=== PATIENT | female | born 1960 | race Hispanic/Latino ===

== ENCOUNTER 2017-02-01 06:08 | Day surgery (SDC) | payer MEDICARE, MEDICAID ==
[2017-01-31 15:30] VITALS: BMI 35.9
--- NOTE | 2017-02-01 07:17 | CP.SDSHP ---
Same Day Surgery H & P - History Proposed Procedure: Left foot- platlet rich plasma and amniotic stm cell injection Pre-Op Diagnosis: Left foot metatarsalgia and lateral ankle ligamentous low grade injury - Previous Medical/Surgical History Cardiac: Hypertension Pulmonary: Emphysema/COPD Pain: 5. Previous Surgical History: Left peroneal primary repair Right buninectomy, Laparoscopic procedure of abdomen, Tubual Ligation - Allergies Allergies: Allergies No Known Allergies Allergy (Verified 03/21/15 16:59) - Physical Exam Vital Signs: Vital Signs 02/01/17 02/01/17 06:31 06:36 Temperature 97.9 F Pulse Rate 70 70 Respiratory 20 Rate Blood Pressure 142/82 O2 Sat by Pulse 97 Oximetry Mental Status: Alert & Oriented x3 Neuro: WNL Heart: WNL Lungs: Other (Decreased breath sounds, no wheezing, or ronchi) - {Optional Preform as Required} Integument: WNL Ortho: Other (Left foot tenderness of 3rd digit to palpation and ROM. Laxity nof 3rd digit noted at level of MTPJ. Lateral ankle pain in inversion and stress end point dorsiflexion and plantarflexion) - Impression Impression: Pt was seen and examined in SDS. Pt NPO status was confirmed. All Pre-op testing and clearance was in the chart. Pt has exhausted all conservative treatment at this time and is opting for surgical intervention. Pt was explained procedure and post-operative course. All pt's questions were answered to satisfaction. No guarantees were made. Pt understands all risks, benefits and complications of procedure. Pt will follow-up with Dr. Sparrow. Pt. Evaluated Today:Candidate for Anesthesia & Procedure: Yes - Date & Time Date: 02/01/17 Time: 07:00 Short Stay Discharge - Short Stay Discharge Admitting Diagnosis/Reason for Visit: M79.2 R60.0 M77.52 M79.672 Disposition: HOME/ ROUTINE Referrals: Maurice Up MD [Primary Care Provider] - Jl Sparrow DPM [Staff Provider] - Follow-up: Within 1 week. Additional Instructions (Diet, Activity): Patient in good/stable condition for discharge home. Pt to resume medications per medical reconciliation. Resume regular diet. Please keep dressing clean, dry, & intact to surgical site, use plastic bag over bandage for showering, wear post op shoe at all times when ambulating, call clinic if you see signs of infection (redness, swelling, malodor), please make an appointment to see Dr. Sparrow in office within 1 week for post-op check. Progress Note/Discharge Note with Instructions: - Patient evaluated bedside in recovery s/p surgical procedure. - After surgical procedure patient in NAD - (+) Void, (+) Appetite - Capillary refill time <3s and NVSI intact. - Patient denies complaints at this time - Post operative instructions and plan of care explained to patient at length. - Pt. acknowledges understanding. - Patient stable for DC per podiatric surgery
[2017-02-01] MEDS: Lidocaine 1% Inj (20ml) ONE ×2 (08:30→08:32)
[2017-02-01] MEDS: Bupivacaine 0.5% Inj(30mL) ONE ×2 (08:30→08:32)
--- NOTE | 2017-02-01 09:08 | PCM.SURG1 ---
Surgeon's Initial Post Op Note - Surgeon's Notes Surgeon: Dr. Jl Sparrow DPM [employer] Pump Tender: Dr. Jadiel Yuen, PGY1 Type of Anesthesia: Local Anesthesia Administered By: Dr. Kyara DPM Pre-Operative Diagnosis: Left foot lateral ankle pain Operative Findings: See dictation Post-Operative Diagnosis: peroneal tendon partial ruptures and adhesions Operation Performed: Left peroneal radiofrequency ablation with amniotic biomaterial injection. Specimen/Specimens Removed: none Estimated Blood Loss: EBL {In ML}: 0 Blood Products Given: N/A Drains Used: No Drains Post-Op Condition: Good Date of Surgery/Procedure: 02/01/17 Time of Surgery/Procedure: 09:08
[2017-02-01 09:16] VITALS: BP 164/83; PULSE 88; RESP 18; TEMP 98.4; O2SAT 95
--- NOTE | 2017-02-02 19:40 | OP ---
PROCEDURE DATE: 02/01/2017 PRIMARY SURGEON: Dr. Jl Sparrow. HANDLE FINISHER: Jadiel Yuen, PGY-1. ANESTHESIA: Local block. ANESTHESIOLOGIST: None. PREOPERATIVE DIAGNOSES: Left peroneal tendon partial longitudinal ruptures with intermediate dorsal cutaneous nerve neuritis. POSTOPERATIVE DIAGNOSES: Left peroneal tendon partial longitudinal ruptures with intermediate dorsal cutaneous nerve neuritis. PROCEDURES: 1. Radiofrequency nerve ablation with thermoneurolysis of left foot. 2. Amniotic biological graft injection. INDICATIONS: The patient is a 56-year-old female with the above mentioned diagnoses. The patient has exhausted all conservative treatment options and now is in need of surgical intervention. The patient signed a consent after careful explanation of risks, benefits, complications and alternatives for the post-surgical procedure. No guarantees were neither given nor implied. PREPARATION: The patient was brought to the operating room and placed on the operating room table in a supine position. Attention was then directed to the left foot where a total of 6 mL of 0.5% Marcaine plain was injected in a local block type fashion to the surgical area. Adequate anesthesia check was performed to confirm that anesthetic had taken effect. Then the patient's left foot was then prepped and draped in the usual sterile manner and the procedure began. PROCEDURE #1: Three points were marked along the lateral course of the peroneal tendons beginning retro-malleolarly and terminating at the bifurcation of the peroneus longus and brevis tendons on the lateral aspect of the foot. Three 22-gauge radiofrequency needles were then inserted percutaneously over the marked points for the target tissue with impedance ranging from 500-600 ohms on the machine. Brilliant were used to palpate the targeted tissue and was slightly pulled back. At this time, the radiofrequency electrodes were inserted in the radiofrequency needle. Power of the radiofrequency machine was then gradually increased for the motor stimulation mode. The foot was then monitored for any signs of fasciculations of the forefoot. Once we were assured that the branch of the medial dorsal cutaneous nerve and lateral plantar nerve were identified radiofrequency unit was set to lesioning mode and lesioning of the nerve was performed for a total of 60 seconds at 90 degrees Celsius. This procedure was repeated for another 2 points along the distal course of the peroneal tendons in the same manner as noted above. PROCEDURE #2: At this time, a total of 100 mg of Amniovo Stem Cell parcipitate in 3 mL suspension, was injected along the course of the peroneal tendons beginning retro-malleolarly and terminating plantar distally, just proximal to the fifth metatarsal styloid process. The surgical site was then cleansed and dressed with 4 x 4 gauze, calf padding and Coban. POSTOPERATIVE CONDITION: The patient tolerated the anesthesia and the procedure well and was transported to the recovery room with vital signs stable and neurovascular status intact to the left foot. The patient will follow up with Dr. Sparrow on an outpatient basis. Jadiel Yuen DPM Jl Sparrow DPM cc: [id number] TT: 02/02/2017 19:39:33 trent PICHARDO
== END 2017-02-01 10:15 | disposition home or self-care (01) ==
LOC: H.OPSURG 06:08
PROVIDERS: ATTEND Podiatrist Foot & Ankle Surgery
DX: M79.2 Neuralgia and neuritis, unspecified (principal); R60.0 Localized edema; M77.52 Other enthesopathy of left foot and ankle; M79.672 Pain in left foot; I10 Essential (primary) hypertension; J44.9 Chronic obstructive pulmonary disease, unspecified
CPT/HCPCS: 64640; 82948; C1762; J1885

== ENCOUNTER 2017-04-22 15:02 | Emergency (ER) | payer MEDICARE, MEDICAID ==
[2017-04-22 15:03] VITALS: BMI 35.9
[2017-04-22 15:13] VITALS: TEMP 98.2
[2017-04-22] MEDS ORDERED: Albuterol-Ipratrop 3 mg / 0.5 (3 ml) UD INH STA (15:52)
[2017-04-22 16:02] LABS: BASO # 0.1 K/uL (0.0-0.2); EOS # 0.3 K/uL (0.0-0.7); EOS % 4.6 % (0.0-4.0); HEMATOCRIT 41.4 % (34.0-47.0); LYMPH # 2.4 K/uL (1.0-4.3); LYMPH % 42.8 % (20.0-40.0); MEAN CELL VOLUME 97.7 fl (81.0-99.0); MEAN CORPUSCULAR HEMOGLOBIN 33.1 pg (27.0-31.0); MEAN CORPUSCULAR HGB CONC 33.8 g/dL (33.0-37.0); MEAN PLATELET VOLUME 9.6 fl (7.2-11.7); MONO # 0.5 K/uL (0.0-0.8); MONO % 9.5 % (0.0-10.0); NEUT # 2.3 K/uL (1.8-7.0); NEUT % 41.1 % (50.0-75.0); NRBC % 0.2 % (0.0-0.0); RED CELL DISTRIBUTION WIDTH 14.3 % (11.5-14.5); WHITE BLOOD COUNT 5.5 K/uL (4.8-10.8)
[2017-04-22 16:18] LABS: BLOOD UREA NITROGEN 11 mg/dl (7-17); CALCIUM 9.2 mg/dL (8.4-10.2); CARBON DIOXIDE 21 mmol/L (22-30); CHLORIDE 110 mmol/L (98-107); GFR AFRICAN-AMERICAN > 60; GLUCOSE,RANDOM 106 mg/dL (65-105); POTASSIUM 4.1 MMOL/L (3.6-5.0); SODIUM 140 mmol/l (132-148)
[2017-04-22 16:51] LABS: PARTIAL THROMBOPLASTIN TIME 39.8 Seconds (25.6-37.1)
[2017-04-22] MEDS ORDERED: Iodixanol 320 MG/ML 100 ML BOTTLE IV ONE ×3 (18:08→18:38)
[2017-04-22] MEDS ORDERED: Sodium Chloride 0.9% 100 ML ONE (18:09)
[2017-04-22] MEDS ORDERED: Sodium Chloride 0.9% 50 ML IV ONE ×2 (18:27→18:39)
--- NOTE | 2017-04-22 19:27 | ED PDOC ---
HPI: SOB/CHF/COPD Time Seen by Provider: 04/22/17 15:27 Chief Complaint (Nursing): Shortness Of Breath Chief Complaint (Provider): Back Pain and Shortness of Breath History Per: Patient History/Exam Limitations: no limitations Additional Complaint(s): Caron Del Rosario, a 56 year old female, who has a past medical history of COPD, chronic back pain, arthritis and pulmonary embolism presents to the ED complaining of back pain and shortness of breath which she has been experiencing for the past couple weeks. The patient states that the pain is in both her shoulders and radiates down her back on both sides. She states that she took oxycotin for the pain with no relief. The patient states that she has chronic back pain for which she takes oxycotin. Additionally, the patient states she also has chronic shortness of breath due to COPD. She states that her shortness of breath has gotten worse over the past week. Patient states she also has a cough but that is chronic. Denies chest pain, leg swelling and fever. PMD: Dr. Charles Past Medical History Reviewed: Historical Data, Nursing Documentation, Vital Signs Vital Signs: Last Vital Signs Temp 98.2 F 04/22/17 15:11 Pulse 69 04/22/17 19:38 Resp 16 04/22/17 19:38 BP 102/50 L 04/22/17 19:38 Pulse Ox 95 04/22/17 20:33 - Medical History PMH: Anxiety, Arthritis, Asthma, Back Problems (Chronic back pain), Bronchitis, CAD, COPD (currently takin xarelto), Depression, Diabetes, Deep Vein Thrombosis , HTN, Hypercholesterolemia, Pneumonia, Pulmonary Embolism, Rheumatoid Arthritis Denies: HIV, Chronic Kidney Disease - Surgical History Surgical History: Coronary Stent (06/2013), Endoscopy, Tonsillectomy - Family History Family History: States: Stroke - Immunization History Hx Tetanus Toxoid Vaccination: No Hx Influenza Vaccination: Yes Hx Pneumococcal Vaccination: No - Home Medications Home Medications: Ambulatory Orders Medication Instructions Recorded Omeprazole 40 mg PO DAILY 01/08/15 ALPRAZolam [Xanax] 1 mg PO QID #0 tab 02/16/15 Aripiprazole [Abilify] 10 mg PO DAILY #0 tab 02/16/15 Ergocalciferol [Vitamin D] 50,000 unit PO QWK #0 sgl 02/16/15 Escitalopram [Lexapro] 20 mg PO DAILY #0 tab 02/16/15 Folic Acid 1 mg PO DAILY #0 tab 02/16/15 Furosemide [Lasix] 40 mg PO DAILY #0 tab 02/16/15 Lovastatin 10 mg PO DAILY #0 tab 02/16/15 Aspirin [Aspirin EC] 81 mg PO DAILY 03/21/15 Albuterol Sulfate [Proair Hfa] 2 puff IH Q4H PRN 07/06/15 Albuterol/Ipratropium [Duoneb 3 3 ml IH DAILY 07/06/15 mg/0.5 mg (3 ml) UD] Mometasone/Formoterol [Dulera 200 2 puff INH DAILY 07/06/15 Mcg/5 Mcg Inhaler] Montelukast [Singulair] 10 mg PO HS 07/06/15 Metformin Hydrochloride [Metformin] 1,000 mg PO DAILY 11/25/15 Topiramate [Topamax] 25 mg PO DAILY 11/25/15 Potassium Chloride [K-Dur 20 mEq 20 meq PO DAILY 12/23/15 ER Tab] traZODone [Desyrel] 200 mg PO HS 12/23/15 Topiramate [Topamax] 50 mg PO HS 09/11/16 Zolpidem Tartrate [Ambien] 10 mg PO HS 09/11/16 oxyCODONE [oxyCODONE Immediate 15 mg PO QID PRN 09/11/16 Release Tab] Morphine [Morphine Extended 30 mg PO BID #14 tabsr 09/13/16 Release Tab] Nystatin [Nystatin Oral Susp] 5 ml PO QID #480 udc 09/13/16 Rivaroxaban [Xarelto] 20 mg PO DAILY tab 09/13/16 predniSONE [predniSONE Tab] 5 mg PO DAILY #63 tab 09/13/16 Gabapentin [Neurontin] 400 mg PO TID 02/01/17 traMADol [Ultram] 50 mg PO TID PRN #12 tab 04/22/17 - Allergies Allergies/Adverse Reactions: Allergies Allergy/AdvReac Type Severity Reaction Status Date / Time No Known Allergies Allergy Verified 04/22/17 15:08 Review of Systems ROS Statement: Except As Marked, All Systems Reviewed And Found Negative Constitutional: Negative for: Fever Cardiovascular: Negative for: Chest Pain Respiratory: Positive for: Cough, Shortness of Breath Musculoskeletal: Positive for: Back Pain Physical Exam - Reviewed Nursing Documentation Reviewed: Yes Vital Signs Reviewed: Yes - Physical Exam Appears: Positive for: Non-toxic, No Acute Distress Head Exam: Positive for: ATRAUMATIC, NORMAL INSPECTION, NORMOCEPHALIC Skin: Positive for: Normal Color, Warm, Dry Eye Exam: Positive for: Normal appearance, EOMI, PERRL ENT: Positive for: Normal ENT Inspection Neck: Positive for: Normal, Painless ROM, Supple Cardiovascular/Chest: Positive for: Regular Rate, Rhythm, Chest Non Tender. Negative for: Tachycardia Respiratory: Positive for: Normal Breath Sounds. Negative for: Wheezing, Respiratory Distress Gastrointestinal/Abdominal: Positive for: Normal Exam, Soft. Negative for: Tenderness Back: Positive for: Other (Bilateral paraspinal tenderness; pain) Extremity: Positive for: Normal ROM (Pain with ROM in left side.). Negative for : Deformity, Swelling Neurologic/Psych: Positive for: Alert, Oriented, Gait - Laboratory Results Result Diagrams: 04/22/17 15:56 04/22/17 15:56 - ECG ECG: Positive for: Interpreted By Me, Viewed By Me ECG Rhythm: Positive for: Normal QRS, Normal ST Segment, Sinus Rhythm O2 Sat by Pulse Oximetry: 95 (RA) Pulse Ox Interpretation: Normal - Radiology X-Ray: Interpreted by Me, Viewed By Me X-Ray Interpretation: No Acute Disease - Progress Re-evaluation Time: 20:00 Condition: Re-examined, Improved Medical Decision Making Medical Decision Makin Initial Impression: 56 year old female presenting with dysnea and back pain Differentials: COPD, Chronic Back Pain, Arthritis, Pulmonary Embolism Initial Plan: * CT Angio Chest PE Protocol * EKG * B-type natriuretic * Basic Metabolic Panel * Troponin * CBC * PTT * Prothrombim Time * Chest X-ray * Duoneb 3mg/0.5 mg (3ml) UD 3ml INH * Solu-Medrol 125mg IVP * Toradol 30mg IVP * Peak Flow pre/Post TX .Pre/post Treatment * Reevaluation [address] CT Angiography Chest With Intravenous Contrast EXAM DATE/TIME: 04/22/2017 5:01 PM COMPARISON: CT - ANGIO CHEST PE PROTOCOL 12/27/2015 1:26:10 PM FINDINGS: Artifacts: Streak artifact degrades image quality. Motion artifact degrades image quality. Heart, aorta and Pulmonary arteries: Heart size is at the upper limits of normal. There is no pericardial effusion. There are coronary calcifications.There is no aneurysm or dissection.There are vascular calcifications. There is perfusion of the arch vessels. There are no pulmonary emboli. Lungs and pleural spaces: Trachea and main bronchi are patent.There is no pneumothorax. There is dependent atelectasis bilaterally greatest in the lower lobes. There is a 6.6 mm nodular opacity at the left base. There is more focal subsegmental atelectasis at the left base. There are no effusions. Mediastinum: The esophagus is unremarkable. There are no pathologically enlarged mediastinal nodes. There is right hilar node. Maximal AP dimension is approximately 3.4 cm, increased compared to the prior study Thyroid: Thyroid is only partially imaged. Bones/joints: Bony structures are mildly osteopenic. There has been development of a compression fracture at T9. There is now a compression fracture of T12.There are degenerative changes in the osseus structures. Soft tissues: unremarkable Upper abdomen: There are no acute abnormalities in the visualized portion of the abdomen.An IVC filter is in place. IMPRESSION: No aneurysm, dissection or pulmonary embolus; atelectasis greatest at the left base; interval development of compression fractures T9 and T12; right hilar rodrigo mass with possible increased size, infectious/inflammatory versus neoplastic Scribe Attestation Documented by Guillermina Joaquin acting as a scribe for Arthur Cuevas MD. Provider Attestation All medical record entries made by the Scribe were at my direction and personally dictated by me. I have reviewed the chart and agree that the record accurately reflects my personal performance of the history, physical exam, medical decision making, and the department course for this patient. I have also personally directed, reviewed, and agree with the discharge instructions and disposition. Disposition - Clinical Impression Clinical Impression: COPD (chronic obstructive pulmonary disease), Back pain, Thoracic compression fracture - Patient ED Disposition Is Patient to be Admitted: No Discussed With : Jemal Chauhan Doctor Will See Patient In The: Office Counseled Patient/Family Regarding: Studies Performed, Diagnosis, Need For Followup - Disposition Referrals: Jemal Chauhan MD [Staff Provider] - Disposition: Routine/Home Disposition Time: 20:27 Condition: GOOD Additional Instructions: Take your medications as instructed. Follow up with your PCP in 2-3 days. Prescriptions: traMADol [Ultram] 50 mg PO TID PRN #12 tab PRN Reason: Pain, Severe (8-10) Instructions: Vertebral Compression Fracture (ED), COPD (Chronic Obstructive Pulmonary Disease) (ED)
[2017-04-22 19:38] VITALS: BP 102/50; PULSE 69; RESP 16
--- NOTE | 2017-04-22 19:57 | CT ---
EXAM: CT Angiography Chest With Intravenous Contrast CLINICAL HISTORY: 56 years old, female; Pain; Chest pain; On breathing TECHNIQUE: Axial computed tomographic angiography images of the chest with intravenous contrast using pulmonary embolism protocol. This CT exam was performed using one or more of the following dose reduction techniques: automated exposure control, adjustment of the mA and/or kV according to patient size, and/or use of iterative reconstruction technique. MIP reconstructed images were created and reviewed. Coronal and sagittal reformatted images were created and reviewed. CONTRAST: 95 mL of visipaque administered intravenously. EXAM DATE/TIME: 04/22/2017 5:01 PM COMPARISON: CT - ANGIO CHEST PE PROTOCOL 12/27/2015 1:26:10 PM FINDINGS: Artifacts: Streak artifact degrades image quality. Motion artifact degrades image quality. Heart, aorta and Pulmonary arteries: Heart size is at the upper limits of normal. There is no pericardial effusion. There are coronary calcifications.There is no aneurysm or dissection.There are vascular calcifications. There is perfusion of the arch vessels. There are no pulmonary emboli. Lungs and pleural spaces: Trachea and main bronchi are patent.There is no pneumothorax. There is dependent atelectasis bilaterally greatest in the lower lobes. There is a 6.6 mm nodular opacity at the left base. There is more focal subsegmental atelectasis at the left base. There are no effusions. Mediastinum: The esophagus is unremarkable. There are no pathologically enlarged mediastinal nodes. There is right hilar node. Maximal AP dimension is approximately 3.4 cm, increased compared to the prior study Thyroid: Thyroid is only partially imaged. Bones/joints: Bony structures are mildly osteopenic. There has been development of a compression fracture at T9. There is now a compression fracture of T12.There are degenerative changes in the osseus structures. Soft tissues: unremarkable Upper abdomen: There are no acute abnormalities in the visualized portion of the abdomen.An IVC filter is in place. IMPRESSION: No aneurysm, dissection or pulmonary embolus; atelectasis greatest at the left base; interval development of compression fractures T9 and T12; right hilar rodrigo mass with possible increased size, infectious/inflammatory versus neoplastic CT/PET may be helpful for further evaluation
[2017-04-22 20:04] VITALS: O2SAT 95
--- NOTE | 2017-04-23 09:41 | RAD ---
HISTORY: dyspnea COMPARISON: No prior. TECHNIQUE: Chest PA and lateral FINDINGS: LUNGS: No active pulmonary disease. PLEURA: No significant pleural effusion identified. No pneumothorax apparent. CARDIOVASCULAR: Normal. OSSEOUS STRUCTURES: No significant abnormalities. VISUALIZED UPPER ABDOMEN: Normal. OTHER FINDINGS: None. IMPRESSION: No active disease.
--- NOTE | 2017-04-23 13:16 | CARD ---
APPROVED REPORT EKG Measurement Heart [id number] <Conclusion> Normal sinus rhythm with sinus arrhythmia Normal ECG
== END 2017-04-22 20:45 | disposition home or self-care (01) ==
LOC: H.ER 15:02
DX: J44.9 Chronic obstructive pulmonary disease, unspecified (principal); M48.54XA Collapsed vertebra, not elsewhere classified, thoracic region, initial encounter for fracture; E11.9 Type 2 diabetes mellitus without complications; E78.00 Pure hypercholesterolemia, unspecified; F32.9 Major depressive disorder, single episode, unspecified; F41.9 Anxiety disorder, unspecified; I10 Essential (primary) hypertension; M06.9 Rheumatoid arthritis, unspecified; Z79.01 Long term (current) use of anticoagulants; Z79.82 Long term (current) use of aspirin; Z79.84 Long term (current) use of oral hypoglycemic drugs; Z86.711 Personal history of pulmonary embolism; Z86.718 Personal history of other venous thrombosis and embolism; Z95.5 Presence of coronary angioplasty implant and graft
CPT/HCPCS: 71020; 71275; 80048; 83880; 84484; 85025; 85610; 85730; 93005; 94640; 96374; 96375; 99285; J1885; J2930; Q9967

== ENCOUNTER 2017-09-19 16:36 | Emergency (ER) | payer MEDICARE, MEDICAID ==
[2017-09-19 16:37] VITALS: BMI 35.9
[2017-09-19 16:45] VITALS: BP 120/67; PULSE 65; RESP 20; TEMP 98.2; O2SAT 98
[2017-09-19] MEDS ORDERED: Morphine 4 MG/ML VIAL ONE (17:35)
--- NOTE | 2017-09-19 17:40 | ED PDOC ---
HPI: Back Time Seen by Provider: 09/19/17 16:44 Chief Complaint (Nursing): Back Pain Chief Complaint (Provider): Back Pain History Per: Patient History/Exam Limitations: no limitations Onset/Duration Of Symptoms: Days (x3) Current Symptoms Are (Timing): Still Present Additional Complaint(s): 57 y/o female with a past medical history of hypertension, hypercholesterolemia , chronic obstructive pulomnary disorder (COPD), and chronic back pain who presents to the emergency department accompanied by nephew with a complaint of a lower back pain x2 days. Patient is unable to lay on back, or get up to use the bathroom and says pain worsens with movement. As per history from nephew, patient's back pain worsened after being in the rain outside and doing extra work on 09/16/2017. Patient states she has been using Lidocaine Cream and Biofreeze for temporary relief of symptoms. Denies any fall or heavy lifting, chest pain, shortness of breath, or incontinence. Of note, patient sees pain management doctor for chronic back pain and takes 10/ 325 mg and 30 mg of percocet. Last dose was around 5 am today, 09/19/2017. PMD: Dr. Edy Mazariegos MD Past Medical History Reviewed: Historical Data, Nursing Documentation, Vital Signs Vital Signs: Last Vital Signs Temp 98.2 F 09/19/17 16:43 Pulse 65 09/19/17 16:43 Resp 20 09/19/17 16:43 BP 120/67 09/19/17 16:43 Pulse Ox 98 09/19/17 16:43 - Medical History PMH: Anxiety, Arthritis, Asthma, Back Problems (Chronic back pain), Bronchitis, CAD, COPD (currently takin xarelto), Depression, Diabetes, Deep Vein Thrombosis , HTN, Hypercholesterolemia, Pneumonia, Pulmonary Embolism, Rheumatoid Arthritis Denies: HIV, Chronic Kidney Disease - Surgical History Surgical History: Coronary Stent (06/2013), Endoscopy, Tonsillectomy - Family History Family History: States: Stroke - Social History Current smoker - smoking cessation education provided: Yes (Heavy Smoker > 10 Cigarettes Daily) Ex-Smoker (has not smoked in the last 12 months): No Alcohol: None - Immunization History Hx Tetanus Toxoid Vaccination: No Hx Influenza Vaccination: Yes Hx Pneumococcal Vaccination: No - Home Medications Home Medications: Ambulatory Orders Medication Instructions Recorded Omeprazole 40 mg PO DAILY 01/08/15 ALPRAZolam [Xanax] 1 mg PO QID #0 tab 02/16/15 Aripiprazole [Abilify] 10 mg PO DAILY #0 tab 02/16/15 Ergocalciferol [Vitamin D] 50,000 unit PO QWK #0 sgl 02/16/15 Escitalopram [Lexapro] 20 mg PO DAILY #0 tab 02/16/15 Folic Acid 1 mg PO DAILY #0 tab 02/16/15 Furosemide [Lasix] 40 mg PO DAILY #0 tab 02/16/15 Lovastatin 10 mg PO DAILY #0 tab 02/16/15 Aspirin [Aspirin EC] 81 mg PO DAILY 03/21/15 Albuterol Sulfate [Proair Hfa] 2 puff IH Q4H PRN 07/06/15 Albuterol/Ipratropium [Duoneb 3 3 ml IH DAILY 07/06/15 mg/0.5 mg (3 ml) UD] Mometasone/Formoterol [Dulera 200 2 puff INH DAILY 07/06/15 Mcg/5 Mcg Inhaler] Montelukast [Singulair] 10 mg PO HS 07/06/15 Metformin Hydrochloride [Metformin] 1,000 mg PO DAILY 11/25/15 Topiramate [Topamax] 25 mg PO DAILY 11/25/15 Potassium Chloride [K-Dur 20 mEq 20 meq PO DAILY 12/23/15 ER Tab] traZODone [Desyrel] 200 mg PO HS 12/23/15 Topiramate [Topamax] 50 mg PO HS 09/11/16 Zolpidem Tartrate [Ambien] 10 mg PO HS 09/11/16 oxyCODONE [oxyCODONE Immediate 15 mg PO QID PRN 09/11/16 Release Tab] Morphine [Morphine Extended 30 mg PO BID #14 tabsr 09/13/16 Release Tab] Nystatin [Nystatin Oral Susp] 5 ml PO QID #480 udc 09/13/16 Rivaroxaban [Xarelto] 20 mg PO DAILY tab 09/13/16 predniSONE [predniSONE Tab] 5 mg PO DAILY #63 tab 09/13/16 Gabapentin [Neurontin] 400 mg PO TID 02/01/17 traMADol [Ultram] 50 mg PO TID PRN #12 tab 04/22/17 Ibuprofen [Motrin] 600 mg PO Q6 #20 tab 09/19/17 Oxycodone HCl/Acetaminophen 1 each PO Q4 #10 tablet 09/19/17 [Percocet 10-325 mg Tablet] - Allergies Allergies/Adverse Reactions: Allergies Allergy/AdvReac Type Severity Reaction Status Date / Time No Known Allergies Allergy Verified 04/22/17 15:08 Review of Systems ROS Statement: Except As Marked, All Systems Reviewed And Found Negative (As per HPI, otherwise negative) Constitutional: Negative for: Other (fall or heavy lifting) Cardiovascular: Negative for: Chest Pain Respiratory: Negative for: Shortness of Breath Genitourinary Female: Negative for: Incontinence Musculoskeletal: Positive for: Back Pain Physical Exam - Reviewed Nursing Documentation Reviewed: Yes Vital Signs Reviewed: Yes - Physical Exam Appears: Positive for: Non-toxic, No Acute Distress Head Exam: Positive for: ATRAUMATIC, NORMAL INSPECTION, NORMOCEPHALIC Skin: Positive for: Normal Color, Warm, Dry Back: Positive for: Other (Patient is in prone position and unable to move due to pain. Thoracic and lumbar midline and paraspinal tenderness noted. ). Negative for: Normal Inspection Neurologic/Psych: Positive for: Alert, Oriented (x3) - ECG O2 Sat by Pulse Oximetry: 98 (RA) Pulse Ox Interpretation: Normal Medical Decision Making Medical Decision Making: Time: 1726 Initial impression: Acute Chronic Back Pain Initial plan: --Toradol 30 mg IVP --Morphine 4 mg IV --Lumbar spine CT --Thoracic Spine CT --Reevaluation Time: 1836 --Throacic Spine CT FINDINGS: VERTEBRAE: There is mild anterior wedge compression deformity of the T9 vertebral body. There is wedge compression deformity of the T12 vertebral body with mild bony retropulsion. These are both unchanged in appearance when compared to the prior examination of 01/03/2017.. There is no other fracture identified. There is no lytic or blastic osseous lesion. DISCS/SPINAL CANAL/NEURAL FORAMINA: There is no significant central canal stenosis. There is flattening of the ventral aspect of the thecal sac at the T12-L1 level.. PARASPINAL SOFT TISSUES: Unremarkable. OTHER FINDINGS: Unremarkable. IMPRESSION: Old compression deformities of the T9 and T12 vertebrae with mild retropulsion of the inferior aspect of the T12 vertebra. No change from 01/03/2017. Time: 1940 --Lumbar Spine CT FINDINGS: Vertebrae: There is old compression deformity T12. There is partial destruction of the inferior endplate of T12. There is distortion of the T12-L1 disc space. There is minimal retrolisthesis of T12 on L1. L1, L2 and L3 are normal in height. L5 is normal in height. There is an old compression fracture L4. There is deformity of the L4 superior endplate. There is deformity of the L3-L4 disc with posterior and lateral disc bulging. There is mild posterior disc space narrowing L1-L2. Posterior elements are intact at all levels. Facet joints align anatomically. There degenerative facet disease greatest at L5/S1. There is calcification in the L5-S1 disc. Spinous processes align in the expected fashion. Discs/spinal canal/neural foramina: See above. Soft tissues: Psoas and paraspinous muscles are symmetric. Vasculature: There are vascular calcifications. An IVC filter is in place. IMPRESSION: Old compression fractures at T12 and L4; multilevel degenerative change Additional findings as described above. Time: 1944 --Morphine 2 mg IV Time: 2024 Upon provider reevaluation patient is feeling better, is medically stable, and requires no further treatment in the ED at this time. Patient will be discharged home with Rx for Motrin 600 mg and Percocet 10-325 mg. Counseling was provided and all questions were answered regarding diagnosis and need for follow up with primary care doctor. There is agreement to discharge plan. Return if symptoms persist or worsen. Clinical Impression: Chronic back pain Scribe Attestation: Documented by Cecelia Solorio, acting as a scribe for Mindy Goodrich PA-C Provider Scribe Attestation: All medical record entries made by the Scribe were at my direction and personally dictated by me. I have reviewed the chart and agree that the record accurately reflects my personal performance of the history, physical exam, medical decision making, and the department course for this patient. I have also personally directed, reviewed, and agree with the discharge instructions and disposition. Disposition - Clinical Impression Clinical Impression: Chronic back pain Counseled Patient/Family Regarding: Studies Performed, Diagnosis, Need For Followup, Rx Given - Disposition Disposition: Routine/Home Disposition Time: 20:25 Condition: STABLE Prescriptions: Ibuprofen [Motrin] 600 mg PO Q6 #20 tab Oxycodone HCl/Acetaminophen [Percocet 10-325 mg Tablet] 1 each PO Q4 #10 tablet Instructions: Chronic Back Pain (ED) Forms: [employer] (Bulgarian)
--- NOTE | 2017-09-19 18:39 | CT ---
PROCEDURE: CT Thoracic Spine without contrast HISTORY: severe pain COMPARISON: 01/03/2017 TECHNIQUE: Axial computed tomography images were obtained of the thoracic spine without intravenous contrast. Coronal and sagittal reformatted images were created and reviewed. Radiation dose: Total exam DLP = 1222.77 mGy-cm. This CT exam was performed using one or more of the following dose reduction techniques: Automated exposure control, adjustment of the mA and/or kV according to patient size, and/or use of iterative reconstruction technique. FINDINGS: VERTEBRAE: There is mild anterior wedge compression deformity of the T9 vertebral body. There is wedge compression deformity of the T12 vertebral body with mild bony retropulsion. These are both unchanged in appearance when compared to the prior examination of 01/03/2017.. There is no other fracture identified. There is no lytic or blastic osseous lesion. DISCS/SPINAL CANAL/NEURAL FORAMINA: There is no significant central canal stenosis. There is flattening of the ventral aspect of the thecal sac at the T12-L1 level.. PARASPINAL SOFT TISSUES: Unremarkable. OTHER FINDINGS: Unremarkable. IMPRESSION: Old compression deformities of the T9 and T12 vertebrae with mild retropulsion of the inferior aspect of the T12 vertebra. No change from 01/03/2017.
--- NOTE | 2017-09-19 19:42 | CT ---
EXAM: CT Lumbar Spine Without Intravenous Contrast EXAM DATE/TIME: 09/19/2017 5:27 PM CLINICAL HISTORY: 57 years old, female; Pain; Low back pain; Patient HX: Lower back pain x 2 days, pat unable to lay on her back, denies trauma TECHNIQUE: Axial computed tomography images of the lumbar spine without intravenous contrast. All CT scans at this facility use one or more dose reduction techniques, viz.: automated exposure control; ma/kV adjustment per patient size (including targeted exams where dose is matched to indication; i.e. head); or iterative reconstruction technique. Coronal and sagittal reformatted images were created and reviewed. COMPARISON: MR - SPINAL CANAL LUMBAR W/O CONT 2016-11-11 11:37 FINDINGS: Vertebrae: There is old compression deformity T12. There is partial destruction of the inferior endplate of T12. There is distortion of the T12-L1 disc space. There is minimal retrolisthesis of T12 on L1. L1, L2 and L3 are normal in height. L5 is normal in height. There is an old compression fracture L4. There is deformity of the L4 superior endplate. There is deformity of the L3-L4 disc with posterior and lateral disc bulging. There is mild posterior disc space narrowing L1-L2. Posterior elements are intact at all levels. Facet joints align anatomically. There degenerative facet disease greatest at L5/S1. There is calcification in the L5-S1 disc. Spinous processes align in the expected fashion. Discs/spinal canal/neural foramina: See above. Soft tissues: Psoas and paraspinous muscles are symmetric. Vasculature: There are vascular calcifications. An IVC filter is in place. IMPRESSION: Old compression fractures at T12 and L4; multilevel degenerative change Additional findings as described above.
== END 2017-09-19 20:39 | disposition home or self-care (01) ==
LOC: H.ER 16:36
DX: M54.9 Dorsalgia, unspecified (principal); G89.29 Other chronic pain; E11.9 Type 2 diabetes mellitus without complications; E78.00 Pure hypercholesterolemia, unspecified; F17.210 Nicotine dependence, cigarettes, uncomplicated; F32.9 Major depressive disorder, single episode, unspecified; I10 Essential (primary) hypertension; I25.10 Atherosclerotic heart disease of native coronary artery without angina pectoris; Z79.82 Long term (current) use of aspirin; Z79.84 Long term (current) use of oral hypoglycemic drugs; Z86.711 Personal history of pulmonary embolism; Z86.718 Personal history of other venous thrombosis and embolism; Z95.5 Presence of coronary angioplasty implant and graft
CPT/HCPCS: 72128; 72131; 96374; 96375; 99283; J1885; J2270

== ENCOUNTER 2017-11-05 15:43 | Inpatient (IN) | payer MEDICARE, MEDICAID ==
[2017-11-05 15:43] VITALS: BMI 35.9
--- NOTE | 2017-11-05 16:34 | ED PDOC ---
"HPI: Abdomen Time Seen by Provider: 11/05/17 16:08 Chief Complaint (Nursing): Abdominal Pain Chief Complaint (Provider): Abdominal pain History Per: Patient Additional Complaint(s): Tao Del Rosario, a 56 year old female, who has a past medical history of COPD, chronic back pain, arthritis and pulmonary embolism presents to the ED complaining of right sided flank pain x 3 weeks now. No Hematuria, no dysuria. no fever or chills. nuasea or vomiting. Past Medical History Reviewed: Historical Data, Nursing Documentation, Vital Signs Vital Signs: Last Vital Signs Temp 98.2 F 11/05/17 15:49 Pulse 77 11/05/17 15:49 Resp 18 11/05/17 15:49 BP 141/78 11/05/17 15:49 Pulse Ox 99 11/05/17 18:57 - Medical History PMH: Anxiety, Arthritis, Asthma, Back Problems (Chronic back pain), Bronchitis, CAD, COPD (currently takin xarelto), Depression, Diabetes, Deep Vein Thrombosis , HTN, Hypercholesterolemia, Pneumonia, Pulmonary Embolism, Rheumatoid Arthritis Denies: HIV, Chronic Kidney Disease - Surgical History Surgical History: Coronary Stent (06/2013), Endoscopy, Tonsillectomy - Family History Family History: States: Stroke - Living Arrangements Living Arrangements: With Family - Social History Current smoker - smoking cessation education provided: No Alcohol: None Drugs: Denies - Immunization History Hx Tetanus Toxoid Vaccination: No Hx Influenza Vaccination: Yes Hx Pneumococcal Vaccination: No - Home Medications Home Medications: Ambulatory Orders Medication Instructions Recorded Omeprazole 40 mg PO DAILY 01/08/15 ALPRAZolam [Xanax] 1 mg PO QID #0 tab 02/16/15 Aripiprazole [Abilify] 10 mg PO DAILY #0 tab 02/16/15 Ergocalciferol [Vitamin D] 50,000 unit PO QWK #0 sgl 02/16/15 Escitalopram [Lexapro] 20 mg PO DAILY #0 tab 02/16/15 Folic Acid 1 mg PO DAILY #0 tab 02/16/15 Furosemide [Lasix] 40 mg PO DAILY #0 tab 02/16/15 Lovastatin 10 mg PO DAILY #0 tab 02/16/15 Aspirin [Aspirin EC] 81 mg PO DAILY 03/21/15 Albuterol Sulfate [Proair Hfa] 2 puff IH Q4H PRN 07/06/15 Albuterol/Ipratropium [Duoneb 3 3 ml IH DAILY 07/06/15 mg/0.5 mg (3 ml) UD] Mometasone/Formoterol [Dulera 200 2 puff INH DAILY 07/06/15 Mcg/5 Mcg Inhaler] Montelukast [Singulair] 10 mg PO HS 07/06/15 Metformin Hydrochloride [Metformin] 1,000 mg PO DAILY 11/25/15 Topiramate [Topamax] 25 mg PO DAILY 11/25/15 Potassium Chloride [K-Dur 20 mEq 20 meq PO DAILY 12/23/15 ER Tab] traZODone [Desyrel] 200 mg PO HS 12/23/15 Topiramate [Topamax] 50 mg PO HS 09/11/16 Zolpidem Tartrate [Ambien] 10 mg PO HS 09/11/16 oxyCODONE [oxyCODONE Immediate 15 mg PO QID PRN 09/11/16 Release Tab] Morphine [Morphine Extended 30 mg PO BID #14 tabsr 09/13/16 Release Tab] Nystatin [Nystatin Oral Susp] 5 ml PO QID #480 udc 09/13/16 Rivaroxaban [Xarelto] 20 mg PO DAILY tab 09/13/16 predniSONE [predniSONE Tab] 5 mg PO DAILY #63 tab 09/13/16 Gabapentin [Neurontin] 400 mg PO TID 02/01/17 traMADol [Ultram] 50 mg PO TID PRN #12 tab 04/22/17 Ibuprofen [Motrin] 600 mg PO Q6 #20 tab 09/19/17 Oxycodone HCl/Acetaminophen 1 each PO Q4 #10 tablet 09/19/17 [Percocet 10-325 mg Tablet] - Allergies Allergies/Adverse Reactions: Allergies Allergy/AdvReac Type Severity Reaction Status Date / Time No Known Allergies Allergy Verified 04/22/17 15:08 Review of Systems ROS Statement: Except As Marked, All Systems Reviewed And Found Negative Musculoskeletal: Positive for: Back Pain (flank pain) Physical Exam - Reviewed Nursing Documentation Reviewed: Yes Vital Signs Reviewed: Yes - Physical Exam Appears: Positive for: Well, Non-toxic, No Acute Distress Head Exam: Positive for: ATRAUMATIC, NORMAL INSPECTION, NORMOCEPHALIC Skin: Positive for: Normal Color, Warm, DRY Eye Exam: Positive for: EOMI, Normal appearance, PERRL ENT: Positive for: Normal ENT Inspection Neck: Positive for: Normal, Painless ROM Cardiovascular/Chest: Positive for: Regular Rate, Rhythm Respiratory: Positive for: CNT, Normal Breath Sounds Gastrointestinal/Abdominal: Positive for: Bowel Sounds, Soft, Tenderness (right sided flank tenderness, (+) CVA). Negative for: Guarding Back: Positive for: Normal Inspection, R CVA Tenderness Extremity: Positive for: Normal ROM Neurologic/Psych: Positive for: Alert, Oriented - Laboratory Results Result Diagrams: 11/05/17 17:15 11/05/17 17:15 - ECG O2 Sat by Pulse Oximetry: 99 Medical Decision Making Medical Decision Making: IV access established and diagnostics ordered labs resulted and reviewed and demonstrated full understanding EXAM: CT Abdomen and Pelvis Without Intravenous Contrast CLINICAL HISTORY: 57 years old, female; Pain; Abdominal pain; Flank; Right; Additional info: Renal colic on right TECHNIQUE: Axial computed tomography images of the abdomen and pelvis without intravenous contrast. All CT scans at this facility use one or more dose reduction techniques, viz.: automated exposure control; ma/kV adjustment per patient size (including targeted exams where dose is matched to indication; i.e. head); or iterative reconstruction technique. Coronal and sagittal reformatted images were created and reviewed. COMPARISON: CT - ABD PELVIS PO CONTRAST ONLY 2016-03-02 12:51 FINDINGS: Lower thorax: Minimal atelectasis/scarring. ABDOMEN: Liver: Unremarkable. Gallbladder and bile ducts: No calcified stones. No ductal dilation. Pancreas: Unremarkable. No ductal dilation. Spleen: No splenomegaly. Adrenals: No mass. Kidneys and ureters: Scarring of left kidney. No renal calculi. No hydronephrosis. Stomach and bowel: Few scattered diverticula within colon. No associated inflammatory stranding. No definite mural thickening. No obstruction. Appendix: Normal caliber. No inflammation. PELVIS: Bladder: Unremarkable. No stones. Reproductive: Unremarkable as visualized. ABDOMEN and PELVIS: Intraperitoneal space: No significant fluid collection. No free air. Bones/joints: Moderate compression fractures T9, T11, T12 vertebral bodies, acute or subacute. Mild compression fracture L4 vertebral body, chronic. Soft tissues: Unremarkable. TAO DEL ROSARIO | Final Radiology Report CONFIDENTIALITY STATEMENT This report is intended only for use by the referring physician, and only in accordance with law. If you received this in error, call [phone]. Page 2 of 2 Vasculature: Moderate atherosclerotic disease. No aneurysm. IVC filter. Lymph nodes: No pathologically enlarged lymph nodes. IMPRESSION: 1. No definite CT evidence of urolithiasis. 2. Incidental/non-acute findings are described above. Results discussed with Pt who demonstrated full understanding. Pt reports that she is followed by pain management Dr. Damon and is also being followed by spinal specialist, Dr. Guardado. Pt reports she has appointments for both in the next week. Pt reports increased pain after CT scan. Given 4 mg Morphine IV. Case endorsed to ELIJAH Georges at 1999 pending re-eval. Disposition - Clinical Impression Clinical Impression: Back pain - Patient ED Disposition Is Patient to be Admitted: Transfer of Care - Disposition Disposition: Transfer of Care Disposition Time: 19:37 Condition: STABLE Forms: [employer] (Japanese) - POA Present On Arrival: None"
[2017-11-05 18:07] LABS: BASO # 0.1 K/uL (0.0-0.2); BASO % 1.3 % (0.0-2.0); EOS # 0.2 K/uL (0.0-0.7); EOS % 2.4 % (0.0-4.0); HEMOGLOBIN 15.1 g/dL (12.0-16.0); LYMPH # 2.4 K/uL (1.0-4.3); LYMPH % 30.8 % (20.0-40.0); MEAN CELL VOLUME 92.4 fl (81.0-99.0); MEAN CORPUSCULAR HEMOGLOBIN 30.6 pg (27.0-31.0); MEAN CORPUSCULAR HGB CONC 33.2 g/dL (33.0-37.0); MEAN PLATELET VOLUME 9.7 fl (7.2-11.7); MONO # 0.6 K/uL (0.0-0.8); MONO % 7.9 % (0.0-10.0); NEUT # 4.5 K/uL (1.8-7.0); NEUT % 57.6 % (50.0-75.0); NRBC % 0.2 % (0.0-0.0); RBC 4.93 Mil/uL (3.80-5.20); RED CELL DISTRIBUTION WIDTH 14.6 % (11.5-14.5); WHITE BLOOD COUNT 7.8 K/uL (4.8-10.8)
[2017-11-05 18:16] LABS: ALB/GLOB RATIO 1.1 (1.0-2.1); ALBUMIN 4.3 g/dL (3.5-5.0); ALT/SGPT 24 U/L (9-52); AST/SGOT 44 U/L (14-36); BLOOD UREA NITROGEN 9 mg/dl (7-17); CALCIUM 9.6 mg/dL (8.4-10.2); GFR AFRICAN-AMERICAN > 60; GFR NON-AFRICAN AMERICAN > 60
[2017-11-05 18:25] LABS: SQUAMOUS EPITHIAL 2 /hpf (0-5); URINE BACTERIA RARE (<OCC); URINE BILIRUBIN NEGATIVE (NEGATIVE); URINE BLOOD NEGATIVE (NEGATIVE); URINE CLARITY CLEAR (Clear); URINE COLOR YELLOW (YELLOW); URINE GLUCOSE (UA) NEG (Normal); URINE LEUKOCYTE ESTERASE NEG Leu/uL (Negative); URINE NITRATE NEGATIVE (NEGATIVE); URINE PROTEIN NEGATIVE (NEGATIVE); URINE UROBILINOGEN 0.2-1.0 mg/dL (0.2-1.0)
--- NOTE | 2017-11-05 18:50 | CT ---
EXAM: CT Abdomen and Pelvis Without Intravenous Contrast CLINICAL HISTORY: 57 years old, female; Pain; Abdominal pain; Flank; Right; Additional info: Renal colic on right TECHNIQUE: Axial computed tomography images of the abdomen and pelvis without intravenous contrast. All CT scans at this facility use one or more dose reduction techniques, viz.: automated exposure control; ma/kV adjustment per patient size (including targeted exams where dose is matched to indication; i.e. head); or iterative reconstruction technique. Coronal and sagittal reformatted images were created and reviewed. COMPARISON: CT - ABD PELVIS PO CONTRAST ONLY 2016-03-02 12:51 FINDINGS: Lower thorax: Minimal atelectasis/scarring. ABDOMEN: Liver: Unremarkable. Gallbladder and bile ducts: No calcified stones. No ductal dilation. Pancreas: Unremarkable. No ductal dilation. Spleen: No splenomegaly. Adrenals: No mass. Kidneys and ureters: Scarring of left kidney. No renal calculi. No hydronephrosis. Stomach and bowel: Few scattered diverticula within colon. No associated inflammatory stranding. No definite mural thickening. No obstruction. Appendix: Normal caliber. No inflammation. PELVIS: Bladder: Unremarkable. No stones. Reproductive: Unremarkable as visualized. ABDOMEN and PELVIS: Intraperitoneal space: No significant fluid collection. No free air. Bones/joints: Moderate compression fractures T9, T11, T12 vertebral bodies, acute or subacute. Mild compression fracture L4 vertebral body, chronic. Soft tissues: Unremarkable. Vasculature: Moderate atherosclerotic disease. No aneurysm. IVC filter. Lymph nodes: No pathologically enlarged lymph nodes. IMPRESSION: 1. No definite CT evidence of urolithiasis. 2. Incidental/non-acute findings are described above.
--- NOTE | 2017-11-05 21:28 | CP.PCM.HP ---
History of Present Illness - History of Present Illness History of Present Illness: 57 yr old F presented to ED with complaint of worsening chronic mid back pain and right flank pain x 3 weeks. PMHx includes DVT, Pulmonary embolism, IVC filter, HTN, COPD, HLD, PVD, chronic back pain s/p multiple compression fractures of thoracic spine, prediabetes, tobacco abuse and obesity. Mid-back pain is 6/10, radiates to right flank, alleviated by medication (oxycodone), worsened by certain movements. Denies hematuria, dysuria, chest pain, SOB, weakness, dizziness, urinary or fecal incontinence. At baseline patient uses a walker or a cane to ambulate. Patient reports she had recent imaging on 11/03/17 and has to followup with her orthopedic spine surgeon. PMD: Dr. Gibbons Specialists: Edy Jacome-orthopedic spine surgeon [phone]; Thiago Rosario-pain management; Dr. Weber-senior staff specialized employment, Dr. Chauhan- differential tester; Dr. Tejeda-neurologist PMHx:DVT, Pulmonary embolism, IVC filter, HTN, COPD, HLD, PVD, chronic back pain s/p multiple compression fractures of thoracic spine, prediabetes, tobacco abuse and obesity SurgHx: b/l foot surgery, left ankle fracture repaired, right foot fracture repair (screws in place), BTL, FMHx: mother at 73 from stroke, Father at 49 from complications of multiple myeloma, sister at 59 from breast cancer, rest of siblings are healthy SocHx: current tobacco abuse-42 pack years, denies Etoh or drugs, lives alone, retired, has home health aide 5 days per week/2-3 hrs daily Medications: Xanax 1mg PO QID, ASA 81mg PO QD, Lipitor 40mg PO QHS, Vit D 50, 000 unit PO weekly, Escitalopram 20mg PO QD, Folic Acid 1 mg PO QD, Gabapentin 400mg PO TID, Magnesoum Oxide 500mg PO QD, Metformin 1,000 mg PO QD, Omeprazole 40mg PO QD, Oxycodine 15mg PO QID PRN pain, K-Dur 20 meq PO QD, Xarelto 20mg PO QD, Topiramate 25mg PO QHS, Trazodone 200mg PO QHS, Zolpidem Tartrate 10mg PO QHS Allergies: NKDA ED course: vital signs wnl, O2 sat 100% on room air -CBC wnl, CMP: K+ 5.9, AST 44, random glucose 110 mg/dL, rest of CMP wnl, UA negative for infection -Abd/Pelvis CT: no definite CT evidence of urolithiasis, multiple compression fractures of throacic and lumbar spine -Radiology Dr. Ibrahim informed ER physician and PA of Thoracic Spine CT findings from 11/03/17: New extensive central compression deformity of T12 vertebral body with possible complete fracture. Gas seen within intervertebral disc is likely vacuum disc phenomenom associated with compression fracture, possibility of osteomyelitis must be considered (see full report) Present on Admission - Present on Admission Any Indicators Present on Admission: Yes History of DVT/PE: Yes History of Uncontrolled Diabetes: No Urinary Catheter: No Decubitus Ulcer Present: No History Surgical Site Infection Following: None Review of Systems - Constitutional Constitutional: absent: Chills, Night Sweats, Weight Loss - EENT Eyes: absent: Blurred Vision, Change in Vision Ears: absent: Ear Discharge, Ear Pain Nose/Mouth/Throat: absent: Nasal Congestion, Nasal Discharge - Cardiovascular Cardiovascular: absent: Chest Pain, Dyspnea - Respiratory Respiratory: Cough (chronic wet ). absent: Hemoptysis - Gastrointestinal Gastrointestinal: absent: Abdominal Pain, Nausea, Vomiting - Genitourinary Genitourinary: absent: Difficulty Urinating, Dysuria - Musculoskeletal Musculoskeletal: Back Pain (mid back radiating to right flank). absent: Neck Pain, Numbness - Neurological Neurological: Abnormal Gait (uses walker or cane). absent: Confusion - Psychiatric Psychiatric: absent: Anxiety - Endocrine Endocrine: absent: Palpitations, Polydipsia, Polyphagia - Hematologic/Lymphatic Hematologic: absent: Easy Bleeding, Easy Bruising Past Patient History - Infectious Disease Hx of Infectious Diseases: None - Tetanus Immunizations Tetanus Immunization: Unknown - Past Medical History & Family History Past Medical History?: Yes - Past Social History Alcohol: None Drugs: Denies - CARDIAC Hx Hypercholesterolemia: Yes Hx Hypertension: Yes - PULMONARY Hx Asthma: Yes Hx Bronchitis: Yes Hx Chronic Obstructive Pulmonary Disease (COPD): Yes (currently takin xarelto) Hx Pneumonia: Yes Hx Pulmonary Embolism: Yes - NEUROLOGICAL Hx Neurological Disorder: No - HEENT Hx HEENT Problems: No Other/Comment: wears glasses - RENAL Hx Chronic Kidney Disease: No - ENDOCRINE/METABOLIC Hx Endocrine Disorders: Yes Hx Diabetes Mellitus Type 2: Yes - HEMATOLOGICAL/ONCOLOGICAL Hx Human Immunodeficiency Virus (HIV): No - INTEGUMENTARY Hx Dermatological Problems: No - MUSCULOSKELETAL/RHEUMATOLOGICAL Hx Arthritis: Yes Hx Rheumatoid Arthritis: Yes - GASTROINTESTINAL Hx Gastrointestinal Disorders: No Hx Ulcer: Yes Other/Comment: HX GI BLEED - GENITOURINARY/GYNECOLOGICAL Hx Genitourinary Disorders: No Hx Incontinence: Yes - PSYCHIATRIC Hx Anxiety: Yes Hx Depression: Yes - SURGICAL HISTORY Hx Coronary Stent: Yes (06/2013) Hx Tonsillectomy: Yes - ANESTHESIA Hx Anesthesia: Yes Hx Anesthesia Reactions: Yes (difficult to wake up) Hx Malignant Hyperthermia: No Meds Allergies/Adverse Reactions: Allergies Allergy/AdvReac Type Severity Reaction Status Date / Time No Known Allergies Allergy Verified 04/22/17 15:08 Physical Exam - Constitutional Appears: No Acute Distress (obese, strong tobacco odor) - Head Exam Head Exam: ATRAUMATIC, NORMOCEPHALIC - Eye Exam Eye Exam: EOMI, PERRL - ENT Exam ENT Exam: Mucous Membranes Moist - Neck Exam Neck exam: Positive for: Full Rom. Negative for: Lymphadenopathy - Respiratory Exam Respiratory Exam: Clear to Auscultation Bilateral, NORMAL BREATHING PATTERN. absent: Rales, Rhonchi, Wheezes - Cardiovascular Exam Cardiovascular Exam: REGULAR RHYTHM, +S1, +S2 - GI/Abdominal Exam GI & Abdominal Exam: Normal Bowel Sounds, Soft (obese). absent: Distended - Extremities Exam Extremities exam: Positive for: full ROM. Negative for: calf tenderness, pedal edema - Back Exam Back exam: tenderness (mild tenderness to palpation along thoracic spine). absent: CVA tenderness (L), CVA tenderness (R) - Neurological Exam Neurological exam: Alert, CN II-XII Intact, Oriented x3 - Psychiatric Exam Psychiatric exam: Normal Affect, Normal Mood - Skin Skin Exam: Dry, Normal Color, Warm Results - Vital Signs Recent Vital Signs: Last Vital Signs Temp 98.2 F 11/05/17 15:49 Pulse 77 11/05/17 15:49 Resp 18 11/05/17 15:49 BP 141/78 11/05/17 15:49 Pulse Ox 99 11/05/17 19:38 - Labs Result Diagrams: 11/05/17 17:15 11/05/17 17:15 Labs: Laboratory Results - last 24 hr 11/05/17 11/05/17 11/05/17 17:15 17:15 17:24 WBC 7.8 RBC 4.93 Hgb 15.1 Hct 45.5 MCV 92.4 MCH 30.6 MCHC 33.2 RDW 14.6 H Plt Count 183 MPV 9.7 Neut % (Auto) 57.6 Lymph % (Auto) 30.8 Marion % (Auto) 7.9 Eos % (Auto) 2.4 Baso % (Auto) 1.3 Neut # (Auto) 4.5 Lymph # (Auto) 2.4 Marion # (Auto) 0.6 Eos # (Auto) 0.2 Baso # (Auto) 0.1 Sodium 137 Potassium 5.9 H Chloride 100 Carbon Dioxide 27 Anion Gap 16 BUN 9 Creatinine 0.8 Est GFR ( Amer) > 60 Est GFR (Non-Af Amer) > 60 Random Glucose 110 H Calcium 9.6 Total Bilirubin 1.2 AST 44 H ALT 24 Alkaline Phosphatase 141 H Total Protein 8.4 H Albumin 4.3 Globulin 4.0 H Albumin/Globulin Ratio 1.1 Urine Color Yellow Urine Clarity Clear Urine pH 7.0 Ur Specific Marion 1.009 Urine Protein Negative Urine Glucose (UA) Neg Urine Ketones Negative Urine Blood Negative Urine Nitrate Negative Urine Bilirubin Negative Urine Urobilinogen 0.2-1.0 Ur Leukocyte Esterase Neg Urine RBC (Auto) < 1 Urine Microscopic WBC < 1 Ur Squamous Epith Cells 2 Urine Bacteria Rare Assessment & Plan - Assessment and Plan (Free Text) Assessment: 57 yr old F admitted for worsening acute on chronic back pain with Thoracic CT findings of new extensive central compression deformity of T12 vertebral body with possible complete fracture and/or osteomyelitis. 1. Severe central compression T12 with possible complete fracture, possible osteomyelitis -no leukocytosis, moderate back pain -admit to med/surg -no weight bearing -pain management -will contact pt's Orthopedic Spine Surgeon-Dr. Carrasco; consider transfer or management by on-call neurosurgery -consider gadolinium enhanced Thoracic MRI -consider ID for possible osteomyelitis 2. Hyperkalemia -K+ 5.9 on hemolyzed blood sample in ED -patient refused repeat BMP -hold home med K-Dur 20mEq -f/u next day BMP 3. Hypertension -chronic, controlled -heart healthy diet -continue ASA, Lipitor 4. COPD -chronic, controlled 5. DVT prophylaxis -patient on Xarelto for hx of DVT and PE - Date & Time Date: 11/06/17 Time: 21:28
[2017-11-06] MEDS ORDERED: Ergocalciferol 50,000 Intl Units Cap PO SCH (00:15)
[2017-11-06] MEDS: Oxycodone/Acetaminophen 5/325 mg Tab PO PRN ×3 (02:15→21:50)
[2017-11-06 06:52] LABS: BLOOD UREA NITROGEN 11 mg/dl (7-17); CALCIUM 9.1 mg/dL (8.4-10.2); GFR AFRICAN-AMERICAN > 60; GFR NON-AFRICAN AMERICAN > 60
--- NOTE | 2017-11-06 07:34 | CP.PCM.PN ---
<Danny Rodriguez - Last Filed: 11/06/17 14:23> Subjective - Date & Time of Evaluation Date of Evaluation: 11/06/17 Time of Evaluation: 07:10 - Subjective Subjective: The patient was seen and examined this morning bedside. There are no acute events overnight. The patient is laying in bed with discomfort due to chronic back pain. The patient has no other complaints. The patient's ortho-spine surgeon has been contacted. Objective - Vital Signs/Intake and Output Vital Signs (last 24 hours): Temp Pulse Resp BP Pulse Ox 98.5 F 58 L 20 136/69 94 L 11/05/17 22:50 11/05/17 22:50 11/05/17 22:50 11/05/17 22:50 11/05/17 22:50 - Medications Medications: Current Medications Alprazolam (Xanax) 1 mg PO QID [facility] Last Admin: 11/06/17 02:20 Dose: 1 mg Aspirin (Ecotrin) 81 mg PO DAILY [facility] Atorvastatin Calcium (Lipitor) 40 mg PO HS [facility] Last Admin: 11/06/17 00:55 Dose: Not Given Ergocalciferol (Drisdol 50,000 Intl Units Cap) 1 cap PO QWK [facility] Escitalopram Oxalate (Lexapro) 20 mg PO DAILY [facility] Folic Acid (Folic Acid) 1 mg PO DAILY [facility] Gabapentin (Neurontin) 400 mg PO TID [facility] Magnesium Oxide (Mag-Ox) 400 mg PO DAILY [facility] Oxycodone/Acetaminophen (Percocet 5/325 Mg Tab) 1 tab PO Q4 PRN PRN Reason: Pain, moderate (4-7) Stop: 11/08/17 22:05 Oxycodone/Acetaminophen (Percocet 5/325 Mg Tab) 2 tab PO Q6 PRN PRN Reason: Pain, severe (8-10) Stop: 11/08/17 22:06 Last Admin: 11/06/17 02:15 Dose: 2 tab Pantoprazole Sodium (Protonix Ec Tab) 80 mg PO DAILY [facility] Rivaroxaban (Xarelto) 20 mg PO DAILY [facility] PRN Reason: Protocol Topiramate (Topamax) 25 mg PO HS [facility] Last Admin: 11/06/17 00:56 Dose: Not Given Trazodone HCl (Desyrel) 200 mg PO HS [facility] - Labs Labs: 11/05/17 17:15 11/06/17 05:40 - Constitutional Appears: No Acute Distress - Head Exam Head Exam: ATRAUMATIC, NORMAL INSPECTION, NORMOCEPHALIC - Eye Exam Eye Exam: Normal appearance - ENT Exam ENT Exam: Mucous Membranes Moist - Neck Exam Neck Exam: Full ROM. absent: Tenderness - Respiratory Exam Respiratory Exam: Clear to Ausculation Bilateral, NORMAL BREATHING PATTERN. absent: Rales, Rhonchi, Wheezes, Respiratory Distress - Cardiovascular Exam Cardiovascular Exam: REGULAR RHYTHM. absent: Tachycardia - GI/Abdominal Exam GI & Abdominal Exam: Soft, Normal Bowel Sounds. absent: Distended, Tenderness - Extremities Exam Extremities Exam: Normal Inspection. absent: Calf Tenderness, Pedal Edema, Tenderness - Neurological Exam Neurological Exam: Alert, Awake, Oriented x3 - Skin Skin Exam: Dry, Intact, Normal Color, Warm Assessment and Plan - Assessment and Plan (Free Text) Assessment: 57 y/o woman w/ pmh of COPD, chronic back pain (followed by pain management), PE , and HTN admitted for worsening acute on chronic back pain with Thoracic CT findings of new extensive central compression deformity of T12 vertebral body with possible complete fracture and/or osteomyelitis. Plan: Severe central compression T12 with possible complete fracture, possible osteomyelitis - no leukocytosis, moderate back pain - no weight bearing - CT abd and pelvis w/o contrast: moderate compression fractures of T9, T11, T12 vertebral bodies; chronic mild compression fracture L4 vertebral body - pain management: percocet 1 tab PO Q4 prn for moderate pain, 2 tabs PO Q6 prn for severe pain - contacted ortho-spine surgeon, Dr. Carrasco - consider gadolinium enhanced Thoracic MRI - Infectious disease consulted, Dr George Hyperkalemia - K+ 5.9 on hemolyzed blood sample in ED - patient refused repeat BMP - hold home med K-Dur 20mEq - f/u next day BMP Hypertension - chronic, controlled - heart healthy diet - continue ASA, Lipitor COPD - chronic, controlled Hx of PE - IVC filter in place - on Xarelto DVT prophylaxis - patient on Xarelto for hx of DVT and PE <Maurice Up - Last Filed: 11/08/17 06:53> Objective - Vital Signs/Intake and Output Vital Signs (last 24 hours): Temp Pulse Resp BP Pulse Ox 97.8 F 61 18 105/63 99 11/07/17 08:28 11/07/17 08:28 11/07/17 08:28 11/07/17 08:28 11/07/17 08:28 Intake and Output: 11/07/17 11/07/17 06:59 18:59 Intake Total 40 Balance 40 - Medications Medications: Current Medications Alprazolam (Xanax) 1 mg PO BID PRN PRN Reason: Anxiety Last Admin: 11/07/17 01:44 Dose: 1 mg Aspirin (Ecotrin) 81 mg PO DAILY [facility] Last Admin: 11/07/17 09:19 Dose: 81 mg Atorvastatin Calcium (Lipitor) 40 mg PO HS [facility] Last Admin: 11/06/17 21:47 Dose: 40 mg Ergocalciferol (Drisdol 50,000 Intl Units Cap) 1 cap PO QWK [facility] Escitalopram Oxalate (Lexapro) 20 mg PO DAILY [facility] Last Admin: 11/07/17 09:19 Dose: 20 mg Folic Acid (Folic Acid) 1 mg PO DAILY [facility] Last Admin: 11/07/17 09:19 Dose: 1 mg Gabapentin (Neurontin) 400 mg PO TID [facility] Last Admin: 11/07/17 09:20 Dose: 400 mg Magnesium Oxide (Mag-Ox) 400 mg PO DAILY [facility] Last Admin: 11/07/17 09:19 Dose: 400 mg Oxycodone/Acetaminophen (Percocet 5/325 Mg Tab) 1 tab PO Q4 PRN PRN Reason: Pain, moderate (4-7) Stop: 11/08/17 22:05 Last Admin: 11/07/17 09:19 Dose: 1 tab Oxycodone/Acetaminophen (Percocet 5/325 Mg Tab) 2 tab PO Q6 PRN PRN Reason: Pain, severe (8-10) Stop: 11/08/17 22:06 Last Admin: 11/06/17 07:51 Dose: 2 tab Pantoprazole Sodium (Protonix Ec Tab) 40 mg PO DAILY [facility] Last Admin: 11/07/17 09:20 Dose: 40 mg Potassium Chloride (K-Dur 20 Meq Er Tab) 20 meq PO DAILY [facility] Rivaroxaban (Xarelto) 20 mg PO DAILY [facility] PRN Reason: Protocol Last Admin: 11/07/17 09:20 Dose: 20 mg Topiramate (Topamax) 25 mg PO HS [facility] Last Admin: 11/06/17 21:46 Dose: 25 mg Trazodone HCl (Desyrel) 200 mg PO HS [facility] Last Admin: 11/06/17 21:46 Dose: 200 mg - Labs Labs: 11/07/17 05:30 11/07/17 05:30 Attending/Attestation - Attestation I have personally seen and examined this patient.: Yes I have fully participated in the care of the patient.: Yes I have reviewed all pertinent clinical information, including history, physical exam and plan: Yes
[2017-11-06] MEDS ORDERED: Pantoprazole 40 mg EC Tab PO SCH (09:00)
[2017-11-06] MEDS: Magnesium Oxide 400 mg Tab UD PO SCH (09:32)
[2017-11-07 02:07] VITALS: RESP 18
[2017-11-07 06:24] LABS: BASO # 0.1 K/uL (0.0-0.2); BASO % 2.4 % (0.0-2.0); EOS # 0.3 K/uL (0.0-0.7); EOS % 5.2 % (0.0-4.0); HEMOGLOBIN 13.9 g/dL (12.0-16.0); LYMPH # 2.2 K/uL (1.0-4.3); LYMPH % 45.8 % (20.0-40.0); MEAN CELL VOLUME 93.1 fl (81.0-99.0); MEAN CORPUSCULAR HEMOGLOBIN 30.5 pg (27.0-31.0); MEAN CORPUSCULAR HGB CONC 32.7 g/dL (33.0-37.0); MEAN PLATELET VOLUME 9.5 fl (7.2-11.7); MONO # 0.5 K/uL (0.0-0.8); MONO % 10.5 % (0.0-10.0); NEUT # 1.8 K/uL (1.8-7.0); NEUT % 36.1 % (50.0-75.0); NRBC % 0.1 % (0.0-0.0); RBC 4.56 Mil/uL (3.80-5.20); RED CELL DISTRIBUTION WIDTH 14.5 % (11.5-14.5); WHITE BLOOD COUNT 4.9 K/uL (4.8-10.8)
[2017-11-07 06:44] LABS: ALB/GLOB RATIO 1.1 (1.0-2.1); ALBUMIN 3.4 g/dL (3.5-5.0); ALT/SGPT 34 U/L (9-52); AST/SGOT 18 U/L (14-36); BLOOD UREA NITROGEN 11 mg/dl (7-17); CALCIUM 8.9 mg/dL (8.4-10.2); GFR AFRICAN-AMERICAN > 60; GFR NON-AFRICAN AMERICAN > 60
--- NOTE | 2017-11-07 06:49 | CP.PCM.PN ---
Subjective - Date & Time of Evaluation Date of Evaluation: 11/07/17 Time of Evaluation: 06:49 - Subjective Subjective: The patient was seen and examined this morning bedside. There are no acute events overnight. The patient is laying in bed with discomfort due to chronic back pain. The patient has no other complaints. The patient was seen by ID. Objective - Vital Signs/Intake and Output Vital Signs (last 24 hours): Temp Pulse Resp BP Pulse Ox 97.5 F L 50 L 18 127/68 95 11/07/17 02:00 11/07/17 02:00 11/07/17 02:00 11/07/17 02:00 11/07/17 02:00 Intake and Output: 11/06/17 11/07/17 18:59 06:59 Intake Total 40 Balance 40 - Medications Medications: Current Medications Alprazolam (Xanax) 1 mg PO BID PRN PRN Reason: Anxiety Last Admin: 11/07/17 01:44 Dose: 1 mg Aspirin (Ecotrin) 81 mg PO DAILY [facility] Last Admin: 11/06/17 09:31 Dose: 81 mg Atorvastatin Calcium (Lipitor) 40 mg PO HS [facility] Last Admin: 11/06/17 21:47 Dose: 40 mg Ergocalciferol (Drisdol 50,000 Intl Units Cap) 1 cap PO QWK [facility] Escitalopram Oxalate (Lexapro) 20 mg PO DAILY [facility] Last Admin: 11/06/17 09:32 Dose: 20 mg Folic Acid (Folic Acid) 1 mg PO DAILY [facility] Last Admin: 11/06/17 09:32 Dose: 1 mg Gabapentin (Neurontin) 400 mg PO TID [facility] Last Admin: 11/06/17 19:01 Dose: 400 mg Magnesium Oxide (Mag-Ox) 400 mg PO DAILY [facility] Last Admin: 11/06/17 09:32 Dose: 400 mg Oxycodone/Acetaminophen (Percocet 5/325 Mg Tab) 1 tab PO Q4 PRN PRN Reason: Pain, moderate (4-7) Stop: 11/08/17 22:05 Last Admin: 11/06/17 21:50 Dose: 1 tab Oxycodone/Acetaminophen (Percocet 5/325 Mg Tab) 2 tab PO Q6 PRN PRN Reason: Pain, severe (8-10) Stop: 11/08/17 22:06 Last Admin: 11/06/17 07:51 Dose: 2 tab Pantoprazole Sodium (Protonix Ec Tab) 40 mg PO DAILY [facility] Rivaroxaban (Xarelto) 20 mg PO DAILY [facility] PRN Reason: Protocol Last Admin: 11/06/17 09:33 Dose: 20 mg Topiramate (Topamax) 25 mg PO HS [facility] Last Admin: 11/06/17 21:46 Dose: 25 mg Trazodone HCl (Desyrel) 200 mg PO HS [facility] Last Admin: 11/06/17 21:46 Dose: 200 mg - Labs Labs: 11/07/17 05:30 11/07/17 05:30 - Constitutional Appears: No Acute Distress - Head Exam Head Exam: ATRAUMATIC, NORMAL INSPECTION, NORMOCEPHALIC - Eye Exam Eye Exam: Normal appearance - ENT Exam ENT Exam: Mucous Membranes Moist - Respiratory Exam Respiratory Exam: Clear to Ausculation Bilateral, NORMAL BREATHING PATTERN. absent: Decreased Breath Sounds, Rales, Rhonchi, Wheezes, Respiratory Distress - Cardiovascular Exam Cardiovascular Exam: REGULAR RHYTHM. absent: Tachycardia - GI/Abdominal Exam GI & Abdominal Exam: Soft, Normal Bowel Sounds. absent: Distended, Tenderness - Extremities Exam Extremities Exam: Normal Inspection. absent: Calf Tenderness, Pedal Edema, Tenderness - Back Exam Back Exam: muscle spasm, vertebral tenderness. absent: rash noted - Neurological Exam Neurological Exam: Alert, Awake, Oriented x3 - Skin Skin Exam: Dry, Intact, Normal Color, Warm Assessment and Plan - Assessment and Plan (Free Text) Assessment: 57 y/o woman w/ pmh of COPD, chronic back pain (followed by pain management), PE , and HTN admitted for worsening acute on chronic back pain with Thoracic CT findings of new extensive central compression deformity of T12 vertebral body with possible complete fracture and/or osteomyelitis. Plan: Severe central compression T12 with possible complete fracture, possible osteomyelitis - no leukocytosis, moderate back pain - no weight bearing - CT abd and pelvis w/o contrast: moderate compression fractures of T9, T11, T12 vertebral bodies; chronic mild compression fracture L4 vertebral body - pain management: percocet 1 tab PO Q4 prn for moderate pain, 2 tabs PO Q6 prn for severe pain - contacted ortho-spine surgeon, Dr. Carrasco - consider gadolinium enhanced Thoracic MRI - Infectious disease consulted, Dr George, recommendations appreciated: f/u labs, no antibiotics at this time - ortho-spine surgeon consulted, Dr. Edy Carrasco - Anesthesia consulted for pain management Hyperkalemia - resolved - K+ 5.9 on hemolyzed blood sample in ED - K+ 3.9 this morning - f/u next day BMP Hypertension - chronic, controlled - heart healthy diet - continue ASA, Lipitor COPD - chronic, controlled Hx of PE - IVC filter in place - on Xarelto DVT prophylaxis - patient on Xarelto 20 mg PO daily for hx of DVT and PE Dispo: After patient is seen by PT, patient is able to be discharged home, patient has appointment w/ Dr. Carrasco MondayNovember 10 @ 14:00
--- NOTE | 2017-11-07 08:24 | CON ---
DATE: INFECTIOUS DISEASE CONSULTATION HISTORY OF PRESENT ILLNESS: The patient is a 57-year-old obese female who was admitted after being seen in the Emergency Room with complaint of increasing mid back pain and right flank pain of 3 weeks. The patient apparently was seen by her physicians, one being Dr. Up and another she was sent to an Orthopedist Dr. Simon, who ordered the CT of the thoracic spine. PAST MEDICAL HISTORY: Includes DVT and PE. She has an IVC filter, hypertension, COPD, peripheral vascular disease and chronic back pain with multiple compression fractures of the thoracic spine. The patient also admits to tobacco use and she is presently taking oxycodone for her back pain, which radiates to the right flank. She does use a walker or cane to ambulate. The patient is alert, cooperative and oriented when I examine her. She denies any history of fever or chills. Her main complaint is that of back pain and initially with question of renal colic, until the thoracic spine x-ray was evaluated and it shows that there was extensive central compression deformity of T12 vertebral body with possible complete fracture. Gas seen within intervertebral disk is likely vacuum disc phenomenon associated with compression fracture, but the possibility of osteomyelitis must be considered. PHYSICAL EXAMINATION GENERAL: She is alert, cooperative and oriented to time and place. HEENT: Within normal limits. hemorrhage is noted. NECK: Supple. LUNGS: Bilaterally, there is some scattered wheezing. HEART: Bradycardiac. Heart rate on EKG was 50. ABDOMEN: Soft, but with right lower quadrant and right CVA tenderness. Unable to touch the patient's mid thoracic lumbar spine without her responding with pain, also has pain radiating to actually both hips. Again, I am unable to touch her hips and sciatic area without her having yelping in pain. LABORATORY DATA: There are obviously no microbiology results. No cultures as yet. Blood culture so far is negative. Respiratory laure is negative. CBC 7.8, hemoglobin 15, platelets 183 and differential essentially within normal limits. Chemistry: GFR is greater than 60 and creatinine is 0.9. Of note, her alkaline phosphatase is minimally elevated at 141 as is her AST of 44. ASSESSMENT: At this point in time, her multiple disease processes are noted as above. Would rule out osteomyelitis or diskitis with the T12 fracture, which apparently is almost complete. Would consider treating this patient empirically for osteomyelitis, but would feel first she should be evaluated by the back Surgeon and either should have a gadolinium, MRI as suggested or a biopsy done either by the Surgeon or Interventional Radiologist in which we could possibly get some material for culture. At this moment, I will hold off any antibiotic treatment. Teddy George MD
[2017-11-07 08:28] VITALS: BP 105/63; PULSE 61; TEMP 97.8; O2SAT 99
[2017-11-07] MEDS ORDERED: Potassium Chloride 20 mEq ER Tab PO SCH (09:00)
[2017-11-07] MEDS ORDERED: Pantoprazole 40 mg EC Tab PO SCH (09:00)
[2017-11-07] MEDS: Oxycodone/Acetaminophen 5/325 mg Tab PO PRN ×2 (09:19→13:24)
[2017-11-07] MEDS: Magnesium Oxide 400 mg Tab UD PO SCH (09:19)
--- NOTE | 2017-11-07 10:07 | CARD ---
APPROVED REPORT EKG Measurement Heart [id number] TX 130P0 [id number] <Conclusion> Sinus bradycardia Otherwise normal ECG
--- NOTE | 2017-11-07 14:16 | CP.PCM.DIS ---
Provider - Provider Date of Admission: 11/05/17 20:46 Attending physician: Maurice Up MD Time Spent in preparation of Discharge (in minutes): 15 Diagnosis - Discharge Diagnosis (1) Back pain Status: Chronic (2) Flank pain, acute Status: Acute Hospital Course - Lab Results Lab Results: Micro Results 11/05/17 17:24 Urine,Clean Catch Urine Culture - Final 10-50,000 CFU/ML. MULTIPLE SPECIES. PROBABLE CONTAMINATION. Most Recent Lab Values WBC 4.9 K/uL (4.8-10.8) 11/07/17 05:30 RBC 4.56 Mil/uL (3.80-5.20) 11/07/17 05:30 Hgb 13.9 g/dL (12.0-16.0) 11/07/17 05:30 Hct 42.5 % (34.0-47.0) 11/07/17 05:30 MCV 93.1 fl (81.0-99.0) 11/07/17 05:30 MCH 30.5 pg (27.0-31.0) 11/07/17 05:30 MCHC 32.7 g/dL (33.0-37.0) L 11/07/17 05:30 RDW 14.5 % (11.5-14.5) 11/07/17 05:30 Plt Count 175 K/uL (130-400) 11/07/17 05:30 MPV 9.5 fl (7.2-11.7) 11/07/17 05:30 Neut % (Auto) 36.1 % (50.0-75.0) L 11/07/17 05:30 Lymph % (Auto) 45.8 % (20.0-40.0) H 11/07/17 05:30 Montgomery % (Auto) 10.5 % (0.0-10.0) H 11/07/17 05:30 Eos % (Auto) 5.2 % (0.0-4.0) H 11/07/17 05:30 Baso % (Auto) 2.4 % (0.0-2.0) H 11/07/17 05:30 Neut # (Auto) 1.8 K/uL (1.8-7.0) 11/07/17 05:30 Lymph # (Auto) 2.2 K/uL (1.0-4.3) 11/07/17 05:30 Montgomery # (Auto) 0.5 K/uL (0.0-0.8) 11/07/17 05:30 Eos # (Auto) 0.3 K/uL (0.0-0.7) 11/07/17 05:30 Baso # (Auto) 0.1 K/uL (0.0-0.2) 11/07/17 05:30 ESR 20 mm/hr (0-30) 11/07/17 05:30 Sodium 136 mmol/l (132-148) 11/07/17 05:30 Potassium 3.9 MMOL/L (3.6-5.0) 11/07/17 05:30 Chloride 101 mmol/L (98-107) 11/07/17 05:30 Carbon Dioxide 26 mmol/L (22-30) 11/07/17 05:30 Anion Gap 13 (10-20) 11/07/17 05:30 BUN 11 mg/dl (7-17) 11/07/17 05:30 Creatinine 0.8 mg/dl (0.7-1.2) 11/07/17 05:30 Est GFR ( Amer) > 60 11/07/17 05:30 Est GFR (Non-Af Amer) > 60 11/07/17 05:30 Random Glucose 95 mg/dL (65-105) 11/07/17 05:30 Calcium 8.9 mg/dL (8.4-10.2) 11/07/17 05:30 Total Bilirubin 0.3 mg/dl (0.2-1.3) 11/07/17 05:30 AST 18 U/L (14-36) 11/07/17 05:30 ALT 34 U/L (9-52) 11/07/17 05:30 Alkaline Phosphatase 111 U/L (38-126) 11/07/17 05:30 Total Protein 6.6 G/DL (6.3-8.2) 11/07/17 05:30 Albumin 3.4 g/dL (3.5-5.0) L D 11/07/17 05:30 Globulin 3.2 gm/dL (2.2-3.9) 11/07/17 05:30 Albumin/Globulin Ratio 1.1 (1.0-2.1) 11/07/17 05:30 Procalcitonin 0.05 NG/ML (0.19-0.49) L 11/07/17 06:10 Urine Color Yellow (YELLOW) 11/05/17 17:24 Urine Clarity Clear (Clear) 11/05/17 17:24 Urine pH 7.0 (5.0-8.0) 11/05/17 17:24 Ur Specific Harrells 1.009 (1.003-1.030) 11/05/17 17:24 Urine Protein Negative mg/dL (NEGATIVE) 11/05/17 17:24 Urine Glucose (UA) Neg mg/dL (Normal) 11/05/17 17:24 Urine Ketones Negative mg/dL (NEGATIVE) 11/05/17 17:24 Urine Blood Negative (NEGATIVE) 11/05/17 17:24 Urine Nitrate Negative (NEGATIVE) 11/05/17 17:24 Urine Bilirubin Negative (NEGATIVE) 11/05/17 17:24 Urine Urobilinogen 0.2-1.0 mg/dL (0.2-1.0) 11/05/17 17:24 Ur Leukocyte Esterase Neg Liya/uL (Negative) 11/05/17 17:24 Urine RBC (Auto) < 1 /hpf (0-3) 11/05/17 17:24 Urine Microscopic WBC < 1 /hpf (0-5) 11/05/17 17:24 Ur Squamous Epith Cells 2 /hpf (0-5) 11/05/17 17:24 Urine Bacteria Rare (<OCC) 11/05/17 17:24 - Hospital Course Hospital Course: 57 y/o woman w/ pmh of COPD, chronic back pain (followed by pain management), PE , and HTN admitted for worsening acute on chronic back pain with Thoracic CT findings of new extensive central compression deformity of T12 vertebral body with possible complete fracture and/or osteomyelitis. Patient was seen in the ED, VS WNL; CBC WNL; CMP showed hyperkalemia but was hemolyzed sample; CT showed moderate compression fractures (T9, T11, T12) vertebral bodies, chronic mild compression fracture L4 vertebral body; nephro/urolithiasis ruled out on CT scan, osteomyelitis was also considered. The patient complained of chronic back that is slightly worse than before but denies incontinence, saddle paresthesia, and lower extremity weakness. The patient's abnormal labs have resolved. Patient's orth-spine surgeon was contacted. Patient reports she has an appointment / ortho-spine doctor on Monday11/10/2017 @ 14:00. The patient reports that her home is optimized for her condition and will follow up. The patient was seen by physical therapy. The patient was seen, examined, and deemed medically fit for discharge home. The patient is to follow up w/ Dr. Up and has appointment w/ Dr Carrasco this Monday. Discharge Exam - Head Exam Head Exam: ATRAUMATIC, NORMAL INSPECTION, NORMOCEPHALIC - Eye Exam Eye Exam: Normal appearance - ENT Exam ENT Exam: Mucous Membranes Moist - Respiratory Exam Respiratory Exam: Clear to PA & Lateral, NORMAL BREATHING PATTERN, UNREMARKABLE. absent: Decreased Breath Sounds, Rales, Rhonchi, Wheezes, Respiratory Distress, Stridor - Cardiovascular Exam Cardiovascular Exam: REGULAR RHYTHM - GI/Abdominal Exam GI & Abdominal Exam: Normal Bowel Sounds, Soft. absent: Distended, Tenderness - Extremities Exam Extremities exam: normal inspection - Back Exam Back exam: muscle spasm, vertebral tenderness. absent: CVA tenderness (L), CVA tenderness (R), rash noted - Neurological Exam Neurological exam: Alert, CN II-XII Intact, Oriented x3 - Skin Skin Exam: Dry, Intact, Normal Color, Warm Discharge Plan - Follow Up Plan Condition: STABLE Disposition: HOME/ ROUTINE Instructions: Back Pain (ED), Back Pain (GEN) Additional Instructions: follow up with your primary MD 7-10 days Referrals: Maurice Up MD [Staff Provider] - Edy Carrasco MD [Medical Doctor] -
== END 2017-11-07 14:32 | disposition home or self-care (01) | DRG 544 ==
LOC: H.ER 15:43 → H.ERHOLD 20:46 → H.MEDSURG1 22:56
PROVIDERS: ADMIT Family Medicine; ATTEND Family Medicine
DX: M48.54XA Collapsed vertebra, not elsewhere classified, thoracic region, initial encounter for fracture (principal); E11.51 Type 2 diabetes mellitus with diabetic peripheral angiopathy without gangrene; G89.29 Other chronic pain; E87.5 Hyperkalemia; J44.9 Chronic obstructive pulmonary disease, unspecified; M06.9 Rheumatoid arthritis, unspecified; Z79.01 Long term (current) use of anticoagulants; Z86.711 Personal history of pulmonary embolism; Z86.718 Personal history of other venous thrombosis and embolism; I25.10 Atherosclerotic heart disease of native coronary artery without angina pectoris; Z95.5 Presence of coronary angioplasty implant and graft; E78.5 Hyperlipidemia, unspecified; E78.00 Pure hypercholesterolemia, unspecified; I10 Essential (primary) hypertension; F41.9 Anxiety disorder, unspecified; J45.909 Unspecified asthma, uncomplicated; E66.9 Obesity, unspecified; Z68.35 Body mass index [BMI] 35.0-35.9, adult; F32.9 Major depressive disorder, single episode, unspecified; M48.54XD Collapsed vertebra, not elsewhere classified, thoracic region, subsequent encounter for fracture with routine healing; Z72.0 Tobacco use

== ENCOUNTER 2018-08-29 10:54 | Emergency (ER) | payer MEDICARE, MEDICAID ==
[2018-08-29 11:12] VITALS: BMI 34.9
[2018-08-29 11:13] VITALS: BP 131/77; PULSE 84; RESP 18; TEMP 98.4; O2SAT 94
--- NOTE | 2018-08-29 13:14 | ED PDOC ---
HPI: Female Pain Time Seen by Provider: 08/29/18 11:58 Chief Complaint (Nursing): Female Genitourinary Chief Complaint (Provider): Mid back pain, unable to urinate History Per: Patient History/Exam Limitations: no limitations Onset/Duration Of Symptoms: Days Current Symptoms Are (Timing): Still Present Additional Complaint(s): 58 yo female with history of HTN, chronic back pain, high cholesterol, COPD, CAD and current smoker presents for evaluation of lower abdominal pain and back pain. Pt states she has not been able to eat or drinking due to decreased appeti te. Denies N/V. Pt also states she has not urinated in 1 week. Pt told RN in triage it has been 3 days. Pt states she does not feel her back pain is related to urinary symptoms and feels similar to her chronic back pain. Normal BM. Past Medical History Reviewed: Historical Data, Nursing Documentation, Vital Signs Vital Signs: Last Vital Signs Temp 98.4 F 08/29/18 11:12 Pulse 84 08/29/18 11:12 Resp 18 08/29/18 11:12 BP 131/77 08/29/18 11:12 Pulse Ox 94 L 08/29/18 11:12 - Medical History PMH: Anxiety, Arthritis, Asthma, Back Problems (Chronic back pain), Bronchitis, CAD, COPD (currently takin florenciarelto), Depression, Diabetes, Deep Vein Thrombosis, Fractures (R ankle fx), HTN, Hypercholesterolemia, Pneumonia, Pulmonary Embolism, Rheumatoid Arthritis Denies: HIV, Chronic Kidney Disease - Surgical History Surgical History: Coronary Stent (06/2013), Endoscopy, Tonsillectomy - Family History Family History: States: Stroke - Living Arrangements Living Arrangements: With Family - Social History Current smoker - smoking cessation education provided: Yes - Immunization History Hx Tetanus Toxoid Vaccination: No Hx Influenza Vaccination: Yes Hx Pneumococcal Vaccination: No - Home Medications Home Medications: Ambulatory Orders Medication Instructions Recorded Omeprazole 40 mg PO DAILY 01/08/15 ALPRAZolam [Xanax] 1 mg PO QID #0 tab 02/16/15 Ergocalciferol [Vitamin D] 50,000 unit PO QWK #0 sgl 02/16/15 Escitalopram [Lexapro] 20 mg PO DAILY #0 tab 02/16/15 Folic Acid 1 mg PO DAILY #0 tab 02/16/15 Aspirin [Aspirin EC] 81 mg PO DAILY 03/21/15 Metformin Hydrochloride [Metformin] 1,000 mg PO DAILY 11/25/15 Potassium Chloride [K-Dur 20 mEq 20 meq PO DAILY 12/23/15 ER Tab] traZODone [Desyrel] 200 mg PO HS 12/23/15 Topiramate [Topamax] 25 mg PO HS 09/11/16 Zolpidem Tartrate [Ambien] 10 mg PO HS 09/11/16 oxyCODONE [oxyCODONE Immediate 15 mg PO QID PRN 09/11/16 Release Tab] Rivaroxaban [Xarelto] 20 mg PO DAILY tab 09/13/16 Gabapentin [Neurontin] 400 mg PO TID 02/01/17 Atorvastatin [Lipitor] 40 mg PO DAILY 11/05/17 Escitalopram [Lexapro] 20 mg PO DAILY 11/05/17 Magnesium Oxide [Magnesium] 500 mg PO DAILY 11/05/17 - Allergies Allergies/Adverse Reactions: Allergies Allergy/AdvReac Type Severity Reaction Status Date / Time No Known Allergies Allergy Verified 04/22/17 15:08 Review of Systems ROS Statement: Except As Marked, All Systems Reviewed And Found Negative Constitutional: Negative for: Fever, Chills Cardiovascular: Negative for: Chest Pain, Palpitations Gastrointestinal: Positive for: Abdominal Pain. Negative for: Nausea, Vomiting Genitourinary Female: Positive for: Hematuria, Pelvic Pain. Negative for: Dysuria, Frequency, Vaginal Bleeding Physical Exam - Reviewed Nursing Documentation Reviewed: Yes Vital Signs Reviewed: Yes - Physical Exam Appears: Positive for: Well, Non-toxic, No Acute Distress Head Exam: Positive for: ATRAUMATIC, NORMAL INSPECTION, NORMOCEPHALIC Skin: Positive for: Normal Color, Warm, DRY Eye Exam: Positive for: Normal appearance ENT: Positive for: Normal ENT Inspection Neck: Positive for: Normal, Painless ROM Cardiovascular/Chest: Positive for: Regular Rate, Rhythm Respiratory: Positive for: CNT, Normal Breath Sounds Gastrointestinal/Abdominal: Positive for: Soft, Tenderness. Negative for: Normal Exam (Mild suprapubic ) Back: Positive for: Normal Inspection Extremity: Positive for: Normal ROM Neurologic/Psych: Positive for: Alert, Oriented - ECG O2 Sat by Pulse Oximetry: 94 Medical Decision Making Medical Decision Making: Discussed labs, bladder scan and possible bright. Informed by RN that patient was not in room when she went in to get labs. Disposition - Clinical Impression Clinical Impression: Chronic pain, Inability to urinate - Patient ED Disposition Is Patient to be Admitted: No - Disposition Disposition: Routine/Home Disposition Time: 13:20 Condition: STABLE Forms: [employer] (Romanian)
== END 2018-08-29 13:00 | disposition left against medical advice (07) ==
LOC: H.ER 10:54
DX: M54.6 Pain in thoracic spine (principal); G89.29 Other chronic pain; F17.200 Nicotine dependence, unspecified, uncomplicated; E11.9 Type 2 diabetes mellitus without complications; I10 Essential (primary) hypertension; J44.9 Chronic obstructive pulmonary disease, unspecified; Z95.5 Presence of coronary angioplasty implant and graft; R30.0 Dysuria; M06.9 Rheumatoid arthritis, unspecified; Z79.82 Long term (current) use of aspirin; Z79.84 Long term (current) use of oral hypoglycemic drugs; Z86.711 Personal history of pulmonary embolism; Z86.718 Personal history of other venous thrombosis and embolism; Z86.59 Personal history of other mental and behavioral disorders

== ENCOUNTER 2018-10-05 06:00 | Inpatient (IN) | payer MEDICARE, MEDICAID ==
[2018-10-01 16:39] VITALS: BMI 34.4
[2018-10-05] MEDS ORDERED: Lactated Ringer's 1,000 ML IV ONE (08:05)
[2018-10-05] MEDS ORDERED: Oxycodone/Acetaminophen 5/325 mg Tab PO PRN (09:29)
[2018-10-05] MEDS ORDERED: Bisacodyl 5mg EC Tab PO PRN (09:29)
[2018-10-05] MEDS ORDERED: EPINEPHrine 1 mg/ml (1:1000) Inj IV ONE (09:30)
[2018-10-05] MEDS ORDERED: Bupivacaine 0.5% 50 ML IJ ONE (09:30)
--- NOTE | 2018-10-05 10:09 | PCM.SURG1 ---
Surgeon's Initial Post Op Note - Surgeon's Notes Surgeon: Bronson Umaña MD Fast Food Assistant Restaurant Manager: Kristyn Szymanski PA-C; Marjorie Gill Type of Anesthesia: General Endo Pre-Operative Diagnosis: Right knee OA Operative Findings: See op report Post-Operative Diagnosis: same as pre-op dx Operation Performed: R TKR Specimen/Specimens Removed: right knee bone and soft tissue Estimated Blood Loss: EBL {In ML}: 50 Date of Surgery/Procedure: 10/05/18 Time of Surgery/Procedure: 08:30
[2018-10-05] MEDS ORDERED: Dexamethasone 4 mg/1 ml IVP PRN (10:33)
[2018-10-05] MEDS ORDERED: oxyCODONE 5 mg Immediate Release Tab PO PRN (10:37)
[2018-10-05] MEDS: HYDROmorphone 0.5 mg/0.5 ml ISec IVP PRN ×3 (10:55→11:55)
[2018-10-05] MEDS: Lactated Ringer's 1,000 ML IV SCH (11:10)
[2018-10-05] MEDS ORDERED: Albuterol HFA 90 mcg/actuation (8 g) INH PRN (14:53)
--- NOTE | 2018-10-05 14:53 | RAD ---
Date of service: 10/05/2018 PROCEDURE: Right Knee Radiographs. HISTORY: s/p RTKR COMPARISON: 05/18/2014. FINDINGS: BONES: Satisfactory appearance and alignment of components of right TKA. JOINTS: Normal. No osteoarthritis. JOINT EFFUSION: None. OTHER FINDINGS: Expected soft tissue changes identified. IMPRESSION: Satisfactory postoperative status.
[2018-10-05] MEDS: Albuterol-Ipratrop 3 mg / 0.5 (3 ml) UD INH SCH ×2 (16:35→19:12)
[2018-10-05] MEDS: ceFAZolin IV 2 gm in Dextrose 2 GM/50 ML BAG IVPB SCH ×2 (17:26→17:28)
--- NOTE | 2018-10-05 18:27 | OP ---
PROCEDURE DATE: 10/05/2018 PREOPERATIVE DIAGNOSIS: Right knee osteoarthritis. POSTOPERATIVE DIAGNOSIS: Right knee osteoarthritis. PROCEDURE: Right total knee replacement. ATTENDING PHYSICIAN: Bronson Umaña MD. COUNSELLORS: Kristyn Szymanski PA-C. IMPLANTS: DePuy Attune total knee system, size-4 tibia, size-4 femur, 9 mm polyethylene insert, 32-mm patellar button. ANESTHESIA TYPE: General. ESTIMATED BLOOD LOSS: 100 mL. SPECIMEN: None. COMPLICATIONS: None. HISTORY: The patient with prolonged history of right knee pain progressively getting worse despite extensive conservative management, which included activity modification, injections, anti-inflammatory modification and physical therapy. X-rays had revealed advanced arthritis. Patient was indicated for total knee replacement due to continued pain and limited mobility. I had a detailed discussion with the patient in the office explaining the nature of the surgery, alternatives of surgery, risks and benefits, rehabilitation protocol and surgical markings. Risks of surgery include but not limited to continued pain, lack of motion, infection, vascular injury, DVT / PE, nerve injury including peroneal nerve dysfunction, reflex sympathetic dystrophy, compartment syndrome, unforeseen medical and/or anesthesia complications, limb loss, and even . The patient expressed an understanding of the risks and possible benefits of the procedure, and is also aware of the alternatives to surgery. PROCEDURE: The patient was transported to the operating room and placed in the supine position, general anesthesia was obtained. Exam under anesthesia revealed . A padded tourniquet was applied to patient's operative thigh and appropriate prophylactic antibiotics were given. The operative leg was draped and prepped in standard sterile manner. Timeout was completed, confirming patient's right knee to be the correct operative site. Using an Esmarch, the extremity was exsanguinated and tourniquet was inflated to 350 mmHg. The surgical incision markings were made using patella border, tibial tubercle, patella and quadriceps tendon. Using a 10 blade, a midline incision was made. Skin dissection was taken until the prepatellar fascia was identified and the corners of the patellar tendon were marked for proper closure at the end of the procedure. Using a fresh 10 blade, a medial parapatellar arthrotomy was performed. The knee was exposed in the standard manner. The deep MCL was elevated for exposure, medial and lateral menisci were removed, ACL and PCL were also transected. The tibia was subluxed anteriorly. Planned tibial cut was made with power saw, using extra-medullary guide, perpendicular to mechanical axis of the tibia. After the cut was made, the alignment was also checked and was found to be appropriate. Tibial cut surface was measured with trial base plate and it was noted that size-4 tibial baseplate was provided sufficient coverage without overhang. Tibial component was externally rotated and marked. Next, the knee was placed into 90 degrees of flexion. A drill hole was made within the femoral notch anterior to PCL insertion for placement of intramedullary femoral keya. Intramedullary femoral keya was inserted within the femoral canal and planned distal femoral cut was made. After the cut, knee was brought into full extension. Spacer blocks were used to check the extension balancing both in full extension and 30 degrees of flexion. It was found that 9 mm trial spacer block allowed full extension with symmetric varus and valgus balancing. Next we proceed with Patella resurfacing. [place] patella width was found to 26 mm. Using the free-hand technique the arthritic patella surface was resected. Patella was sized using the guide and it was noted that size 32 mm patella dome button would be appropriate for the patient. Next the size of femoral component was determined using the posterior referencing guide. It was noted that a size-4 femur would be appropriate for this patient without causing any significant notching. A 4 x 1 cutting block was placed and flexion gap balancing was checked. The flexion gap was found to be symmetric to the extension gap. Anterior and posterior condyle, anterior and posterior chamfer cuts were made. Next, appropriate size box cut for femoral component was prepared using the guide. The femoral trial component was impacted onto the distal femur. Appropriate size tibial trial component was also placed on the cut surface of the tibia. Using the drill and punch, keel for tibial implant was prepared. Trial tibial tray was secured onto the tibia using pins. Different size trial polyethylene inserts were secured on to the trial tibial tray to critically assess the following parameters: Full range of motion, extension and flexion gap balancing, mid-flexion stability, anterior and posterior drawer, and patellar tracking. All parameter were found to be satisfactory with 9 mm insert. All the trial components were removed. Implants were opened on the back table. Cement was mixed and we proceed with cement fixation of the implants. Tibial tray, femoral component and patellar dome button were secured with cement. Polyethylene insert was secured onto the tibial tray using locking mechanism. The knee was reduced and brought into full extension. Cement was allowed to harden until final component fixation. Knee was taken through the final range of motion for stability testing, and found to be satisfactory. 60 cc of custom cocktail mixture was injected into posterior capsule, MCL, LCL, quadriceps tendon, and patellar tendon. Wound was copiously irrigated with sterile antibiotic solution using pulse lavage. Arthrotomy was closed using heavy suture and wound was closed in standard manner. Patient was extubated, transferred to stretcher and taken to the recovery room. Post-operative instructions were provided, physical therapy consult was requested along with DVT prophylaxis and appropriate pain medications. During this procedure, I was assisted by Kristyn Szymanski PA-C, who assisted in positioning the patient on the operating room table as well as transferring the patient from the operating room table to the recovery room stretcher. In addition, Kristyn Szymanski PA-C assisted me during the actual operative procedure by positioning, protecting critical neurovascular structures, exposure of the joint, and proper positioning of the implants. The presence of Kristyn Szymanski PA-C as my operative assistant professor of spanish was medically necessary to ensure the utmost safety of the patient in the pre, intra-, and post-operative periods. Bronson Umaña MD
[2018-10-05] MEDS: Sodium Chloride 0.9% 1,000 ML IV SCH ×2 (22:00→22:21)
[2018-10-05] MEDS: oxyCODONE 10 mg ER Tab (oxyCONTIN) PO SCH (22:16)
[2018-10-06] MEDS: ceFAZolin IV 2 gm in Dextrose 2 GM/50 ML BAG IVPB SCH ×2 (02:15→11:53)
[2018-10-06] MEDS: Lactated Ringer's 1,000 ML IV SCH (02:45)
[2018-10-06 07:35] LABS: HEMOGLOBIN 12.1 g/dL (12.0-16.0); MEAN CELL VOLUME 92.5 fl (81.0-99.0); MEAN CORPUSCULAR HEMOGLOBIN 30.9 pg (27.0-31.0); MEAN CORPUSCULAR HGB CONC 33.3 g/dL (33.0-37.0); RBC 3.94 Mil/uL (3.80-5.20); RED CELL DISTRIBUTION WIDTH 14.7 % (11.5-14.5); WHITE BLOOD COUNT 8.3 K/uL (4.8-10.8)
[2018-10-06 07:37] LABS: BLOOD UREA NITROGEN 9 mg/dl (7-17); CALCIUM 8.6 mg/dL (8.4-10.2); GFR NON-AFRICAN AMERICAN > 60
[2018-10-06] MEDS: Albuterol-Ipratrop 3 mg / 0.5 (3 ml) UD INH SCH ×4 (08:05→19:06)
[2018-10-06 08:34] VITALS: RESP 20
[2018-10-06] MEDS: oxyCODONE 10 mg ER Tab (oxyCONTIN) PO SCH ×2 (08:55→21:37)
[2018-10-06] MEDS ORDERED: OMEPRAZOLE PO SCH (09:00)
[2018-10-06] MEDS ORDERED: MOMETASONE FUROATE IH SCH (09:00)
[2018-10-06] MEDS ORDERED: ARIPIPRAZOLE 15 MG PO SCH (09:00)
[2018-10-06] MEDS ORDERED: [UNRECOGNIZED DRUG - OTHER] PO SCH (09:00)
[2018-10-06] MEDS: Potassium Chloride 20 mEq ER Tab PO SCH (09:00)
[2018-10-06] MEDS: NIFEdipine 90 mg ER Tab PO SCH (09:00)
[2018-10-06] MEDS ORDERED: SODIUM BICARBONATE PO SCH (09:00)
[2018-10-06] MEDS: Pantoprazole 40 mg EC Tab PO SCH (09:02)
[2018-10-06] MEDS: Cholecalciferol 1,000 INTLU TAB PO SCH (09:02)
[2018-10-06] MEDS: Sodium Chloride 0.9% 1,000 ML IV SCH (09:03)
--- NOTE | 2018-10-06 13:22 | CP.PCM.PN ---
Subjective - Date & Time of Evaluation Date of Evaluation: 10/06/18 Time of Evaluation: 13:15 - Subjective Subjective: 58 yo F s/p RTKR POD#1 Pt seen and examined sitting in chair, comfortable, in NAD Pt denies any current pain, states it is well controlled Pt denies SOB, chest pain, N/V/D, numbness/tingling RLE Objective - Vital Signs/Intake and Output Vital Signs (last 24 hours): Temp Pulse Resp BP Pulse Ox 97.3 F L 80 20 123/87 97 10/06/18 09:00 10/06/18 09:00 10/06/18 09:00 10/06/18 09:00 10/06/18 09:00 - Medications Medications: Current Medications Acetaminophen (Tylenol 325mg Tab) 325 mg PO Q4 PRN PRN Reason: pain1-3 or fever Albuterol (Ventolin Hfa 90 Mcg/Actuation (8 G)) 1 puff INH RQ6 PRN PRN Reason: Shortness of Breath Albuterol/Ipratropium (Duoneb 3 Mg/0.5 Mg (3 Ml) Ud) 3 ml INH RQID [facility] Last Admin: 10/06/18 11:50 Dose: 3 ml Alprazolam (Xanax) 1 mg PO BID PRN PRN Reason: Anxiety Atorvastatin Calcium (Lipitor) 40 mg PO HS [facility] Last Admin: 10/05/18 22:17 Dose: 40 mg Bisacodyl (Dulcolax) 10 mg PO HS PRN PRN Reason: Constipation Celecoxib (Celebrex) 200 mg PO DAILY [facility] Last Admin: 10/06/18 08:59 Dose: 200 mg Cholecalciferol (Vitamin D) 1,000 intlu PO DAILY [facility] Last Admin: 10/06/18 09:02 Dose: 1,000 intlu Docusate Sodium (Colace) 100 mg PO BID [facility] Last Admin: 10/06/18 09:02 Dose: Not Given Enoxaparin Sodium (Lovenox) 40 mg SC DAILY [facility]; Protocol Escitalopram Oxalate (Lexapro) 20 mg PO DAILY [facility] Last Admin: 10/06/18 09:02 Dose: 20 mg Folic Acid (Folic Acid) 1 mg PO DAILY [facility] Last Admin: 10/06/18 09:11 Dose: 1 mg Gabapentin (Neurontin) 400 mg PO TID [facility] Last Admin: 10/06/18 09:02 Dose: 400 mg Home Med (Aripiprazole [Aripiprazole Odt]) 15 mg PO DAILY [facility] Lactated Ringer's (Lactated Ringer's) 1,000 mls @ 125 mls/hr IV .Q8H [facility] Last Admin: 10/06/18 02:45 Dose: Not Given Ketorolac Tromethamine (Toradol) 15 mg IVP Q6 [facility] Stop: 10/07/18 10:01 Last Admin: 10/06/18 11:55 Dose: 15 mg Nifedipine (Procardia Xl) 90 mg PO DAILY [facility] Last Admin: 10/06/18 09:00 Dose: 90 mg Ondansetron HCl (Zofran Inj) 4 mg IVP Q6 PRN PRN Reason: Nausea/Vomiting Oxycodone HCl (Oxycontin Extended Release Tab) 10 mg PO Q12 [facility] Stop: 10/08/18 21:01 Last Admin: 10/06/18 08:55 Dose: Not Given Oxycodone HCl (Oxycodone Immediate Release Tab) 5 mg PO Q6 PRN PRN Reason: Pain, Mild (1-3) Oxycodone/Acetaminophen (Percocet 5/325 Mg Tab) 2 tab PO Q4 PRN PRN Reason: Pain, moderate (4-7) Stop: 10/08/18 09:30 Last Admin: 10/06/18 08:49 Dose: 2 tab Pantoprazole Sodium (Protonix Ec Tab) 40 mg PO DAILY [facility] Last Admin: 10/06/18 09:02 Dose: 40 mg Potassium Chloride (K-Dur 20 Meq Er Tab) 20 meq PO DAILY [facility] Last Admin: 10/06/18 09:00 Dose: 20 meq Sitagliptin Phosphate (Januvia) 100 mg PO DAILY [facility] Last Admin: 10/06/18 09:00 Dose: 100 mg Tramadol HCl (Ultram) 50 mg PO Q4 PRN PRN Reason: pain8-10 Trazodone HCl (Desyrel) 200 mg PO HS PRN PRN Reason: Insomnia - Labs Labs: 10/06/18 05:30 10/06/18 05:30 - Constitutional Appears: Well, No Acute Distress - Respiratory Exam Respiratory Exam: Clear to Ausculation Bilateral, NORMAL BREATHING PATTERN - Cardiovascular Exam Cardiovascular Exam: REGULAR RHYTHM, RRR - Extremities Exam Additional comments: RLE: Knee dressing C/D/I Calves soft and nontender b/l Normal ROM rt ankle No foot drop N/V intact distally Distal pulses wnl Assessment and Plan - Assessment and Plan (Free Text) Assessment: 58 yo F s/p RTKR POD#1 Plan: Pain Control PT/OT-WBAT RLE DVT ppx- pt on home medication xarelto 20mg Start lovenox 40mg daily today for ppx- will switch to xarelto pending cardiac recs SCD b/l LE F/U daily labs Discussed with Dr. Umaña
[2018-10-06] MEDS: Enoxaparin 40 mg Syringe SC SCH (14:15)
[2018-10-07] MEDS: Albuterol-Ipratrop 3 mg / 0.5 (3 ml) UD INH SCH ×4 (07:12→18:59)
[2018-10-07 08:08] LABS: BLOOD UREA NITROGEN 9 mg/dl (7-17); CALCIUM 8.8 mg/dL (8.4-10.2); GFR NON-AFRICAN AMERICAN > 60
[2018-10-07 08:17] LABS: HEMOGLOBIN 11.7 g/dL (12.0-16.0); MEAN CELL VOLUME 92.5 fl (81.0-99.0); MEAN CORPUSCULAR HEMOGLOBIN 30.6 pg (27.0-31.0); MEAN CORPUSCULAR HGB CONC 33.1 g/dL (33.0-37.0); RBC 3.82 Mil/uL (3.80-5.20); RED CELL DISTRIBUTION WIDTH 15.3 % (11.5-14.5); WHITE BLOOD COUNT 7.6 K/uL (4.8-10.8)
[2018-10-07] MEDS: Pantoprazole 40 mg EC Tab PO SCH (08:19)
[2018-10-07] MEDS: NIFEdipine 90 mg ER Tab PO SCH (08:24)
[2018-10-07] MEDS: Cholecalciferol 1,000 INTLU TAB PO SCH (08:24)
[2018-10-07] MEDS: Potassium Chloride 20 mEq ER Tab PO SCH (08:24)
[2018-10-07] MEDS: Enoxaparin 40 mg Syringe SC SCH (08:25)
[2018-10-07] MEDS: oxyCODONE 10 mg ER Tab (oxyCONTIN) PO SCH ×2 (08:35→21:12)
[2018-10-08 06:41] LABS: BASO # 0.1 K/uL (0.0-0.2); BASO % 0.8 % (0.0-2.0); EOS # 0.3 K/uL (0.0-0.7); HEMOGLOBIN 11.6 g/dL (12.0-16.0); LYMPH # 1.5 K/uL (1.0-4.3); LYMPH % 22.6 % (20.0-40.0); MEAN CELL VOLUME 93.2 fl (81.0-99.0); MEAN CORPUSCULAR HGB CONC 33.2 g/dL (33.0-37.0); MEAN PLATELET VOLUME 9.3 fl (7.2-11.7); MONO # 0.5 K/uL (0.0-0.8); MONO % 7.5 % (0.0-10.0); NEUT # 4.3 K/uL (1.8-7.0); NEUT % 65.1 % (50.0-75.0); NRBC % 0.1 % (0.0-0.0); RBC 3.76 Mil/uL (3.80-5.20); RED CELL DISTRIBUTION WIDTH 15.2 % (11.5-14.5); WHITE BLOOD COUNT 6.7 K/uL (4.8-10.8)
[2018-10-08 06:49] LABS: ALBUMIN 3.3 g/dL (3.5-5.0); ALT/SGPT 13 U/L (9-52); AST/SGOT 22 U/L (14-36); BLOOD UREA NITROGEN 9 mg/dl (7-17); GFR NON-AFRICAN AMERICAN > 60
[2018-10-08] MEDS: oxyCODONE 10 mg ER Tab (oxyCONTIN) PO SCH (08:57)
[2018-10-08] MEDS: Pantoprazole 40 mg EC Tab PO SCH (08:58)
[2018-10-08] MEDS: Cholecalciferol 1,000 INTLU TAB PO SCH (08:58)
[2018-10-08] MEDS: NIFEdipine 90 mg ER Tab PO SCH (08:59)
[2018-10-08] MEDS: Potassium Chloride 20 mEq ER Tab PO SCH (08:59)
[2018-10-08] MEDS: Enoxaparin 40 mg Syringe SC SCH (09:00)
[2018-10-08 09:05] VITALS: BP 144/73; PULSE 80; TEMP 98.1
--- NOTE | 2018-10-08 09:15 | CP.PCM.PN ---
Subjective - Date & Time of Evaluation Date of Evaluation: 10/08/18 Time of Evaluation: 08:00 - Subjective Subjective: Patient seen and examined at bedside comfortable. Pain is well controlled. No acute events over the weekend. Denies CP/SOB/N/V/fever. Objective - Vital Signs/Intake and Output Vital Signs (last 24 hours): Temp Pulse Resp BP Pulse Ox 98.1 F 80 20 144/73 93 L 10/08/18 09:04 10/08/18 09:04 10/08/18 09:04 10/08/18 09:04 10/08/18 09:04 - Medications Medications: Current Medications Acetaminophen (Tylenol 325mg Tab) 325 mg PO Q4 PRN PRN Reason: pain1-3 or fever Albuterol (Ventolin Hfa 90 Mcg/Actuation (8 G)) 1 puff INH RQ6 PRN PRN Reason: Shortness of Breath Albuterol/Ipratropium (Duoneb 3 Mg/0.5 Mg (3 Ml) Ud) 3 ml INH RQID [facility] Last Admin: 10/07/18 18:59 Dose: 3 ml Alprazolam (Xanax) 1 mg PO BID PRN PRN Reason: Anxiety Aripiprazole (Abilify) 15 mg PO DAILY [facility] Last Admin: 10/08/18 08:59 Dose: 15 mg Atorvastatin Calcium (Lipitor) 40 mg PO HS [facility] Last Admin: 10/07/18 21:11 Dose: 40 mg Bisacodyl (Dulcolax) 10 mg PO HS PRN PRN Reason: Constipation Celecoxib (Celebrex) 200 mg PO DAILY [facility] Last Admin: 10/08/18 09:00 Dose: 200 mg Cholecalciferol (Vitamin D) 1,000 intlu PO DAILY [facility] Last Admin: 10/08/18 08:58 Dose: 1,000 intlu Docusate Sodium (Colace) 100 mg PO BID [facility] Last Admin: 10/08/18 08:59 Dose: 100 mg Enoxaparin Sodium (Lovenox) 40 mg SC DAILY [facility]; Protocol Last Admin: 10/08/18 09:00 Dose: 40 mg Escitalopram Oxalate (Lexapro) 20 mg PO DAILY [facility] Last Admin: 10/08/18 09:00 Dose: 20 mg Folic Acid (Folic Acid) 1 mg PO DAILY [facility] Last Admin: 10/08/18 08:59 Dose: 1 mg Gabapentin (Neurontin) 400 mg PO TID [facility] Last Admin: 10/08/18 08:58 Dose: 400 mg Nifedipine (Procardia Xl) 90 mg PO DAILY [facility] Last Admin: 10/08/18 08:59 Dose: 90 mg Ondansetron HCl (Zofran Inj) 4 mg IVP Q6 PRN PRN Reason: Nausea/Vomiting Oxycodone HCl (Oxycontin Extended Release Tab) 10 mg PO Q12 [facility] Stop: 10/08/18 21:01 Last Admin: 10/08/18 08:57 Dose: 10 mg Oxycodone HCl (Oxycodone Immediate Release Tab) 5 mg PO Q6 PRN PRN Reason: Pain, Mild (1-3) Last Admin: 10/08/18 03:44 Dose: 5 mg Oxycodone/Acetaminophen (Percocet 5/325 Mg Tab) 2 tab PO Q4 PRN PRN Reason: Pain, moderate (4-7) Stop: 10/08/18 09:30 Last Admin: 10/06/18 08:49 Dose: 2 tab Pantoprazole Sodium (Protonix Ec Tab) 40 mg PO DAILY [facility] Last Admin: 10/08/18 08:58 Dose: 40 mg Potassium Chloride (K-Dur 20 Meq Er Tab) 20 meq PO DAILY [facility] Last Admin: 10/08/18 08:59 Dose: 20 meq Sitagliptin Phosphate (Januvia) 100 mg PO DAILY [facility] Last Admin: 10/08/18 08:59 Dose: 100 mg Trazodone HCl (Desyrel) 200 mg PO HS PRN PRN Reason: Insomnia Zolpidem Tartrate (Ambien) 5 mg PO HS [facility] Last Admin: 10/07/18 22:14 Dose: 5 mg - Labs Labs: 10/08/18 05:25 10/08/18 05:25 - Extremities Exam Additional comments: R knee: Dressings CDI Incision CDI with tariq mild swelling and tenderness 2nd to surgery sensation intact SP/DP/TN motor intact EHL/FHL/TA/G pedal pulses intact calves soft NT b/l Assessment and Plan (1) Status post total knee replacement Assessment & Plan: POD#3 s/p R TKA -PT/OT WBAT -Dressings changed -DVT ppx -ice elevate -CPM as per order -orthopedically stable for discharge -above d/w Dr. Umaña in agreement Status: Acute
--- NOTE | 2018-10-08 09:57 | CP.PCM.HP ---
History of Present Illness - History of Present Illness History of Present Illness: This is a 58 y/o female admitted for severe OA of the right knee and had TKR. This is her first day post op, Immediate post op period is unremarkable. She has a hx of asthma/ COPD hypoperlipidemia OAS and depression/anxiety and DM 2 She denies chest pain or SOB. Present on Admission - Present on Admission Any Indicators Present on Admission: No History of DVT/PE: No History of Uncontrolled Diabetes: Yes Urinary Catheter: No Decubitus Ulcer Present: No Review of Systems - Musculoskeletal Musculoskeletal: Abnormal Gait, Arthralgias Past Patient History - Infectious Disease Hx of Infectious Diseases: None - Tetanus Immunizations Tetanus Immunization: Unknown - Past Medical History & Family History Past Medical History?: Yes - Past Social History Smoking Status: Smoker Currrent Status Unknown - CARDIAC Hx Cardiac Disorders: Yes Hx Angina: Yes Hx Circulatory Problems: Yes (BLOOD CLOTS ON THE RIGHT ARM) Hx Hypercholesterolemia: Yes Hx Hypertension: Yes Other/Comment: hx of IVC filter 2013 after DVT - PULMONARY Hx Respiratory Disorders: Yes Hx Asthma: Yes Hx Bronchitis: Yes Hx Chronic Obstructive Pulmonary Disease (COPD): Yes Hx Pneumonia: Yes Hx Pulmonary Embolism: Yes Other/Comment: WHEEZING - NEUROLOGICAL Hx Neurological Disorder: No - HEENT Hx HEENT Problems: Yes Hx Glaucoma: Yes Other/Comment: wears glasses - RENAL Hx Chronic Kidney Disease: No - ENDOCRINE/METABOLIC Hx Endocrine Disorders: Yes Hx Diabetes Mellitus Type 2: Yes - HEMATOLOGICAL/ONCOLOGICAL Hx Blood Disorders: No Hx AIDS: No Hx Blood Transfusions: No Hx Hepatitis C: No Hx Human Immunodeficiency Virus (HIV): No Other/Comment: DVT - INTEGUMENTARY Hx Dermatological Problems: No - MUSCULOSKELETAL/RHEUMATOLOGICAL Hx Musculoskeletal Disorders: Yes Hx Arthritis: Yes Hx Back Pain: Yes Hx Falls: No Hx Fractures: Yes (R ankle fx) Hx Herniated Disk: Yes Hx Rheumatoid Arthritis: Yes Hx Unsteady Gait: Yes Other/Comment: LIMIT JOINT MOTION - GASTROINTESTINAL Hx Gastrointestinal Disorders: No Hx Ulcer: Yes Other/Comment: HX GI BLEED - GENITOURINARY/GYNECOLOGICAL Hx Genitourinary Disorders: No Hx Incontinence: Yes - PSYCHIATRIC Hx Emotional Abuse: No Hx Physical Abuse: No - SURGICAL HISTORY Hx Surgeries: Yes Hx Musculoskeletal Surgery: Yes (hx R ankle surger, L ft calluses sgy) Hx Tonsillectomy: Yes Hx Tubal Ligation: Yes Other/Comment: LEFT FOOT SURGERY-3 YEARS. LAPAROSCOPY - ANESTHESIA Hx Anesthesia: Yes Hx Anesthesia Reactions: No Hx Malignant Hyperthermia: No Has any member of the family had a problem w/ anesthesia?: Yes (SON WAS CODED - SURGERY FOR TONSILLECTOMY) Meds Allergies/Adverse Reactions: Allergies Allergy/AdvReac Type Severity Reaction Status Date / Time No Known Allergies Allergy Verified 10/05/18 06:29 Physical Exam - Head Exam Head Exam: NORMAL INSPECTION - Eye Exam Eye Exam: Normal appearance - ENT Exam ENT Exam: Mucous Membranes Moist - Respiratory Exam Respiratory Exam: Rhonchi - Cardiovascular Exam Cardiovascular Exam: REGULAR RHYTHM - GI/Abdominal Exam GI & Abdominal Exam: Normal Bowel Sounds - Extremities Exam Additional comments: right knee wound is clean slight swelling. Results - Vital Signs Recent Vital Signs: Last Vital Signs Temp 98.1 F 10/08/18 09:04 Pulse 80 10/08/18 09:04 Resp 20 10/08/18 09:04 BP 144/73 10/08/18 09:04 Pulse Ox 93 L 10/08/18 09:04 - Labs Result Diagrams: 10/08/18 05:25 10/08/18 05:25 Labs: Laboratory Results - last 24 hr 10/07/18 10/07/18 10/07/18 11:16 16:19 21:02 WBC RBC Hgb Hct MCV MCH MCHC RDW Plt Count MPV Neut % (Auto) Lymph % (Auto) [place] % (Auto) Eos % (Auto) Baso % (Auto) Neut # (Auto) Lymph # (Auto) [place] # (Auto) Eos # (Auto) Baso # (Auto) Sodium Potassium Chloride Carbon Dioxide Anion Gap BUN Creatinine Est GFR ( Amer) Est GFR (Non-Af Amer) POC Glucose (mg/dL) 111 H 122 H 154 H Random Glucose Calcium Total Bilirubin AST ALT Alkaline Phosphatase Total Protein Albumin Globulin Albumin/Globulin Ratio 10/08/18 10/08/18 10/08/18 05:25 05:25 05:26 WBC 6.7 RBC 3.76 L Hgb 11.6 L Hct 35.1 MCV 93.2 MCH 31.0 MCHC 33.2 RDW 15.2 H Plt Count 145 MPV 9.3 Neut % (Auto) 65.1 Lymph % (Auto) 22.6 [place] % (Auto) 7.5 Eos % (Auto) 4.0 Baso % (Auto) 0.8 Neut # (Auto) 4.3 Lymph # (Auto) 1.5 [place] # (Auto) 0.5 Eos # (Auto) 0.3 Baso # (Auto) 0.1 Sodium 134 Potassium 4.3 Chloride 105 Carbon Dioxide 23 Anion Gap 10 BUN 9 Creatinine 0.7 Est GFR ( Amer) > 60 Est GFR (Non-Af Amer) > 60 POC Glucose (mg/dL) 118 H Random Glucose 104 Calcium 9.0 Total Bilirubin 0.5 AST 22 ALT 13 Alkaline Phosphatase 80 Total Protein 6.7 Albumin 3.3 L D Globulin 3.3 Albumin/Globulin Ratio 1.0 Assessment & Plan (1) Status post total knee replacement Status: Acute (2) Osteoarthritis Status: Acute (3) Hyperlipidemia Status: Acute (4) Diabetes mellitus type 2 in obese Status: Acute (5) Depression Status: Acute (6) Anxiety Status: Acute (7) COPD (chronic obstructive pulmonary disease) Status: Acute - Assessment and Plan (Free Text) Plan: Cont mewds Pain meds Neb tx Phys therapy cough meds CXR
--- NOTE | 2018-10-08 10:07 | CP.PCM.PN ---
Subjective - Date & Time of Evaluation Date of Evaluation: 10/07/18 Time of Evaluation: 19:00 - Subjective Subjective: Patient remains stable Has no pain on the right calf area. Has no fever Doing well with Phy stherapy. Objective - Vital Signs/Intake and Output Vital Signs (last 24 hours): Temp Pulse Resp BP Pulse Ox 98.1 F 80 20 144/73 93 L 10/08/18 09:04 10/08/18 09:04 10/08/18 09:04 10/08/18 09:04 10/08/18 09:04 - Medications Medications: Current Medications Acetaminophen (Tylenol 325mg Tab) 325 mg PO Q4 PRN PRN Reason: pain1-3 or fever Albuterol (Ventolin Hfa 90 Mcg/Actuation (8 G)) 1 puff INH RQ6 PRN PRN Reason: Shortness of Breath Albuterol/Ipratropium (Duoneb 3 Mg/0.5 Mg (3 Ml) Ud) 3 ml INH RQID [facility] Last Admin: 10/07/18 18:59 Dose: 3 ml Alprazolam (Xanax) 1 mg PO BID PRN PRN Reason: Anxiety Aripiprazole (Abilify) 15 mg PO DAILY [facility] Last Admin: 10/08/18 08:59 Dose: 15 mg Atorvastatin Calcium (Lipitor) 40 mg PO HS [facility] Last Admin: 10/07/18 21:11 Dose: 40 mg Bisacodyl (Dulcolax) 10 mg PO HS PRN PRN Reason: Constipation Celecoxib (Celebrex) 200 mg PO DAILY [facility] Last Admin: 10/08/18 09:00 Dose: 200 mg Cholecalciferol (Vitamin D) 1,000 intlu PO DAILY [facility] Last Admin: 10/08/18 08:58 Dose: 1,000 intlu Docusate Sodium (Colace) 100 mg PO BID [facility] Last Admin: 10/08/18 08:59 Dose: 100 mg Enoxaparin Sodium (Lovenox) 40 mg SC DAILY [facility]; Protocol Last Admin: 10/08/18 09:00 Dose: 40 mg Escitalopram Oxalate (Lexapro) 20 mg PO DAILY [facility] Last Admin: 10/08/18 09:00 Dose: 20 mg Folic Acid (Folic Acid) 1 mg PO DAILY [facility] Last Admin: 10/08/18 08:59 Dose: 1 mg Gabapentin (Neurontin) 400 mg PO TID [facility] Last Admin: 10/08/18 08:58 Dose: 400 mg Nifedipine (Procardia Xl) 90 mg PO DAILY [facility] Last Admin: 10/08/18 08:59 Dose: 90 mg Ondansetron HCl (Zofran Inj) 4 mg IVP Q6 PRN PRN Reason: Nausea/Vomiting Oxycodone HCl (Oxycontin Extended Release Tab) 10 mg PO Q12 [facility] Stop: 10/08/18 21:01 Last Admin: 10/08/18 08:57 Dose: 10 mg Oxycodone HCl (Oxycodone Immediate Release Tab) 5 mg PO Q6 PRN PRN Reason: Pain, Mild (1-3) Last Admin: 10/08/18 03:44 Dose: 5 mg Pantoprazole Sodium (Protonix Ec Tab) 40 mg PO DAILY [facility] Last Admin: 10/08/18 08:58 Dose: 40 mg Potassium Chloride (K-Dur 20 Meq Er Tab) 20 meq PO DAILY [facility] Last Admin: 10/08/18 08:59 Dose: 20 meq Sitagliptin Phosphate (Januvia) 100 mg PO DAILY [facility] Last Admin: 10/08/18 08:59 Dose: 100 mg Trazodone HCl (Desyrel) 200 mg PO HS PRN PRN Reason: Insomnia Zolpidem Tartrate (Ambien) 5 mg PO HS [facility] Last Admin: 10/07/18 22:14 Dose: 5 mg - Labs Labs: 10/08/18 05:25 10/08/18 05:25 - Head Exam Head Exam: NORMAL INSPECTION - Eye Exam Eye Exam: Normal appearance - ENT Exam ENT Exam: Mucous Membranes Moist - Respiratory Exam Respiratory Exam: Clear to Ausculation Bilateral - Cardiovascular Exam Cardiovascular Exam: REGULAR RHYTHM - GI/Abdominal Exam GI & Abdominal Exam: Normal Bowel Sounds Assessment and Plan (1) Status post total knee replacement Status: Acute (2) Osteoarthritis Status: Acute (3) Hyperlipidemia Status: Acute (4) Diabetes mellitus type 2 in obese Status: Acute (5) Depression Status: Acute (6) Anxiety Status: Acute (7) COPD (chronic obstructive pulmonary disease) Status: Acute - Assessment and Plan (Free Text) Plan: Cont meds Cont tx Cont Phy stherapy TCU eval.
[2018-10-08 12:02] VITALS: O2SAT 92
--- NOTE | 2018-10-08 12:27 | RAD ---
Date of service: 10/08/2018 HISTORY: routine COMPARISON: 08/14/2018. FINDINGS: LUNGS: The lungs are hyperinflated and there is peribronchial thickening with chronic changes in both lungs. No focal consolidation. There is discoid atelectasis/scarring in the right mid lung and left lower lobe. PLEURA: No pleural effusions or pneumothorax. CARDIOVASCULAR: The heart is normal in size. There are aortic atherosclerotic calcifications present. OSSEOUS STRUCTURES: Within normal limits for the patient's age. VISUALIZED UPPER ABDOMEN: Normal. OTHER FINDINGS: None. IMPRESSION: No active pulmonary disease. COPD.
--- NOTE | 2018-10-08 14:41 | PQF ---
PROVIDER RESPONSE TEXT: History of COPD. No know history of asthma REVIEWER QUERY TEXT: Asthma Specificity and Type Asthma is documented in the Medical Record. Please specify the type and severity of asthma Such as: -- Mild intermittent -- Mild persistent -- Moderate persistent -- Severe persistent -- Exercise induced bronchospasm -- Cough variant asthma -- Other, please specify The patient's Clinical Indicators include: Medication: Duonebs, Ventolin HFA Query created by: Edwina Valverde on 10/08/2018 10:23 AM Electronically signed by: Alex Santana MD 10/08/2018 2:38 PM
[2018-10-09] MEDS ORDERED: Cholecalciferol 1,000 INTLU TAB PO SCH (09:00)
--- NOTE | 2018-10-10 00:05 | CP.PCM.DIS ---
Provider - Provider Date of Admission: 10/05/18 10:23 Attending physician: Alex Santana MD Consults: 10/05/18 09:29 Case Management Referral Routine Comment: Physician Instructions: Reason For Exam: Reason for Referral: Discharge Planning 10/05/18 10:33 Orthopedic Consult Routine Comment: Consulting Provider: Bronson Umaña Consulting Physician: Bronson Umaña Reason for Consult: tkr Diagnosis - Discharge Diagnosis (1) Status post total knee replacement Status: Acute (2) Osteoarthritis Status: Acute (3) Hyperlipidemia Status: Acute (4) Diabetes mellitus type 2 in obese Status: Acute (5) Depression Status: Acute (6) Anxiety Status: Acute (7) COPD (chronic obstructive pulmonary disease) Status: Acute Hospital Course - Lab Results Lab Results: Most Recent Lab Values WBC 6.7 K/uL (4.8-10.8) 10/08/18 05:25 RBC 3.76 Mil/uL (3.80-5.20) L 10/08/18 05:25 Hgb 11.6 g/dL (12.0-16.0) L 10/08/18 05:25 Hct 35.1 % (34.0-47.0) 10/08/18 05:25 MCV 93.2 fl (81.0-99.0) 10/08/18 05:25 MCH 31.0 pg (27.0-31.0) 10/08/18 05:25 MCHC 33.2 g/dL (33.0-37.0) 10/08/18 05:25 RDW 15.2 % (11.5-14.5) H 10/08/18 05:25 Plt Count 145 K/uL (130-400) 10/08/18 05:25 MPV 9.3 fl (7.2-11.7) 10/08/18 05:25 Neut % (Auto) 65.1 % (50.0-75.0) 10/08/18 05:25 Lymph % (Auto) 22.6 % (20.0-40.0) 10/08/18 05:25 [place] % (Auto) 7.5 % (0.0-10.0) 10/08/18 05:25 Eos % (Auto) 4.0 % (0.0-4.0) 10/08/18 05:25 Baso % (Auto) 0.8 % (0.0-2.0) 10/08/18 05:25 Neut # (Auto) 4.3 K/uL (1.8-7.0) 10/08/18 05:25 Lymph # (Auto) 1.5 K/uL (1.0-4.3) 10/08/18 05:25 [place] # (Auto) 0.5 K/uL (0.0-0.8) 10/08/18 05:25 Eos # (Auto) 0.3 K/uL (0.0-0.7) 10/08/18 05:25 Baso # (Auto) 0.1 K/uL (0.0-0.2) 10/08/18 05:25 Sodium 134 mmol/l (132-148) 10/08/18 05:25 Potassium 4.3 MMOL/L (3.6-5.0) 10/08/18 05:25 Chloride 105 mmol/L (98-107) 10/08/18 05:25 Carbon Dioxide 23 mmol/L (22-30) 10/08/18 05:25 Anion Gap 10 (10-20) 10/08/18 05:25 BUN 9 mg/dl (7-17) 10/08/18 05:25 Creatinine 0.7 mg/dl (0.7-1.2) 10/08/18 05:25 Est GFR ( Amer) > 60 10/08/18 05:25 Est GFR (Non-Af Amer) > 60 10/08/18 05:25 POC Glucose (mg/dL) 145 mg/dL (65-110) H 10/08/18 10:44 Random Glucose 104 mg/dL (65-105) 10/08/18 05:25 Calcium 9.0 mg/dL (8.4-10.2) 10/08/18 05:25 Total Bilirubin 0.5 mg/dl (0.2-1.3) 10/08/18 05:25 AST 22 U/L (14-36) 10/08/18 05:25 ALT 13 U/L (9-52) 10/08/18 05:25 Alkaline Phosphatase 80 U/L (38-126) 10/08/18 05:25 Total Protein 6.7 G/DL (6.3-8.2) 10/08/18 05:25 Albumin 3.3 g/dL (3.5-5.0) L D 10/08/18 05:25 Globulin 3.3 gm/dL (2.2-3.9) 10/08/18 05:25 Albumin/Globulin Ratio 1.0 (1.0-2.1) 10/08/18 05:25 25-OH Vitamin D Total 22.7 NG/ML (30.0-100.0) L 10/06/18 05:30 Blood Type A POSITIVE 10/05/18 07:20 Antibody Screen Negative 10/05/18 07:20 BBK History Checked Patient has bt 10/05/18 07:20 - Hospital Course Hospital Course: This is a 58 y/o female admitted for right TKR for severe DJD. Post op period was unremarkable She was started on phys therapy Discharge Exam - Head Exam Head Exam: NORMAL INSPECTION - Eye Exam Eye Exam: Normal appearance - Respiratory Exam Respiratory Exam: Clear to PA & Lateral - Cardiovascular Exam Cardiovascular Exam: REGULAR RHYTHM - GI/Abdominal Exam GI & Abdominal Exam: Normal Bowel Sounds - Neurological Exam Neurological exam: CN II-XII Intact - Psychiatric Exam Psychiatric exam: Normal Mood Discharge Plan - Follow Up Plan Condition: GOOD Disposition: TRANSF TO SNF Instructions: Total Knee Replacement (DC), Weight-Bearing Restrictions Referrals: Maurice Up MD [Family Provider] - Bronson Umaña MD [Staff Provider] -
== END 2018-10-08 15:02 | DRG 470 ==
LOC: H.OPSURG 06:00 → H.MEDSURG1 10:23
PROVIDERS: ADMIT Family Medicine; ATTEND Family Medicine
PROC: 0SRC0J9 Replacement of Right Knee Joint with Synthetic Substitute, Cemented, Open Approach (ICD-10-PCS; principal; 2018-10-05 08:25)
DX: M17.11 Unilateral primary osteoarthritis, right knee (principal); E11.9 Type 2 diabetes mellitus without complications; J44.9 Chronic obstructive pulmonary disease, unspecified; E78.5 Hyperlipidemia, unspecified; E78.00 Pure hypercholesterolemia, unspecified; Z86.711 Personal history of pulmonary embolism; E66.9 Obesity, unspecified; F32.9 Major depressive disorder, single episode, unspecified; F41.9 Anxiety disorder, unspecified; I10 Essential (primary) hypertension; Z68.34 Body mass index [BMI] 34.0-34.9, adult

== ENCOUNTER 2018-10-08 12:38 | Inpatient (IN) | payer OTHER, MEDICAID ==
[2018-10-08 15:33] VITALS: BMI 35.0
[2018-10-08] MEDS ORDERED: Albuterol HFA 90 mcg/actuation (8 g) INH PRN (16:23)
[2018-10-08] MEDS ORDERED: Bisacodyl 5mg EC Tab PO PRN (16:23)
[2018-10-08] MEDS: oxyCODONE 5 mg Immediate Release Tab PO PRN (16:59)
[2018-10-08] MEDS: Albuterol-Ipratrop 3 mg / 0.5 (3 ml) UD INH SCH (20:25)
[2018-10-08] MEDS: oxyCODONE 10 mg ER Tab (oxyCONTIN) PO SCH (21:28)
[2018-10-09] MEDS: oxyCODONE 5 mg Immediate Release Tab PO PRN ×3 (04:58→17:37)
[2018-10-09] MEDS: Albuterol-Ipratrop 3 mg / 0.5 (3 ml) UD INH SCH ×4 (07:33→20:00)
[2018-10-09] MEDS: oxyCODONE 10 mg ER Tab (oxyCONTIN) PO SCH ×2 (08:13→21:18)
[2018-10-09] MEDS: Enoxaparin 40 mg Syringe SC SCH (08:14)
[2018-10-09] MEDS: Pantoprazole 40 mg EC Tab PO SCH (08:14)
[2018-10-09] MEDS: NIFEdipine 90 mg ER Tab PO SCH (08:15)
[2018-10-09] MEDS: Cholecalciferol 1,000 INTLU TAB PO SCH (08:15)
[2018-10-09] MEDS: Potassium Chloride 20 mEq ER Tab PO SCH (08:15)
[2018-10-09] MEDS ORDERED: Enoxaparin 40 mg Syringe SC SCH (09:00)
[2018-10-10] MEDS: oxyCODONE 5 mg Immediate Release Tab PO PRN ×3 (05:34→23:51)
[2018-10-10] MEDS: Albuterol-Ipratrop 3 mg / 0.5 (3 ml) UD INH SCH ×4 (07:33→19:20)
[2018-10-10] MEDS: Enoxaparin 40 mg Syringe SC SCH (08:36)
[2018-10-10] MEDS: Cholecalciferol 1,000 INTLU TAB PO SCH (08:36)
[2018-10-10] MEDS: Potassium Chloride 20 mEq ER Tab PO SCH (08:37)
[2018-10-10] MEDS: Pantoprazole 40 mg EC Tab PO SCH (08:38)
[2018-10-10] MEDS: NIFEdipine 90 mg ER Tab PO SCH (08:38)
[2018-10-10] MEDS: oxyCODONE 10 mg ER Tab (oxyCONTIN) PO SCH ×2 (08:45→21:05)
[2018-10-10 16:25] VITALS: RESP 20
--- NOTE | 2018-10-10 19:10 | CP.PCM.CON ---
History of Present Illness - History of Present Illness History of Present Illness: Dr Khalil PMR consultation on Caron Del Rosario, born 1960 who has been admitted to [facility] TCU following a right TKR by Dr Umaña. Post op doing remarkably well. Pain is well controlled and she has been very active in therapies. Failed conservative care. Left knee also has advanced djd Review of Systems - Constitutional Constitutional: absent: Anorexia, Chills - EENT Eyes: absent: Change in Vision Ears: absent: Ear Discharge, Ear Pain Nose/Mouth/Throat: absent: Nasal Congestion - Cardiovascular Cardiovascular: absent: Chest Pain - Respiratory Respiratory: Cough (chronic smoked 3ppd for many years) - Gastrointestinal Gastrointestinal: absent: Constipation - Genitourinary Genitourinary: absent: Urinary Incontinence - Musculoskeletal Musculoskeletal: Back Pain, Muscle Cramps. absent: Neck Pain - Integumentary Integumentary: absent: Bleeding Lesions - Neurological Neurological: absent: Abnormal Hearing, Abnormal Movements, Behavioral Changes, Dizziness, Numbness - Psychiatric Psychiatric: absent: Anxiety Past Patient History - Infectious Disease Hx of Infectious Diseases: None - Tetanus Immunizations Tetanus Immunization: Unknown - Past Medical History & Family History Past Medical History?: Yes - Past Social History Smoking Status: Heavy Smoker > 10 Cigarettes Daily Alcohol: None Drugs: Denies Home Situation {Lives}: Alone (elevator) - CARDIAC Hx Cardiac Disorders: Yes Hx Angina: Yes Hx Circulatory Problems: Yes (BLOOD CLOTS in right upper extremity) Hx Hypercholesterolemia: Yes Hx Hypertension: Yes Other/Comment: hx of IVC filter 2013 right arm after DVT - PULMONARY Hx Respiratory Disorders: Yes Hx Asthma: Yes Hx Bronchitis: Yes Hx Chronic Obstructive Pulmonary Disease (COPD): Yes Hx Pneumonia: Yes Hx Pulmonary Embolism: Yes Other/Comment: WHEEZING - NEUROLOGICAL Hx Neurological Disorder: No - HEENT Hx HEENT Problems: Yes Hx Glaucoma: Yes Other/Comment: wears glasses - RENAL Hx Chronic Kidney Disease: No - ENDOCRINE/METABOLIC Hx Endocrine Disorders: Yes Hx Diabetes Mellitus Type 2: Yes - HEMATOLOGICAL/ONCOLOGICAL Hx Blood Disorders: No Hx Blood Transfusions: No Other/Comment: DVT - INTEGUMENTARY Hx Dermatological Problems: No - MUSCULOSKELETAL/RHEUMATOLOGICAL Hx Falls: No Hx Osteoarthritis: Yes - GASTROINTESTINAL Hx Gastrointestinal Disorders: No Hx Ulcer: Yes Other/Comment: HX GI BLEED - GENITOURINARY/GYNECOLOGICAL Hx Genitourinary Disorders: No Hx Incontinence: Yes - PSYCHIATRIC Hx Substance Use: No - SURGICAL HISTORY Hx Surgeries: Yes Hx Musculoskeletal Surgery: Yes (hx R ankle surger, L ft calluses sgy) Hx Tonsillectomy: Yes Hx Tubal Ligation: Yes Other/Comment: LEFT FOOT SURGERY-3 YEARS. LAPAROSCOPY - ANESTHESIA Hx Anesthesia: Yes Hx Anesthesia Reactions: No Hx Malignant Hyperthermia: No Meds Allergies/Adverse Reactions: Allergies Allergy/AdvReac Type Severity Reaction Status Date / Time No Known Allergies Allergy Verified 10/05/18 06:29 - Medications Medications: Current Medications Acetaminophen (Tylenol 325mg Tab) 650 mg PO Q4 PRN PRN Reason: Pain, Mild (1-3) Acetaminophen (Tylenol 325mg Tab) 650 mg PO Q4 PRN PRN Reason: Fever >100.4 F Albuterol (Ventolin Hfa 90 Mcg/Actuation (8 G)) 1 puff INH RQ6 PRN PRN Reason: Shortness of Breath Albuterol/Ipratropium (Duoneb 3 Mg/0.5 Mg (3 Ml) Ud) 3 ml INH RQID [facility] Last Admin: 10/10/18 15:37 Dose: Not Given Alprazolam (Xanax) 1 mg PO BID PRN PRN Reason: Anxiety Last Admin: 10/09/18 21:18 Dose: 1 mg Aripiprazole (Abilify) 15 mg PO DAILY [facility] Last Admin: 10/10/18 08:37 Dose: 15 mg Atorvastatin Calcium (Lipitor) 40 mg PO HS [facility] Last Admin: 10/09/18 21:16 Dose: 40 mg Bisacodyl (Dulcolax) 10 mg PO DAILY PRN PRN Reason: Constipation Celecoxib (Celebrex) 200 mg PO DAILY [facility] Last Admin: 10/10/18 08:38 Dose: 200 mg Cholecalciferol (Vitamin D) 2,000 intlu PO DAILY [facility] Last Admin: 10/10/18 08:36 Dose: 2,000 intlu Docusate Sodium (Colace) 100 mg PO BID [facility] Last Admin: 10/10/18 16:30 Dose: Not Given Enoxaparin Sodium (Lovenox) 40 mg SC DAILY [facility]; Protocol Last Admin: 10/10/18 08:36 Dose: 40 mg Escitalopram Oxalate (Lexapro) 20 mg PO DAILY [facility] Last Admin: 10/10/18 08:38 Dose: 20 mg Folic Acid (Folic Acid) 1 mg PO DAILY [facility] Last Admin: 10/10/18 08:39 Dose: 1 mg Gabapentin (Neurontin) 400 mg PO TID [facility] Last Admin: 10/10/18 16:31 Dose: 400 mg Nifedipine (Procardia Xl) 90 mg PO DAILY [facility] Last Admin: 10/10/18 08:38 Dose: 90 mg Ondansetron HCl (Zofran Odt) 4 mg PO Q6 PRN PRN Reason: Nausea/Vomiting Oxycodone HCl (Oxycontin Extended Release Tab) 10 mg PO Q12 [facility] Stop: 10/11/18 21:01 Last Admin: 10/10/18 08:45 Dose: 10 mg Oxycodone HCl (Oxycodone Immediate Release Tab) 5 mg PO Q4 PRN PRN Reason: Pain, moderate (4-7) Last Admin: 10/10/18 14:55 Dose: 5 mg Pantoprazole Sodium (Protonix Ec Tab) 40 mg PO DAILY [facility] Last Admin: 10/10/18 08:38 Dose: 40 mg Potassium Chloride (K-Dur 20 Meq Er Tab) 20 meq PO DAILY [facility] Last Admin: 10/10/18 08:37 Dose: 20 meq Sitagliptin Phosphate (Januvia) 100 mg PO DAILY [facility] Last Admin: 10/10/18 08:38 Dose: 100 mg Tiotropium [place] (Spiriva) 18 mcg INH DAILY [facility] Trazodone HCl (Desyrel) 200 mg PO HS PRN PRN Reason: Insomnia Zolpidem Tartrate (Ambien) 5 mg PO HS PRN PRN Reason: Insomnia Last Admin: 10/10/18 02:03 Dose: 5 mg Physical Exam - Constitutional Appears: Non-toxic, No Acute Distress - Head Exam Head Exam: ATRAUMATIC, NORMAL INSPECTION, NORMOCEPHALIC - Eye Exam Eye Exam: EOMI Pupil Exam: NORMAL ACCOMODATION - ENT Exam ENT Exam: Mucous Membranes Moist - Respiratory Exam Respiratory Exam: NORMAL BREATHING PATTERN - Cardiovascular Exam Cardiovascular Exam: REGULAR RHYTHM - GI/Abdominal Exam GI & Abdominal Exam: Normal Bowel Sounds. absent: Firm - Neurological Exam Neurological exam: Alert, Oriented x3 - Psychiatric Exam Psychiatric exam: Normal Affect, Normal Mood - Skin Skin Exam: Warm Results - Vital Signs Recent Vital Signs: Last Vital Signs Temp 98.7 F 10/10/18 16:24 Pulse 70 10/10/18 16:24 Resp 20 10/10/18 16:24 BP 113/73 10/10/18 16:24 Pulse Ox 94 L 10/10/18 16:24 - Labs Labs: Laboratory Results - last 24 hr 10/09/18 10/10/18 10/10/18 21:06 05:30 11:57 POC Glucose (mg/dL) 107 101 100 10/10/18 16:11 POC Glucose (mg/dL) 115 H Assessment & Plan - Assessment and Plan (Free Text) Assessment: 58 year old female s/p right TKR doing well PT/OT to continue to help increase functional independence Team conference for d/c planning Pain: controlled Vascular: no evidence of DVT GI: No evidence of constipation or diarrhea Patient continues to be an excellent acute rehabilitation candidate and will have continued focused pain management, PT, OT and recreational therapy to help facilitate a safe and appropriate d/c plan
[2018-10-11] MEDS: oxyCODONE 5 mg Immediate Release Tab PO PRN ×3 (04:17→18:00)
[2018-10-11] MEDS: Albuterol-Ipratrop 3 mg / 0.5 (3 ml) UD INH SCH ×4 (07:12→19:30)
[2018-10-11] MEDS: oxyCODONE 10 mg ER Tab (oxyCONTIN) PO SCH ×2 (08:22→21:42)
[2018-10-11] MEDS: Enoxaparin 40 mg Syringe SC SCH (08:23)
[2018-10-11] MEDS: Pantoprazole 40 mg EC Tab PO SCH (08:25)
[2018-10-11] MEDS: Potassium Chloride 20 mEq ER Tab PO SCH (08:25)
[2018-10-11] MEDS: Cholecalciferol 1,000 INTLU TAB PO SCH (08:25)
[2018-10-11] MEDS: NIFEdipine 90 mg ER Tab PO SCH (08:25)
[2018-10-11] MEDS: Tiotropium 18 mcg Cap For Inhalation INH SCH (08:26)
--- NOTE | 2018-10-11 18:31 | CP.PCM.PN ---
Subjective - Date & Time of Evaluation Date of Evaluation: 10/11/18 Time of Evaluation: 14:00 - Subjective Subjective: Patient seen and examined at bedside comfortable. Pain well controlled. No new complaints. Objective - Vital Signs/Intake and Output Vital Signs (last 24 hours): Temp Pulse Resp BP Pulse Ox 98.9 F 74 20 131/71 91 L 10/11/18 15:48 10/11/18 15:48 10/11/18 15:48 10/11/18 15:48 10/11/18 15:48 - Medications Medications: Current Medications Acetaminophen (Tylenol 325mg Tab) 650 mg PO Q4 PRN PRN Reason: Pain, Mild (1-3) Acetaminophen (Tylenol 325mg Tab) 650 mg PO Q4 PRN PRN Reason: Fever >100.4 F Albuterol (Ventolin Hfa 90 Mcg/Actuation (8 G)) 1 puff INH RQ6 PRN PRN Reason: Shortness of Breath Albuterol/Ipratropium (Duoneb 3 Mg/0.5 Mg (3 Ml) Ud) 3 ml INH RQID [facility] Last Admin: 10/11/18 15:34 Dose: 3 ml Alprazolam (Xanax) 1 mg PO BID PRN PRN Reason: Anxiety Last Admin: 10/09/18 21:18 Dose: 1 mg Aripiprazole (Abilify) 15 mg PO DAILY [facility] Last Admin: 10/11/18 08:26 Dose: 15 mg Atorvastatin Calcium (Lipitor) 40 mg PO HS [facility] Last Admin: 10/10/18 21:06 Dose: 40 mg Bisacodyl (Dulcolax) 10 mg PO DAILY PRN PRN Reason: Constipation Celecoxib (Celebrex) 200 mg PO DAILY [facility] Last Admin: 10/11/18 08:25 Dose: 200 mg Cholecalciferol (Vitamin D) 2,000 intlu PO DAILY [facility] Last Admin: 10/11/18 08:25 Dose: 2,000 intlu Docusate Sodium (Colace) 100 mg PO BID [facility] Last Admin: 10/11/18 16:41 Dose: 100 mg Enoxaparin Sodium (Lovenox) 40 mg SC DAILY [facility]; Protocol Last Admin: 10/11/18 08:23 Dose: 40 mg Escitalopram Oxalate (Lexapro) 20 mg PO DAILY [facility] Last Admin: 10/11/18 08:27 Dose: 20 mg Folic Acid (Folic Acid) 1 mg PO DAILY [facility] Last Admin: 10/11/18 08:26 Dose: 1 mg Gabapentin (Neurontin) 400 mg PO TID [facility] Last Admin: 10/11/18 16:41 Dose: 400 mg Nifedipine (Procardia Xl) 90 mg PO DAILY [facility] Last Admin: 10/11/18 08:25 Dose: 90 mg Ondansetron HCl (Zofran Odt) 4 mg PO Q6 PRN PRN Reason: Nausea/Vomiting Oxycodone HCl (Oxycontin Extended Release Tab) 10 mg PO Q12 [facility] Stop: 10/11/18 21:01 Last Admin: 10/11/18 08:22 Dose: 10 mg Oxycodone HCl (Oxycodone Immediate Release Tab) 5 mg PO Q4 PRN PRN Reason: Pain, moderate (4-7) Last Admin: 10/11/18 18:00 Dose: 5 mg Pantoprazole Sodium (Protonix Ec Tab) 40 mg PO DAILY [facility] Last Admin: 10/11/18 08:25 Dose: 40 mg Potassium Chloride (K-Dur 20 Meq Er Tab) 20 meq PO DAILY [facility] Last Admin: 10/11/18 08:25 Dose: 20 meq Sitagliptin Phosphate (Januvia) 100 mg PO DAILY [facility] Last Admin: 10/11/18 08:24 Dose: 100 mg Tiotropium [place] (Spiriva) 18 mcg INH DAILY [facility] Last Admin: 10/11/18 08:26 Dose: 18 mcg Trazodone HCl (Desyrel) 200 mg PO HS PRN PRN Reason: Insomnia Zolpidem Tartrate (Ambien) 5 mg PO HS PRN PRN Reason: Insomnia Last Admin: 10/10/18 02:03 Dose: 5 mg - Extremities Exam Additional comments: R knee: Dressings CDI mild swelling and tenderness sensation intact SP/DP/TN motor intact EHL/FHL/TA/G pedal pulses intact calves soft NT b/l Assessment and Plan (1) Status post total right knee replacement Assessment & Plan: POD#7 s/p R TKA -PT/OT WBAT -DVT ppx -ice elevate -orthopedically stable -above d/w Dr. Umaña in agreement Status: Acute
[2018-10-12] MEDS: oxyCODONE 5 mg Immediate Release Tab PO PRN ×3 (00:59→16:33)
[2018-10-12] MEDS: Albuterol-Ipratrop 3 mg / 0.5 (3 ml) UD INH SCH ×4 (08:10→19:58)
[2018-10-12] MEDS: Cholecalciferol 1,000 INTLU TAB PO SCH (08:40)
[2018-10-12] MEDS: NIFEdipine 90 mg ER Tab PO SCH (08:40)
[2018-10-12] MEDS: Pantoprazole 40 mg EC Tab PO SCH (08:40)
[2018-10-12] MEDS: Potassium Chloride 20 mEq ER Tab PO SCH (08:40)
[2018-10-12] MEDS: Tiotropium 18 mcg Cap For Inhalation INH SCH (08:41)
[2018-10-12] MEDS: Enoxaparin 40 mg Syringe SC SCH (08:41)
[2018-10-12] MEDS: oxyCODONE 10 mg ER Tab (oxyCONTIN) PO SCH ×2 (09:27→20:46)
--- NOTE | 2018-10-12 15:23 | CP.PCM.PN ---
Subjective - Date & Time of Evaluation Date of Evaluation: 10/12/18 Time of Evaluation: 15:22 - Subjective Subjective: Caron seen in PT, making good progress and set for d/c home soon ambulating with RW and CS. Needs some cueing for holding the walker a little more in front no sob/cp very happy with excellent care by all staff. great early surgical outcome. Objective - Vital Signs/Intake and Output Vital Signs (last 24 hours): Temp Pulse Resp BP Pulse Ox 98.6 F 82 20 117/72 93 L 10/12/18 11:43 10/12/18 11:43 10/12/18 11:43 10/12/18 11:43 10/12/18 11:43 - Medications Medications: Current Medications Acetaminophen (Tylenol 325mg Tab) 650 mg PO Q4 PRN PRN Reason: Pain, Mild (1-3) Acetaminophen (Tylenol 325mg Tab) 650 mg PO Q4 PRN PRN Reason: Fever >100.4 F Albuterol (Ventolin Hfa 90 Mcg/Actuation (8 G)) 1 puff INH RQ6 PRN PRN Reason: Shortness of Breath Albuterol/Ipratropium (Duoneb 3 Mg/0.5 Mg (3 Ml) Ud) 3 ml INH RQID [facility] Last Admin: 10/12/18 11:33 Dose: 3 ml Alprazolam (Xanax) 1 mg PO BID PRN PRN Reason: Anxiety Last Admin: 10/12/18 12:30 Dose: 1 mg Aripiprazole (Abilify) 15 mg PO DAILY [facility] Last Admin: 10/12/18 08:39 Dose: 15 mg Atorvastatin Calcium (Lipitor) 40 mg PO HS [facility] Last Admin: 10/11/18 21:43 Dose: 40 mg Bisacodyl (Dulcolax) 10 mg PO DAILY PRN PRN Reason: Constipation Celecoxib (Celebrex) 200 mg PO DAILY [facility] Last Admin: 10/12/18 08:40 Dose: 200 mg Cholecalciferol (Vitamin D) 2,000 intlu PO DAILY [facility] Last Admin: 10/12/18 08:40 Dose: 2,000 intlu Docusate Sodium (Colace) 100 mg PO BID [facility] Last Admin: 10/12/18 08:39 Dose: 100 mg Enoxaparin Sodium (Lovenox) 40 mg SC DAILY [facility]; Protocol Last Admin: 10/12/18 08:41 Dose: 40 mg Escitalopram Oxalate (Lexapro) 20 mg PO DAILY [facility] Last Admin: 10/12/18 08:40 Dose: 20 mg Folic Acid (Folic Acid) 1 mg PO DAILY [facility] Last Admin: 10/12/18 08:40 Dose: 1 mg Gabapentin (Neurontin) 400 mg PO TID [facility] Last Admin: 10/12/18 12:31 Dose: 400 mg Nifedipine (Procardia Xl) 90 mg PO DAILY [facility] Last Admin: 10/12/18 08:40 Dose: 90 mg Ondansetron HCl (Zofran Odt) 4 mg PO Q6 PRN PRN Reason: Nausea/Vomiting Oxycodone HCl (Oxycodone Immediate Release Tab) 5 mg PO Q4 PRN PRN Reason: Pain, moderate (4-7) Last Admin: 10/12/18 08:37 Dose: 5 mg Oxycodone HCl (Oxycontin Extended Release Tab) 10 mg PO Q12 [facility] Stop: 10/15/18 09:01 Last Admin: 10/12/18 09:27 Dose: 10 mg Pantoprazole Sodium (Protonix Ec Tab) 40 mg PO DAILY [facility] Last Admin: 10/12/18 08:40 Dose: 40 mg Potassium Chloride (K-Dur 20 Meq Er Tab) 20 meq PO DAILY [facility] Last Admin: 10/12/18 08:40 Dose: 20 meq Sitagliptin Phosphate (Januvia) 100 mg PO DAILY [facility] Last Admin: 10/12/18 08:40 Dose: 100 mg Tiotropium [place] (Spiriva) 18 mcg INH DAILY [facility] Last Admin: 10/12/18 08:41 Dose: 18 mcg Trazodone HCl (Desyrel) 200 mg PO HS PRN PRN Reason: Insomnia Zolpidem Tartrate (Ambien) 5 mg PO HS PRN PRN Reason: Insomnia Last Admin: 10/10/18 02:03 Dose: 5 mg
[2018-10-13] MEDS: oxyCODONE 5 mg Immediate Release Tab PO PRN ×3 (01:06→16:40)
[2018-10-13] MEDS: Albuterol-Ipratrop 3 mg / 0.5 (3 ml) UD INH SCH ×4 (07:44→19:25)
[2018-10-13] MEDS: Potassium Chloride 20 mEq ER Tab PO SCH (09:24)
[2018-10-13] MEDS: Enoxaparin 40 mg Syringe SC SCH (09:26)
[2018-10-13] MEDS: oxyCODONE 10 mg ER Tab (oxyCONTIN) PO SCH ×2 (09:27→20:30)
[2018-10-13] MEDS: NIFEdipine 90 mg ER Tab PO SCH (09:29)
[2018-10-13] MEDS: Pantoprazole 40 mg EC Tab PO SCH (09:29)
[2018-10-13] MEDS: Tiotropium 18 mcg Cap For Inhalation INH SCH (09:29)
[2018-10-13] MEDS: Cholecalciferol 1,000 INTLU TAB PO SCH (09:29)
[2018-10-14] MEDS: oxyCODONE 5 mg Immediate Release Tab PO PRN ×3 (00:32→13:35)
[2018-10-14 07:05] LABS: HEMOGLOBIN 12.4 g/dL (12.0-16.0); MEAN CELL VOLUME 92.4 fl (81.0-99.0); MEAN CORPUSCULAR HEMOGLOBIN 30.2 pg (27.0-31.0); MEAN CORPUSCULAR HGB CONC 32.7 g/dL (33.0-37.0); RBC 4.1 Mil/uL (3.80-5.20); RED CELL DISTRIBUTION WIDTH 15.6 % (11.5-14.5); WHITE BLOOD COUNT 4.6 K/uL (4.8-10.8)
[2018-10-14 07:30] LABS: ALB/GLOB RATIO 1.1 (1.0-2.1); ALT/SGPT 17 U/L (9-52); AST/SGOT 25 U/L (14-36); BLOOD UREA NITROGEN 9 mg/dl (7-17); CALCIUM 9.8 mg/dL (8.4-10.2); GFR NON-AFRICAN AMERICAN > 60
[2018-10-14] MEDS: Albuterol-Ipratrop 3 mg / 0.5 (3 ml) UD INH SCH ×4 (07:53→19:24)
[2018-10-14] MEDS: oxyCODONE 10 mg ER Tab (oxyCONTIN) PO SCH ×2 (08:14→20:33)
[2018-10-14] MEDS: Enoxaparin 40 mg Syringe SC SCH (08:14)
[2018-10-14] MEDS: NIFEdipine 90 mg ER Tab PO SCH (08:14)
[2018-10-14] MEDS: Potassium Chloride 20 mEq ER Tab PO SCH (08:16)
[2018-10-14] MEDS: Pantoprazole 40 mg EC Tab PO SCH (08:16)
[2018-10-14] MEDS: Cholecalciferol 1,000 INTLU TAB PO SCH (08:16)
[2018-10-14] MEDS: Tiotropium 18 mcg Cap For Inhalation INH SCH (08:17)
--- NOTE | 2018-10-14 12:26 | CP.PCM.PN ---
Subjective - Date & Time of Evaluation Date of Evaluation: 10/14/18 Time of Evaluation: 12:26 - Subjective Subjective: patient seen and examined at bedside. Interim events noted No complaints offered at this time denies cp/sob/fever/chills. available diagnostic data reviewed Objective Vital Signs Stable - Constitutional Appears: Non-toxic, No Acute Distress - Head Exam Head Exam: NORMAL INSPECTION - Eye Exam Eye Exam: Normal appearance - Respiratory Exam Respiratory Exam: NORMAL BREATHING PATTERN - Cardiovascular Exam Cardiovascular Exam: +S1, +S2 - GI/Abdominal Exam GI & Abdominal Exam: Soft - Neurological Exam Neurological Exam: Alert, Awake - Psychiatric Exam Psychiatric exam: Normal Affect, Normal Mood - Skin Skin Exam: Normal Color, Warm Assessment and Plan monitor vitals monitor labs Cont meds Cont tx consultants appreciated input rest of plan as ordered Assessment and Plan (1) Status post total right knee replacement Status: Acute
[2018-10-15] MEDS: oxyCODONE 5 mg Immediate Release Tab PO PRN (00:40)
[2018-10-15] MEDS: Albuterol-Ipratrop 3 mg / 0.5 (3 ml) UD INH SCH ×2 (07:47→11:24)
[2018-10-15] MEDS: oxyCODONE 10 mg ER Tab (oxyCONTIN) PO SCH (08:28)
[2018-10-15] MEDS: Enoxaparin 40 mg Syringe SC SCH (08:29)
[2018-10-15] MEDS: Tiotropium 18 mcg Cap For Inhalation INH SCH (08:30)
[2018-10-15] MEDS: Cholecalciferol 1,000 INTLU TAB PO SCH (08:31)
[2018-10-15] MEDS: Potassium Chloride 20 mEq ER Tab PO SCH (08:31)
--- NOTE | 2018-10-15 08:35 | CP.PCM.HP ---
History of Present Illness - History of Present Illness History of Present Illness: This is a 58 y/o female admitted for further PT and rehab after a right total knee for severe OA. She has been suffering from chronic pain which did not respond to all conservative measures including pain medications Phys therapy. Post op period was unremarkable. Hgb was stable. However patient suffers from anxiety. She has a hx of DM 2 , hyperlipidemia, HTN COPD, depression and anxiety. Present on Admission - Present on Admission Any Indicators Present on Admission: No History of DVT/PE: No History of Uncontrolled Diabetes: No Urinary Catheter: No Decubitus Ulcer Present: No Review of Systems - Psychiatric Psychiatric: Anxiety, Depression Past Patient History - Infectious Disease Hx of Infectious Diseases: None - Tetanus Immunizations Tetanus Immunization: Unknown - Past Medical History & Family History Past Medical History?: Yes - Past Social History Smoking Status: Heavy Smoker > 10 Cigarettes Daily Alcohol: None Drugs: Denies Home Situation {Lives}: Alone (elevator) - CARDIAC Hx Cardiac Disorders: Yes Hx Angina: Yes Hx Circulatory Problems: Yes (BLOOD CLOTS in right upper extremity) Hx Hypercholesterolemia: Yes Hx Hypertension: Yes Other/Comment: hx of IVC filter 2013 right arm after DVT - PULMONARY Hx Respiratory Disorders: Yes Hx Asthma: Yes Hx Bronchitis: Yes Hx Chronic Obstructive Pulmonary Disease (COPD): Yes Hx Pneumonia: Yes Hx Pulmonary Embolism: Yes Other/Comment: WHEEZING - NEUROLOGICAL Hx Neurological Disorder: No - HEENT Hx HEENT Problems: Yes Hx Glaucoma: Yes Other/Comment: wears glasses - RENAL Hx Chronic Kidney Disease: No - ENDOCRINE/METABOLIC Hx Endocrine Disorders: Yes Hx Diabetes Mellitus Type 2: Yes - HEMATOLOGICAL/ONCOLOGICAL Hx Blood Disorders: No Hx Blood Transfusions: No Other/Comment: DVT - INTEGUMENTARY Hx Dermatological Problems: No - MUSCULOSKELETAL/RHEUMATOLOGICAL Hx Falls: No Hx Osteoarthritis: Yes - GASTROINTESTINAL Hx Gastrointestinal Disorders: No Hx Ulcer: Yes Other/Comment: HX GI BLEED - GENITOURINARY/GYNECOLOGICAL Hx Genitourinary Disorders: No Hx Incontinence: Yes - PSYCHIATRIC Hx Substance Use: No - SURGICAL HISTORY Hx Surgeries: Yes Hx Musculoskeletal Surgery: Yes (hx R ankle surger, L ft calluses sgy) Hx Tonsillectomy: Yes Hx Tubal Ligation: Yes Other/Comment: LEFT FOOT SURGERY-3 YEARS. LAPAROSCOPY - ANESTHESIA Hx Anesthesia: Yes Hx Anesthesia Reactions: No Hx Malignant Hyperthermia: No Meds Allergies/Adverse Reactions: Allergies Allergy/AdvReac Type Severity Reaction Status Date / Time No Known Allergies Allergy Verified 10/05/18 06:29 Physical Exam - Head Exam Head Exam: NORMAL INSPECTION - Eye Exam Eye Exam: Normal appearance - ENT Exam ENT Exam: Mucous Membranes Moist - Respiratory Exam Respiratory Exam: Clear to Auscultation Bilateral - Cardiovascular Exam Cardiovascular Exam: REGULAR RHYTHM - GI/Abdominal Exam GI & Abdominal Exam: Normal Bowel Sounds - Neurological Exam Neurological exam: CN II-XII Intact, Oriented x3 - Psychiatric Exam Psychiatric exam: Anxious, Depressed Results - Vital Signs Recent Vital Signs: Last Vital Signs Temp 98.3 F 10/14/18 21:21 Pulse 66 10/14/18 21:21 Resp 20 10/14/18 21:21 BP 137/74 10/14/18 21:21 Pulse Ox 94 L 10/14/18 21:21 - Labs Result Diagrams: 10/14/18 05:40 10/14/18 05:40 Labs: Laboratory Results - last 24 hr 10/14/18 10/14/18 10/14/18 10:43 16:02 21:00 POC Glucose (mg/dL) 103 99 97 10/14/18 10/15/18 22:04 06:24 POC Glucose (mg/dL) 188 H 110 Assessment & Plan (1) Gait difficulty Status: Acute (2) Status post total right knee replacement Status: Acute (3) Anxiety Status: Acute (4) COPD (chronic obstructive pulmonary disease) Status: Acute (5) Depression Status: Acute (6) Diabetes mellitus type 2 in obese Status: Acute (7) HTN (hypertension) Status: Acute Priority: Medium (8) Hyperlipidemia Status: Acute - Assessment and Plan (Free Text) Plan: Start PT Cont all medications Pain meds Low salt low fat diet
[2018-10-15 08:36] VITALS: BP 142/74; PULSE 101; TEMP 97.7; O2SAT 96
[2018-10-15] MEDS: NIFEdipine 90 mg ER Tab PO SCH (08:40)
[2018-10-15] MEDS: Pantoprazole 40 mg EC Tab PO SCH (08:40)
--- NOTE | 2018-10-15 08:41 | CP.PCM.PN ---
Subjective - Date & Time of Evaluation Date of Evaluation: 10/10/18 Time of Evaluation: 11:00 - Subjective Subjective: Patient desires to go home Very anxious. She was reassured that she will have PT and that she has no assistance at home. Has minimal pain Tolerating Phys therapy. Objective - Vital Signs/Intake and Output Vital Signs (last 24 hours): Temp Pulse Resp BP Pulse Ox 97.7 F 101 H 20 142/74 96 10/15/18 08:35 10/15/18 08:35 10/15/18 08:35 10/15/18 08:35 10/15/18 08:35 - Medications Medications: Current Medications Acetaminophen (Tylenol 325mg Tab) 650 mg PO Q4 PRN PRN Reason: Pain, Mild (1-3) Acetaminophen (Tylenol 325mg Tab) 650 mg PO Q4 PRN PRN Reason: Fever >100.4 F Albuterol (Ventolin Hfa 90 Mcg/Actuation (8 G)) 1 puff INH RQ6 PRN PRN Reason: Shortness of Breath Albuterol/Ipratropium (Duoneb 3 Mg/0.5 Mg (3 Ml) Ud) 3 ml INH RQID [facility] Last Admin: 10/15/18 07:47 Dose: 3 ml Alprazolam (Xanax) 1 mg PO BID PRN PRN Reason: Anxiety Last Admin: 10/14/18 20:35 Dose: 1 mg Aripiprazole (Abilify) 15 mg PO DAILY [facility] Last Admin: 10/15/18 08:29 Dose: 15 mg Atorvastatin Calcium (Lipitor) 40 mg PO HS [facility] Last Admin: 10/14/18 22:45 Dose: 40 mg Bisacodyl (Dulcolax) 10 mg PO DAILY PRN PRN Reason: Constipation Celecoxib (Celebrex) 200 mg PO DAILY [facility] Last Admin: 10/15/18 08:30 Dose: 200 mg Cholecalciferol (Vitamin D) 2,000 intlu PO DAILY [facility] Last Admin: 10/15/18 08:31 Dose: 2,000 intlu Docusate Sodium (Colace) 100 mg PO BID [facility] Last Admin: 10/15/18 08:29 Dose: 100 mg Enoxaparin Sodium (Lovenox) 40 mg SC DAILY [facility]; Protocol Last Admin: 10/15/18 08:29 Dose: 40 mg Escitalopram Oxalate (Lexapro) 20 mg PO DAILY [facility] Last Admin: 10/15/18 08:31 Dose: 20 mg Folic Acid (Folic Acid) 1 mg PO DAILY [facility] Last Admin: 10/15/18 08:31 Dose: 1 mg Gabapentin (Neurontin) 400 mg PO TID [facility] Last Admin: 10/15/18 08:29 Dose: 400 mg Nicotine (Nicoderm Cq) 1 patch TD DAILY [facility] Last Admin: 10/15/18 08:28 Dose: 1 patch Nifedipine (Procardia Xl) 90 mg PO DAILY [facility] Last Admin: 10/14/18 08:14 Dose: 90 mg Ondansetron HCl (Zofran Odt) 4 mg PO Q6 PRN PRN Reason: Nausea/Vomiting Oxycodone HCl (Oxycodone Immediate Release Tab) 5 mg PO Q4 PRN PRN Reason: Pain, moderate (4-7) Last Admin: 10/15/18 00:40 Dose: 5 mg Oxycodone HCl (Oxycontin Extended Release Tab) 10 mg PO Q12 [facility] Stop: 10/15/18 09:01 Last Admin: 10/15/18 08:28 Dose: 10 mg Pantoprazole Sodium (Protonix Ec Tab) 40 mg PO DAILY [facility] Last Admin: 10/14/18 08:16 Dose: 40 mg Potassium Chloride (K-Dur 20 Meq Er Tab) 20 meq PO DAILY [facility] Last Admin: 10/15/18 08:31 Dose: 20 meq Sitagliptin Phosphate (Januvia) 100 mg PO DAILY [facility] Last Admin: 10/15/18 08:30 Dose: 100 mg Tiotropium [place] (Spiriva) 18 mcg INH DAILY [facility] Last Admin: 10/15/18 08:30 Dose: 18 mcg Trazodone HCl (Desyrel) 200 mg PO HS PRN PRN Reason: Insomnia Zolpidem Tartrate (Ambien) 5 mg PO HS PRN PRN Reason: Insomnia Last Admin: 10/14/18 20:34 Dose: 5 mg - Labs Labs: 10/14/18 05:40 10/14/18 05:40 - Head Exam Head Exam: NORMAL INSPECTION - Eye Exam Eye Exam: Normal appearance - ENT Exam ENT Exam: Mucous Membranes Moist - Respiratory Exam Respiratory Exam: Clear to Ausculation Bilateral - Cardiovascular Exam Cardiovascular Exam: REGULAR RHYTHM - GI/Abdominal Exam GI & Abdominal Exam: Normal Bowel Sounds - Neurological Exam Neurological Exam: Awake - Psychiatric Exam Psychiatric exam: Normal Mood Assessment and Plan (1) Gait difficulty Status: Acute (2) Status post total right knee replacement Status: Acute (3) Anxiety Status: Acute (4) COPD (chronic obstructive pulmonary disease) Status: Acute (5) Depression Status: Acute (6) Diabetes mellitus type 2 in obese Status: Acute (7) HTN (hypertension) Status: Acute (8) Hyperlipidemia Status: Acute - Assessment and Plan (Free Text) Plan: Cont meds Cont PT Cont pain meds prn check labs regularly
--- NOTE | 2018-10-15 08:44 | CP.PCM.PN ---
Subjective - Date & Time of Evaluation Date of Evaluation: 10/11/18 Time of Evaluation: 10:00 - Subjective Subjective: Patient is stable Has no chest pain or SOB Less anxious On xanax 1 mg bid Objective - Vital Signs/Intake and Output Vital Signs (last 24 hours): Temp Pulse Resp BP Pulse Ox 97.7 F 101 H 20 142/74 96 10/15/18 08:35 10/15/18 08:35 10/15/18 08:35 10/15/18 08:35 10/15/18 08:35 - Medications Medications: Current Medications Acetaminophen (Tylenol 325mg Tab) 650 mg PO Q4 PRN PRN Reason: Pain, Mild (1-3) Acetaminophen (Tylenol 325mg Tab) 650 mg PO Q4 PRN PRN Reason: Fever >100.4 F Albuterol (Ventolin Hfa 90 Mcg/Actuation (8 G)) 1 puff INH RQ6 PRN PRN Reason: Shortness of Breath Albuterol/Ipratropium (Duoneb 3 Mg/0.5 Mg (3 Ml) Ud) 3 ml INH RQID [facility] Last Admin: 10/15/18 07:47 Dose: 3 ml Alprazolam (Xanax) 1 mg PO BID PRN PRN Reason: Anxiety Last Admin: 10/14/18 20:35 Dose: 1 mg Aripiprazole (Abilify) 15 mg PO DAILY [facility] Last Admin: 10/15/18 08:29 Dose: 15 mg Atorvastatin Calcium (Lipitor) 40 mg PO HS [facility] Last Admin: 10/14/18 22:45 Dose: 40 mg Bisacodyl (Dulcolax) 10 mg PO DAILY PRN PRN Reason: Constipation Celecoxib (Celebrex) 200 mg PO DAILY [facility] Last Admin: 10/15/18 08:30 Dose: 200 mg Cholecalciferol (Vitamin D) 2,000 intlu PO DAILY [facility] Last Admin: 10/15/18 08:31 Dose: 2,000 intlu Docusate Sodium (Colace) 100 mg PO BID [facility] Last Admin: 10/15/18 08:29 Dose: 100 mg Enoxaparin Sodium (Lovenox) 40 mg SC DAILY [facility]; Protocol Last Admin: 10/15/18 08:29 Dose: 40 mg Escitalopram Oxalate (Lexapro) 20 mg PO DAILY [facility] Last Admin: 10/15/18 08:31 Dose: 20 mg Folic Acid (Folic Acid) 1 mg PO DAILY [facility] Last Admin: 10/15/18 08:31 Dose: 1 mg Gabapentin (Neurontin) 400 mg PO TID [facility] Last Admin: 10/15/18 08:29 Dose: 400 mg Nicotine (Nicoderm Cq) 1 patch TD DAILY [facility] Last Admin: 10/15/18 08:28 Dose: 1 patch Nifedipine (Procardia Xl) 90 mg PO DAILY [facility] Last Admin: 10/15/18 08:40 Dose: 90 mg Ondansetron HCl (Zofran Odt) 4 mg PO Q6 PRN PRN Reason: Nausea/Vomiting Oxycodone HCl (Oxycodone Immediate Release Tab) 5 mg PO Q4 PRN PRN Reason: Pain, moderate (4-7) Last Admin: 10/15/18 00:40 Dose: 5 mg Oxycodone HCl (Oxycontin Extended Release Tab) 10 mg PO Q12 [facility] Stop: 10/15/18 09:01 Last Admin: 10/15/18 08:28 Dose: 10 mg Pantoprazole Sodium (Protonix Ec Tab) 40 mg PO DAILY [facility] Last Admin: 10/15/18 08:40 Dose: 40 mg Potassium Chloride (K-Dur 20 Meq Er Tab) 20 meq PO DAILY [facility] Last Admin: 10/15/18 08:31 Dose: 20 meq Sitagliptin Phosphate (Januvia) 100 mg PO DAILY [facility] Last Admin: 10/15/18 08:30 Dose: 100 mg Tiotropium [place] (Spiriva) 18 mcg INH DAILY [facility] Last Admin: 10/15/18 08:30 Dose: 18 mcg Trazodone HCl (Desyrel) 200 mg PO HS PRN PRN Reason: Insomnia Zolpidem Tartrate (Ambien) 5 mg PO HS PRN PRN Reason: Insomnia Last Admin: 10/14/18 20:34 Dose: 5 mg - Labs Labs: 10/14/18 05:40 10/14/18 05:40 - Head Exam Head Exam: NORMAL INSPECTION - Eye Exam Eye Exam: Normal appearance - ENT Exam ENT Exam: Mucous Membranes Moist - Respiratory Exam Respiratory Exam: Clear to Ausculation Bilateral - Cardiovascular Exam Cardiovascular Exam: REGULAR RHYTHM - GI/Abdominal Exam GI & Abdominal Exam: Normal Bowel Sounds - Neurological Exam Neurological Exam: Awake, Oriented x3 Assessment and Plan (1) Gait difficulty Status: Acute (2) Status post total right knee replacement Status: Acute (3) Anxiety Status: Acute (4) COPD (chronic obstructive pulmonary disease) Status: Acute (5) Depression Status: Acute (6) Diabetes mellitus type 2 in obese Status: Acute (7) HTN (hypertension) Status: Acute (8) Hyperlipidemia Status: Acute - Assessment and Plan (Free Text) Plan: Cont meds Cont to encouraged phys therapy Cont tx
--- NOTE | 2018-10-15 08:46 | CP.PCM.PN ---
Subjective - Date & Time of Evaluation Date of Evaluation: 10/12/18 Time of Evaluation: 11:00 - Subjective Subjective: Patient is doing well with PT Still needs assistance in walking Has minimal pain Gets anxious a lot. Objective - Vital Signs/Intake and Output Vital Signs (last 24 hours): Temp Pulse Resp BP Pulse Ox 97.7 F 101 H 20 142/74 96 10/15/18 08:35 10/15/18 08:35 10/15/18 08:35 10/15/18 08:35 10/15/18 08:35 - Medications Medications: Current Medications Acetaminophen (Tylenol 325mg Tab) 650 mg PO Q4 PRN PRN Reason: Pain, Mild (1-3) Acetaminophen (Tylenol 325mg Tab) 650 mg PO Q4 PRN PRN Reason: Fever >100.4 F Albuterol (Ventolin Hfa 90 Mcg/Actuation (8 G)) 1 puff INH RQ6 PRN PRN Reason: Shortness of Breath Albuterol/Ipratropium (Duoneb 3 Mg/0.5 Mg (3 Ml) Ud) 3 ml INH RQID [facility] Last Admin: 10/15/18 07:47 Dose: 3 ml Alprazolam (Xanax) 1 mg PO BID PRN PRN Reason: Anxiety Last Admin: 10/14/18 20:35 Dose: 1 mg Aripiprazole (Abilify) 15 mg PO DAILY [facility] Last Admin: 10/15/18 08:29 Dose: 15 mg Atorvastatin Calcium (Lipitor) 40 mg PO HS [facility] Last Admin: 10/14/18 22:45 Dose: 40 mg Bisacodyl (Dulcolax) 10 mg PO DAILY PRN PRN Reason: Constipation Celecoxib (Celebrex) 200 mg PO DAILY [facility] Last Admin: 10/15/18 08:30 Dose: 200 mg Cholecalciferol (Vitamin D) 2,000 intlu PO DAILY [facility] Last Admin: 10/15/18 08:31 Dose: 2,000 intlu Docusate Sodium (Colace) 100 mg PO BID [facility] Last Admin: 10/15/18 08:29 Dose: 100 mg Enoxaparin Sodium (Lovenox) 40 mg SC DAILY [facility]; Protocol Last Admin: 10/15/18 08:29 Dose: 40 mg Escitalopram Oxalate (Lexapro) 20 mg PO DAILY [facility] Last Admin: 10/15/18 08:31 Dose: 20 mg Folic Acid (Folic Acid) 1 mg PO DAILY [facility] Last Admin: 10/15/18 08:31 Dose: 1 mg Gabapentin (Neurontin) 400 mg PO TID [facility] Last Admin: 10/15/18 08:29 Dose: 400 mg Nicotine (Nicoderm Cq) 1 patch TD DAILY [facility] Last Admin: 10/15/18 08:28 Dose: 1 patch Nifedipine (Procardia Xl) 90 mg PO DAILY [facility] Last Admin: 10/15/18 08:40 Dose: 90 mg Ondansetron HCl (Zofran Odt) 4 mg PO Q6 PRN PRN Reason: Nausea/Vomiting Oxycodone HCl (Oxycodone Immediate Release Tab) 5 mg PO Q4 PRN PRN Reason: Pain, moderate (4-7) Last Admin: 10/15/18 00:40 Dose: 5 mg Oxycodone HCl (Oxycontin Extended Release Tab) 10 mg PO Q12 [facility] Stop: 10/15/18 09:01 Last Admin: 10/15/18 08:28 Dose: 10 mg Pantoprazole Sodium (Protonix Ec Tab) 40 mg PO DAILY [facility] Last Admin: 10/15/18 08:40 Dose: 40 mg Potassium Chloride (K-Dur 20 Meq Er Tab) 20 meq PO DAILY [facility] Last Admin: 10/15/18 08:31 Dose: 20 meq Sitagliptin Phosphate (Januvia) 100 mg PO DAILY [facility] Last Admin: 10/15/18 08:30 Dose: 100 mg Tiotropium [place] (Spiriva) 18 mcg INH DAILY [facility] Last Admin: 10/15/18 08:30 Dose: 18 mcg Trazodone HCl (Desyrel) 200 mg PO HS PRN PRN Reason: Insomnia Zolpidem Tartrate (Ambien) 5 mg PO HS PRN PRN Reason: Insomnia Last Admin: 10/14/18 20:34 Dose: 5 mg - Labs Labs: 10/14/18 05:40 10/14/18 05:40 - Head Exam Head Exam: NORMAL INSPECTION - Eye Exam Eye Exam: Normal appearance - ENT Exam ENT Exam: Mucous Membranes Moist - Respiratory Exam Respiratory Exam: Clear to Ausculation Bilateral, NORMAL BREATHING PATTERN - Cardiovascular Exam Cardiovascular Exam: REGULAR RHYTHM - GI/Abdominal Exam GI & Abdominal Exam: Normal Bowel Sounds Assessment and Plan (1) Gait difficulty Status: Acute (2) Status post total right knee replacement Status: Acute (3) Anxiety Status: Acute (4) COPD (chronic obstructive pulmonary disease) Status: Acute (5) Depression Status: Acute (6) Diabetes mellitus type 2 in obese Status: Acute (7) HTN (hypertension) Status: Acute (8) Hyperlipidemia Status: Acute - Assessment and Plan (Free Text) Plan: Cont meds Cont tx Cont PT
--- NOTE | 2018-10-15 08:47 | CP.PCM.PN ---
Subjective - Date & Time of Evaluation Date of Evaluation: 10/13/18 Time of Evaluation: 10:35 - Subjective Subjective: Patient remains stable Less anxious Has no fever. Objective - Vital Signs/Intake and Output Vital Signs (last 24 hours): Temp Pulse Resp BP Pulse Ox 97.7 F 101 H 20 142/74 96 10/15/18 08:35 10/15/18 08:35 10/15/18 08:35 10/15/18 08:35 10/15/18 08:35 - Medications Medications: Current Medications Acetaminophen (Tylenol 325mg Tab) 650 mg PO Q4 PRN PRN Reason: Pain, Mild (1-3) Acetaminophen (Tylenol 325mg Tab) 650 mg PO Q4 PRN PRN Reason: Fever >100.4 F Albuterol (Ventolin Hfa 90 Mcg/Actuation (8 G)) 1 puff INH RQ6 PRN PRN Reason: Shortness of Breath Albuterol/Ipratropium (Duoneb 3 Mg/0.5 Mg (3 Ml) Ud) 3 ml INH RQID [facility] Last Admin: 10/15/18 07:47 Dose: 3 ml Alprazolam (Xanax) 1 mg PO BID PRN PRN Reason: Anxiety Last Admin: 10/14/18 20:35 Dose: 1 mg Aripiprazole (Abilify) 15 mg PO DAILY [facility] Last Admin: 10/15/18 08:29 Dose: 15 mg Atorvastatin Calcium (Lipitor) 40 mg PO HS [facility] Last Admin: 10/14/18 22:45 Dose: 40 mg Bisacodyl (Dulcolax) 10 mg PO DAILY PRN PRN Reason: Constipation Celecoxib (Celebrex) 200 mg PO DAILY [facility] Last Admin: 10/15/18 08:30 Dose: 200 mg Cholecalciferol (Vitamin D) 2,000 intlu PO DAILY [facility] Last Admin: 10/15/18 08:31 Dose: 2,000 intlu Docusate Sodium (Colace) 100 mg PO BID [facility] Last Admin: 10/15/18 08:29 Dose: 100 mg Enoxaparin Sodium (Lovenox) 40 mg SC DAILY [facility]; Protocol Last Admin: 10/15/18 08:29 Dose: 40 mg Escitalopram Oxalate (Lexapro) 20 mg PO DAILY [facility] Last Admin: 10/15/18 08:31 Dose: 20 mg Folic Acid (Folic Acid) 1 mg PO DAILY [facility] Last Admin: 10/15/18 08:31 Dose: 1 mg Gabapentin (Neurontin) 400 mg PO TID [facility] Last Admin: 10/15/18 08:29 Dose: 400 mg Nicotine (Nicoderm Cq) 1 patch TD DAILY [facility] Last Admin: 10/15/18 08:28 Dose: 1 patch Nifedipine (Procardia Xl) 90 mg PO DAILY [facility] Last Admin: 10/15/18 08:40 Dose: 90 mg Ondansetron HCl (Zofran Odt) 4 mg PO Q6 PRN PRN Reason: Nausea/Vomiting Oxycodone HCl (Oxycodone Immediate Release Tab) 5 mg PO Q4 PRN PRN Reason: Pain, moderate (4-7) Last Admin: 10/15/18 00:40 Dose: 5 mg Oxycodone HCl (Oxycontin Extended Release Tab) 10 mg PO Q12 [facility] Stop: 10/15/18 09:01 Last Admin: 10/15/18 08:28 Dose: 10 mg Pantoprazole Sodium (Protonix Ec Tab) 40 mg PO DAILY [facility] Last Admin: 10/15/18 08:40 Dose: 40 mg Potassium Chloride (K-Dur 20 Meq Er Tab) 20 meq PO DAILY [facility] Last Admin: 10/15/18 08:31 Dose: 20 meq Sitagliptin Phosphate (Januvia) 100 mg PO DAILY [facility] Last Admin: 10/15/18 08:30 Dose: 100 mg Tiotropium [place] (Spiriva) 18 mcg INH DAILY [facility] Last Admin: 10/15/18 08:30 Dose: 18 mcg Trazodone HCl (Desyrel) 200 mg PO HS PRN PRN Reason: Insomnia Zolpidem Tartrate (Ambien) 5 mg PO HS PRN PRN Reason: Insomnia Last Admin: 10/14/18 20:34 Dose: 5 mg - Labs Labs: 10/14/18 05:40 10/14/18 05:40 - Head Exam Head Exam: NORMAL INSPECTION - Eye Exam Eye Exam: Normal appearance - ENT Exam ENT Exam: Mucous Membranes Moist - Respiratory Exam Respiratory Exam: Clear to Ausculation Bilateral - Cardiovascular Exam Cardiovascular Exam: REGULAR RHYTHM - GI/Abdominal Exam GI & Abdominal Exam: Normal Bowel Sounds - Neurological Exam Neurological Exam: Awake, Oriented x3 Assessment and Plan (1) Gait difficulty Status: Acute (2) Status post total right knee replacement Status: Acute (3) Anxiety Status: Acute (4) COPD (chronic obstructive pulmonary disease) Status: Acute (5) Depression Status: Acute (6) Diabetes mellitus type 2 in obese Status: Acute (7) HTN (hypertension) Status: Acute (8) Hyperlipidemia Status: Acute - Assessment and Plan (Free Text) Plan: Cont meds Cont tx Cont PT reassured patient
--- NOTE | 2018-10-15 10:02 | CP.PCM.PN ---
Subjective - Date & Time of Evaluation Date of Evaluation: 10/15/18 Time of Evaluation: 07:30 - Subjective Subjective: Patient seen and examined at bedside comfortable. Pain well controlled and tolerating PT well. Scheduled to d/c home today. No other complaints. Objective - Vital Signs/Intake and Output Vital Signs (last 24 hours): Temp Pulse Resp BP Pulse Ox 97.7 F 101 H 20 142/74 96 10/15/18 08:35 10/15/18 08:35 10/15/18 08:35 10/15/18 08:35 10/15/18 08:35 - Medications Medications: Current Medications Acetaminophen (Tylenol 325mg Tab) 650 mg PO Q4 PRN PRN Reason: Pain, Mild (1-3) Acetaminophen (Tylenol 325mg Tab) 650 mg PO Q4 PRN PRN Reason: Fever >100.4 F Albuterol (Ventolin Hfa 90 Mcg/Actuation (8 G)) 1 puff INH RQ6 PRN PRN Reason: Shortness of Breath Albuterol/Ipratropium (Duoneb 3 Mg/0.5 Mg (3 Ml) Ud) 3 ml INH RQID [facility] Last Admin: 10/15/18 07:47 Dose: 3 ml Alprazolam (Xanax) 1 mg PO BID PRN PRN Reason: Anxiety Last Admin: 10/14/18 20:35 Dose: 1 mg Aripiprazole (Abilify) 15 mg PO DAILY [facility] Last Admin: 10/15/18 08:29 Dose: 15 mg Atorvastatin Calcium (Lipitor) 40 mg PO HS [facility] Last Admin: 10/14/18 22:45 Dose: 40 mg Bisacodyl (Dulcolax) 10 mg PO DAILY PRN PRN Reason: Constipation Celecoxib (Celebrex) 200 mg PO DAILY [facility] Last Admin: 10/15/18 08:30 Dose: 200 mg Cholecalciferol (Vitamin D) 2,000 intlu PO DAILY [facility] Last Admin: 10/15/18 08:31 Dose: 2,000 intlu Docusate Sodium (Colace) 100 mg PO BID [facility] Last Admin: 10/15/18 08:29 Dose: 100 mg Enoxaparin Sodium (Lovenox) 40 mg SC DAILY [facility]; Protocol Last Admin: 10/15/18 08:29 Dose: 40 mg Escitalopram Oxalate (Lexapro) 20 mg PO DAILY [facility] Last Admin: 10/15/18 08:31 Dose: 20 mg Folic Acid (Folic Acid) 1 mg PO DAILY [facility] Last Admin: 10/15/18 08:31 Dose: 1 mg Gabapentin (Neurontin) 400 mg PO TID [facility] Last Admin: 10/15/18 08:29 Dose: 400 mg Nicotine (Nicoderm Cq) 1 patch TD DAILY [facility] Last Admin: 10/15/18 08:28 Dose: 1 patch Nifedipine (Procardia Xl) 90 mg PO DAILY [facility] Last Admin: 10/15/18 08:40 Dose: 90 mg Ondansetron HCl (Zofran Odt) 4 mg PO Q6 PRN PRN Reason: Nausea/Vomiting Oxycodone HCl (Oxycodone Immediate Release Tab) 5 mg PO Q4 PRN PRN Reason: Pain, moderate (4-7) Last Admin: 10/15/18 00:40 Dose: 5 mg Pantoprazole Sodium (Protonix Ec Tab) 40 mg PO DAILY [facility] Last Admin: 10/15/18 08:40 Dose: 40 mg Potassium Chloride (K-Dur 20 Meq Er Tab) 20 meq PO DAILY [facility] Last Admin: 10/15/18 08:31 Dose: 20 meq Sitagliptin Phosphate (Januvia) 100 mg PO DAILY [facility] Last Admin: 10/15/18 08:30 Dose: 100 mg Tiotropium [place] (Spiriva) 18 mcg INH DAILY [facility] Last Admin: 10/15/18 08:30 Dose: 18 mcg Trazodone HCl (Desyrel) 200 mg PO HS PRN PRN Reason: Insomnia Zolpidem Tartrate (Ambien) 5 mg PO HS PRN PRN Reason: Insomnia Last Admin: 10/14/18 20:34 Dose: 5 mg - Labs Labs: 10/14/18 05:40 10/14/18 05:40 - Extremities Exam Additional comments: R knee: Dressings CDI incision CDI sensation intact SP/DP/TN motor intact EHL/FHL/TA/G pedal pulses intact calves soft NT b/l Assessment and Plan (1) Status post total right knee replacement Assessment & Plan: POD#10 s/p R TKA -PT/OT WBAT -DVT ppx -orthopedically stable for d/c home -f/u in office 2 weeks postop (Mon/Mon) -above d/w Dr. Umaña in agreement Status: Acute
== END 2018-10-15 12:55 | disposition home or self-care (01) | DRG 561 ==
LOC: H.TCU 15:37
PROVIDERS: ADMIT Family Medicine; ATTEND Family Medicine
PROC: F08Z0FZ Bathing/Showering Techniques Treatment using Assistive, Adaptive, Supportive or Protective Equipment (ICD-10-PCS; principal; 2018-10-08)
PROC: F08Z1FZ Dressing Techniques Treatment using Assistive, Adaptive, Supportive or Protective Equipment (ICD-10-PCS; 2018-10-08)
PROC: F07Z9FZ Gait Training/Functional Ambulation Treatment using Assistive, Adaptive, Supportive or Protective Equipment (ICD-10-PCS; 2018-10-08)
PROC: F07L6GZ Therapeutic Exercise Treatment of Musculoskeletal System - Lower Back / Lower Extremity using Aerobic Endurance and Conditioning Equipment (ICD-10-PCS; 2018-10-08)
PROC: F07L7ZZ Manual Therapy Techniques Treatment of Musculoskeletal System - Lower Back / Lower Extremity (ICD-10-PCS; 2018-10-08)
DX: Z47.1 Aftercare following joint replacement surgery (principal); Z96.651 Presence of right artificial knee joint; F41.9 Anxiety disorder, unspecified; E11.9 Type 2 diabetes mellitus without complications; E78.5 Hyperlipidemia, unspecified; I10 Essential (primary) hypertension; J44.9 Chronic obstructive pulmonary disease, unspecified; F32.9 Major depressive disorder, single episode, unspecified; E78.00 Pure hypercholesterolemia, unspecified; Z86.711 Personal history of pulmonary embolism; E66.9 Obesity, unspecified; M17.12 Unilateral primary osteoarthritis, left knee; F17.210 Nicotine dependence, cigarettes, uncomplicated; R26.2 Difficulty in walking, not elsewhere classified; Z68.35 Body mass index [BMI] 35.0-35.9, adult

== ENCOUNTER 2018-11-05 17:12 | Inpatient (IN) | payer MEDICARE, MEDICAID ==
[2018-11-05 17:13] VITALS: BMI 34.4
--- NOTE | 2018-11-05 18:58 | ED PDOC ---
Lower Extremity Pain/Injury Time Seen by Provider: 11/05/18 18:44 Chief Complaint (Nursing): Lower Extremity Problem/Injury Chief Complaint (Provider): pain redness R knee History Per: Patient, Other (surgeon) Onset/Duration Of Symptoms: Days (4-5), Gradual Current Symptoms Are (Timing): Still Present Severity: Moderate Additional History Per: Prior Records Additional Complaint(s): 58yo female one month post op R TKR presents c/o redness pain and slight discharge R knee ongoing for up about a week. Seen by Dr Leeroy you in ED. Past Medical History Vital Signs: Last Vital Signs Temp 99 F 11/05/18 18:52 Pulse 64 11/05/18 18:52 Resp 13 11/05/18 18:52 BP 168/80 H 11/05/18 18:52 Pulse Ox 95 11/05/18 18:52 - Medical History PMH: Anxiety, Arthritis, Asthma, Back Problems (Chronic back pain), Bronchitis, CAD, COPD, Depression, Diabetes, Deep Vein Thrombosis, Fractures (R ankle fx), HTN, Hypercholesterolemia, Pneumonia, Pulmonary Embolism, Rheumatoid Arthritis Denies: HIV, Chronic Kidney Disease - Surgical History Surgical History: Endoscopy, Tonsillectomy Other surgeries: R TKR - Family History Family History: States: Stroke - Immunization History Hx Tetanus Toxoid Vaccination: No Hx Influenza Vaccination: Yes Hx Pneumococcal Vaccination: No - Home Medications Home Medications: Ambulatory Orders Medication Instructions Recorded Folic Acid 1 mg PO DAILY #0 tab 02/16/15 Potassium Chloride [K-Dur 20 mEq 20 meq PO DAILY 12/23/15 ER Tab] traZODone [Desyrel] 200 mg PO HS 12/23/15 Topiramate [Topamax] 100 mg PO BID 09/11/16 Zolpidem Tartrate [Ambien] 10 mg PO HS 09/11/16 oxyCODONE [oxyCODONE Immediate 30 mg PO QID PRN 09/11/16 Release Tab] Rivaroxaban [Xarelto] 20 mg PO DAILY tab 09/13/16 Gabapentin [Neurontin] 400 mg PO TID 02/01/17 Atorvastatin [Lipitor] 40 mg PO DAILY 11/05/17 Escitalopram [Lexapro] 20 mg PO DAILY 11/05/17 SITagliptin [Januvia] 100 mg PO DAILY 09/07/18 ALPRAZolam [Xanax] 1 mg PO BID 10/05/18 Albuterol Sulfate [Proair Hfa] 8.5 gm IH PRN PRN 10/05/18 Aripiprazole [Aripiprazole Odt] 15 mg PO DAILY 10/05/18 Cholecalciferol (Vitamin D3) 1,000 unit PO DAILY 10/05/18 [Vitamin D3] Meloxicam [Mobic] 7.5 mg PO DAILY 10/05/18 Mometasone Furoate [Asmanex Hfa] 100 mcg IH DAILY 10/05/18 NIFEdipine ER [Procardia XL] 90 mg PO DAILY 10/05/18 Omeprazole/Sodium Bicarbonate 1 each PO DAILY 10/05/18 [Omeprazole-Bicarb 40-1,100 Cap] Oxycodone HCl/Acetaminophen 1 tab PO TID 10/05/18 [Endocet 10-325 mg Tablet] Celecoxib [celeBREX] 200 mg PO DAILY cap 10/08/18 Docusate [Colace] 100 mg PO BID cap 10/08/18 ALPRAZolam [Xanax] 1 mg PO BID PRN tab 10/15/18 ARIPiprazole [Abilify] 15 mg PO DAILY tab 10/15/18 Acetaminophen [Tylenol 325mg tab] 650 mg PO Q4 PRN tab 10/15/18 Acetaminophen [Tylenol 325mg tab] 650 mg PO Q4 PRN tab 10/15/18 Albuterol HFA [Ventolin HFA 90 1 puff INH RQ6 PRN inhaler 10/15/18 mcg/actuation (8 g)] Albuterol/Ipratropium [Duoneb 3 3 ml INH RQID neb 10/15/18 mg/0.5 mg (3 ml) UD] Atorvastatin [Lipitor] 40 mg PO HS tab 10/15/18 Bisacodyl [Dulcolax] 10 mg PO DAILY PRN ect 10/15/18 Celecoxib [celeBREX] 200 mg PO DAILY cap 10/15/18 Cholecalciferol [Vitamin D 1000 IU] 2,000 intlu PO DAILY tab 10/15/18 Docusate [Colace] 100 mg PO BID cap 10/15/18 Escitalopram [Lexapro] 20 mg PO DAILY tab 10/15/18 Folic Acid 1 mg PO DAILY tab 10/15/18 Gabapentin [Neurontin] 400 mg PO TID cap 10/15/18 NIFEdipine ER [Procardia XL] [address] 10/15/18 Nicotine 21 mg/24 hr [Nicoderm Cq] 1 patch TD DAILY patch 10/15/18 Ondansetron ODT [Zofran ODT] 4 mg PO Q6 PRN odt 10/15/18 Pantoprazole [Protonix EC Tab] 40 mg PO DAILY ect 10/15/18 Potassium Chloride [K-Dur 20 mEq 20 meq PO DAILY tab 10/15/18 ER Tab] SITagliptin [Januvia] 100 mg PO DAILY tab 10/15/18 Tiotropium [Spiriva] 18 mcg INH DAILY cap 10/15/18 Zolpidem [Ambien] 5 mg PO HS PRN tab 10/15/18 traZODone [Desyrel] 200 mg PO HS PRN tab 10/15/18 - Allergies Allergies/Adverse Reactions: Allergies Allergy/AdvReac Type Severity Reaction Status Date / Time No Known Allergies Allergy Verified 10/05/18 06:29 Review of Systems Constitutional: Positive for: Chills. Negative for: Fever Cardiovascular: Negative for: Chest Pain Respiratory: Negative for: Cough Gastrointestinal: Negative for: Abdominal Pain Genitourinary Female: Negative for: Frequency Musculoskeletal: Positive for: Back Pain, Leg Pain. Negative for: Arm Pain Skin: Negative for: Rash, Lesions Neurological: Negative for: Weakness, Numbness, Headache Psych: Negative for: Suicidal ideation Physical Exam - Reviewed Nursing Documentation Reviewed: Yes Vital Signs Reviewed: Yes - Physical Exam Appears: Positive for: Well, Non-toxic Head Exam: Positive for: ATRAUMATIC Skin: Positive for: Normal Color, Warm, Dry Respiratory: Negative for: Respiratory Distress Extremity: Positive for: Swelling, Other (R knee incision erythema and induration) - ECG O2 Sat by Pulse Oximetry: 95 Medical Decision Making Medical Decision Making: workup for R knee post op infection initiated admit hospitalist for PMD Dr Shai Umaña informed Disposition - Clinical Impression Clinical Impression: Postoperative wound infection - Patient ED Disposition Is Patient to be Admitted: Yes - Disposition Disposition Time: 19:04 Condition: FAIR Forms: [employer] ([place]) - Pt Status Changed To: Hospital Disposition Of: Inpatient - Admit Certification Admit to Inpatient:: After my assessment, the patient will require hospitalization for at least two midnights. This is because of the severity of symptoms shown, intensity of services needed, and/or the medical risk in this patient being treated as an outpatient. - POA Present On Arrival: Surgical Site Infection
[2018-11-05] MEDS ORDERED: Sodium Chloride 0.9% 1,000 ML IV STA (19:01)
[2018-11-05 19:31] LABS: BASO % 0.1 % (0.0-2.0); EOS # 0.2 K/uL (0.0-0.7); HEMOGLOBIN 14.5 g/dL (12.0-16.0); LYMPH # 1.9 K/uL (1.0-4.3); LYMPH % 32.6 % (20.0-40.0); MEAN CELL VOLUME 93.5 fl (81.0-99.0); MEAN CORPUSCULAR HEMOGLOBIN 30.3 pg (27.0-31.0); MEAN CORPUSCULAR HGB CONC 32.4 g/dL (33.0-37.0); MEAN PLATELET VOLUME 8.7 fl (7.2-11.7); MONO # 0.4 K/uL (0.0-0.8); MONO % 7.6 % (0.0-10.0); NEUT # 3.3 K/uL (1.8-7.0); NEUT % 56.7 % (50.0-75.0); NRBC % 0.1 % (0.0-0.0); RBC 4.79 Mil/uL (3.80-5.20); WHITE BLOOD COUNT 5.8 K/uL (4.8-10.8)
--- NOTE | 2018-11-05 19:40 | RAD ---
Date of service: 11/05/2018 HISTORY: SOB COMPARISON: Frontal chest radiograph 10/08/2018. FINDINGS: LUNGS: No consolidation bilaterally. Fibrosis again noted left base. PLEURA: No significant pleural effusion identified, no pneumothorax apparent. CARDIOVASCULAR: No aortic atherosclerotic calcification present. Normal cardiac size. No pulmonary vascular congestion. OSSEOUS STRUCTURES: No significant abnormalities. VISUALIZED UPPER ABDOMEN: Normal. OTHER FINDINGS: None. IMPRESSION: No interval acute cardiopulmonary disease appreciated.
[2018-11-05] MEDS ORDERED: Albuterol-Ipratrop 3 mg / 0.5 (3 ml) UD INH PRN (19:41)
[2018-11-05 19:47] LABS: ALBUMIN 4.4 g/dL (3.5-5.0); ALT/SGPT 13 U/L (9-52); AST/SGOT 38 U/L (14-36); BLOOD UREA NITROGEN 9 mg/dl (7-17); CALCIUM 9.6 mg/dL (8.4-10.2); GFR NON-AFRICAN AMERICAN > 60
[2018-11-05] MEDS ORDERED: ALBUTEROL SULFATE IH PRN (19:53)
[2018-11-05] MEDS ORDERED: Bisacodyl 5mg EC Tab PO PRN (19:53)
[2018-11-05 19:55] LABS: INR 2.3; PROTHROMBIN TIME 25.7 Seconds (9.8-13.1)
[2018-11-05 19:58] LABS: PARTIAL THROMBOPLASTIN TIME 46.5 Seconds (25.6-37.1)
[2018-11-05] MEDS ORDERED: Cefepime 1 GM in Sodium Chloride 0.9% 100 ML IVPB SCH (20:00)
[2018-11-05] MEDS ORDERED: Sod Polystyrene Sulf 15 gm/60 ml Susp PO ONE (20:05)
[2018-11-05] MEDS ORDERED: Vancomycin 1 g Inj ONE (20:11)
--- NOTE | 2018-11-05 21:24 | CP.PCM.HP ---
<Azalea Chatterjee - Last Filed: 11/05/18 23:03> History of Present Illness - History of Present Illness History of Present Illness: 58 yr old F with history of COPD, asthma, diabetes mellitus type 2, hypertension, hyperlipidemia, chronic pain presented to ED at suggestion of her orthopedic surgeon Dr. Umaña. Pt had right TKR 10/08/18, followed by TCU stay until 10/15/18. About 4 days ago she states she noticed the scab/scar getting more red and started flaking off, then draining fluid. She saw her orthopedic surgeon today who suggested she come to ED. She does not have any fever, chest pain, shortness of breath, abdominal pain, issues toileting, leg pain. PMD: Dr. Gibbons Specialists: Pulm Dr. Mohan, Cardio Dr. 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/2-3 hrs daily Allergies: NKDA In ED: Vitals: BP 168/80, HR 64, O2 sat 95%, RR 13, T 99F Labs showed no leukocytosis, elevated K (hemolyzed), INR 2.3 (pt on Xarelto at home) Received 2 mg IVP morphine and NS started at 100 ml/hr Type and screen done CXR done Present on Admission - Present on Admission Any Indicators Present on Admission: Yes History of DVT/PE: Yes Review of Systems - Constitutional Constitutional: absent: Chills, Fever - Cardiovascular Cardiovascular: absent: Chest Pain - Respiratory Respiratory: absent: Cough, Dyspnea - Gastrointestinal Gastrointestinal: absent: Abdominal Pain - Genitourinary Genitourinary: absent: Dysuria - Musculoskeletal Additional comments: as per hpi Past Patient History - Infectious Disease Hx of Infectious Diseases: None - Tetanus Immunizations Tetanus Immunization: Unknown - Past Medical History & Family History Past Medical History?: Yes - Past Social History Smoking Status: Light Smoker < 10 Cigarettes Daily Alcohol: None Drugs: Denies Home Situation {Lives}: Alone - CARDIAC Hx Cardiac Disorders: Yes Hx Hypercholesterolemia: Yes Hx Hypertension: Yes - PULMONARY Hx Asthma: Yes Hx Bronchitis: Yes Hx Chronic Obstructive Pulmonary Disease (COPD): Yes Hx Pneumonia: Yes Hx Pulmonary Embolism: Yes - NEUROLOGICAL Hx Neurological Disorder: No - HEENT Hx Glaucoma: Yes - RENAL Hx Chronic Kidney Disease: No - ENDOCRINE/METABOLIC Hx Endocrine Disorders: Yes Hx Diabetes Mellitus Type 2: Yes - HEMATOLOGICAL/ONCOLOGICAL Hx Human Immunodeficiency Virus (HIV): No - INTEGUMENTARY Hx Dermatological Problems: No - MUSCULOSKELETAL/RHEUMATOLOGICAL Hx Arthritis: Yes Hx Fractures: Yes (R ankle fx) Hx Rheumatoid Arthritis: Yes - GASTROINTESTINAL Hx Gastrointestinal Disorders: No Hx Ulcer: Yes Other/Comment: HX GI BLEED - GENITOURINARY/GYNECOLOGICAL Hx Genitourinary Disorders: No Hx Incontinence: Yes - PSYCHIATRIC Hx Anxiety: Yes Hx Depression: Yes - SURGICAL HISTORY Hx Tonsillectomy: Yes - ANESTHESIA Hx Anesthesia: Yes Hx Anesthesia Reactions: No Hx Malignant Hyperthermia: No Meds Allergies/Adverse Reactions: Allergies Allergy/AdvReac Type Severity Reaction Status Date / Time No Known Allergies Allergy Verified 10/05/18 06:29 Physical Exam - Constitutional Appears: No Acute Distress - Head Exam Head Exam: NORMAL INSPECTION - Eye Exam Eye Exam: Normal appearance - ENT Exam ENT Exam: Mucous Membranes Moist - Respiratory Exam Respiratory Exam: NORMAL BREATHING PATTERN. absent: Wheezes, Respiratory Distress Additional comments: scattered rhonchi - Cardiovascular Exam Cardiovascular Exam: REGULAR RHYTHM, +S1, +S2 - GI/Abdominal Exam GI & Abdominal Exam: Normal Bowel Sounds, Soft. absent: Tenderness - Extremities Exam Extremities exam: Negative for: calf tenderness, pedal edema Additional comments: R knee - incision erythematous with minimal serosanguinous drainage - Back Exam Back exam: NORMAL INSPECTION - Neurological Exam Neurological exam: Alert, Oriented x3 - Skin Skin Exam: Warm Results - Vital Signs Recent Vital Signs: Last Vital Signs Temp 99 F 11/05/18 18:52 Pulse 64 11/05/18 18:52 Resp 13 11/05/18 18:52 BP 168/80 H 11/05/18 18:52 Pulse Ox 95 11/05/18 19:04 - Labs Result Diagrams: 11/05/18 19:21 11/05/18 19:21 Labs: Laboratory Results - last 24 hr 11/05/18 11/05/18 11/05/18 19:21 19:21 19:21 WBC 5.8 RBC 4.79 Hgb 14.5 D Hct 44.8 MCV 93.5 MCH 30.3 MCHC 32.4 L RDW 16.0 H Plt Count 182 MPV 8.7 Neut % (Auto) 56.7 Lymph % (Auto) 32.6 [place] % (Auto) 7.6 Eos % (Auto) 3.0 Baso % (Auto) 0.1 Neut # (Auto) 3.3 Lymph # (Auto) 1.9 [place] # (Auto) 0.4 Eos # (Auto) 0.2 Baso # (Auto) 0.0 PT 25.7 H INR 2.3 APTT 46.5 H Sodium 134 Potassium 5.5 H Chloride 95 L Carbon Dioxide 25 Anion Gap 20 BUN 9 Creatinine 0.8 Est GFR ( Amer) > 60 Est GFR (Non-Af Amer) > 60 Random Glucose 106 H Calcium 9.6 Total Bilirubin 0.8 AST 38 H D ALT 13 Alkaline Phosphatase 105 Total Protein 8.7 H Albumin 4.4 Globulin 4.3 H Albumin/Globulin Ratio 1.0 Blood Type Antibody Screen BBK History Checked 11/05/18 19:21 WBC RBC Hgb Hct MCV MCH MCHC RDW Plt Count MPV Neut % (Auto) Lymph % (Auto) [place] % (Auto) Eos % (Auto) Baso % (Auto) Neut # (Auto) Lymph # (Auto) [place] # (Auto) Eos # (Auto) Baso # (Auto) PT INR APTT Sodium Potassium Chloride Carbon Dioxide Anion Gap BUN Creatinine Est GFR ( Amer) Est GFR (Non-Af Amer) Random Glucose Calcium Total Bilirubin AST ALT Alkaline Phosphatase Total Protein Albumin Globulin Albumin/Globulin Ratio Blood Type A POSITIVE Antibody Screen Negative BBK History Checked Patient has bt Assessment & Plan - Assessment and Plan (Free Text) Assessment: 58 yr old F with history of COPD, asthma, diabetes mellitus type 2, hypertension, hyperlipidemia, chronic pain, admitted for right knee wound infection. Plan: Right Knee Wound - Ortho consult - Dr. Umaña, no abx yet, possible OR tomorrow - Pain meds from home med rec - Pulm Dr. Mohan, cardio Dr. Costomiris consults for clearance; CXR and EKG done - ID consult - Dr. Proctor - NPO after midnight; IVF overnight NS @ 100 ml/hr - Blood cultures and wound drainage culture collected in ED - CBC, BMP in am - PT/OT eval COPD/asthma - Duoneb Q4 PRN - Home med asmanex, spiriva Diabetes mellitus type 2 - Hold januvia home med - Insulin coverage scale & hypoglycemia protocol Hypertension - Procardia home med - Monitor on vitals Hyperlipidemia - Home med atorvastatin Chronic pain - Home meds percocet, oxycodone, gabapentin on med rec Anxiety/Depression - Home meds xanax, abilify, lexapro Insomnia - Home meds trazodone, ambien Constipation - Home meds dulcolax, colace Diet - NPO after midnight GI prophylaxis - Protonix home med DVT prophylaxis - SCD for now, possible OR tomorrow Patient seen/discussed with Dr. Walsh. <Elizabeth Walsh - Last Filed: 11/06/18 08:36> Results - Vital Signs Recent Vital Signs: Last Vital Signs Temp 98.2 F 11/06/18 08:23 Pulse 65 11/06/18 08:23 Resp 20 11/06/18 08:23 BP 121/80 11/06/18 08:23 Pulse Ox 93 L 11/06/18 08:23 - Labs Result Diagrams: 11/06/18 05:40 11/06/18 05:40 Labs: Laboratory Results - last 24 hr 11/05/18 11/05/18 11/05/18 19:21 19:21 19:21 WBC 5.8 RBC 4.79 Hgb 14.5 D Hct 44.8 MCV 93.5 MCH 30.3 MCHC 32.4 L RDW 16.0 H Plt Count 182 MPV 8.7 Neut % (Auto) 56.7 Lymph % (Auto) 32.6 [place] % (Auto) 7.6 Eos % (Auto) 3.0 Baso % (Auto) 0.1 Neut # (Auto) 3.3 Lymph # (Auto) 1.9 Benson # (Auto) 0.4 Eos # (Auto) 0.2 Baso # (Auto) 0.0 PT 25.7 H INR 2.3 APTT 46.5 H Sodium 134 Potassium 5.5 H Chloride 95 L Carbon Dioxide 25 Anion Gap 20 BUN 9 Creatinine 0.8 Est GFR ( Amer) > 60 Est GFR (Non-Af Amer) > 60 POC Glucose (mg/dL) Random Glucose 106 H Calcium 9.6 Total Bilirubin 0.8 AST 38 H D ALT 13 Alkaline Phosphatase 105 Total Protein 8.7 H Albumin 4.4 Globulin 4.3 H Albumin/Globulin Ratio 1.0 Urine Color Urine Clarity Urine pH Ur Specific [place] Urine Protein Urine Glucose (UA) Urine Ketones Urine Blood Urine Nitrate Urine Bilirubin Urine Urobilinogen Ur Leukocyte Esterase Urine RBC (Auto) Urine Microscopic WBC Ur Squamous Epith Cells Urine Bacteria Blood Type Antibody Screen BBK History Checked 11/05/18 11/05/18 11/06/18 19:21 22:22 04:45 WBC RBC Hgb Hct MCV MCH MCHC RDW Plt Count MPV Neut % (Auto) Lymph % (Auto) [place] % (Auto) Eos % (Auto) Baso % (Auto) Neut # (Auto) Lymph # (Auto) [place] # (Auto) Eos # (Auto) Baso # (Auto) PT INR APTT Sodium Potassium Chloride Carbon Dioxide Anion Gap BUN Creatinine Est GFR ( Amer) Est GFR (Non-Af Amer) POC Glucose (mg/dL) 98 Random Glucose Calcium Total Bilirubin AST ALT Alkaline Phosphatase Total Protein Albumin Globulin Albumin/Globulin Ratio Urine Color Yellow Urine Clarity Clear Urine pH 6.0 Ur Specific [place] 1.006 Urine Protein Negative Urine Glucose (UA) Neg Urine Ketones Negative Urine Blood Negative Urine Nitrate Negative Urine Bilirubin Negative Urine Urobilinogen 0.2-1.0 Ur Leukocyte Esterase Neg Urine RBC (Auto) < 1 Urine Microscopic WBC < 1 Ur Squamous Epith Cells 1 Urine Bacteria Rare Blood Type A POSITIVE Antibody Screen Negative BBK History Checked Patient has bt 11/06/18 11/06/18 11/06/18 05:40 05:40 05:40 WBC 4.9 RBC 4.31 Hgb 13.0 Hct 39.8 MCV 92.4 MCH 30.1 MCHC 32.6 L RDW 16.2 H Plt Count 178 MPV 9.1 Neut % (Auto) 54.8 Lymph % (Auto) 31.0 Benson % (Auto) 9.4 Eos % (Auto) 3.7 Baso % (Auto) 1.1 Neut # (Auto) 2.7 Lymph # (Auto) 1.5 Benson # (Auto) 0.5 Eos # (Auto) 0.2 Baso # (Auto) 0.1 PT INR APTT Sodium 137 Potassium 3.9 Chloride 101 Carbon Dioxide 25 Anion Gap 15 BUN 7 Creatinine 0.7 Est GFR ( Amer) > 60 Est GFR (Non-Af Amer) > 60 POC Glucose (mg/dL) 121 H Random Glucose 100 Calcium 9.6 Total Bilirubin AST ALT Alkaline Phosphatase Total Protein Albumin Globulin Albumin/Globulin Ratio Urine Color Urine Clarity Urine pH Ur Specific [place] Urine Protein Urine Glucose (UA) Urine Ketones Urine Blood Urine Nitrate Urine Bilirubin Urine Urobilinogen Ur Leukocyte Esterase Urine RBC (Auto) Urine Microscopic WBC Ur Squamous Epith Cells Urine Bacteria Blood Type Antibody Screen BBK History Checked Attending/Attestation - Attestation I have personally seen and examined this patient.: Yes I have fully participated in the care of the patient.: Yes I have reviewed all pertinent clinical information: Yes Notes (Text): Right Knee Drainage , Erythema and Pain ? Infection , History of recent TKR ( Oct 05 ) COPD, chronic Mild Intermittent Asthma HTN DM Type II Coagulopath - INR prolonged - Ortho consulted - poss surgery today - NPO - Hold off antibiotics for now as per Ortho - will start after cultures are obtained in OR -cont home meds - Pulm and cardio for optimization -ID consult - rpt PT/INR , pt is not on any anticoag at home
[2018-11-05] MEDS ORDERED: Morphine 4 MG/ML VIAL IVP ONE (21:51)
[2018-11-05] MEDS ORDERED: Morphine 4 MG/ML VIAL ONE (22:33)
[2018-11-06 05:07] LABS: SQUAMOUS EPITHIAL 1 /hpf (0-5); URINE BACTERIA RARE (<OCC); URINE BILIRUBIN NEGATIVE (NEGATIVE); URINE BLOOD NEGATIVE (NEGATIVE); URINE CLARITY CLEAR (Clear); URINE COLOR YELLOW (YELLOW); URINE GLUCOSE (UA) NEG (NEGATIVE); URINE LEUKOCYTE ESTERASE NEG Leu/uL (Negative); URINE PROTEIN NEGATIVE (NEGATIVE); URINE UROBILINOGEN 0.2-1.0 mg/dL (0.2-1.0)
[2018-11-06] MEDS: Morphine 4 MG/ML VIAL IVP PRN ×2 (06:01→11:24)
[2018-11-06 06:22] LABS: BASO # 0.1 K/uL (0.0-0.2); BASO % 1.1 % (0.0-2.0); EOS # 0.2 K/uL (0.0-0.7); EOS % 3.7 % (0.0-4.0); LYMPH # 1.5 K/uL (1.0-4.3); MEAN CELL VOLUME 92.4 fl (81.0-99.0); MEAN CORPUSCULAR HEMOGLOBIN 30.1 pg (27.0-31.0); MEAN CORPUSCULAR HGB CONC 32.6 g/dL (33.0-37.0); MEAN PLATELET VOLUME 9.1 fl (7.2-11.7); MONO # 0.5 K/uL (0.0-0.8); MONO % 9.4 % (0.0-10.0); NEUT # 2.7 K/uL (1.8-7.0); NEUT % 54.8 % (50.0-75.0); NRBC % 0.1 % (0.0-0.0); RBC 4.31 Mil/uL (3.80-5.20); RED CELL DISTRIBUTION WIDTH 16.2 % (11.5-14.5); WHITE BLOOD COUNT 4.9 K/uL (4.8-10.8)
[2018-11-06 06:27] LABS: BLOOD UREA NITROGEN 7 mg/dl (7-17); CALCIUM 9.6 mg/dL (8.4-10.2); GFR NON-AFRICAN AMERICAN > 60
[2018-11-06] MEDS ORDERED: Lidocaine 1% Inj (20ml) IJ STA (07:53)
--- NOTE | 2018-11-06 07:55 | CP.PCM.CON ---
History of Present Illness - History of Present Illness History of Present Illness: Orthopedic consult: Dr. Umaña Patient is a 58 y/o female admitted with complaints of right knee pain and wound drainage. The patient is 1 month s/p R TKA, who was sent to TCU for acute rehabilatation and then home stable. Four days ago, she had noticed a scab flake off from the mid aspect of the wound with mild yellowish drainage. She presented to Dr. Umaña's office and was advised to be admitted to [facility] for cultures and IV antibiotics. Currently, she complains of anterior knee pain about the site of the wound drainage, that is dull and constant affecting her ability to transfer, bend and ambulate. She denies any fevers/radiation of pain/numbness/tingling. She also denies any CP/SOB/N/V/D/dysuria/melena. Review of Systems - Review of Systems All systems: reviewed and no additional remarkable complaints except Review of Systems: as per HPI Past Patient History - Infectious Disease Hx of Infectious Diseases: None - Tetanus Immunizations Tetanus Immunization: Unknown - Past Medical History & Family History Past Medical History?: Yes Past Family History: Reviewed and not pertinent - Past Social History Smoking Status: Light Smoker < 10 Cigarettes Daily Alcohol: None Drugs: Denies - CARDIAC Hx Cardiac Disorders: Yes Hx Hypercholesterolemia: Yes Hx Hypertension: Yes - PULMONARY Hx Respiratory Disorders: Yes Hx Asthma: Yes Hx Bronchitis: Yes Hx Chronic Obstructive Pulmonary Disease (COPD): No (denies hx) Hx Pneumonia: No (denies hx) Hx Pulmonary Embolism: No (denies hx) - NEUROLOGICAL Hx Neurological Disorder: No - HEENT Hx HEENT Problems: Yes Hx Glaucoma: Yes Other/Comment: eyeglasses - RENAL Hx Chronic Kidney Disease: No - ENDOCRINE/METABOLIC Hx Endocrine Disorders: Yes Hx Diabetes Mellitus Type 2: Yes - HEMATOLOGICAL/ONCOLOGICAL Hx Blood Disorders: No Hx AIDS: No Hx Human Immunodeficiency Virus (HIV): No - INTEGUMENTARY Hx Dermatological Problems: No - MUSCULOSKELETAL/RHEUMATOLOGICAL Hx Musculoskeletal Disorders: Yes Hx Arthritis: Yes Hx Back Pain: Yes Hx Falls: No Hx Herniated Disk: Yes - GASTROINTESTINAL Hx Gastrointestinal Disorders: No Hx Ulcer: No (denies hx) - GENITOURINARY/GYNECOLOGICAL Hx Genitourinary Disorders: No - PSYCHIATRIC Hx Psychophysiologic Disorder: Yes Hx Anxiety: Yes Hx Depression: Yes Hx Substance Use: No - SURGICAL HISTORY Hx Surgeries: Yes Hx Musculoskeletal Surgery: Yes (R TKR 10/08/18) Hx Tonsillectomy: Yes Hx Tubal Ligation: Yes Other/Comment: IVC filter after DVT to R arm - ANESTHESIA Hx Anesthesia: Yes Hx Anesthesia Reactions: No Hx Malignant Hyperthermia: No Meds Allergies/Adverse Reactions: Allergies Allergy/AdvReac Type Severity Reaction Status Date / Time No Known Allergies Allergy Verified 10/05/18 06:29 - Medications Medications: Current Medications Acetaminophen (Tylenol 325mg Tab) 650 mg PO Q4 PRN PRN Reason: Fever >100.4 F Acetaminophen (Tylenol 325mg Tab) 650 mg PO Q4 PRN PRN Reason: Pain, Mild (1-3) Albuterol/Ipratropium (Duoneb 3 Mg/0.5 Mg (3 Ml) Ud) 3 ml INH RQ4 PRN PRN Reason: Shortness of Breath Alprazolam (Xanax) 1 mg PO BID PRN PRN Reason: Anxiety Aripiprazole (Abilify) 15 mg PO DAILY [facility] Atorvastatin Calcium (Lipitor) 40 mg PO HS [facility] Last Admin: 11/05/18 23:28 Dose: 40 mg Bisacodyl (Dulcolax) 10 mg PO DAILY PRN PRN Reason: Constipation Cholecalciferol (Vitamin D) 2,000 intlu PO DAILY [facility] Docusate Sodium (Colace) 100 mg PO BID [facility] Escitalopram Oxalate (Lexapro) 20 mg PO DAILY [facility] Folic Acid (Folic Acid) 1 mg PO DAILY [facility] Gabapentin (Neurontin) 400 mg PO TID [facility] Insulin Human Lispro (Humalog) [address] [facility]; Protocol Mometasone Furoate (Asmanex Twisthaler 110 Mcg) 1 puff INH DAILY [facility] Morphine Sulfate (Morphine) 2 mg IVP Q4 PRN PRN Reason: Pain, moderate (4-7) Last Admin: 11/06/18 06:01 Dose: 2 mg Nifedipine (Procardia Xl) 90 mg PO DAILY [facility] Oxycodone HCl (Oxycodone Immediate Release Tab) 30 mg PO QAM [facility] Oxycodone/Acetaminophen (Percocet 5/325 Mg Tab) 2 tab PO QPM [facility] Stop: 11/09/18 18:01 Pantoprazole Sodium (Protonix Ec Tab) 40 mg PO DAILY [facility] Pneumococcal Polyvalent Vaccine (Pneumovax 23 Vaccine) 0.5 ml IM .ONCE ONE Stop: 11/06/18 09:01 Tiotropium [place] (Spiriva) 18 mcg INH DAILY [facility] Topiramate (Topamax) 100 mg PO BID [facility] Trazodone HCl (Desyrel) 200 mg PO HS PRN PRN Reason: Insomnia Zolpidem Tartrate (Ambien) 5 mg PO HS PRN PRN Reason: Insomnia Physical Exam - Constitutional Appears: Well, No Acute Distress - Head Exam Head Exam: ATRAUMATIC, NORMOCEPHALIC - Eye Exam Eye Exam: EOMI, Normal appearance - ENT Exam ENT Exam: Mucous Membranes Moist - Respiratory Exam Respiratory Exam: NORMAL BREATHING PATTERN - Extremities Exam Additional comments: Right knee: small wound break down with eschar at mid and proximal TKR incision, no active drainage, mild erythema surrounding rest of wound is well healed mild swelling and effusion diffuse anterior tenderness sensation intact SP/DP/TN motor intact EHL/FHL/TA/G pedal pulse intact calves soft NT b/l Results - Vital Signs Recent Vital Signs: Last Vital Signs Temp 98.8 F 11/06/18 01:25 Pulse 64 11/06/18 01:25 Resp 20 11/06/18 01:25 BP 125/68 11/06/18 01:25 Pulse Ox 96 11/06/18 01:25 - Labs Result Diagrams: 11/06/18 05:40 11/06/18 05:40 Labs: Laboratory Results - last 24 hr 11/05/18 11/05/18 11/05/18 19:21 19:21 19:21 WBC 5.8 RBC 4.79 Hgb 14.5 D Hct 44.8 MCV 93.5 MCH 30.3 MCHC 32.4 L RDW 16.0 H Plt Count 182 MPV 8.7 Neut % (Auto) 56.7 Lymph % (Auto) 32.6 [place] % (Auto) 7.6 Eos % (Auto) 3.0 Baso % (Auto) 0.1 Neut # (Auto) 3.3 Lymph # (Auto) 1.9 [place] # (Auto) 0.4 Eos # (Auto) 0.2 Baso # (Auto) 0.0 PT 25.7 H INR 2.3 APTT 46.5 H Sodium 134 Potassium 5.5 H Chloride 95 L Carbon Dioxide 25 Anion Gap 20 BUN 9 Creatinine 0.8 Est GFR ( Amer) > 60 Est GFR (Non-Af Amer) > 60 POC Glucose (mg/dL) Random Glucose 106 H Calcium 9.6 Total Bilirubin 0.8 AST 38 H D ALT 13 Alkaline Phosphatase 105 Total Protein 8.7 H Albumin 4.4 Globulin 4.3 H Albumin/Globulin Ratio 1.0 Urine Color Urine Clarity Urine pH Ur Specific [place] Urine Protein Urine Glucose (UA) Urine Ketones Urine Blood Urine Nitrate Urine Bilirubin Urine Urobilinogen Ur Leukocyte Esterase Urine RBC (Auto) Urine Microscopic WBC Ur Squamous Epith Cells Urine Bacteria Blood Type Antibody Screen BBK History Checked 11/05/18 11/05/18 11/06/18 19:21 22:22 04:45 WBC RBC Hgb Hct MCV MCH MCHC RDW Plt Count MPV Neut % (Auto) Lymph % (Auto) [place] % (Auto) Eos % (Auto) Baso % (Auto) Neut # (Auto) Lymph # (Auto) [place] # (Auto) Eos # (Auto) Baso # (Auto) PT INR APTT Sodium Potassium Chloride Carbon Dioxide Anion Gap BUN Creatinine Est GFR ( Amer) Est GFR (Non-Af Amer) POC Glucose (mg/dL) 98 Random Glucose Calcium Total Bilirubin AST ALT Alkaline Phosphatase Total Protein Albumin Globulin Albumin/Globulin Ratio Urine Color Yellow Urine Clarity Clear Urine pH 6.0 Ur Specific [place] 1.006 Urine Protein Negative Urine Glucose (UA) Neg Urine Ketones Negative Urine Blood Negative Urine Nitrate Negative Urine Bilirubin Negative Urine Urobilinogen 0.2-1.0 Ur Leukocyte Esterase Neg Urine RBC (Auto) < 1 Urine Microscopic WBC < 1 Ur Squamous Epith Cells 1 Urine Bacteria Rare Blood Type A POSITIVE Antibody Screen Negative BBK History Checked Patient has bt 11/06/18 11/06/18 11/06/18 05:40 05:40 05:40 WBC 4.9 RBC 4.31 Hgb 13.0 Hct 39.8 MCV 92.4 MCH 30.1 MCHC 32.6 L RDW 16.2 H Plt Count 178 MPV 9.1 Neut % (Auto) 54.8 Lymph % (Auto) 31.0 [place] % (Auto) 9.4 Eos % (Auto) 3.7 Baso % (Auto) 1.1 Neut # (Auto) 2.7 Lymph # (Auto) 1.5 [place] # (Auto) 0.5 Eos # (Auto) 0.2 Baso # (Auto) 0.1 PT INR APTT Sodium 137 Potassium 3.9 Chloride 101 Carbon Dioxide 25 Anion Gap 15 BUN 7 Creatinine 0.7 Est GFR ( Amer) > 60 Est GFR (Non-Af Amer) > 60 POC Glucose (mg/dL) 121 H Random Glucose 100 Calcium 9.6 Total Bilirubin AST ALT Alkaline Phosphatase Total Protein Albumin Globulin Albumin/Globulin Ratio Urine Color Urine Clarity Urine pH Ur Specific [place] Urine Protein Urine Glucose (UA) Urine Ketones Urine Blood Urine Nitrate Urine Bilirubin Urine Urobilinogen Ur Leukocyte Esterase Urine RBC (Auto) Urine Microscopic WBC Ur Squamous Epith Cells Urine Bacteria Blood Type Antibody Screen BBK History Checked Assessment & Plan (1) Postoperative wound infection Assessment and Plan: R TKA wound breakdown with drainage -Right knee was aspirated using sterile technique. Specimens sent to lab STAT for culture/gram stain/cell count/crystals. -Plan for revision R TKA with poly exchange versus superficial wound I&D -keep NPO -above d/w Dr. Umaña in agreement Status: Acute Procedure: Fluid Aspiration - Time Performed Time Performed: 08:30 - Time Out Time Out: Side verified, Site verified, Patient ID confirmed, Sterile procedures obs. - Procedure Procedure: Arthrocentesis - Consent Obtained Consent obtained: Written - Performed By Performed by: Mid-level Provider - Indications Indication(s): Diagnostic, Suspected septic joint - Contraindications Contraindications: None - Location Location: Right - Anesthetic Technique Anesthetic Technique: Topical Anesthetic: Lidocaine 1% Procedure: Usual prep and drape, Needle gauge (23 guage for anesthetic, 18 guage for aspiration) - Appearance Appearance: Straw-colored - Drained Drained ml: 20 - Post-procedure Post-procedure: No fluid leak - Complications Complications: None - Patient tolerated procedure Patient tolerated procedure: Well
--- NOTE | 2018-11-06 08:03 | CP.PCM.CON ---
History of Present Illness - History of Present Illness History of Present Illness: 58 YR OLD FEMALE REFERRED FOR PULMONARY EVALUATION FOLLOWING ADMISSION FOR R KNEE SEPTIC ARTHRITIS FOLLOWING RECENT R TOTAL KNEE REPLACEMENT.SHE DENIES CHEST PAINS OR SHORTNESS OF BREATH. HX OF COPD--CONTINUES TO SMOKE CIGARETTES,HYPERTENSION,HYPERLIPIDEMIA,TYPE 2 DIABETES,S/P BILATERAL FOOT AND ANKLE SURGERY Past Patient History - Infectious Disease Hx of Infectious Diseases: None - Tetanus Immunizations Tetanus Immunization: Unknown - Past Medical History & Family History Past Medical History?: Yes - Past Social History Smoking Status: Light Smoker < 10 Cigarettes Daily - CARDIAC Hx Cardiac Disorders: Yes Hx Hypercholesterolemia: Yes Hx Hypertension: Yes - PULMONARY Hx Respiratory Disorders: Yes Hx Asthma: Yes Hx Bronchitis: Yes Hx Chronic Obstructive Pulmonary Disease (COPD): No (denies hx) Hx Pneumonia: No (denies hx) Hx Pulmonary Embolism: No (denies hx) - NEUROLOGICAL Hx Neurological Disorder: No - HEENT Hx HEENT Problems: Yes Hx Glaucoma: Yes Other/Comment: eyeglasses - RENAL Hx Chronic Kidney Disease: No - ENDOCRINE/METABOLIC Hx Endocrine Disorders: Yes Hx Diabetes Mellitus Type 2: Yes - HEMATOLOGICAL/ONCOLOGICAL Hx Blood Disorders: No Hx AIDS: No Hx Human Immunodeficiency Virus (HIV): No - INTEGUMENTARY Hx Dermatological Problems: No - MUSCULOSKELETAL/RHEUMATOLOGICAL Hx Musculoskeletal Disorders: Yes Hx Arthritis: Yes Hx Back Pain: Yes Hx Falls: No Hx Herniated Disk: Yes - GASTROINTESTINAL Hx Gastrointestinal Disorders: No Hx Ulcer: No (denies hx) - GENITOURINARY/GYNECOLOGICAL Hx Genitourinary Disorders: No - PSYCHIATRIC Hx Psychophysiologic Disorder: Yes Hx Anxiety: Yes Hx Depression: Yes Hx Substance Use: No - SURGICAL HISTORY Hx Surgeries: Yes Hx Musculoskeletal Surgery: Yes (R TKR 10/08/18) Hx Tonsillectomy: Yes Hx Tubal Ligation: Yes Other/Comment: IVC filter after DVT to R arm - ANESTHESIA Hx Anesthesia: Yes Hx Anesthesia Reactions: No Hx Malignant Hyperthermia: No Meds Allergies/Adverse Reactions: Allergies Allergy/AdvReac Type Severity Reaction Status Date / Time No Known Allergies Allergy Verified 10/05/18 06:29 - Medications Medications: Current Medications Acetaminophen (Tylenol 325mg Tab) 650 mg PO Q4 PRN PRN Reason: Fever >100.4 F Acetaminophen (Tylenol 325mg Tab) 650 mg PO Q4 PRN PRN Reason: Pain, Mild (1-3) Albuterol/Ipratropium (Duoneb 3 Mg/0.5 Mg (3 Ml) Ud) 3 ml INH RQ4 PRN PRN Reason: Shortness of Breath Alprazolam (Xanax) 1 mg PO BID PRN PRN Reason: Anxiety Aripiprazole (Abilify) 15 mg PO DAILY [facility] Atorvastatin Calcium (Lipitor) 40 mg PO HS YANA Last Admin: 11/05/18 23:28 Dose: 40 mg Bisacodyl (Dulcolax) 10 mg PO DAILY PRN PRN Reason: Constipation Cholecalciferol (Vitamin D) 2,000 intlu PO DAILY [facility] Docusate Sodium (Colace) 100 mg PO BID [facility] Escitalopram Oxalate (Lexapro) 20 mg PO DAILY [facility] Folic Acid (Folic Acid) 1 mg PO DAILY [facility] Gabapentin (Neurontin) 400 mg PO TID [facility] Insulin Human Lispro (Humalog) 0 units SC ACHS [facility]; Protocol Lidocaine HCl (Lidocaine 1% (20ml)) 20 ml IJ ONCE STA Stop: 11/06/18 07:54 Mometasone Furoate (Asmanex Twisthaler 110 Mcg) 1 puff INH DAILY [facility] Morphine Sulfate (Morphine) 2 mg IVP Q4 PRN PRN Reason: Pain, moderate (4-7) Last Admin: 11/06/18 06:01 Dose: 2 mg Nifedipine (Procardia Xl) 90 mg PO DAILY [facility] Oxycodone HCl (Oxycodone Immediate Release Tab) 30 mg PO QAM [facility] Oxycodone/Acetaminophen (Percocet 5/325 Mg Tab) 2 tab PO QPM [facility] Stop: 11/09/18 18:01 Pantoprazole Sodium (Protonix Ec Tab) 40 mg PO DAILY [facility] Pneumococcal Polyvalent Vaccine (Pneumovax 23 Vaccine) 0.5 ml IM .ONCE ONE Stop: 11/06/18 09:01 Tiotropium [place] (Spiriva) 18 mcg INH DAILY [facility] Topiramate (Topamax) 100 mg PO BID [facility] Trazodone HCl (Desyrel) 200 mg PO HS PRN PRN Reason: Insomnia Zolpidem Tartrate (Ambien) 5 mg PO HS PRN PRN Reason: Insomnia Physical Exam - Constitutional Appears: Well, In Acute Distress - Head Exam Head Exam: ATRAUMATIC, NORMAL INSPECTION, NORMOCEPHALIC - Eye Exam Eye Exam: EOMI, Normal appearance, PERRL Pupil Exam: NORMAL ACCOMODATION, PERRL - ENT Exam ENT Exam: Mucous Membranes Moist, Normal Exam - Neck Exam Neck exam: Positive for: Normal Inspection - Respiratory Exam Respiratory Exam: Clear to Auscultation Bilateral, NORMAL BREATHING PATTERN - Cardiovascular Exam Cardiovascular Exam: REGULAR RHYTHM - GI/Abdominal Exam GI & Abdominal Exam: Normal Bowel Sounds, Soft. absent: Tenderness - Rectal Exam Rectal Exam: NORMAL INSPECTION - Extremities Exam Extremities exam: Positive for: normal inspection - Back Exam Back exam: tenderness Additional comments: WARM R KNEE WITH REDNESS AND FLUCTUANCE - Neurological Exam Neurological exam: Abnormal Gait, Alert, CN II-XII Intact, Oriented x3, Reflexes Normal - Psychiatric Exam Psychiatric exam: Normal Affect, Normal Mood - Skin Skin Exam: Dry, Intact, Normal Color, Warm Results - Vital Signs Recent Vital Signs: Last Vital Signs Temp 98.8 F 11/06/18 01:25 Pulse 64 11/06/18 01:25 Resp 20 11/06/18 01:25 BP 125/68 11/06/18 01:25 Pulse Ox 96 11/06/18 01:25 - Labs Result Diagrams: 11/06/18 05:40 11/06/18 05:40 Labs: Laboratory Results - last 24 hr 11/05/18 11/05/18 11/05/18 19:21 19:21 19:21 WBC 5.8 RBC 4.79 Hgb 14.5 D Hct 44.8 MCV 93.5 MCH 30.3 MCHC 32.4 L RDW 16.0 H Plt Count 182 MPV 8.7 Neut % (Auto) 56.7 Lymph % (Auto) 32.6 [place] % (Auto) 7.6 Eos % (Auto) 3.0 Baso % (Auto) 0.1 Neut # (Auto) 3.3 Lymph # (Auto) 1.9 [place] # (Auto) 0.4 Eos # (Auto) 0.2 Baso # (Auto) 0.0 PT 25.7 H INR 2.3 APTT 46.5 H Sodium 134 Potassium 5.5 H Chloride 95 L Carbon Dioxide 25 Anion Gap 20 BUN 9 Creatinine 0.8 Est GFR ( Amer) > 60 Est GFR (Non-Af Amer) > 60 POC Glucose (mg/dL) Random Glucose 106 H Calcium 9.6 Total Bilirubin 0.8 AST 38 H D ALT 13 Alkaline Phosphatase 105 Total Protein 8.7 H Albumin 4.4 Globulin 4.3 H Albumin/Globulin Ratio 1.0 Urine Color Urine Clarity Urine pH Ur Specific [place] Urine Protein Urine Glucose (UA) Urine Ketones Urine Blood Urine Nitrate Urine Bilirubin Urine Urobilinogen Ur Leukocyte Esterase Urine RBC (Auto) Urine Microscopic WBC Ur Squamous Epith Cells Urine Bacteria Blood Type Antibody Screen BBK History Checked 11/05/18 11/05/18 11/06/18 19:21 22:22 04:45 WBC RBC Hgb Hct MCV MCH MCHC RDW Plt Count MPV Neut % (Auto) Lymph % (Auto) [place] % (Auto) Eos % (Auto) Baso % (Auto) Neut # (Auto) Lymph # (Auto) [place] # (Auto) Eos # (Auto) Baso # (Auto) PT INR APTT Sodium Potassium Chloride Carbon Dioxide Anion Gap BUN Creatinine Est GFR ( Amer) Est GFR (Non-Af Amer) POC Glucose (mg/dL) 98 Random Glucose Calcium Total Bilirubin AST ALT Alkaline Phosphatase Total Protein Albumin Globulin Albumin/Globulin Ratio Urine Color Yellow Urine Clarity Clear Urine pH 6.0 Ur Specific [place] 1.006 Urine Protein Negative Urine Glucose (UA) Neg Urine Ketones Negative Urine Blood Negative Urine Nitrate Negative Urine Bilirubin Negative Urine Urobilinogen 0.2-1.0 Ur Leukocyte Esterase Neg Urine RBC (Auto) < 1 Urine Microscopic WBC < 1 Ur Squamous Epith Cells 1 Urine Bacteria Rare Blood Type A POSITIVE Antibody Screen Negative BBK History Checked Patient has bt 11/06/18 11/06/18 11/06/18 05:40 05:40 05:40 WBC 4.9 RBC 4.31 Hgb 13.0 Hct 39.8 MCV 92.4 MCH 30.1 MCHC 32.6 L RDW 16.2 H Plt Count 178 MPV 9.1 Neut % (Auto) 54.8 Lymph % (Auto) 31.0 Harvey % (Auto) 9.4 Eos % (Auto) 3.7 Baso % (Auto) 1.1 Neut # (Auto) 2.7 Lymph # (Auto) 1.5 Harvey # (Auto) 0.5 Eos # (Auto) 0.2 Baso # (Auto) 0.1 PT INR APTT Sodium 137 Potassium 3.9 Chloride 101 Carbon Dioxide 25 Anion Gap 15 BUN 7 Creatinine 0.7 Est GFR ( Amer) > 60 Est GFR (Non-Af Amer) > 60 POC Glucose (mg/dL) 121 H Random Glucose 100 Calcium 9.6 Total Bilirubin AST ALT Alkaline Phosphatase Total Protein Albumin Globulin Albumin/Globulin Ratio Urine Color Urine Clarity Urine pH Ur Specific [place] Urine Protein Urine Glucose (UA) Urine Ketones Urine Blood Urine Nitrate Urine Bilirubin Urine Urobilinogen Ur Leukocyte Esterase Urine RBC (Auto) Urine Microscopic WBC Ur Squamous Epith Cells Urine Bacteria Blood Type Antibody Screen BBK History Checked Assessment & Plan - Assessment and Plan (Free Text) Assessment: COPD--STABLE SEPTIC ARTHRITIS R KNEE S/P R TOTAL KNEE REPLACEMENT HTN DM HYPERLIPIDEMIA CHRONIC CIGARETTE SMOKER Plan: AGREE WITH IV ANTIBIOTIC RX AND ORTHO INTERVENTION NO PULMONARY CONTRAINDICATION FOR SURGERY CLEARED FOR SURGERY FROM THE PULMONARY [place] NICOTINE PATCH ORDERED TO ASSIST IN SMOKING CESATION - Date & Time Date: 11/06/18 Time: 08:07
--- NOTE | 2018-11-06 08:10 | CP.PCM.CON ---
History of Present Illness - History of Present Illness History of Present Illness: 58 yr old F presented to ED at suggestion of her orthopedic surgeon Dr. Umaña. Pt had right TKR 10/08/18, . About 4 days ago she states she noticed the scab/scar getting more red and started flaking off, then draining fluid. EKG: NSR w/ 1 PAC Past Med Hx: DM II DVT of R arm, IVC filter, HTN, COPD, HLD, PVD, chronic back pain s/p multiple compression fractures of thoracic spine left ankle fracture repaired, right foot fracture repair Past Patient History - Infectious Disease Hx of Infectious Diseases: None - Tetanus Immunizations Tetanus Immunization: Unknown - Past Medical History & Family History Past Medical History?: Yes - Past Social History Smoking Status: Light Smoker < 10 Cigarettes Daily - CARDIAC Hx Cardiac Disorders: Yes Hx Hypercholesterolemia: Yes Hx Hypertension: Yes - PULMONARY Hx Respiratory Disorders: Yes Hx Asthma: Yes Hx Bronchitis: Yes Hx Chronic Obstructive Pulmonary Disease (COPD): No (denies hx) Hx Pneumonia: No (denies hx) Hx Pulmonary Embolism: No (denies hx) - NEUROLOGICAL Hx Neurological Disorder: No - HEENT Hx HEENT Problems: Yes Hx Glaucoma: Yes Other/Comment: eyeglasses - RENAL Hx Chronic Kidney Disease: No - ENDOCRINE/METABOLIC Hx Endocrine Disorders: Yes Hx Diabetes Mellitus Type 2: Yes - HEMATOLOGICAL/ONCOLOGICAL Hx Blood Disorders: No Hx AIDS: No Hx Human Immunodeficiency Virus (HIV): No - INTEGUMENTARY Hx Dermatological Problems: No - MUSCULOSKELETAL/RHEUMATOLOGICAL Hx Musculoskeletal Disorders: Yes Hx Arthritis: Yes Hx Back Pain: Yes Hx Falls: No Hx Herniated Disk: Yes - GASTROINTESTINAL Hx Gastrointestinal Disorders: No Hx Ulcer: No (denies hx) - GENITOURINARY/GYNECOLOGICAL Hx Genitourinary Disorders: No - PSYCHIATRIC Hx Psychophysiologic Disorder: Yes Hx Anxiety: Yes Hx Depression: Yes Hx Substance Use: No - SURGICAL HISTORY Hx Surgeries: Yes Hx Musculoskeletal Surgery: Yes (R TKR 10/08/18) Hx Tonsillectomy: Yes Hx Tubal Ligation: Yes Other/Comment: IVC filter after DVT to R arm - ANESTHESIA Hx Anesthesia: Yes Hx Anesthesia Reactions: No Hx Malignant Hyperthermia: No Meds Allergies/Adverse Reactions: Allergies Allergy/AdvReac Type Severity Reaction Status Date / Time No Known Allergies Allergy Verified 10/05/18 06:29 - Medications Medications: Current Medications Acetaminophen (Tylenol 325mg Tab) 650 mg PO Q4 PRN PRN Reason: Fever >100.4 F Acetaminophen (Tylenol 325mg Tab) 650 mg PO Q4 PRN PRN Reason: Pain, Mild (1-3) Albuterol/Ipratropium (Duoneb 3 Mg/0.5 Mg (3 Ml) Ud) 3 ml INH RQ4 PRN PRN Reason: Shortness of Breath Alprazolam (Xanax) 1 mg PO BID PRN PRN Reason: Anxiety Aripiprazole (Abilify) 15 mg PO DAILY [facility] Atorvastatin Calcium (Lipitor) 40 mg PO HS [facility] Last Admin: 11/05/18 23:28 Dose: 40 mg Bisacodyl (Dulcolax) 10 mg PO DAILY PRN PRN Reason: Constipation Cholecalciferol (Vitamin D) 2,000 intlu PO DAILY [facility] Docusate Sodium (Colace) 100 mg PO BID [facility] Escitalopram Oxalate (Lexapro) 20 mg PO DAILY [facility] Folic Acid (Folic Acid) 1 mg PO DAILY [facility] Gabapentin (Neurontin) 400 mg PO TID [facility] Insulin Human Lispro (Humalog) 0 units SC ACHS [facility]; Protocol Mometasone Furoate (Asmanex Twisthaler 110 Mcg) 1 puff INH DAILY [facility] Morphine Sulfate (Morphine) 2 mg IVP Q4 PRN PRN Reason: Pain, moderate (4-7) Last Admin: 11/06/18 06:01 Dose: 2 mg Nifedipine (Procardia Xl) 90 mg PO DAILY [facility] Oxycodone HCl (Oxycodone Immediate Release Tab) 30 mg PO QAM [facility] Oxycodone/Acetaminophen (Percocet 5/325 Mg Tab) 2 tab PO QPM [facility] Stop: 11/09/18 18:01 Pantoprazole Sodium (Protonix Ec Tab) 40 mg PO DAILY [facility] Pneumococcal Polyvalent Vaccine (Pneumovax 23 Vaccine) 0.5 ml IM .ONCE ONE Stop: 11/06/18 09:01 Tiotropium [place] (Spiriva) 18 mcg INH DAILY [facility] Topiramate (Topamax) 100 mg PO BID [facility] Trazodone HCl (Desyrel) 200 mg PO HS PRN PRN Reason: Insomnia Zolpidem Tartrate (Ambien) 5 mg PO HS PRN PRN Reason: Insomnia Results - Vital Signs Recent Vital Signs: Last Vital Signs Temp 98.8 F 11/06/18 01:25 Pulse 64 11/06/18 01:25 Resp 20 11/06/18 01:25 BP 125/68 11/06/18 01:25 Pulse Ox 96 11/06/18 01:25 - Labs Result Diagrams: 11/06/18 05:40 11/06/18 05:40 Labs: Laboratory Results - last 24 hr 11/05/18 11/05/18 11/05/18 19:21 19:21 19:21 WBC 5.8 RBC 4.79 Hgb 14.5 D Hct 44.8 MCV 93.5 MCH 30.3 MCHC 32.4 L RDW 16.0 H Plt Count 182 MPV 8.7 Neut % (Auto) 56.7 Lymph % (Auto) 32.6 [place] % (Auto) 7.6 Eos % (Auto) 3.0 Baso % (Auto) 0.1 Neut # (Auto) 3.3 Lymph # (Auto) 1.9 [place] # (Auto) 0.4 Eos # (Auto) 0.2 Baso # (Auto) 0.0 PT 25.7 H INR 2.3 APTT 46.5 H Sodium 134 Potassium 5.5 H Chloride 95 L Carbon Dioxide 25 Anion Gap 20 BUN 9 Creatinine 0.8 Est GFR ( Amer) > 60 Est GFR (Non-Af Amer) > 60 POC Glucose (mg/dL) Random Glucose 106 H Calcium 9.6 Total Bilirubin 0.8 AST 38 H D ALT 13 Alkaline Phosphatase 105 Total Protein 8.7 H Albumin 4.4 Globulin 4.3 H Albumin/Globulin Ratio 1.0 Urine Color Urine Clarity Urine pH Ur Specific [place] Urine Protein Urine Glucose (UA) Urine Ketones Urine Blood Urine Nitrate Urine Bilirubin Urine Urobilinogen Ur Leukocyte Esterase Urine RBC (Auto) Urine Microscopic WBC Ur Squamous Epith Cells Urine Bacteria Blood Type Antibody Screen BBK History Checked 11/05/18 11/05/18 11/06/18 19:21 22:22 04:45 WBC RBC Hgb Hct MCV MCH MCHC RDW Plt Count MPV Neut % (Auto) Lymph % (Auto) [place] % (Auto) Eos % (Auto) Baso % (Auto) Neut # (Auto) Lymph # (Auto) [place] # (Auto) Eos # (Auto) Baso # (Auto) PT INR APTT Sodium Potassium Chloride Carbon Dioxide Anion Gap BUN Creatinine Est GFR ( Amer) Est GFR (Non-Af Amer) POC Glucose (mg/dL) 98 Random Glucose Calcium Total Bilirubin AST ALT Alkaline Phosphatase Total Protein Albumin Globulin Albumin/Globulin Ratio Urine Color Yellow Urine Clarity Clear Urine pH 6.0 Ur Specific [place] 1.006 Urine Protein Negative Urine Glucose (UA) Neg Urine Ketones Negative Urine Blood Negative Urine Nitrate Negative Urine Bilirubin Negative Urine Urobilinogen 0.2-1.0 Ur Leukocyte Esterase Neg Urine RBC (Auto) < 1 Urine Microscopic WBC < 1 Ur Squamous Epith Cells 1 Urine Bacteria Rare Blood Type A POSITIVE Antibody Screen Negative BBK History Checked Patient has bt 11/06/18 11/06/18 11/06/18 05:40 05:40 05:40 WBC 4.9 RBC 4.31 Hgb 13.0 Hct 39.8 MCV 92.4 MCH 30.1 MCHC 32.6 L RDW 16.2 H Plt Count 178 MPV 9.1 Neut % (Auto) 54.8 Lymph % (Auto) 31.0 [place] % (Auto) 9.4 Eos % (Auto) 3.7 Baso % (Auto) 1.1 Neut # (Auto) 2.7 Lymph # (Auto) 1.5 [place] # (Auto) 0.5 Eos # (Auto) 0.2 Baso # (Auto) 0.1 PT INR APTT Sodium 137 Potassium 3.9 Chloride 101 Carbon Dioxide 25 Anion Gap 15 BUN 7 Creatinine 0.7 Est GFR ( Amer) > 60 Est GFR (Non-Af Amer) > 60 POC Glucose (mg/dL) 121 H Random Glucose 100 Calcium 9.6 Total Bilirubin AST ALT Alkaline Phosphatase Total Protein Albumin Globulin Albumin/Globulin Ratio Urine Color Urine Clarity Urine pH Ur Specific [place] Urine Protein Urine Glucose (UA) Urine Ketones Urine Blood Urine Nitrate Urine Bilirubin Urine Urobilinogen Ur Leukocyte Esterase Urine RBC (Auto) Urine Microscopic WBC Ur Squamous Epith Cells Urine Bacteria Blood Type Antibody Screen BBK History Checked Assessment & Plan (1) Postoperative wound infection Assessment and Plan: Cardiac real the patient is cleared for surgery Status: Acute (2) Acute bronchitis with chronic obstructive pulmonary disease (COPD) Status: Acute (3) COPD (chronic obstructive pulmonary disease) Status: Acute (4) Coronary artery disease Status: Acute (5) Diabetes mellitus type 2 in obese Status: Acute (6) HTN (hypertension) Status: Acute Priority: Medium (7) Status post total right knee replacement Status: Acute
[2018-11-06] MEDS ORDERED: Clindamycin in D5W 300 MG/50 ML BAG IV SCH (09:00)
[2018-11-06] MEDS ORDERED: MOMETASONE FUROATE IH SCH (09:00)
[2018-11-06] MEDS ORDERED: Pneumococcal 23-Valent Vaccine IM ONE (09:00)
[2018-11-06] MEDS ORDERED: OXYCODONE 30 MG PO SCH (09:00)
[2018-11-06] MEDS ORDERED: ARIPIPRAZOLE 15 MG PO SCH (09:00)
[2018-11-06 09:07] LABS: FLUID TYPE SYNOVIAL FLUID
--- NOTE | 2018-11-06 09:48 | CP.PCM.PN ---
<Kathi Jimenez - Last Filed: 11/06/18 10:16> Subjective - Date & Time of Evaluation Date of Evaluation: 11/06/18 Time of Evaluation: 09:45 - Subjective Subjective: Patient seen at bedside this AM. Resting comfortably and in NAD. Patient afebrile and hemodynamically stable. She states that she had fluid drained from her knee by ortho this morning. Denies nausea/vomiting/fever/shortness of breath/chest pain. Objective - Vital Signs/Intake and Output Vital Signs (last 24 hours): Temp Pulse Resp BP Pulse Ox 98.2 F 65 20 121/80 93 L 11/06/18 08:23 11/06/18 08:23 11/06/18 08:23 11/06/18 08:23 11/06/18 08:23 - Medications Medications: Current Medications Acetaminophen (Tylenol 325mg Tab) 650 mg PO Q4 PRN PRN Reason: Fever >100.4 F Acetaminophen (Tylenol 325mg Tab) 650 mg PO Q4 PRN PRN Reason: Pain, Mild (1-3) Albuterol/Ipratropium (Duoneb 3 Mg/0.5 Mg (3 Ml) Ud) 3 ml INH RQ4 PRN PRN Reason: Shortness of Breath Alprazolam (Xanax) 1 mg PO BID PRN PRN Reason: Anxiety Aripiprazole (Abilify) 15 mg PO DAILY [facility] Atorvastatin Calcium (Lipitor) 40 mg PO HS [facility] Last Admin: 11/05/18 23:28 Dose: 40 mg Bisacodyl (Dulcolax) 10 mg PO DAILY PRN PRN Reason: Constipation Cholecalciferol (Vitamin D) 2,000 intlu PO DAILY [facility] Docusate Sodium (Colace) 100 mg PO BID [facility] Escitalopram Oxalate (Lexapro) 20 mg PO DAILY [facility] Folic Acid (Folic Acid) 1 mg PO DAILY [facility] Gabapentin (Neurontin) 400 mg PO TID [facility] Vancomycin HCl 500 mg/ Sodium (Chloride) 100 mls @ 100 mls/hr IVPB Q12H [facility]; Protocol Sodium Chloride (Sodium Chloride 0.9%) 1,000 mls @ 75 mls/hr IV .[id number] [facility] Stop: 11/07/18 08:18 Cefepime HCl 1 gm/ Sodium (Chloride) 100 mls @ 100 mls/hr IVPB Q8 [facility]; Protocol Vancomycin HCl 1 gm/ Sodium (Chloride) 250 mls @ 166.667 mls/hr IVPB Q12 [facility]; Protocol Insulin Human Lispro (Humalog) 0 units SC ACHS [facility]; Protocol Mometasone Furoate (Asmanex Twisthaler 110 Mcg) 1 puff INH DAILY [facility] Morphine Sulfate (Morphine) 2 mg IVP Q4 PRN PRN Reason: Pain, moderate (4-7) Last Admin: 11/06/18 06:01 Dose: 2 mg Nicotine (Nicoderm Cq) 1 patch TD DAILY [facility] Nifedipine (Procardia Xl) 90 mg PO DAILY [facility] Oxycodone HCl (Oxycodone Immediate Release Tab) 30 mg PO QAM [facility] Oxycodone/Acetaminophen (Percocet 5/325 Mg Tab) 2 tab PO QPM [facility] Stop: 11/09/18 18:01 Pantoprazole Sodium (Protonix Ec Tab) 40 mg PO DAILY [facility] Tiotropium [place] (Spiriva) 18 mcg INH DAILY [facility] Topiramate (Topamax) 100 mg PO BID [facility] Trazodone HCl (Desyrel) 200 mg PO HS PRN PRN Reason: Insomnia Zolpidem Tartrate (Ambien) 5 mg PO HS PRN PRN Reason: Insomnia - Labs Labs: 11/06/18 05:40 11/06/18 05:40 PT 25.7 Seconds (9.8-13.1) H 11/05/18 19:21 INR 2.3 11/05/18 19:21 APTT 46.5 Seconds (25.6-37.1) H 11/05/18 19:21 - Constitutional Appears: Non-toxic, No Acute Distress - Head Exam Head Exam: ATRAUMATIC, NORMOCEPHALIC - Eye Exam Eye Exam: Normal appearance Pupil Exam: NORMAL ACCOMODATION - Respiratory Exam Respiratory Exam: Clear to Ausculation Bilateral, NORMAL BREATHING PATTERN - Cardiovascular Exam Cardiovascular Exam: REGULAR RHYTHM - GI/Abdominal Exam GI & Abdominal Exam: Soft, Normal Bowel Sounds - Extremities Exam Additional comments: Right knee dressing clean/dry/intact No strike through - Neurological Exam Neurological Exam: Alert, Awake, Oriented x3 Assessment and Plan - Assessment and Plan (Free Text) Assessment: 58 year old female with history of COPD, asthma, diabetes mellitus type 2, hypertension, hyperlipidemia, chronic pain, admitted for right knee wound infection. Plan: 1. Right Knee Wound - Ortho consult - Dr. Umaña - Pulm Dr. Mohan, cardio Dr. Culp consults for clearance; CXR and EKG done - ID consult - Dr. Proctor - Patient started on Cefepime 1gm Q8, Vanco 1gm Q12 - NPO after midnight; IVF overnight NS @ 100 ml/hr- keep NPO - F/u Blood cultures and wound culture - R Knee aspiration taken this morning, sent to pathology - Possible plan for OR today, revisional TKR, pending aspiration results - PT/OT eval 2. COPD/asthma - Duoneb Q4 PRN - Home med asmanex, spiriva 3. Diabetes mellitus type 2 - Hold januvia home med - Insulin coverage scale & hypoglycemia protocol 4. Hypertension - Procardia home med - Monitor on vitals 5. Hyperlipidemia - Home med atorvastatin 6. Chronic pain - Home meds percocet, oxycodone, gabapentin on med rec 7. Anxiety/Depression - Home meds xanax, abilify, lexapro 8. Insomnia - Home meds trazodone, ambien 9. Constipation - Home meds dulcolax, colace 10. Diet - NPO after midnight 11. GI prophylaxis - Protonix home med 12. DVT prophylaxis - SCD for now <Elizabeth Walsh - Last Filed: 11/06/18 16:43> Objective - Vital Signs/Intake and Output Vital Signs (last 24 hours): Temp Pulse Resp BP Pulse Ox 97.8 F 74 20 148/84 95 11/06/18 16:21 11/06/18 16:21 11/06/18 16:21 11/06/18 16:21 11/06/18 16:21 - Medications Medications: Current Medications Acetaminophen (Tylenol 325mg Tab) 650 mg PO Q4 PRN PRN Reason: Fever >100.4 F Acetaminophen (Tylenol 325mg Tab) 650 mg PO Q4 PRN PRN Reason: Pain, Mild (1-3) Albuterol/Ipratropium (Duoneb 3 Mg/0.5 Mg (3 Ml) Ud) 3 ml INH RQ4 PRN PRN Reason: Shortness of Breath Alprazolam (Xanax) 1 mg PO BID PRN PRN Reason: Anxiety Aripiprazole (Abilify) 15 mg PO DAILY [facility] Last Admin: 11/06/18 10:12 Dose: Not Given Atorvastatin Calcium (Lipitor) 40 mg PO HS [facility] Last Admin: 11/05/18 23:28 Dose: 40 mg Bisacodyl (Dulcolax) 10 mg PO DAILY PRN PRN Reason: Constipation Cholecalciferol (Vitamin D) 2,000 intlu PO DAILY [facility] Last Admin: 11/06/18 10:39 Dose: Not Given Docusate Sodium (Colace) 100 mg PO BID [facility] Last Admin: 11/06/18 10:13 Dose: Not Given Escitalopram Oxalate (Lexapro) 20 mg PO DAILY [facility] Last Admin: 11/06/18 10:38 Dose: Not Given Folic Acid (Folic Acid) 1 mg PO DAILY [facility] Last Admin: 11/06/18 10:37 Dose: Not Given Gabapentin (Neurontin) 400 mg PO TID [facility] Last Admin: 11/06/18 14:02 Dose: Not Given Sodium Chloride (Sodium Chloride 0.9%) 1,000 mls @ 75 mls/hr IV .[id number] [facility] Stop: 11/07/18 08:18 Last Admin: 11/06/18 10:17 Dose: Not Given Cefepime HCl 1 gm/ Sodium (Chloride) 100 mls @ 100 mls/hr IVPB Q8 [facility]; Protocol Last Admin: 11/06/18 09:58 Dose: 100 mls/hr Vancomycin HCl 1 gm/ Sodium (Chloride) 250 mls @ 166.667 mls/hr IVPB Q12 [facility]; Protocol Last Admin: 11/06/18 11:12 Dose: 166.667 mls/hr Insulin Human Lispro (Humalog) 0 units SC ACHS [facility]; Protocol Last Admin: 11/06/18 14:02 Dose: Not Given Mometasone Furoate (Asmanex Twisthaler 110 Mcg) 1 puff INH DAILY [facility] Last Admin: 11/06/18 10:14 Dose: 1 puff Morphine Sulfate (Morphine) 2 mg IVP Q4 PRN PRN Reason: Pain, moderate (4-7) Last Admin: 11/06/18 11:24 Dose: 2 mg Nicotine (Nicoderm Cq) 1 patch TD DAILY [facility] Last Admin: 11/06/18 10:14 Dose: 1 patch Nifedipine (Procardia Xl) 90 mg PO DAILY [facility] Last Admin: 11/06/18 10:38 Dose: Not Given Oxycodone HCl (Oxycodone Immediate Release Tab) 30 mg PO QAM [facility] Last Admin: 11/06/18 10:16 Dose: Not Given Oxycodone/Acetaminophen (Percocet 5/325 Mg Tab) 2 tab PO QPM [facility] Stop: 11/09/18 18:01 Pantoprazole Sodium (Protonix Ec Tab) 40 mg PO DAILY [facility] Last Admin: 11/06/18 10:38 Dose: Not Given Tiotropium [place] (Spiriva) 18 mcg INH DAILY [facility] Last Admin: 11/06/18 11:13 Dose: 18 mcg Topiramate (Topamax) 100 mg PO BID [facility] Last Admin: 11/06/18 10:39 Dose: Not Given Trazodone HCl (Desyrel) 200 mg PO HS PRN PRN Reason: Insomnia Zolpidem Tartrate (Ambien) 5 mg PO HS PRN PRN Reason: Insomnia - Labs Labs: 11/06/18 05:40 11/06/18 05:40 PT 14.7 Seconds (9.8-13.1) H D 11/06/18 10:04 INR 1.3 11/06/18 10:04 APTT 33.0 Seconds (25.6-37.1) 11/06/18 10:04 Attending/Attestation - Attestation I have personally seen and examined this patient.: Yes I have fully participated in the care of the patient.: Yes I have reviewed all pertinent clinical information, including history, physical exam and plan: Yes Notes (Text): 11/06/18 16:38 Right Knee Drainage , Erythema and Pain ? Infection , History of recent TKR ( Oct 05 ) COPD, chronic Mild Intermittent Asthma HTN DM Type II Coagulopathy, resolved prob lab error - Aspiration of knee joint done at bedside - Aspirate sent for Gram stain - Gram stain : no organism x 4 samples - Ortho consulted - poss surgery today for superficial Washout - NPO - start Pt on IV cefepime and Vanco empirically -cont home meds - Pulm and cardio consulted for optimization prior to surgery -ID consult - DVT proph after surgery
[2018-11-06 09:51] LABS: SF GROSS APPEARANCE CLOUDY (CLEAR); SYNOVIAL FLUID COMMENT MODERATELY BLOODY
[2018-11-06] MEDS: Insulin Lispro (humaLOG) 100 Units/ml Inj SC SCH ×4 (09:51→21:23)
[2018-11-06 09:56] LABS: SYNOVIAL FLUID MONO/MACROPHAGE 27 % (0-0)
[2018-11-06] MEDS: Cefepime 1 GM in Sodium Chloride 0.9% 100 ML IVPB SCH ×2 (09:58→17:00)
[2018-11-06] MEDS: ARIPIPRAZOLE 1 MG/ML PO SCH (10:12)
[2018-11-06] MEDS: Mometasone 110 mcg/puff-30 puff Inh INH SCH (10:14)
[2018-11-06] MEDS: oxyCODONE 10 mg Immediate Release Tab PO SCH (10:16)
[2018-11-06] MEDS: Sodium Chloride 0.9% 1,000 ML IV SCH ×2 (10:17→22:37)
[2018-11-06 10:29] LABS: INR 1.3; PROTHROMBIN TIME 14.7 Seconds (9.8-13.1)
[2018-11-06] MEDS: NIFEdipine 90 mg ER Tab PO SCH (10:38)
[2018-11-06] MEDS: Pantoprazole 40 mg EC Tab PO SCH (10:38)
[2018-11-06] MEDS: Cholecalciferol 1,000 INTLU TAB PO SCH (10:39)
[2018-11-06] MEDS: Tiotropium 18 mcg Cap For Inhalation INH SCH (11:13)
--- NOTE | 2018-11-06 12:09 | CP.PCM.CON ---
History of Present Illness - History of Present Illness History of Present Illness: Infectious Disease Consultation Note- asked to see this patient at the request of for infected right knee. HPI- Patient is a 58 year old female with PMH of DM II, COPD, Tobacco use, HTN, HLD s/p right total knee replacement a month ago who is now admitted for redness and discharge from the surgical site. Patient explain she was doing well until 5 days ago when she noticed a scab that had formed over the right knee surgical site had come off and she had developed yellowish discharge from the region . She denies any fever but states had some chills. She states her daughter came over and cleaned the wound with saline and it looked ok but then agian the next day she had discharge along with increased redness in the region. She saw her orhto who advised her to be admitted for culture and Iv antibiotics. she also c/o pain in the region. Patient had aspiration of the joint fluid earlier today by ortho PA and as per PA did not look purulent and gram stain so far negative as per micro. Review of Systems - Review of Systems Review of Systems: ROS- denies any Fever, + chills, denies any PAYAN, denies any cough or sob, denies any chest pain, denies any nausea or vomiting, denies any abd. pain, denies any dysurea, denies any diarrhea Right knee surgical site + rednes and swelling and yellow discharge for 4-5 days. Past Patient History - Infectious Disease Hx of Infectious Diseases: None - Tetanus Immunizations Tetanus Immunization: Unknown - Past Medical History & Family History Past Medical History?: Yes - Past Social History Smoking Status: Light Smoker < 10 Cigarettes Daily Home Situation {Lives}: Alone - CARDIAC Hx Cardiac Disorders: Yes Hx Hypercholesterolemia: Yes Hx Hypertension: Yes - PULMONARY Hx Respiratory Disorders: Yes Hx Asthma: Yes Hx Bronchitis: Yes Hx Chronic Obstructive Pulmonary Disease (COPD): No (denies hx) Hx Pneumonia: No (denies hx) Hx Pulmonary Embolism: No (denies hx) - NEUROLOGICAL Hx Neurological Disorder: No - HEENT Hx HEENT Problems: Yes Hx Glaucoma: Yes Other/Comment: eyeglasses - RENAL Hx Chronic Kidney Disease: No - ENDOCRINE/METABOLIC Hx Endocrine Disorders: Yes Hx Diabetes Mellitus Type 2: Yes - HEMATOLOGICAL/ONCOLOGICAL Hx Blood Disorders: No - INTEGUMENTARY Hx Dermatological Problems: No - MUSCULOSKELETAL/RHEUMATOLOGICAL Hx Musculoskeletal Disorders: Yes Hx Arthritis: Yes Hx Back Pain: Yes Hx Falls: No Hx Herniated Disk: Yes - GASTROINTESTINAL Hx Gastrointestinal Disorders: No Hx Ulcer: No (denies hx) - GENITOURINARY/GYNECOLOGICAL Hx Genitourinary Disorders: No - PSYCHIATRIC Hx Psychophysiologic Disorder: Yes Hx Anxiety: Yes Hx Depression: Yes Hx Substance Use: No - SURGICAL HISTORY Hx Surgeries: Yes Hx Musculoskeletal Surgery: Yes (R TKR 10/08/18) Hx Tonsillectomy: Yes Hx Tubal Ligation: Yes Other/Comment: IVC filter after DVT to R arm - ANESTHESIA Hx Anesthesia: Yes Hx Anesthesia Reactions: No Hx Malignant Hyperthermia: No Meds Allergies/Adverse Reactions: Allergies Allergy/AdvReac Type Severity Reaction Status Date / Time No Known Allergies Allergy Verified 10/05/18 06:29 - Medications Medications: Current Medications Acetaminophen (Tylenol 325mg Tab) 650 mg PO Q4 PRN PRN Reason: Fever >100.4 F Acetaminophen (Tylenol 325mg Tab) 650 mg PO Q4 PRN PRN Reason: Pain, Mild (1-3) Albuterol/Ipratropium (Duoneb 3 Mg/0.5 Mg (3 Ml) Ud) 3 ml INH RQ4 PRN PRN Reason: Shortness of Breath Alprazolam (Xanax) 1 mg PO BID PRN PRN Reason: Anxiety Aripiprazole (Abilify) 15 mg PO DAILY [facility] Last Admin: 11/06/18 10:12 Dose: Not Given Atorvastatin Calcium (Lipitor) 40 mg PO HS [facility] Last Admin: 11/05/18 23:28 Dose: 40 mg Bisacodyl (Dulcolax) 10 mg PO DAILY PRN PRN Reason: Constipation Cholecalciferol (Vitamin D) 2,000 intlu PO DAILY [facility] Last Admin: 11/06/18 10:39 Dose: Not Given Docusate Sodium (Colace) 100 mg PO BID [facility] Last Admin: 11/06/18 10:13 Dose: Not Given Escitalopram Oxalate (Lexapro) 20 mg PO DAILY [facility] Last Admin: 11/06/18 10:38 Dose: Not Given Folic Acid (Folic Acid) 1 mg PO DAILY [facility] Last Admin: 11/06/18 10:37 Dose: Not Given Gabapentin (Neurontin) 400 mg PO TID [facility] Last Admin: 11/06/18 10:16 Dose: Not Given Vancomycin HCl 500 mg/ Sodium (Chloride) 100 mls @ 100 mls/hr IVPB Q12H [facility]; Protocol Sodium Chloride (Sodium Chloride 0.9%) 1,000 mls @ 75 mls/hr IV .[id number] [facility] Stop: 11/07/18 08:18 Last Admin: 11/06/18 10:17 Dose: Not Given Cefepime HCl 1 gm/ Sodium (Chloride) 100 mls @ 100 mls/hr IVPB Q8 [facility]; Protocol Last Admin: 11/06/18 09:58 Dose: 100 mls/hr Vancomycin HCl 1 gm/ Sodium (Chloride) 250 mls @ 166.667 mls/hr IVPB Q12 [facility]; Protocol Last Admin: 11/06/18 11:12 Dose: 166.667 mls/hr Insulin Human Lispro (Humalog) 0 units SC ACHS [facility]; Protocol Last Admin: 11/06/18 09:51 Dose: Not Given Mometasone Furoate (Asmanex Twisthaler 110 Mcg) 1 puff INH DAILY [facility] Last Admin: 11/06/18 10:14 Dose: 1 puff Morphine Sulfate (Morphine) 2 mg IVP Q4 PRN PRN Reason: Pain, moderate (4-7) Last Admin: 11/06/18 11:24 Dose: 2 mg Nicotine (Nicoderm Cq) 1 patch TD DAILY [facility] Last Admin: 11/06/18 10:14 Dose: 1 patch Nifedipine (Procardia Xl) 90 mg PO DAILY [facility] Last Admin: 11/06/18 10:38 Dose: Not Given Oxycodone HCl (Oxycodone Immediate Release Tab) 30 mg PO QAM [facility] Last Admin: 11/06/18 10:16 Dose: Not Given Oxycodone/Acetaminophen (Percocet 5/325 Mg Tab) 2 tab PO QPM [facility] Stop: 11/09/18 18:01 Pantoprazole Sodium (Protonix Ec Tab) 40 mg PO DAILY [facility] Last Admin: 11/06/18 10:38 Dose: Not Given Tiotropium [place] (Spiriva) 18 mcg INH DAILY [facility] Last Admin: 11/06/18 11:13 Dose: 18 mcg Topiramate (Topamax) 100 mg PO BID [facility] Last Admin: 11/06/18 10:39 Dose: Not Given Trazodone HCl (Desyrel) 200 mg PO HS PRN PRN Reason: Insomnia Zolpidem Tartrate (Ambien) 5 mg PO HS PRN PRN Reason: Insomnia Physical Exam - Constitutional Appears: No Acute Distress - Head Exam Head Exam: ATRAUMATIC - Eye Exam Eye Exam: EOMI, PERRL - ENT Exam ENT Exam: Normal Oropharynx - Neck Exam Neck exam: Positive for: Full Rom - Respiratory Exam Respiratory Exam: Clear to Auscultation Bilateral, NORMAL BREATHING PATTERN - Cardiovascular Exam Cardiovascular Exam: RRR, +S1, +S2 - GI/Abdominal Exam GI & Abdominal Exam: Normal Bowel Sounds, Soft Additional comments: NT, ND - Extremities Exam Additional comments: Right anterior knee region with surgical site line intact but has areas of scabs on top and surrounding erythema, + edema, mild tenderness to touch no gross discharge at this time no malodor - Neurological Exam Neurological exam: Alert, Oriented x3 Results - Vital Signs Recent Vital Signs: Last Vital Signs Temp 98.2 F 11/06/18 08:23 Pulse 65 11/06/18 08:23 Resp 20 11/06/18 08:23 BP 121/80 11/06/18 08:23 Pulse Ox 93 L 11/06/18 08:23 - Labs Result Diagrams: 11/06/18 05:40 11/06/18 05:40 Labs: Laboratory Results - last 24 hr 11/05/18 11/05/18 11/05/18 19:21 19:21 19:21 WBC 5.8 RBC 4.79 Hgb 14.5 D Hct 44.8 MCV 93.5 MCH 30.3 MCHC 32.4 L RDW 16.0 H Plt Count 182 MPV 8.7 Neut % (Auto) 56.7 Lymph % (Auto) 32.6 [place] % (Auto) 7.6 Eos % (Auto) 3.0 Baso % (Auto) 0.1 Neut # (Auto) 3.3 Lymph # (Auto) 1.9 [place] # (Auto) 0.4 Eos # (Auto) 0.2 Baso # (Auto) 0.0 PT 25.7 H INR 2.3 APTT 46.5 H Sodium 134 Potassium 5.5 H Chloride 95 L Carbon Dioxide 25 Anion Gap 20 BUN 9 Creatinine 0.8 Est GFR ( Amer) > 60 Est GFR (Non-Af Amer) > 60 POC Glucose (mg/dL) Random Glucose 106 H Calcium 9.6 Total Bilirubin 0.8 AST 38 H D ALT 13 Alkaline Phosphatase 105 Total Protein 8.7 H Albumin 4.4 Globulin 4.3 H Albumin/Globulin Ratio 1.0 Urine Color Urine Clarity Urine pH Ur Specific [place] Urine Protein Urine Glucose (UA) Urine Ketones Urine Blood Urine Nitrate Urine Bilirubin Urine Urobilinogen Ur Leukocyte Esterase Urine RBC (Auto) Urine Microscopic WBC Ur Squamous Epith Cells Urine Bacteria Fluid Type Synovial WBC Synovial RBC Synovial Neutrophils Synovial Lymphocytes Synov Monos/Macrophage Synovial Fluid Comment Blood Type Antibody Screen BBK History Checked 11/05/18 11/05/18 11/06/18 19:21 22:22 04:45 WBC RBC Hgb Hct MCV MCH MCHC RDW Plt Count MPV Neut % (Auto) Lymph % (Auto) [place] % (Auto) Eos % (Auto) Baso % (Auto) Neut # (Auto) Lymph # (Auto) [place] # (Auto) Eos # (Auto) Baso # (Auto) PT INR APTT Sodium Potassium Chloride Carbon Dioxide Anion Gap BUN Creatinine Est GFR ( Amer) Est GFR (Non-Af Amer) POC Glucose (mg/dL) 98 Random Glucose Calcium Total Bilirubin AST ALT Alkaline Phosphatase Total Protein Albumin Globulin Albumin/Globulin Ratio Urine Color Yellow Urine Clarity Clear Urine pH 6.0 Ur Specific [place] 1.006 Urine Protein Negative Urine Glucose (UA) Neg Urine Ketones Negative Urine Blood Negative Urine Nitrate Negative Urine Bilirubin Negative Urine Urobilinogen 0.2-1.0 Ur Leukocyte Esterase Neg Urine RBC (Auto) < 1 Urine Microscopic WBC < 1 Ur Squamous Epith Cells 1 Urine Bacteria Rare Fluid Type Synovial WBC Synovial RBC Synovial Neutrophils Synovial Lymphocytes Synov Monos/Macrophage Synovial Fluid Comment Blood Type A POSITIVE Antibody Screen Negative BBK History Checked Patient has bt 11/06/18 11/06/18 11/06/18 05:40 05:40 05:40 WBC 4.9 RBC 4.31 Hgb 13.0 Hct 39.8 MCV 92.4 MCH 30.1 MCHC 32.6 L RDW 16.2 H Plt Count 178 MPV 9.1 Neut % (Auto) 54.8 Lymph % (Auto) 31.0 [place] % (Auto) 9.4 Eos % (Auto) 3.7 Baso % (Auto) 1.1 Neut # (Auto) 2.7 Lymph # (Auto) 1.5 [place] # (Auto) 0.5 Eos # (Auto) 0.2 Baso # (Auto) 0.1 PT INR APTT Sodium 137 Potassium 3.9 Chloride 101 Carbon Dioxide 25 Anion Gap 15 BUN 7 Creatinine 0.7 Est GFR ( Amer) > 60 Est GFR (Non-Af Amer) > 60 POC Glucose (mg/dL) 121 H Random Glucose 100 Calcium 9.6 Total Bilirubin AST ALT Alkaline Phosphatase Total Protein Albumin Globulin Albumin/Globulin Ratio Urine Color Urine Clarity Urine pH Ur Specific [place] Urine Protein Urine Glucose (UA) Urine Ketones Urine Blood Urine Nitrate Urine Bilirubin Urine Urobilinogen Ur Leukocyte Esterase Urine RBC (Auto) Urine Microscopic WBC Ur Squamous Epith Cells Urine Bacteria Fluid Type Synovial WBC Synovial RBC Synovial Neutrophils Synovial Lymphocytes Synov Monos/Macrophage Synovial Fluid Comment Blood Type Antibody Screen BBK History Checked 11/06/18 11/06/18 11/06/18 09:05 10:04 11:14 WBC RBC Hgb Hct MCV MCH MCHC RDW Plt Count MPV Neut % (Auto) Lymph % (Auto) [place] % (Auto) Eos % (Auto) Baso % (Auto) Neut # (Auto) Lymph # (Auto) [place] # (Auto) Eos # (Auto) Baso # (Auto) PT 14.7 H D INR 1.3 APTT 33.0 Sodium Potassium Chloride Carbon Dioxide Anion Gap BUN Creatinine Est GFR ( Amer) Est GFR (Non-Af Amer) POC Glucose (mg/dL) 94 Random Glucose Calcium Total Bilirubin AST ALT Alkaline Phosphatase Total Protein Albumin Globulin Albumin/Globulin Ratio Urine Color Urine Clarity Urine pH Ur Specific [place] Urine Protein Urine Glucose (UA) Urine Ketones Urine Blood Urine Nitrate Urine Bilirubin Urine Urobilinogen Ur Leukocyte Esterase Urine RBC (Auto) Urine Microscopic WBC Ur Squamous Epith Cells Urine Bacteria Fluid Type Synovial fluid Synovial WBC 164.0 H Synovial RBC 63682.0 H Synovial Neutrophils 34.0 H Synovial Lymphocytes 39.0 H Synov Monos/Macrophage 27 H Synovial Fluid Comment Moderately bloody Blood Type Antibody Screen BBK History Checked Laboratory Results - last 72 hr 11/05/18 11/05/18 11/05/18 19:21 19:21 19:21 WBC 5.8 RBC 4.79 Hgb 14.5 D Hct 44.8 MCV 93.5 MCH 30.3 MCHC 32.4 L RDW 16.0 H Plt Count 182 MPV 8.7 Neut % (Auto) 56.7 Lymph % (Auto) 32.6 [place] % (Auto) 7.6 Eos % (Auto) 3.0 Baso % (Auto) 0.1 Neut # (Auto) 3.3 Lymph # (Auto) 1.9 [place] # (Auto) 0.4 Eos # (Auto) 0.2 Baso # (Auto) 0.0 PT 25.7 H INR 2.3 APTT 46.5 H Sodium 134 Potassium 5.5 H Chloride 95 L Carbon Dioxide 25 Anion Gap 20 BUN 9 Creatinine 0.8 Est GFR ( Amer) > 60 Est GFR (Non-Af Amer) > 60 POC Glucose (mg/dL) Random Glucose 106 H Calcium 9.6 Total Bilirubin 0.8 AST 38 H D ALT 13 Alkaline Phosphatase 105 Total Protein 8.7 H Albumin 4.4 Globulin 4.3 H Albumin/Globulin Ratio 1.0 Urine Color Urine Clarity Urine pH Ur Specific [place] Urine Protein Urine Glucose (UA) Urine Ketones Urine Blood Urine Nitrate Urine Bilirubin Urine Urobilinogen Ur Leukocyte Esterase Urine RBC (Auto) Urine Microscopic WBC Ur Squamous Epith Cells Urine Bacteria Fluid Type Synovial WBC Synovial RBC Synovial Neutrophils Synovial Lymphocytes Synov Monos/Macrophage Synovial Fluid Comment Blood Type Antibody Screen BBK History Checked 11/05/18 11/05/18 11/06/18 19:21 22:22 04:45 WBC RBC Hgb Hct MCV MCH MCHC RDW Plt Count MPV Neut % (Auto) Lymph % (Auto) [place] % (Auto) Eos % (Auto) Baso % (Auto) Neut # (Auto) Lymph # (Auto) [place] # (Auto) Eos # (Auto) Baso # (Auto) PT INR APTT Sodium Potassium Chloride Carbon Dioxide Anion Gap BUN Creatinine Est GFR ( Amer) Est GFR (Non-Af Amer) POC Glucose (mg/dL) 98 Random Glucose Calcium Total Bilirubin AST ALT Alkaline Phosphatase Total Protein Albumin Globulin Albumin/Globulin Ratio Urine Color Yellow Urine Clarity Clear Urine pH 6.0 Ur Specific [place] 1.006 Urine Protein Negative Urine Glucose (UA) Neg Urine Ketones Negative Urine Blood Negative Urine Nitrate Negative Urine Bilirubin Negative Urine Urobilinogen 0.2-1.0 Ur Leukocyte Esterase Neg Urine RBC (Auto) < 1 Urine Microscopic WBC < 1 Ur Squamous Epith Cells 1 Urine Bacteria Rare Fluid Type Synovial WBC Synovial RBC Synovial Neutrophils Synovial Lymphocytes Synov Monos/Macrophage Synovial Fluid Comment Blood Type A POSITIVE Antibody Screen Negative BBK History Checked Patient has bt 11/06/18 11/06/18 11/06/18 05:40 05:40 05:40 WBC 4.9 RBC 4.31 Hgb 13.0 Hct 39.8 MCV 92.4 MCH 30.1 MCHC 32.6 L RDW 16.2 H Plt Count 178 MPV 9.1 Neut % (Auto) 54.8 Lymph % (Auto) 31.0 [place] % (Auto) 9.4 Eos % (Auto) 3.7 Baso % (Auto) 1.1 Neut # (Auto) 2.7 Lymph # (Auto) 1.5 [place] # (Auto) 0.5 Eos # (Auto) 0.2 Baso # (Auto) 0.1 PT INR APTT Sodium 137 Potassium 3.9 Chloride 101 Carbon Dioxide 25 Anion Gap 15 BUN 7 Creatinine 0.7 Est GFR ( Amer) > 60 Est GFR (Non-Af Amer) > 60 POC Glucose (mg/dL) 121 H Random Glucose 100 Calcium 9.6 Total Bilirubin AST ALT Alkaline Phosphatase Total Protein Albumin Globulin Albumin/Globulin Ratio Urine Color Urine Clarity Urine pH Ur Specific [place] Urine Protein Urine Glucose (UA) Urine Ketones Urine Blood Urine Nitrate Urine Bilirubin Urine Urobilinogen Ur Leukocyte Esterase Urine RBC (Auto) Urine Microscopic WBC Ur Squamous Epith Cells Urine Bacteria Fluid Type Synovial WBC Synovial RBC Synovial Neutrophils Synovial Lymphocytes Synov Monos/Macrophage Synovial Fluid Comment Blood Type Antibody Screen BBK History Checked 11/06/18 11/06/18 11/06/18 09:05 10:04 11:14 WBC RBC Hgb Hct MCV MCH MCHC RDW Plt Count MPV Neut % (Auto) Lymph % (Auto) [place] % (Auto) Eos % (Auto) Baso % (Auto) Neut # (Auto) Lymph # (Auto) [place] # (Auto) Eos # (Auto) Baso # (Auto) PT 14.7 H D INR 1.3 APTT 33.0 Sodium Potassium Chloride Carbon Dioxide Anion Gap BUN Creatinine Est GFR ( Amer) Est GFR (Non-Af Amer) POC Glucose (mg/dL) 94 Random Glucose Calcium Total Bilirubin AST ALT Alkaline Phosphatase Total Protein Albumin Globulin Albumin/Globulin Ratio Urine Color Urine Clarity Urine pH Ur Specific [place] Urine Protein Urine Glucose (UA) Urine Ketones Urine Blood Urine Nitrate Urine Bilirubin Urine Urobilinogen Ur Leukocyte Esterase Urine RBC (Auto) Urine Microscopic WBC Ur Squamous Epith Cells Urine Bacteria Fluid Type Synovial fluid Synovial WBC 164.0 H Synovial RBC 60403.0 H Synovial Neutrophils 34.0 H Synovial Lymphocytes 39.0 H Synov Monos/Macrophage 27 H Synovial Fluid Comment Moderately bloody Blood Type Antibody Screen BBK History Checked Microbiology 11/06/18 09:00 Synovial Fluid Gram Stain - Final 11/06/18 09:00 Synovial Fluid Gram Stain - Final 11/06/18 09:00 Synovial Fluid Gram Stain - Final 11/05/18 19:56 Knee - Right Gram Stain - Final Assessment & Plan (1) Postoperative wound infection Status: Acute (2) COPD (chronic obstructive pulmonary disease) Status: Acute (3) Diabetes mellitus type 2 in obese Status: Acute - Assessment and Plan (Free Text) Assessment: A/P- 58 year old female with multiple medical conditions including DM II, HTN, COPD admitted with right knee wound site infection post TKR a month ago. afebrile normal wbc count synovial fluid cell count not c/w septic joint await synovial fluid cx result. Plan- advsie to continue with IV vancomycin an cefepime started by hospitalist day #1 pending further results. keep vanco trough <15. f/u synovial fluid cx. if no surgical intervention by ortho then would advise at least 4 weeks of IV abx to avoid prosthetic joint infection. All labs and imaging and chart notes reviewd. All above d/w patient and she verbalizes full understanding of all above and a grees with above plan of care. Thank you for allowing me to take part in the care of this patient.
[2018-11-06] MEDS ORDERED: Propofol 10 mg/ml Inj (20 ML) ONE (16:08)
[2018-11-06] MEDS ORDERED: Midazolam 2 MG/2 ML VIAL ONE (16:08)
[2018-11-06] MEDS ORDERED: Succinylcholine Chloride 20 mg/ml Syr (5 ml) IV ONE (16:08)
[2018-11-06] MEDS ORDERED: Lidocaine 4% (Laryng-O-Jet) Kit MM ONE (16:08)
[2018-11-06] MEDS ORDERED: Lactated Ringer's 1,000 ML IV ONE ×3 (16:25→17:30)
[2018-11-06] MEDS ORDERED: Rocuronium 10 mg/ml (5 ml) ONE (16:39)
[2018-11-06] MEDS ORDERED: Labetalol 5mg/ml (4ml) ONE (16:47)
[2018-11-06] MEDS ORDERED: Neostigmine 1:1000 (1 mg/ml) Inj ONE (17:19)
[2018-11-06] MEDS ORDERED: Bacitracin Ointment 30 GM TUBE ONE (17:32)
--- NOTE | 2018-11-06 17:53 | PCM.SURG1 ---
Surgeon's Initial Post Op Note - Surgeon's Notes Surgeon: Makenzie Potter MD Project [employer] Scheduler: Bronson Umaña MD; Kristyn Szymanski PA-C Type of Anesthesia: General Endo Pre-Operative Diagnosis: Right knee wound dihesence s/p RTKR Operative Findings: See op report Post-Operative Diagnosis: same as pre-op dx Operation Performed: Right knee Irrigation and Debridement Specimen/Specimens Removed: right knee cultures Estimated Blood Loss: EBL {In ML}: 30 Date of Surgery/Procedure: 11/06/18 Time of Surgery/Procedure: 17:00
[2018-11-06] MEDS ORDERED: Patient's Own Med (Oxycodone Hcl/Acetaminophen [Endocet 10-325 Mg Tablet] 1 TAB) PO SCH (18:00)
[2018-11-06] MEDS: HYDROmorphone 0.5 mg/0.5 ml ISec IVP PRN ×4 (18:10→18:40)
[2018-11-06] MEDS ORDERED: HYDROmorphone 0.5 mg/0.5 ml ISec ONE (18:11)
--- NOTE | 2018-11-06 19:30 | CARD ---
APPROVED REPORT Date of service: 11/05/2018 EKG Measurement Heart [id number] <Conclusion> Sinus rhythm with premature atrial complexes with aberrant conduction Nonspecific T wave abnormality Prolonged QT Abnormal ECG
[2018-11-07] MEDS: Cefepime 1 GM in Sodium Chloride 0.9% 100 ML IVPB SCH ×3 (00:28→19:13)
[2018-11-07] MEDS: Morphine 4 MG/ML VIAL IVP PRN (03:38)
[2018-11-07 05:36] LABS: BASO # 0.1 K/uL (0.0-0.2); BASO % 1.4 % (0.0-2.0); EOS # 0.1 K/uL (0.0-0.7); EOS % 1.6 % (0.0-4.0); HEMOGLOBIN 12.3 g/dL (12.0-16.0); LYMPH # 1.5 K/uL (1.0-4.3); LYMPH % 22.6 % (20.0-40.0); MEAN CELL VOLUME 93.5 fl (81.0-99.0); MEAN CORPUSCULAR HEMOGLOBIN 30.2 pg (27.0-31.0); MEAN CORPUSCULAR HGB CONC 32.3 g/dL (33.0-37.0); MEAN PLATELET VOLUME 9.2 fl (7.2-11.7); MONO # 0.6 K/uL (0.0-0.8); MONO % 8.7 % (0.0-10.0); NEUT # 4.2 K/uL (1.8-7.0); NEUT % 65.7 % (50.0-75.0); NRBC % 0.2 % (0.0-0.0); RBC 4.06 Mil/uL (3.80-5.20); RED CELL DISTRIBUTION WIDTH 16.3 % (11.5-14.5); WHITE BLOOD COUNT 6.5 K/uL (4.8-10.8)
[2018-11-07 05:48] LABS: BLOOD UREA NITROGEN 6 mg/dl (7-17); GFR NON-AFRICAN AMERICAN > 60
[2018-11-07] MEDS: Insulin Lispro (humaLOG) 100 Units/ml Inj SC SCH ×4 (08:21→22:00)
[2018-11-07] MEDS: oxyCODONE 10 mg Immediate Release Tab PO SCH (08:22)
[2018-11-07] MEDS: Enoxaparin 40 mg Syringe SC SCH (08:25)
[2018-11-07] MEDS: Mometasone 110 mcg/puff-30 puff Inh INH SCH (08:25)
[2018-11-07] MEDS: Tiotropium 18 mcg Cap For Inhalation INH SCH (08:26)
[2018-11-07] MEDS: NIFEdipine 90 mg ER Tab PO SCH (08:27)
[2018-11-07] MEDS: Pantoprazole 40 mg EC Tab PO SCH (08:28)
[2018-11-07] MEDS: Cholecalciferol 1,000 INTLU TAB PO SCH (08:29)
[2018-11-07] MEDS: ARIPIPRAZOLE 1 MG/ML PO SCH (08:29)
--- NOTE | 2018-11-07 08:44 | CP.PCM.PN ---
Subjective - Date & Time of Evaluation Date of Evaluation: 11/07/18 Time of Evaluation: 08:45 - Subjective Subjective: S/P R KNEE SURGICAL DEBRIDEMENT STILL HAS KNEE PAINS AFEBRILE NO SOB VSS Objective - Vital Signs/Intake and Output Vital Signs (last 24 hours): Temp Pulse Resp BP Pulse Ox 97.7 F 66 18 147/85 99 11/07/18 07:44 11/07/18 07:44 11/07/18 07:44 11/07/18 07:44 11/07/18 07:44 Intake and Output: 11/07/18 11/07/18 06:59 18:59 Intake Total 0 Output Total 1500 Balance 550 - Medications Medications: Current Medications Acetaminophen (Tylenol 325mg Tab) 650 mg PO Q4 PRN PRN Reason: Fever >100.4 F Acetaminophen (Tylenol 325mg Tab) 650 mg PO Q4 PRN PRN Reason: Pain, Mild (1-3) Alprazolam (Xanax) 1 mg PO BID PRN PRN Reason: Anxiety Aripiprazole (Abilify) 15 mg PO DAILY [facility] Last Admin: 11/07/18 08:29 Dose: 15 mg Atorvastatin Calcium (Lipitor) 40 mg PO HS [facility] Last Admin: 11/06/18 21:18 Dose: 40 mg Bisacodyl (Dulcolax) 10 mg PO DAILY PRN PRN Reason: Constipation Cholecalciferol (Vitamin D) 2,000 intlu PO DAILY [facility] Last Admin: 11/07/18 08:29 Dose: 2,000 intlu Docusate Sodium (Colace) 100 mg PO BID [facility] Last Admin: 11/07/18 08:27 Dose: 100 mg Enoxaparin Sodium (Lovenox) 40 mg SC DAILY [facility]; Protocol Last Admin: 11/07/18 08:25 Dose: 40 mg Escitalopram Oxalate (Lexapro) 20 mg PO DAILY [facility] Last Admin: 11/07/18 08:28 Dose: 20 mg Folic Acid (Folic Acid) 1 mg PO DAILY [facility] Last Admin: 11/07/18 08:27 Dose: 1 mg Gabapentin (Neurontin) 400 mg PO TID [facility] Last Admin: 11/07/18 08:28 Dose: 400 mg Cefepime HCl 1 gm/ Sodium (Chloride) 100 mls @ 100 mls/hr IVPB Q8 [facility]; Protocol Last Admin: 11/07/18 08:24 Dose: 100 mls/hr Vancomycin HCl 1 gm/ Sodium (Chloride) 250 mls @ 166.667 mls/hr IVPB Q12 [facility]; Protocol Last Admin: 11/07/18 08:29 Dose: 166.667 mls/hr Acetaminophen (Ofirmev) 100 mls @ 400 mls/hr IVPB Q6H [facility]; Protocol Stop: 11/07/18 18:01 Last Admin: 11/07/18 05:04 Dose: 400 mls/hr Insulin Human Lispro (Humalog) 0 units SC ACHS [facility]; Protocol Last Admin: 11/07/18 08:21 Dose: Not Given Mometasone Furoate (Asmanex Twisthaler 110 Mcg) 1 puff INH DAILY [facility] Last Admin: 11/07/18 08:25 Dose: 1 puff Morphine Sulfate (Morphine) 2 mg IVP Q4 PRN PRN Reason: Pain, moderate (4-7) Last Admin: 11/07/18 03:38 Dose: 2 mg Nicotine (Nicoderm Cq) 1 patch TD DAILY [facility] Last Admin: 11/07/18 08:28 Dose: 1 patch Nifedipine (Procardia Xl) 90 mg PO DAILY [facility] Last Admin: 11/07/18 08:27 Dose: 90 mg Oxycodone HCl (Oxycodone Immediate Release Tab) 30 mg PO QAM [facility] Last Admin: 11/07/18 08:22 Dose: 30 mg Oxycodone/Acetaminophen (Percocet 5/325 Mg Tab) 2 tab PO QPM [facility] Stop: 11/09/18 18:01 Pantoprazole Sodium (Protonix Ec Tab) 40 mg PO DAILY [facility] Last Admin: 11/07/18 08:28 Dose: 40 mg Tiotropium [place] (Spiriva) 18 mcg INH DAILY [facility] Last Admin: 11/07/18 08:26 Dose: 18 mcg Topiramate (Topamax) 100 mg PO BID [facility] Last Admin: 11/07/18 08:28 Dose: 100 mg Trazodone HCl (Desyrel) 200 mg PO HS PRN PRN Reason: Insomnia Zolpidem Tartrate (Ambien) 5 mg PO HS PRN PRN Reason: Insomnia Last Admin: 11/07/18 00:32 Dose: 5 mg - Labs Labs: 11/07/18 04:35 11/07/18 04:35 PT 14.7 Seconds (9.8-13.1) H D 11/06/18 10:04 INR 1.3 11/06/18 10:04 APTT 33.0 Seconds (25.6-37.1) 11/06/18 10:04 - Constitutional Appears: In Acute Distress - Head Exam Head Exam: ATRAUMATIC, NORMAL INSPECTION, NORMOCEPHALIC - Eye Exam Eye Exam: EOMI, Normal appearance, PERRL Pupil Exam: NORMAL ACCOMODATION, PERRL - ENT Exam ENT Exam: Mucous Membranes Moist, Normal Exam - Neck Exam Neck Exam: Full ROM, Normal Inspection. absent: Lymphadenopathy - Respiratory Exam Respiratory Exam: Clear to Ausculation Bilateral, NORMAL BREATHING PATTERN - Cardiovascular Exam Cardiovascular Exam: REGULAR RHYTHM, +S1, +S2. absent: Murmur - GI/Abdominal Exam GI & Abdominal Exam: Soft, Normal Bowel Sounds. absent: Tenderness - Rectal Exam Rectal Exam: NORMAL INSPECTION - Extremities Exam Extremities Exam: Full ROM, Normal Capillary Refill, Tenderness. absent: Joint Swelling, Pedal Edema Additional comments: DRY SURGICAL DRESSING ON R KNEE - Back Exam Back Exam: NORMAL INSPECTION - Neurological Exam Neurological Exam: Alert, Awake, CN II-XII Intact, Oriented x3 - Psychiatric Exam Psychiatric exam: Normal Affect, Normal Mood - Skin Skin Exam: Dry, Intact, Normal Color, Warm Assessment and Plan - Assessment and Plan (Free Text) Assessment: COPD STABLE S/P R KNEE SURGERY INFECTED R KNEE Plan: CONTINUE IV ANTIBIOTIC RX AND AEROSOLIZED BRONCHODILATORS ANALGESICS FOR PAIN
[2018-11-07] MEDS ORDERED: Albuterol-Ipratrop 3 mg / 0.5 (3 ml) UD INH SCH (10:00)
--- NOTE | 2018-11-07 10:22 | CP.PCM.PN ---
Subjective - Date & Time of Evaluation Date of Evaluation: 11/07/18 Time of Evaluation: 08:30 - Subjective Subjective: Patient seen and examined at bedside comfortable. Pain is well controlled. No acute events overnight. No new complaints. Denies CP/SOB/dizziness/fever. Objective - Vital Signs/Intake and Output Vital Signs (last 24 hours): Temp Pulse Resp BP Pulse Ox 97.7 F 66 18 147/85 99 11/07/18 07:44 11/07/18 07:44 11/07/18 07:44 11/07/18 07:44 11/07/18 07:44 Intake and Output: 11/07/18 11/07/18 06:59 18:59 Intake Total 2050 Output Total 1500 Balance 550 - Medications Medications: Current Medications Acetaminophen (Tylenol 325mg Tab) 650 mg PO Q4 PRN PRN Reason: Fever >100.4 F Acetaminophen (Tylenol 325mg Tab) 650 mg PO Q4 PRN PRN Reason: Pain, Mild (1-3) Albuterol/Ipratropium (Duoneb 3 Mg/0.5 Mg (3 Ml) Ud) 3 ml INH Q6 [facility] Alprazolam (Xanax) 1 mg PO BID PRN PRN Reason: Anxiety Aripiprazole (Abilify) 15 mg PO DAILY [facility] Last Admin: 11/07/18 08:29 Dose: 15 mg Atorvastatin Calcium (Lipitor) 40 mg PO HS [facility] Last Admin: 11/06/18 21:18 Dose: 40 mg Bisacodyl (Dulcolax) 10 mg PO DAILY PRN PRN Reason: Constipation Cholecalciferol (Vitamin D) 2,000 intlu PO DAILY [facility] Last Admin: 11/07/18 08:29 Dose: 2,000 intlu Docusate Sodium (Colace) 100 mg PO BID [facility] Last Admin: 11/07/18 08:27 Dose: 100 mg Enoxaparin Sodium (Lovenox) 40 mg SC DAILY [facility]; Protocol Last Admin: 11/07/18 08:25 Dose: 40 mg Escitalopram Oxalate (Lexapro) 20 mg PO DAILY [facility] Last Admin: 11/07/18 08:28 Dose: 20 mg Folic Acid (Folic Acid) 1 mg PO DAILY [facility] Last Admin: 11/07/18 08:27 Dose: 1 mg Gabapentin (Neurontin) 400 mg PO TID [facility] Last Admin: 11/07/18 08:28 Dose: 400 mg Cefepime HCl 1 gm/ Sodium (Chloride) 100 mls @ 100 mls/hr IVPB Q8 [facility]; Protocol Last Admin: 11/07/18 08:24 Dose: 100 mls/hr Vancomycin HCl 1 gm/ Sodium (Chloride) 250 mls @ 166.667 mls/hr IVPB Q12 [facility]; Protocol Last Admin: 11/07/18 08:29 Dose: 166.667 mls/hr Acetaminophen (Ofirmev) 100 mls @ 400 mls/hr IVPB Q6H [facility]; Protocol Stop: 11/07/18 18:01 Last Admin: 11/07/18 05:04 Dose: 400 mls/hr Insulin Human Lispro (Humalog) 0 units SC ACHS [facility]; Protocol Last Admin: 11/07/18 08:21 Dose: Not Given Mometasone Furoate (Asmanex Twisthaler 110 Mcg) 1 puff INH DAILY [facility] Last Admin: 11/07/18 08:25 Dose: 1 puff Morphine Sulfate (Morphine) 2 mg IVP Q4 PRN PRN Reason: Pain, moderate (4-7) Last Admin: 11/07/18 03:38 Dose: 2 mg Nicotine (Nicoderm Cq) 1 patch TD DAILY [facility] Last Admin: 11/07/18 08:28 Dose: 1 patch Nifedipine (Procardia Xl) 90 mg PO DAILY [facility] Last Admin: 11/07/18 08:27 Dose: 90 mg Oxycodone HCl (Oxycodone Immediate Release Tab) 30 mg PO QAM [facility] Last Admin: 11/07/18 08:22 Dose: 30 mg Oxycodone/Acetaminophen (Percocet 5/325 Mg Tab) 2 tab PO QPM [facility] Stop: 11/09/18 18:01 Pantoprazole Sodium (Protonix Ec Tab) 40 mg PO DAILY [facility] Last Admin: 11/07/18 08:28 Dose: 40 mg Tiotropium [place] (Spiriva) 18 mcg INH DAILY [facility] Last Admin: 11/07/18 08:26 Dose: 18 mcg Topiramate (Topamax) 100 mg PO BID [facility] Last Admin: 11/07/18 08:28 Dose: 100 mg Trazodone HCl (Desyrel) 200 mg PO HS PRN PRN Reason: Insomnia Zolpidem Tartrate (Ambien) 5 mg PO HS PRN PRN Reason: Insomnia Last Admin: 11/07/18 00:32 Dose: 5 mg - Labs Labs: 11/07/18 04:35 11/07/18 04:35 PT 14.7 Seconds (9.8-13.1) H D 11/06/18 10:04 INR 1.3 11/06/18 10:04 APTT 33.0 Seconds (25.6-37.1) 11/06/18 10:04 - Extremities Exam Additional comments: RLE: knee immobilizer in place Dressings CDI sensation intact SP/DP/TN motor intact EHL/FHL/TA/G pedal pulse inact calves soft NT b/l Assessment and Plan (1) Wound dehiscence, surgical Assessment & Plan: POD# 1 s/p superficial wound I&D, plastics closure -strict knee immobilizer -PT/OT -awaiting final culture report, GPC seen on GM stain on 2/3 OR superficial tissue cultures. No growth x 48 hrs from bedside aspiration synovial fluid. -Dressing change tomorrow by Dr. Banegas -abx as per ID -above d/w Dr. Umaña in agreement Status: Acute
--- NOTE | 2018-11-07 10:25 | CP.PCM.PN ---
<Kathi Jimenez - Last Filed: 11/07/18 10:55> Subjective - Date & Time of Evaluation Date of Evaluation: 11/07/18 Time of Evaluation: 10:25 - Subjective Subjective: Patient seen this morning in bedside chair with leg elevated and in immobilizer. Patient resting comfortably and in NAD. Patient states pain is well controlled to the knee at this time. Denies nausea/vomiting/fever/shortness of breath/chest pain. Objective - Vital Signs/Intake and Output Vital Signs (last 24 hours): Temp Pulse Resp BP Pulse Ox 97.7 F 66 18 147/85 99 11/07/18 07:44 11/07/18 07:44 11/07/18 07:44 11/07/18 07:44 11/07/18 07:44 Intake and Output: 11/07/18 11/07/18 06:59 18:59 Intake Total 2050 Output Total 1500 Balance 550 - Medications Medications: Current Medications Acetaminophen (Tylenol 325mg Tab) 650 mg PO Q4 PRN PRN Reason: Fever >100.4 F Acetaminophen (Tylenol 325mg Tab) 650 mg PO Q4 PRN PRN Reason: Pain, Mild (1-3) Albuterol/Ipratropium (Duoneb 3 Mg/0.5 Mg (3 Ml) Ud) 3 ml INH Q6 [facility] Alprazolam (Xanax) 1 mg PO BID PRN PRN Reason: Anxiety Aripiprazole (Abilify) 15 mg PO DAILY [facility] Last Admin: 11/07/18 08:29 Dose: 15 mg Atorvastatin Calcium (Lipitor) 40 mg PO HS [facility] Last Admin: 11/06/18 21:18 Dose: 40 mg Bisacodyl (Dulcolax) 10 mg PO DAILY PRN PRN Reason: Constipation Cholecalciferol (Vitamin D) 2,000 intlu PO DAILY [facility] Last Admin: 11/07/18 08:29 Dose: 2,000 intlu Docusate Sodium (Colace) 100 mg PO BID [facility] Last Admin: 11/07/18 08:27 Dose: 100 mg Enoxaparin Sodium (Lovenox) 40 mg SC DAILY [facility]; Protocol Last Admin: 11/07/18 08:25 Dose: 40 mg Escitalopram Oxalate (Lexapro) 20 mg PO DAILY [facility] Last Admin: 02/13/19 08:28 Dose: 20 mg Folic Acid (Folic Acid) 1 mg PO DAILY [facility] Last Admin: 11/07/18 08:27 Dose: 1 mg Gabapentin (Neurontin) 400 mg PO TID [facility] Last Admin: 11/07/18 08:28 Dose: 400 mg Cefepime HCl 1 gm/ Sodium (Chloride) 100 mls @ 100 mls/hr IVPB Q8 [facility]; Protocol Last Admin: 11/07/18 08:24 Dose: 100 mls/hr Vancomycin HCl 1 gm/ Sodium (Chloride) 250 mls @ 166.667 mls/hr IVPB Q12 [facility]; Protocol Last Admin: 11/07/18 08:29 Dose: 166.667 mls/hr Acetaminophen (Ofirmev) 100 mls @ 400 mls/hr IVPB Q6H [facility]; Protocol Stop: 11/07/18 18:01 Last Admin: 11/07/18 05:04 Dose: 400 mls/hr Insulin Human Lispro (Humalog) 0 units SC ACHS [facility]; Protocol Last Admin: 11/07/18 08:21 Dose: Not Given Mometasone Furoate (Asmanex Twisthaler 110 Mcg) 1 puff INH DAILY [facility] Last Admin: 11/07/18 08:25 Dose: 1 puff Morphine Sulfate (Morphine) 2 mg IVP Q4 PRN PRN Reason: Pain, moderate (4-7) Last Admin: 11/07/18 03:38 Dose: 2 mg Nicotine (Nicoderm Cq) 1 patch TD DAILY [facility] Last Admin: 11/07/18 08:28 Dose: 1 patch Nifedipine (Procardia Xl) 90 mg PO DAILY [facility] Last Admin: 11/07/18 08:27 Dose: 90 mg Oxycodone HCl (Oxycodone Immediate Release Tab) 30 mg PO QAM [facility] Last Admin: 11/07/18 08:22 Dose: 30 mg Oxycodone/Acetaminophen (Percocet 5/325 Mg Tab) 2 tab PO QPM [facility] Stop: 11/09/18 18:01 Pantoprazole Sodium (Protonix Ec Tab) 40 mg PO DAILY [facility] Last Admin: 11/07/18 08:28 Dose: 40 mg Tiotropium [place] (Spiriva) 18 mcg INH DAILY [facility] Last Admin: 11/07/18 08:26 Dose: 18 mcg Topiramate (Topamax) 100 mg PO BID [facility] Last Admin: 11/07/18 08:28 Dose: 100 mg Trazodone HCl (Desyrel) 200 mg PO HS PRN PRN Reason: Insomnia Zolpidem Tartrate (Ambien) 5 mg PO HS PRN PRN Reason: Insomnia Last Admin: 11/07/18 00:32 Dose: 5 mg - Labs Labs: 11/07/18 04:35 11/07/18 04:35 PT 14.7 Seconds (9.8-13.1) H D 11/06/18 10:04 INR 1.3 11/06/18 10:04 APTT 33.0 Seconds (25.6-37.1) 11/06/18 10:04 - Constitutional Appears: Non-toxic, No Acute Distress - Head Exam Head Exam: ATRAUMATIC, NORMOCEPHALIC - ENT Exam ENT Exam: Mucous Membranes Moist - Respiratory Exam Respiratory Exam: NORMAL BREATHING PATTERN - Cardiovascular Exam Cardiovascular Exam: REGULAR RHYTHM - GI/Abdominal Exam GI & Abdominal Exam: Normal Bowel Sounds. absent: Tenderness - Extremities Exam Extremities Exam: Normal Capillary Refill - Neurological Exam Neurological Exam: Alert, Awake, Oriented x3 - Psychiatric Exam Psychiatric exam: Normal Affect, Normal Mood - Skin Skin Exam: Warm Assessment and Plan - Assessment and Plan (Free Text) Assessment: 58 year old female with history of COPD, asthma, diabetes mellitus type 2, hypertension, hyperlipidemia, chronic pain, admitted for right knee wound infection, POD# 1 s/p superficial wound I&D, plastics closure Plan: 1. Right Knee Wound - Ortho consult - Dr. Umaña - Pulm Dr. Mohan, cardio Dr. Culp consults for clearance; CXR and EKG done - POD# 1 s/p superficial wound I&D, plastics closure - ID consult - Dr. Proctor, recommending 4 weeks of IV abx to prevent prosthesis infection - Patient started on Cefepime 1gm Q8, Vanco 1gm Q12 - Blood cultures; No growth after 24 hrs, wait for final - Wound culture; gram + cocci, wait for final - PT/OT eval, reccs appreciated 2. COPD/asthma - Duoneb Q4 PRN - Home med asmanex, spiriva 3. Diabetes mellitus type 2 - C/w januvia home med - Insulin coverage scale & hypoglycemia protocol 4. Hypertension - Procardia home med - Monitor on vitals 5. Hyperlipidemia - Home med atorvastatin 6. Chronic pain - Home meds percocet, oxycodone, gabapentin on med rec 7. Anxiety/Depression - Home meds xanax, abilify, lexapro 8. Insomnia - Home meds trazodone, ambien 9. Constipation - Home meds dulcolax, colace 10. Diet - Consistent carbohydrate diet 11. GI prophylaxis - Protonix home med 12. DVT prophylaxis - SCD - Lovenox 40 mg SC <Elizabeth Walsh - Last Filed: 11/07/18 18:58> Objective - Vital Signs/Intake and Output Vital Signs (last 24 hours): Temp Pulse Resp BP Pulse Ox 98.2 F 54 L 20 120/62 96 11/07/18 16:15 11/07/18 16:15 11/07/18 16:15 11/07/18 16:15 11/07/18 16:15 Intake and Output: 11/07/18 11/07/18 06:59 18:59 Intake Total 2050 Output Total 1500 Balance 550 - Medications Medications: Current Medications Acetaminophen (Tylenol 325mg Tab) 650 mg PO Q4 PRN PRN Reason: Fever >100.4 F Acetaminophen (Tylenol 325mg Tab) 650 mg PO Q4 PRN PRN Reason: Pain, Mild (1-3) Albuterol/Ipratropium (Duoneb 3 Mg/0.5 Mg (3 Ml) Ud) 3 ml INH RQ6 [facility] Last Admin: 11/07/18 13:46 Dose: 3 ml Alprazolam (Xanax) 1 mg PO BID PRN PRN Reason: Anxiety Aripiprazole (Abilify) 15 mg PO DAILY [facility] Atorvastatin Calcium (Lipitor) 40 mg PO HS [facility] Last Admin: 11/06/18 21:18 Dose: 40 mg Bisacodyl (Dulcolax) 10 mg PO DAILY PRN PRN Reason: Constipation Cholecalciferol (Vitamin D) 2,000 intlu PO DAILY [facility] Last Admin: 11/07/18 08:29 Dose: 2,000 intlu Docusate Sodium (Colace) 100 mg PO BID [facility] Last Admin: 11/07/18 17:50 Dose: 100 mg Enoxaparin Sodium (Lovenox) 40 mg SC DAILY [facility]; Protocol Last Admin: 11/07/18 08:25 Dose: 40 mg Escitalopram Oxalate (Lexapro) 20 mg PO DAILY [facility] Last Admin: 11/07/18 08:28 Dose: 20 mg Folic Acid (Folic Acid) 1 mg PO DAILY [facility] Last Admin: 11/07/18 08:27 Dose: 1 mg Gabapentin (Neurontin) 400 mg PO TID [facility] Last Admin: 11/07/18 17:50 Dose: 400 mg Cefepime HCl 1 gm/ Sodium (Chloride) 100 mls @ 100 mls/hr IVPB Q8 [facility]; Protocol Last Admin: 11/07/18 08:24 Dose: 100 mls/hr Vancomycin HCl 1 gm/ Sodium (Chloride) 250 mls @ 166.667 mls/hr IVPB Q12 [facility]; Protocol Last Admin: 11/07/18 08:29 Dose: 166.667 mls/hr Insulin Human Lispro (Humalog) 0 units SC ACHS [facility]; Protocol Last Admin: 11/07/18 17:00 Dose: Not Given Mometasone Furoate (Asmanex Twisthaler 110 Mcg) 1 puff INH DAILY [facility] Last Admin: 11/07/18 08:25 Dose: 1 puff Morphine Sulfate (Morphine) 2 mg IVP Q4 PRN PRN Reason: Pain, moderate (4-7) Last Admin: 11/07/18 03:38 Dose: 2 mg Nicotine (Nicoderm Cq) 1 patch TD DAILY [facility] Last Admin: 11/07/18 08:28 Dose: 1 patch Nifedipine (Procardia Xl) 90 mg PO DAILY [facility] Last Admin: 11/07/18 08:27 Dose: 90 mg Oxycodone HCl (Oxycodone Immediate Release Tab) 30 mg PO QAM [facility] Last Admin: 11/07/18 08:22 Dose: 30 mg Oxycodone/Acetaminophen (Percocet 5/325 Mg Tab) 2 tab PO QPM [facility] Stop: 11/09/18 18:01 Pantoprazole Sodium (Protonix Ec Tab) 40 mg PO DAILY [facility] Last Admin: 11/07/18 08:28 Dose: 40 mg Tiotropium [place] (Spiriva) 18 mcg INH DAILY [facility] Last Admin: 11/07/18 08:26 Dose: 18 mcg Topiramate (Topamax) 100 mg PO BID [facility] Last Admin: 11/07/18 17:50 Dose: 100 mg Trazodone HCl (Desyrel) 200 mg PO HS PRN PRN Reason: Insomnia Zolpidem Tartrate (Ambien) 5 mg PO HS PRN PRN Reason: Insomnia Last Admin: 11/07/18 00:32 Dose: 5 mg - Labs Labs: 11/07/18 04:35 11/07/18 04:35 PT 14.7 Seconds (9.8-13.1) H D 11/06/18 10:04 INR 1.3 11/06/18 10:04 APTT 33.0 Seconds (25.6-37.1) 11/06/18 10:04 Attending/Attestation - Attestation I have personally seen and examined this patient.: Yes I have fully participated in the care of the patient.: Yes I have reviewed all pertinent clinical information, including history, physical exam and plan: Yes Notes (Text): Right Knee Drainage , Erythema and Pain/ Slight Dehiscence with Superficial Infection of Right TKR Wound , History of recent TKR ( Oct 05 ) COPD, chronic Mild Intermittent Asthma HTN DM Type II Coagulopathy, resolved prob lab error - s/p Debridement and Irrigation of Right knee done by Ortho and Plastic Sx - on IV cefepime and Vanco empirically - Wound c/s : Gram + Cocci -cont home meds - Pulm and cardio consulted for optimization prior to surgery -ID consult following pt - DVT proph after surgery - plan for d/c on IV antibiotics Vanco x 4 wks - PICC line placed on R arm by Picc RN ( discussed with Dr Srinivasan IR - ok to keep PICC line in arm arm despite hx of previous cephalic vein thrombosis in 2014) - pt on Xarelto at home
--- NOTE | 2018-11-07 13:32 | CP.PCM.PN ---
Subjective - Date & Time of Evaluation Date of Evaluation: 11/07/18 Time of Evaluation: 13:31 - Subjective Subjective: ID Note- Patietn seen and examined today . pt. pod #1 - s/p Debridement and Irrigation of Right knee done by Ortho and Plastics pt. denies any fever but c/o pain in right knee Objective - Vital Signs/Intake and Output Vital Signs (last 24 hours): Temp Pulse Resp BP Pulse Ox 97.8 F 56 L 18 102/64 94 L 11/07/18 12:24 11/07/18 12:24 11/07/18 12:24 11/07/18 12:24 11/07/18 12:24 Intake and Output: 11/07/18 11/07/18 06:59 18:59 Intake Total 2050 Output Total 1500 Balance 550 - Medications Medications: Current Medications Acetaminophen (Tylenol 325mg Tab) 650 mg PO Q4 PRN PRN Reason: Fever >100.4 F Acetaminophen (Tylenol 325mg Tab) 650 mg PO Q4 PRN PRN Reason: Pain, Mild (1-3) Albuterol/Ipratropium (Duoneb 3 Mg/0.5 Mg (3 Ml) Ud) 3 ml INH RQ6 [facility] Alprazolam (Xanax) 1 mg PO BID PRN PRN Reason: Anxiety Aripiprazole (Abilify) 15 mg PO DAILY [facility] Atorvastatin Calcium (Lipitor) 40 mg PO HS [facility] Last Admin: 11/06/18 21:18 Dose: 40 mg Bisacodyl (Dulcolax) 10 mg PO DAILY PRN PRN Reason: Constipation Cholecalciferol (Vitamin D) 2,000 intlu PO DAILY [facility] Last Admin: 11/07/18 08:29 Dose: 2,000 intlu Docusate Sodium (Colace) 100 mg PO BID [facility] Last Admin: 11/07/18 08:27 Dose: 100 mg Enoxaparin Sodium (Lovenox) 40 mg SC DAILY [facility]; Protocol Last Admin: 11/07/18 08:25 Dose: 40 mg Escitalopram Oxalate (Lexapro) 20 mg PO DAILY [facility] Last Admin: 11/07/18 08:28 Dose: 20 mg Folic Acid (Folic Acid) 1 mg PO DAILY [facility] Last Admin: 11/07/18 08:27 Dose: 1 mg Gabapentin (Neurontin) 400 mg PO TID [facility] Last Admin: 02/13/19 13:01 Dose: 400 mg Cefepime HCl 1 gm/ Sodium (Chloride) 100 mls @ 100 mls/hr IVPB Q8 [facility]; Protocol Last Admin: 11/07/18 08:24 Dose: 100 mls/hr Vancomycin HCl 1 gm/ Sodium (Chloride) 250 mls @ 166.667 mls/hr IVPB Q12 [facility]; Protocol Last Admin: 11/07/18 08:29 Dose: 166.667 mls/hr Acetaminophen (Ofirmev) 100 mls @ 400 mls/hr IVPB Q6H [facility]; Protocol Stop: 11/07/18 18:01 Last Admin: 11/07/18 12:58 Dose: 400 mls/hr Insulin Human Lispro (Humalog) 0 units SC ACHS [facility]; Protocol Last Admin: 11/07/18 12:30 Dose: Not Given Mometasone Furoate (Asmanex Twisthaler 110 Mcg) 1 puff INH DAILY [facility] Last Admin: 11/07/18 08:25 Dose: 1 puff Morphine Sulfate (Morphine) 2 mg IVP Q4 PRN PRN Reason: Pain, moderate (4-7) Last Admin: 11/07/18 03:38 Dose: 2 mg Nicotine (Nicoderm Cq) 1 patch TD DAILY [facility] Last Admin: 11/07/18 08:28 Dose: 1 patch Nifedipine (Procardia Xl) 90 mg PO DAILY [facility] Last Admin: 11/07/18 08:27 Dose: 90 mg Oxycodone HCl (Oxycodone Immediate Release Tab) 30 mg PO QAM [facility] Last Admin: 11/07/18 08:22 Dose: 30 mg Oxycodone/Acetaminophen (Percocet 5/325 Mg Tab) 2 tab PO QPM [facility] Stop: 11/09/18 18:01 Pantoprazole Sodium (Protonix Ec Tab) 40 mg PO DAILY [facility] Last Admin: 11/07/18 08:28 Dose: 40 mg Tiotropium [place] (Spiriva) 18 mcg INH DAILY [facility] Last Admin: 11/07/18 08:26 Dose: 18 mcg Topiramate (Topamax) 100 mg PO BID [facility] Last Admin: 11/07/18 08:28 Dose: 100 mg Trazodone HCl (Desyrel) 200 mg PO HS PRN PRN Reason: Insomnia Zolpidem Tartrate (Ambien) 5 mg PO HS PRN PRN Reason: Insomnia Last Admin: 11/07/18 00:32 Dose: 5 mg - Labs Labs: - Additional Findings Additional findings: - Constitutional Appears: No Acute Distress - Head Exam Head Exam: ATRAUMATIC - Eye Exam Eye Exam: EOMI, PERRL - ENT Exam ENT Exam: Normal Oropharynx - Neck Exam Neck exam: Positive for: Full Rom - Respiratory Exam Respiratory Exam: Clear to Auscultation Bilateral, NORMAL BREATHING PATTERN - Cardiovascular Exam Cardiovascular Exam: RRR, +S1, +S2 - GI/Abdominal Exam GI & Abdominal Exam: Normal Bowel Sounds, Soft Additional comments: NT, ND - Extremities Exam Additional comments: Right anterior knee region s/p surgical I and D and now has sutures in place no discharge seen now but still has erythema in the region but less than yesterday - Neurological Exam Neurological exam: Alert, Oriented x 3 Laboratory Results - last 72 hr 11/05/18 11/05/18 11/05/18 19:21 19:21 19:21 WBC 5.8 RBC 4.79 Hgb 14.5 D Hct 44.8 MCV 93.5 MCH 30.3 MCHC 32.4 L RDW 16.0 H Plt Count 182 MPV 8.7 Neut % (Auto) 56.7 Lymph % (Auto) 32.6 [place] % (Auto) 7.6 Eos % (Auto) 3.0 Baso % (Auto) 0.1 Neut # (Auto) 3.3 Lymph # (Auto) 1.9 [place] # (Auto) 0.4 Eos # (Auto) 0.2 Baso # (Auto) 0.0 ESR PT 25.7 H INR 2.3 APTT 46.5 H Sodium 134 Potassium 5.5 H Chloride 95 L Carbon Dioxide 25 Anion Gap 20 BUN 9 Creatinine 0.8 Est GFR ( Amer) > 60 Est GFR (Non-Af Amer) > 60 POC Glucose (mg/dL) Random Glucose 106 H Calcium 9.6 Total Bilirubin 0.8 AST 38 H D ALT 13 Alkaline Phosphatase 105 Total Protein 8.7 H Albumin 4.4 Globulin 4.3 H Albumin/Globulin Ratio 1.0 Urine Color Urine Clarity Urine pH Ur Specific [place] Urine Protein Urine Glucose (UA) Urine Ketones Urine Blood Urine Nitrate Urine Bilirubin Urine Urobilinogen Ur Leukocyte Esterase Urine RBC (Auto) Urine Microscopic WBC Ur Squamous Epith Cells Urine Bacteria Fluid Type Synovial WBC Synovial RBC Synovial Neutrophils Synovial Lymphocytes Synov Monos/Macrophage Synovial Fluid Comment Blood Type Antibody Screen BBK History Checked 11/05/18 11/05/18 11/06/18 19:21 22:22 04:45 WBC RBC Hgb Hct MCV MCH MCHC RDW Plt Count MPV Neut % (Auto) Lymph % (Auto) [place] % (Auto) Eos % (Auto) Baso % (Auto) Neut # (Auto) Lymph # (Auto) [place] # (Auto) Eos # (Auto) Baso # (Auto) ESR PT INR APTT Sodium Potassium Chloride Carbon Dioxide Anion Gap BUN Creatinine Est GFR ( Amer) Est GFR (Non-Af Amer) POC Glucose (mg/dL) 98 Random Glucose Calcium Total Bilirubin AST ALT Alkaline Phosphatase Total Protein Albumin Globulin Albumin/Globulin Ratio Urine Color Yellow Urine Clarity Clear Urine pH 6.0 Ur Specific [place] 1.006 Urine Protein Negative Urine Glucose (UA) Neg Urine Ketones Negative Urine Blood Negative Urine Nitrate Negative Urine Bilirubin Negative Urine Urobilinogen 0.2-1.0 Ur Leukocyte Esterase Neg Urine RBC (Auto) < 1 Urine Microscopic WBC < 1 Ur Squamous Epith Cells 1 Urine Bacteria Rare Fluid Type Synovial WBC Synovial RBC Synovial Neutrophils Synovial Lymphocytes Synov Monos/Macrophage Synovial Fluid Comment Blood Type A POSITIVE Antibody Screen Negative BBK History Checked Patient has bt 11/06/18 11/06/18 11/06/18 05:40 05:40 05:40 WBC 4.9 RBC 4.31 Hgb 13.0 Hct 39.8 MCV 92.4 MCH 30.1 MCHC 32.6 L RDW 16.2 H Plt Count 178 MPV 9.1 Neut % (Auto) 54.8 Lymph % (Auto) 31.0 [place] % (Auto) 9.4 Eos % (Auto) 3.7 Baso % (Auto) 1.1 Neut # (Auto) 2.7 Lymph # (Auto) 1.5 [place] # (Auto) 0.5 Eos # (Auto) 0.2 Baso # (Auto) 0.1 ESR PT INR APTT Sodium 137 Potassium 3.9 Chloride 101 Carbon Dioxide 25 Anion Gap 15 BUN 7 Creatinine 0.7 Est GFR ( Amer) > 60 Est GFR (Non-Af Amer) > 60 POC Glucose (mg/dL) 121 H Random Glucose 100 Calcium 9.6 Total Bilirubin AST ALT Alkaline Phosphatase Total Protein Albumin Globulin Albumin/Globulin Ratio Urine Color Urine Clarity Urine pH Ur Specific [place] Urine Protein Urine Glucose (UA) Urine Ketones Urine Blood Urine Nitrate Urine Bilirubin Urine Urobilinogen Ur Leukocyte Esterase Urine RBC (Auto) Urine Microscopic WBC Ur Squamous Epith Cells Urine Bacteria Fluid Type Synovial WBC Synovial RBC Synovial Neutrophils Synovial Lymphocytes Synov Monos/Macrophage Synovial Fluid Comment Blood Type Antibody Screen BBK History Checked 11/06/18 11/06/18 11/06/18 09:05 10:04 11:14 WBC RBC Hgb Hct MCV MCH MCHC RDW Plt Count MPV Neut % (Auto) Lymph % (Auto) [place] % (Auto) Eos % (Auto) Baso % (Auto) Neut # (Auto) Lymph # (Auto) [place] # (Auto) Eos # (Auto) Baso # (Auto) ESR PT 14.7 H D INR 1.3 APTT 33.0 Sodium Potassium Chloride Carbon Dioxide Anion Gap BUN Creatinine Est GFR ( Amer) Est GFR (Non-Af Amer) POC Glucose (mg/dL) 94 Random Glucose Calcium Total Bilirubin AST ALT Alkaline Phosphatase Total Protein Albumin Globulin Albumin/Globulin Ratio Urine Color Urine Clarity Urine pH Ur Specific [place] Urine Protein Urine Glucose (UA) Urine Ketones Urine Blood Urine Nitrate Urine Bilirubin Urine Urobilinogen Ur Leukocyte Esterase Urine RBC (Auto) Urine Microscopic WBC Ur Squamous Epith Cells Urine Bacteria Fluid Type Synovial fluid Synovial WBC 164.0 H Synovial RBC 35865.0 H Synovial Neutrophils 34.0 H Synovial Lymphocytes 39.0 H Synov Monos/Macrophage 27 H Synovial Fluid Comment Moderately bloody Blood Type Antibody Screen BBK History Checked 11/06/18 11/06/18 11/06/18 14:38 16:05 18:08 WBC RBC Hgb Hct MCV MCH MCHC RDW Plt Count MPV Neut % (Auto) Lymph % (Auto) [place] % (Auto) Eos % (Auto) Baso % (Auto) Neut # (Auto) Lymph # (Auto) [place] # (Auto) Eos # (Auto) Baso # (Auto) ESR 38 H PT INR APTT Sodium Potassium Chloride Carbon Dioxide Anion Gap BUN Creatinine Est GFR ( Amer) Est GFR (Non-Af Amer) POC Glucose (mg/dL) 99 151 H Random Glucose Calcium Total Bilirubin AST ALT Alkaline Phosphatase Total Protein Albumin Globulin Albumin/Globulin Ratio Urine Color Urine Clarity Urine pH Ur Specific [place] Urine Protein Urine Glucose (UA) Urine Ketones Urine Blood Urine Nitrate Urine Bilirubin Urine Urobilinogen Ur Leukocyte Esterase Urine RBC (Auto) Urine Microscopic WBC Ur Squamous Epith Cells Urine Bacteria Fluid Type Synovial WBC Synovial RBC Synovial Neutrophils Synovial Lymphocytes Synov Monos/Macrophage Synovial Fluid Comment Blood Type Antibody Screen BBK History Checked 11/06/18 11/07/18 11/07/18 21:19 04:35 04:35 WBC 6.5 RBC 4.06 Hgb 12.3 Hct 38.0 MCV 93.5 MCH 30.2 MCHC 32.3 L RDW 16.3 H Plt Count 157 MPV 9.2 Neut % (Auto) 65.7 Lymph % (Auto) 22.6 [place] % (Auto) 8.7 Eos % (Auto) 1.6 Baso % (Auto) 1.4 Neut # (Auto) 4.2 Lymph # (Auto) 1.5 [place] # (Auto) 0.6 Eos # (Auto) 0.1 Baso # (Auto) 0.1 ESR PT INR APTT Sodium 137 Potassium 3.8 Chloride 105 Carbon Dioxide 23 Anion Gap 13 BUN 6 L Creatinine 0.6 L Est GFR ( Amer) > 60 Est GFR (Non-Af Amer) > 60 POC Glucose (mg/dL) 107 Random Glucose 103 Calcium 9.0 Total Bilirubin AST ALT Alkaline Phosphatase Total Protein Albumin Globulin Albumin/Globulin Ratio Urine Color Urine Clarity Urine pH Ur Specific [place] Urine Protein Urine Glucose (UA) Urine Ketones Urine Blood Urine Nitrate Urine Bilirubin Urine Urobilinogen Ur Leukocyte Esterase Urine RBC (Auto) Urine Microscopic WBC Ur Squamous Epith Cells Urine Bacteria Fluid Type Synovial WBC Synovial RBC Synovial Neutrophils Synovial Lymphocytes Synov Monos/Macrophage Synovial Fluid Comment Blood Type Antibody Screen BBK History Checked 11/07/18 11/07/18 11/07/18 05:21 11:33 16:06 WBC RBC Hgb Hct MCV MCH MCHC RDW Plt Count MPV Neut % (Auto) Lymph % (Auto) [place] % (Auto) Eos % (Auto) Baso % (Auto) Neut # (Auto) Lymph # (Auto) [place] # (Auto) Eos # (Auto) Baso # (Auto) ESR PT INR APTT Sodium Potassium Chloride Carbon Dioxide Anion Gap BUN Creatinine Est GFR ( Amer) Est GFR (Non-Af Amer) POC Glucose (mg/dL) 107 132 H 110 Random Glucose Calcium Total Bilirubin AST ALT Alkaline Phosphatase Total Protein Albumin Globulin Albumin/Globulin Ratio Urine Color Urine Clarity Urine pH Ur Specific [place] Urine Protein Urine Glucose (UA) Urine Ketones Urine Blood Urine Nitrate Urine Bilirubin Urine Urobilinogen Ur Leukocyte Esterase Urine RBC (Auto) Urine Microscopic WBC Ur Squamous Epith Cells Urine Bacteria Fluid Type Synovial WBC Synovial RBC Synovial Neutrophils Synovial Lymphocytes Synov Monos/Macrophage Synovial Fluid Comment Blood Type Antibody Screen BBK History Checked Microbiology 11/06/18 18:00 Knee - Right Gram Stain - Final 11/06/18 18:00 Knee - Right Wound Culture - Preliminary Gram Positive Cocci 11/06/18 09:00 Synovial Fluid Gram Stain - Final 11/06/18 09:00 Synovial Fluid Body Fluid Culture - Preliminary NO GROWTH AFTER 24 HOURS 11/06/18 09:00 Synovial Fluid Gram Stain - Final 11/06/18 09:00 Synovial Fluid Body Fluid Culture - Preliminary NO GROWTH AFTER 24 HOURS 11/06/18 09:00 Synovial Fluid Gram Stain - Final 11/06/18 09:00 Synovial Fluid Body Fluid Culture - Preliminary NO GROWTH AFTER 24 HOURS 11/05/18 19:56 Knee - Right Gram Stain - Final 11/05/18 19:56 Knee - Right Wound Culture - Preliminary Gram Positive Cocci 11/06/18 18:00 Knee - Right Gram Stain - Final 11/06/18 18:00 Knee - Right Wound Culture - Preliminary Gram Positive Cocci 11/06/18 18:00 Knee - Right Gram Stain - Final 11/06/18 18:00 Knee - Right Wound Culture - Preliminary NO GROWTH AFTER 24 HOURS 11/05/18 20:26 Blood-Venous Blood Culture - Preliminary NO GROWTH AFTER 24 HOURS 11/05/18 19:56 Blood-Venous Blood Culture - Preliminary NO GROWTH AFTER 24 HOURS Assessment and Plan (1) Postoperative wound infection Status: Acute (2) COPD (chronic obstructive pulmonary disease) Status: Acute (3) Diabetes mellitus type 2 in obese Status: Acute - Assessment and Plan (Free Text) Assessment: A/P- 58 year old female with multiple medical conditions including DM II, HTN, COPD admitted with right knee wound site infection post TKR a month ago. afebrile normal wbc count synovial fluid cell count not c/w septic joint however right knee OR wound cx- GPC x 3 Blood cx- neg x 1 Plan- Await ID and sensitivity of the GPC. advise to continue with IV vancomycin day #2 for GPC knee infection . keep vanco trough <15. advise 4-6 weeks of IV vancomycin for treatment of prosthetic knee GPC infection. monitor renal function and hearing while on vancomycin. advise patient to have close f/u with her ortho doctor and if patient develops any fever or no improvement while on IV abx then would need to have hardware removal at that time and few weeks of IV abx till joint space is sterilized . all above d/w patient at length adn she verbalizes full understandingof all above and agrees with above plan of care.
[2018-11-07] MEDS: Albuterol-Ipratrop 3 mg / 0.5 (3 ml) UD INH SCH ×2 (13:46→19:30)
--- NOTE | 2018-11-07 19:03 | RAD ---
HISTORY: PICC insertion verification COMPARISON: Chest x-ray performed 11/05/18 TECHNIQUE: Chest, one view. FINDINGS: Examination limited by habitus. Right-sided PICC terminates at the expected location of the SVC. LUNGS: No focal consolidation. Please note that chest x-ray has limited sensitivity for the detection of pulmonary masses. PLEURA: No significant pleural effusion identified. No definite pneumothorax . CARDIOVASCULAR: Heart size appears within normal limits. Ectatic aorta. Atherosclerotic calcifications of the aortic knob. OSSEOUS STRUCTURES: Degenerative changes. VISUALIZED UPPER ABDOMEN: Unremarkable. OTHER FINDINGS: None. IMPRESSION: Right-sided PICC terminates at the expected location of the SVC.
[2018-11-07] MEDS: Oxycodone/Acetaminophen 5/325 mg Tab PO SCH (19:12)
[2018-11-08] MEDS: Morphine 4 MG/ML VIAL IVP PRN ×2 (02:02→20:20)
[2018-11-08] MEDS: Albuterol-Ipratrop 3 mg / 0.5 (3 ml) UD INH SCH ×4 (03:01→19:31)
[2018-11-08 05:26] LABS: BASO # 0.1 K/uL (0.0-0.2); BASO % 1.2 % (0.0-2.0); EOS # 0.2 K/uL (0.0-0.7); EOS % 3.8 % (0.0-4.0); HEMOGLOBIN 11.2 g/dL (12.0-16.0); LYMPH # 1.8 K/uL (1.0-4.3); LYMPH % 40.4 % (20.0-40.0); MEAN CELL VOLUME 93.3 fl (81.0-99.0); MEAN CORPUSCULAR HEMOGLOBIN 29.6 pg (27.0-31.0); MEAN CORPUSCULAR HGB CONC 31.7 g/dL (33.0-37.0); MEAN PLATELET VOLUME 9.1 fl (7.2-11.7); MONO # 0.4 K/uL (0.0-0.8); MONO % 8.8 % (0.0-10.0); NEUT % 45.8 % (50.0-75.0); NRBC % 0.1 % (0.0-0.0); RBC 3.78 Mil/uL (3.80-5.20); RED CELL DISTRIBUTION WIDTH 16.1 % (11.5-14.5); WHITE BLOOD COUNT 4.5 K/uL (4.8-10.8)
[2018-11-08 05:35] LABS: BLOOD UREA NITROGEN 5 mg/dl (7-17); GFR NON-AFRICAN AMERICAN > 60
[2018-11-08] MEDS: oxyCODONE 10 mg Immediate Release Tab PO SCH (08:10)
[2018-11-08] MEDS: Tiotropium 18 mcg Cap For Inhalation INH SCH (08:12)
[2018-11-08] MEDS: Mometasone 110 mcg/puff-30 puff Inh INH SCH (08:12)
[2018-11-08] MEDS: Enoxaparin 40 mg Syringe SC SCH (08:13)
[2018-11-08] MEDS: Cholecalciferol 1,000 INTLU TAB PO SCH (08:14)
[2018-11-08] MEDS: Pantoprazole 40 mg EC Tab PO SCH (08:14)
[2018-11-08] MEDS: NIFEdipine 90 mg ER Tab PO SCH (08:14)
[2018-11-08] MEDS: Insulin Lispro (humaLOG) 100 Units/ml Inj SC SCH ×3 (08:15→16:47)
--- NOTE | 2018-11-08 08:57 | CP.PCM.PN ---
Subjective - Date & Time of Evaluation Date of Evaluation: 11/08/18 Time of Evaluation: 08:57 - Subjective Subjective: NO CHEST PAINS/SOB R KNEE PAIN IMPROVING Objective - Vital Signs/Intake and Output Vital Signs (last 24 hours): Temp Pulse Resp BP Pulse Ox 97.9 F 63 18 131/79 94 L 11/08/18 07:56 11/08/18 07:56 11/08/18 07:56 11/08/18 07:56 11/08/18 07:56 - Medications Medications: Current Medications Acetaminophen (Tylenol 325mg Tab) 650 mg PO Q4 PRN PRN Reason: Fever >100.4 F Acetaminophen (Tylenol 325mg Tab) 650 mg PO Q4 PRN PRN Reason: Pain, Mild (1-3) Albuterol/Ipratropium (Duoneb 3 Mg/0.5 Mg (3 Ml) Ud) 3 ml INH RQ6 [facility] Last Admin: 11/08/18 07:32 Dose: 3 ml Alprazolam (Xanax) 1 mg PO BID PRN PRN Reason: Anxiety Aripiprazole (Abilify) 15 mg PO DAILY [facility] Last Admin: 11/08/18 08:14 Dose: 15 mg Atorvastatin Calcium (Lipitor) 40 mg PO HS [facility] Last Admin: 11/07/18 21:22 Dose: 40 mg Bisacodyl (Dulcolax) 10 mg PO DAILY PRN PRN Reason: Constipation Cholecalciferol (Vitamin D) 2,000 intlu PO DAILY [facility] Last Admin: 11/08/18 08:14 Dose: 2,000 intlu Docusate Sodium (Colace) 100 mg PO BID [facility] Last Admin: 11/08/18 08:16 Dose: 100 mg Enoxaparin Sodium (Lovenox) 40 mg SC DAILY [facility]; Protocol Last Admin: 11/08/18 08:13 Dose: 40 mg Escitalopram Oxalate (Lexapro) 20 mg PO DAILY [facility] Last Admin: 11/08/18 08:15 Dose: 20 mg Folic Acid (Folic Acid) 1 mg PO DAILY [facility] Last Admin: 11/08/18 08:14 Dose: 1 mg Gabapentin (Neurontin) 400 mg PO TID [facility] Last Admin: 11/08/18 08:14 Dose: 400 mg Vancomycin HCl 1 gm/ Sodium (Chloride) 250 mls @ 166.667 mls/hr IVPB Q12 [facility]; Protocol Last Admin: 11/08/18 08:18 Dose: 166.667 mls/hr Insulin Human Lispro (Humalog) 0 units SC ACHS [facility]; Protocol Last Admin: 11/08/18 08:15 Dose: 2 u Mometasone Furoate (Asmanex Twisthaler 110 Mcg) 1 puff INH DAILY [facility] Last Admin: 11/08/18 08:12 Dose: 1 puff Morphine Sulfate (Morphine) 2 mg IVP Q4 PRN PRN Reason: Pain, moderate (4-7) Last Admin: 11/08/18 02:02 Dose: 2 mg Nicotine (Nicoderm Cq) 1 patch TD DAILY [facility] Last Admin: 11/08/18 08:14 Dose: 1 patch Nifedipine (Procardia Xl) 90 mg PO DAILY [facility] Last Admin: 11/08/18 08:14 Dose: 90 mg Oxycodone HCl (Oxycodone Immediate Release Tab) 30 mg PO QAM [facility] Last Admin: 11/08/18 08:10 Dose: 30 mg Oxycodone/Acetaminophen (Percocet 5/325 Mg Tab) 2 tab PO QPM [facility] Stop: 11/09/18 18:01 Last Admin: 11/07/18 19:12 Dose: 2 tab Pantoprazole Sodium (Protonix Ec Tab) 40 mg PO DAILY [facility] Last Admin: 11/08/18 08:14 Dose: 40 mg Tiotropium [place] (Spiriva) 18 mcg INH DAILY [facility] Last Admin: 11/08/18 08:12 Dose: 18 mcg Topiramate (Topamax) 100 mg PO BID [facility] Last Admin: 11/08/18 08:14 Dose: 100 mg Trazodone HCl (Desyrel) 200 mg PO HS PRN PRN Reason: Insomnia Last Admin: 11/07/18 21:23 Dose: 200 mg Zolpidem Tartrate (Ambien) 5 mg PO HS PRN PRN Reason: Insomnia Last Admin: 11/07/18 21:22 Dose: 5 mg - Labs Labs: 11/08/18 04:35 11/08/18 04:35 PT 14.7 Seconds (9.8-13.1) H D 11/06/18 10:04 INR 1.3 11/06/18 10:04 APTT 33.0 Seconds (25.6-37.1) 11/06/18 10:04 - Constitutional Appears: No Acute Distress - Head Exam Head Exam: ATRAUMATIC, NORMAL INSPECTION, NORMOCEPHALIC - Eye Exam Eye Exam: EOMI, Normal appearance, PERRL Pupil Exam: NORMAL ACCOMODATION, PERRL - ENT Exam ENT Exam: Mucous Membranes Moist, Normal Exam - Neck Exam Neck Exam: Full ROM, Normal Inspection. absent: Lymphadenopathy - Respiratory Exam Respiratory Exam: Clear to Ausculation Bilateral, NORMAL BREATHING PATTERN - Cardiovascular Exam Cardiovascular Exam: REGULAR RHYTHM, +S1, +S2. absent: Murmur - GI/Abdominal Exam GI & Abdominal Exam: Soft, Normal Bowel Sounds. absent: Tenderness - Rectal Exam Rectal Exam: NORMAL INSPECTION - Extremities Exam Extremities Exam: Full ROM, Normal Capillary Refill. absent: Joint Swelling, Pedal Edema Additional comments: R KNEE IN A SPLINT - Back Exam Back Exam: NORMAL INSPECTION - Neurological Exam Neurological Exam: Alert, Awake, CN II-XII Intact, Normal Gait, Oriented x3 - Psychiatric Exam Psychiatric exam: Normal Affect, Normal Mood - Skin Skin Exam: Dry, Intact, Normal Color, Warm Assessment and Plan - Assessment and Plan (Free Text) Assessment: SEPTIC ARTHRITIS R KNEE--ST[facility] COPD--STABLE Plan: CONTINUE CURRENT RX WILL FOLLOW WITH YOU
--- NOTE | 2018-11-08 09:27 | CP.PCM.DIS ---
<BarbaraKathi - Last Filed: 11/08/18 10:07> Provider - Provider Date of Admission: 11/05/18 19:03 Attending physician: Elizabeth Walsh MD Primary care physician: PMD: Dr. Up Consults: 11/05/18 19:38 Cardiology Consult Stat Comment: preop Consulting Provider: Jesus Culp Consulting Physician: Jesus Culp Reason for Consult: pre-op Pulmonology Consult Stat Comment: preop Consulting Provider: Varun Mohan I Consulting Physician: Varun Mohan I Reason for Consult: preop 11/05/18 19:39 Orthopedic Consult Stat Comment: R knee wound Consulting Provider: Bronson Umaña Consulting Physician: Bronson Umaña Reason for Consult: R knee wound 11/05/18 19:50 Infectious Disease Consult Routine Comment: Consulting Provider: Aliyah Proctor Consulting Physician: Aliyah Proctor Reason for Consult: Right knee pain, redness discharge, TKR in 11/06/18 09:00 Case Management Referral Routine Comment: [facility] nurses visit every day Physician Instructions: Reason For Exam: needs continued assist at home Reason for Referral: Discharge Planning Nursing Referral for Wound Care Routine Comment: Physician Instructions: Reason For Exam: low taras scale Social Work Referral Routine Comment: lives alone Physician Instructions: Reason For Exam: lives alone Time Spent in preparation of Discharge (in minutes): 30 Hospital Course - Lab Results Lab Results: Micro Results 11/05/18 19:56 Knee - Right Gram Stain - Final 11/05/18 19:56 Knee - Right Wound Culture - Final Staphylococcus Aureus 11/06/18 18:00 Knee - Right Gram Stain - Final 11/06/18 18:00 Knee - Right Wound Culture - Final Staphylococcus Aureus 11/06/18 18:00 Knee - Right Gram Stain - Final 11/06/18 18:00 Knee - Right Wound Culture - Final Staphylococcus Aureus 11/05/18 20:26 Blood-Venous Blood Culture - Preliminary NO GROWTH AFTER 48 HOURS 11/05/18 19:56 Blood-Venous Blood Culture - Preliminary NO GROWTH AFTER 48 HOURS 11/06/18 09:00 Synovial Fluid Gram Stain - Final 11/06/18 09:00 Synovial Fluid Body Fluid Culture - Preliminary NO GROWTH AFTER 24 HOURS 11/06/18 09:00 Synovial Fluid Gram Stain - Final 11/06/18 09:00 Synovial Fluid Body Fluid Culture - Preliminary NO GROWTH AFTER 24 HOURS 11/06/18 09:00 Synovial Fluid Gram Stain - Final 11/06/18 09:00 Synovial Fluid Body Fluid Culture - Preliminary NO GROWTH AFTER 24 HOURS 11/06/18 18:00 Knee - Right Gram Stain - Final 11/06/18 18:00 Knee - Right Wound Culture - Preliminary NO GROWTH AFTER 24 HOURS Most Recent Lab Values WBC 4.5 K/uL (4.8-10.8) L 11/08/18 04:35 RBC 3.78 Mil/uL (3.80-5.20) L 11/08/18 04:35 Hgb 11.2 g/dL (12.0-16.0) L 11/08/18 04:35 Hct 35.3 % (34.0-47.0) 11/08/18 04:35 MCV 93.3 fl (81.0-99.0) 11/08/18 04:35 MCH 29.6 pg (27.0-31.0) 11/08/18 04:35 MCHC 31.7 g/dL (33.0-37.0) L 11/08/18 04:35 RDW 16.1 % (11.5-14.5) H 11/08/18 04:35 Plt Count 153 K/uL (130-400) 11/08/18 04:35 MPV 9.1 fl (7.2-11.7) 11/08/18 04:35 Neut % (Auto) 45.8 % (50.0-75.0) L 11/08/18 04:35 Lymph % (Auto) 40.4 % (20.0-40.0) H 11/08/18 04:35 Edwards % (Auto) 8.8 % (0.0-10.0) 11/08/18 04:35 Eos % (Auto) 3.8 % (0.0-4.0) 11/08/18 04:35 Baso % (Auto) 1.2 % (0.0-2.0) 11/08/18 04:35 Neut # (Auto) 2.0 K/uL (1.8-7.0) 11/08/18 04:35 Lymph # (Auto) 1.8 K/uL (1.0-4.3) 11/08/18 04:35 Edwards # (Auto) 0.4 K/uL (0.0-0.8) 11/08/18 04:35 Eos # (Auto) 0.2 K/uL (0.0-0.7) 11/08/18 04:35 Baso # (Auto) 0.1 K/uL (0.0-0.2) 11/08/18 04:35 ESR 38 mm/hr (0-30) H 11/06/18 14:38 PT 14.7 Seconds (9.8-13.1) H D 11/06/18 10:04 INR 1.3 11/06/18 10:04 APTT 33.0 Seconds (25.6-37.1) 11/06/18 10:04 Sodium 140 mmol/l (132-148) 11/08/18 04:35 Potassium 3.3 MMOL/L (3.6-5.0) L 11/08/18 04:35 Chloride 105 mmol/L (98-107) 11/08/18 04:35 Carbon Dioxide 27 mmol/L (22-30) 11/08/18 04:35 Anion Gap 11 (10-20) 11/08/18 04:35 BUN 5 mg/dl (7-17) L 11/08/18 04:35 Creatinine 0.6 mg/dl (0.7-1.2) L 11/08/18 04:35 Est GFR ( Amer) > 60 11/08/18 04:35 Est GFR (Non-Af Amer) > 60 11/08/18 04:35 POC Glucose (mg/dL) 227 mg/dL (65-110) H 11/08/18 05:23 Random Glucose 88 mg/dL (65-105) 11/08/18 04:35 Calcium 9.0 mg/dL (8.4-10.2) 11/08/18 04:35 Total Bilirubin 0.8 mg/dl (0.2-1.3) 11/05/18 19:21 AST 38 U/L (14-36) H D 11/05/18 19:21 ALT 13 U/L (9-52) 11/05/18 19:21 Alkaline Phosphatase 105 U/L (38-126) 11/05/18 19:21 Total Protein 8.7 G/DL (6.3-8.2) H 11/05/18 19:21 Albumin 4.4 g/dL (3.5-5.0) 11/05/18 19:21 Globulin 4.3 gm/dL (2.2-3.9) H 11/05/18 19:21 Albumin/Globulin Ratio 1.0 (1.0-2.1) 11/05/18 19:21 Urine Color Yellow (YELLOW) 11/06/18 04:45 Urine Clarity Clear (Clear) 11/06/18 04:45 Urine pH 6.0 (5.0-8.0) 11/06/18 04:45 Ur Specific Hudson 1.006 (1.003-1.030) 11/06/18 04:45 Urine Protein Negative mg/dL (NEGATIVE) 11/06/18 04:45 Urine Glucose (UA) Neg mg/dL (NEGATIVE) 11/06/18 04:45 Urine Ketones Negative mg/dL (NEGATIVE) 11/06/18 04:45 Urine Blood Negative (NEGATIVE) 11/06/18 04:45 Urine Nitrate Negative (NEGATIVE) 11/06/18 04:45 Urine Bilirubin Negative (NEGATIVE) 11/06/18 04:45 Urine Urobilinogen 0.2-1.0 mg/dL (0.2-1.0) 11/06/18 04:45 Ur Leukocyte Esterase Neg Liya/uL (Negative) 11/06/18 04:45 Urine RBC (Auto) < 1 /hpf (0-3) 11/06/18 04:45 Urine Microscopic WBC < 1 /hpf (0-5) 11/06/18 04:45 Ur Squamous Epith Cells 1 /hpf (0-5) 11/06/18 04:45 Urine Bacteria Rare (<OCC) 11/06/18 04:45 Fluid Type Synovial fluid 11/06/18 09:05 Synovial WBC 164.0 /mm3 (0.0-150.0) H 11/06/18 09:05 Synovial RBC 99413.0 /mm3 (0.0-0.0) H 11/06/18 09:05 Synovial Neutrophils 34.0 % (0-0) H 11/06/18 09:05 Synovial Lymphocytes 39.0 % (0-0) H 11/06/18 09:05 Synov Monos/Macrophage 27 % (0-0) H 11/06/18 09:05 Synovial Fluid Comment Moderately bloody 11/06/18 09:05 Vancomycin Trough 14.0 ug/mL (5.0-10.0) H 11/08/18 04:35 Blood Type A POSITIVE 11/05/18 19:21 Antibody Screen Negative 11/05/18 19:21 BBK History Checked Patient has bt 11/05/18 19:21 - Hospital Course Hospital Course: 58 year old female with history of COPD, asthma, diabetes mellitus type 2, hypertension, hyperlipidemia, chronic pain, admitted for right knee wound infection. During her hospital course, patient went to OR with Dr. Umaña for right knee superficial irrigation and debridement with plastics closure. Infectious disease was consulted and PICC line was placed. Patient to be discharged on 4 weeks of IV antibiotics for prevention of prosthetic joint infection. Patient to follow up with Dr. Umaña upon discharge. 1. Right Knee Wound - Ortho consult - Dr. Umaña - Pulm Dr. Mohan, cardio Dr. Culp consults for clearance; CXR and EKG done - POD# 2 s/p superficial wound I&D, plastics closure - ID consult - Dr. Proctor, recommending 4 weeks of IV abx to prevent prosthesis infection - Patient started on Cefepime 1gm Q8, Vanco 1gm Q12 - Blood cultures; No growth after 24 hrs, wait for final - Wound culture; staph aureus - PT/OT - Date & Time of H&P Date of H&P: 11/08/18 Time of H&P: 09:28 Discharge Exam - Head Exam Head Exam: ATRAUMATIC, NORMAL INSPECTION, NORMOCEPHALIC - Eye Exam Eye Exam: Normal appearance - Respiratory Exam Respiratory Exam: UNREMARKABLE - Cardiovascular Exam Cardiovascular Exam: REGULAR RHYTHM - GI/Abdominal Exam GI & Abdominal Exam: Normal Bowel Sounds, Soft, Unremarkable - Extremities Exam Additional comments: R knee immobilizer - Neurological Exam Neurological exam: Alert, Oriented x3 - Psychiatric Exam Psychiatric exam: Normal Affect, Normal Mood - Skin Skin Exam: Warm Discharge Plan - Discharge Medications Prescriptions: Vancomycin/0.9 % Sod Chloride [Vanco 1 Gram/150 ml-0.9% NaCl] 1 gm IV Q12 28 Days plast..bag - Follow Up Plan Condition: FAIR Disposition: TRANSF TO SNF Instructions: Wound Infection, Wound Dehiscence (DC) Additional Instructions: follow up with primary MD 1 week keep picc line dressing dry and clean. weight bearing as tolerated with walker Wound Care ff up with Dr Umaña in 1 wk IV Vanco 1 gram q 12 x 4 wks Weekly BMP and Vanco trough Referrals: Maurice Up MD [Family Provider] - Bronson Umaña MD [Staff Provider] - <Elizabeth Walsh - Last Filed: 11/08/18 16:21> Provider - Provider Date of Admission: 11/05/18 19:03 Attending physician: Elizabeth Walsh MD Consults: 11/05/18 19:38 Cardiology Consult Stat Comment: preop Consulting Provider: Jesus Culp Consulting Physician: Jesus Culp Reason for Consult: pre-op Pulmonology Consult Stat Comment: preop Consulting Provider: Varun Mohan I Consulting Physician: Varun Mohan I Reason for Consult: preop 11/05/18 19:39 Orthopedic Consult Stat Comment: R knee wound Consulting Provider: Bronson Umaña Consulting Physician: Bronson Umaña Reason for Consult: R knee wound 11/05/18 19:50 Infectious Disease Consult Routine Comment: Consulting Provider: Aliyah Proctor Consulting Physician: Aliyah Proctor Reason for Consult: Right knee pain, redness discharge, TKR in 11/06/18 09:00 Case Management Referral Routine Comment: [facility] nurses visit every day Physician Instructions: Reason For Exam: needs continued assist at home Reason for Referral: Discharge Planning Nursing Referral for Wound Care Routine Comment: Physician Instructions: Reason For Exam: low taras scale Social Work Referral Routine Comment: lives alone Physician Instructions: Reason For Exam: lives alone Hospital Course - Lab Results Lab Results: Micro Results 11/06/18 09:00 Synovial Fluid Gram Stain - Final 11/06/18 09:00 Synovial Fluid Body Fluid Culture - Preliminary NO GROWTH AFTER 2 DAYS 11/06/18 09:00 Synovial Fluid Gram Stain - Final 11/06/18 09:00 Synovial Fluid Body Fluid Culture - Preliminary NO GROWTH AFTER 2 DAYS 11/06/18 09:00 Synovial Fluid Gram Stain - Final 11/06/18 09:00 Synovial Fluid Body Fluid Culture - Final Staphylococcus Aureus 11/06/18 18:00 Knee - Right Gram Stain - Final 11/06/18 18:00 Knee - Right Wound Culture - Final Staphylococcus Aureus 11/05/18 19:56 Knee - Right Gram Stain - Final 11/05/18 19:56 Knee - Right Wound Culture - Final Staphylococcus Aureus 11/06/18 18:00 Knee - Right Gram Stain - Final 11/06/18 18:00 Knee - Right Wound Culture - Final Staphylococcus Aureus 11/06/18 18:00 Knee - Right Gram Stain - Final 11/06/18 18:00 Knee - Right Wound Culture - Final Staphylococcus Aureus 11/05/18 20:26 Blood-Venous Blood Culture - Preliminary NO GROWTH AFTER 48 HOURS 11/05/18 19:56 Blood-Venous Blood Culture - Preliminary NO GROWTH AFTER 48 HOURS Most Recent Lab Values WBC 4.5 K/uL (4.8-10.8) L 11/08/18 04:35 RBC 3.78 Mil/uL (3.80-5.20) L 11/08/18 04:35 Hgb 11.2 g/dL (12.0-16.0) L 11/08/18 04:35 Hct 35.3 % (34.0-47.0) 11/08/18 04:35 MCV 93.3 fl (81.0-99.0) 11/08/18 04:35 MCH 29.6 pg (27.0-31.0) 11/08/18 04:35 MCHC 31.7 g/dL (33.0-37.0) L 11/08/18 04:35 RDW 16.1 % (11.5-14.5) H 11/08/18 04:35 Plt Count 153 K/uL (130-400) 11/08/18 04:35 MPV 9.1 fl (7.2-11.7) 11/08/18 04:35 Neut % (Auto) 45.8 % (50.0-75.0) L 11/08/18 04:35 Lymph % (Auto) 40.4 % (20.0-40.0) H 11/08/18 04:35 Edwards % (Auto) 8.8 % (0.0-10.0) 11/08/18 04:35 Eos % (Auto) 3.8 % (0.0-4.0) 11/08/18 04:35 Baso % (Auto) 1.2 % (0.0-2.0) 11/08/18 04:35 Neut # (Auto) 2.0 K/uL (1.8-7.0) 11/08/18 04:35 Lymph # (Auto) 1.8 K/uL (1.0-4.3) 11/08/18 04:35 Edwards # (Auto) 0.4 K/uL (0.0-0.8) 11/08/18 04:35 Eos # (Auto) 0.2 K/uL (0.0-0.7) 11/08/18 04:35 Baso # (Auto) 0.1 K/uL (0.0-0.2) 11/08/18 04:35 ESR 38 mm/hr (0-30) H 11/06/18 14:38 PT 14.7 Seconds (9.8-13.1) H D 11/06/18 10:04 INR 1.3 11/06/18 10:04 APTT 33.0 Seconds (25.6-37.1) 11/06/18 10:04 Sodium 140 mmol/l (132-148) 11/08/18 04:35 Potassium 3.3 MMOL/L (3.6-5.0) L 11/08/18 04:35 Chloride 105 mmol/L (98-107) 11/08/18 04:35 Carbon Dioxide 27 mmol/L (22-30) 11/08/18 04:35 Anion Gap 11 (10-20) 11/08/18 04:35 BUN 5 mg/dl (7-17) L 11/08/18 04:35 Creatinine 0.6 mg/dl (0.7-1.2) L 11/08/18 04:35 Est GFR ( Amer) > 60 11/08/18 04:35 Est GFR (Non-Af Amer) > 60 11/08/18 04:35 POC Glucose (mg/dL) 113 mg/dL (65-110) H 11/08/18 11:09 Random Glucose 88 mg/dL (65-105) 11/08/18 04:35 Calcium 9.0 mg/dL (8.4-10.2) 11/08/18 04:35 Total Bilirubin 0.8 mg/dl (0.2-1.3) 11/05/18 19:21 AST 38 U/L (14-36) H D 11/05/18 19:21 ALT 13 U/L (9-52) 11/05/18 19:21 Alkaline Phosphatase 105 U/L (38-126) 11/05/18 19:21 Total Protein 8.7 G/DL (6.3-8.2) H 11/05/18 19:21 Albumin 4.4 g/dL (3.5-5.0) 11/05/18 19:21 Globulin 4.3 gm/dL (2.2-3.9) H 11/05/18 19:21 Albumin/Globulin Ratio 1.0 (1.0-2.1) 11/05/18 19:21 Urine Color Yellow (YELLOW) 11/06/18 04:45 Urine Clarity Clear (Clear) 11/06/18 04:45 Urine pH 6.0 (5.0-8.0) 11/06/18 04:45 Ur Specific Hudson 1.006 (1.003-1.030) 11/06/18 04:45 Urine Protein Negative mg/dL (NEGATIVE) 11/06/18 04:45 Urine Glucose (UA) Neg mg/dL (NEGATIVE) 11/06/18 04:45 Urine Ketones Negative mg/dL (NEGATIVE) 11/06/18 04:45 Urine Blood Negative (NEGATIVE) 11/06/18 04:45 Urine Nitrate Negative (NEGATIVE) 11/06/18 04:45 Urine Bilirubin Negative (NEGATIVE) 11/06/18 04:45 Urine Urobilinogen 0.2-1.0 mg/dL (0.2-1.0) 11/06/18 04:45 Ur Leukocyte Esterase Neg Liya/uL (Negative) 11/06/18 04:45 Urine RBC (Auto) < 1 /hpf (0-3) 11/06/18 04:45 Urine Microscopic WBC < 1 /hpf (0-5) 11/06/18 04:45 Ur Squamous Epith Cells 1 /hpf (0-5) 11/06/18 04:45 Urine Bacteria Rare (<OCC) 11/06/18 04:45 Fluid Type Synovial fluid 11/06/18 09:05 Synovial WBC 164.0 /mm3 (0.0-150.0) H 11/06/18 09:05 Synovial RBC 33285.0 /mm3 (0.0-0.0) H 11/06/18 09:05 Synovial Neutrophils 34.0 % (0-0) H 11/06/18 09:05 Synovial Lymphocytes 39.0 % (0-0) H 11/06/18 09:05 Synov Monos/Macrophage 27 % (0-0) H 11/06/18 09:05 Synovial Fluid Comment Moderately bloody 11/06/18 09:05 Vancomycin Trough 14.0 ug/mL (5.0-10.0) H 11/08/18 04:35 Blood Type A POSITIVE 11/05/18: Antibody Screen Negative 11/05/18 19: BBK History Checked Patient has bt 11/05/18 19:21 Attending/Attestation - Attestation I have personally seen and examined this patient.: Yes I have fully participated in the care of the patient.: Yes I have reviewed all pertinent clinical information, including history, physical exam and plan: Yes Notes (Text): Right Knee Drainage , Erythema and Pain/ Slight Dehiscence with Superficial Infection of Right TKR Wound , History of recent TKR ( Oct 05 ) COPD, chronic Mild Intermittent Asthma HTN DM Type II Coagulopathy, resolved prob lab error Hx of DVT - on Xarelto - s/p Debridement and Irrigation of Right knee done by Ortho and Plastic Sx - on IV cefepime and Vanco empirically started in the hospital - Wound c/s :MSSA -cont home meds - Pulm and cardio consulted for optimization prior to surgery -ID consulted f - DVT proph - restart Xarelto - d/c on IV antibiotics Vanco 1 gram IV x 4 wks - PICC line placed on R arm by Picc RN ( discussed with Dr Srinivasan IR - ok to keep PICC line in arm arm despite hx of previous cephalic vein thrombosis in 2014) - Wound Care - Physical therapy - ff up with Dr Up in 1-2 wks -appt with Dr Umaña in 1 wk
--- NOTE | 2018-11-08 09:29 | CP.PCM.PN ---
Subjective - Date & Time of Evaluation Date of Evaluation: 11/08/18 Time of Evaluation: 08:00 - Subjective Subjective: Patient seen and examined at bedside comfortable. Pain is well controlled. Tolerated PT well, ambulating down hallways with RW. No acute events overnight, no new complaints. Objective - Vital Signs/Intake and Output Vital Signs (last 24 hours): Temp Pulse Resp BP Pulse Ox 97.9 F 63 18 131/79 94 L 11/08/18 07:56 11/08/18 07:56 11/08/18 07:56 11/08/18 07:56 11/08/18 07:56 - Medications Medications: Current Medications Acetaminophen (Tylenol 325mg Tab) 650 mg PO Q4 PRN PRN Reason: Fever >100.4 F Acetaminophen (Tylenol 325mg Tab) 650 mg PO Q4 PRN PRN Reason: Pain, Mild (1-3) Albuterol/Ipratropium (Duoneb 3 Mg/0.5 Mg (3 Ml) Ud) 3 ml INH RQ6 [facility] Last Admin: 11/08/18 07:32 Dose: 3 ml Alprazolam (Xanax) 1 mg PO BID PRN PRN Reason: Anxiety Aripiprazole (Abilify) 15 mg PO DAILY [facility] Last Admin: 11/08/18 08:14 Dose: 15 mg Atorvastatin Calcium (Lipitor) 40 mg PO HS [facility] Last Admin: 11/07/18 21:22 Dose: 40 mg Bisacodyl (Dulcolax) 10 mg PO DAILY PRN PRN Reason: Constipation Cholecalciferol (Vitamin D) 2,000 intlu PO DAILY [facility] Last Admin: 11/08/18 08:14 Dose: 2,000 intlu Docusate Sodium (Colace) 100 mg PO BID [facility] Last Admin: 11/08/18 08:16 Dose: 100 mg Enoxaparin Sodium (Lovenox) 40 mg SC DAILY [facility]; Protocol Last Admin: 11/08/18 08:13 Dose: 40 mg Escitalopram Oxalate (Lexapro) 20 mg PO DAILY [facility] Last Admin: 11/08/18 08:15 Dose: 20 mg Folic Acid (Folic Acid) 1 mg PO DAILY [facility] Last Admin: 11/08/18 08:14 Dose: 1 mg Gabapentin (Neurontin) 400 mg PO TID [facility] Last Admin: 11/08/18 08:14 Dose: 400 mg Vancomycin HCl 1 gm/ Sodium (Chloride) 250 mls @ 166.667 mls/hr IVPB Q12 [facility]; Protocol Last Admin: 11/08/18 08:18 Dose: 166.667 mls/hr Insulin Human Lispro (Humalog) 0 units SC ACHS [facility]; Protocol Last Admin: 11/08/18 08:15 Dose: 2 u Mometasone Furoate (Asmanex Twisthaler 110 Mcg) 1 puff INH DAILY [facility] Last Admin: 11/08/18 08:12 Dose: 1 puff Morphine Sulfate (Morphine) 2 mg IVP Q4 PRN PRN Reason: Pain, moderate (4-7) Last Admin: 11/08/18 02:02 Dose: 2 mg Nicotine (Nicoderm Cq) 1 patch TD DAILY [facility] Last Admin: 11/08/18 08:14 Dose: 1 patch Nifedipine (Procardia Xl) 90 mg PO DAILY [facility] Last Admin: 11/08/18 08:14 Dose: 90 mg Oxycodone HCl (Oxycodone Immediate Release Tab) 30 mg PO QAM [facility] Last Admin: 11/08/18 08:10 Dose: 30 mg Oxycodone/Acetaminophen (Percocet 5/325 Mg Tab) 2 tab PO QPM [facility] Stop: 11/09/18 18:01 Last Admin: 11/07/18 19:12 Dose: 2 tab Pantoprazole Sodium (Protonix Ec Tab) 40 mg PO DAILY [facility] Last Admin: 11/08/18 08:14 Dose: 40 mg Tiotropium Napavine (Spiriva) 18 mcg INH DAILY [facility] Last Admin: 11/08/18 08:12 Dose: 18 mcg Topiramate (Topamax) 100 mg PO BID [facility] Last Admin: 11/08/18 08:14 Dose: 100 mg Trazodone HCl (Desyrel) 200 mg PO HS PRN PRN Reason: Insomnia Last Admin: 11/07/18 21:23 Dose: 200 mg Zolpidem Tartrate (Ambien) 5 mg PO HS PRN PRN Reason: Insomnia Last Admin: 11/07/18 21:22 Dose: 5 mg - Labs Labs: 11/08/18 04:35 11/08/18 04:35 PT 14.7 Seconds (9.8-13.1) H D 11/06/18 10:04 INR 1.3 11/06/18 10:04 APTT 33.0 Seconds (25.6-37.1) 11/06/18 10:04 - Extremities Exam Additional comments: RLE: knee immobilizer in place Dressings CDI sensation intact SP/DP/TN motor intact EHL/FHL/TA/G pedal pulse inact calves soft NT b/l Assessment and Plan (1) Wound dehiscence, surgical Assessment & Plan: POD#2 s/p superficial wound I&D, plastics closure -strict knee immobilizer -PT/OT -Staph Aureus isolated on 2/3 OR superficial tissue cultures. No growth x 48 hrs from bedside aspiration synovial fluid. -Dressing change this afternoon by Dr. Banegas -abx as per ID, PICC placed yesterday -orthopedically stable for d/c to home -above d/w Dr. Umaña in agreement Status: Acute
--- NOTE | 2018-11-08 14:55 | CP.PCM.PN ---
Subjective - Date & Time of Evaluation Date of Evaluation: 11/08/18 Time of Evaluation: 13:00 - Subjective Subjective: ID note- Patient seen and examined today. pt. denies any fever or chills. c/o pain in the knee still . being d/c today by ortho. Objective - Vital Signs/Intake and Output Vital Signs (last 24 hours): Temp Pulse Resp BP Pulse Ox 98.0 F 65 18 117/78 95 11/08/18 12:19 11/08/18 12:19 11/08/18 12:19 11/08/18 12:11/08/18 12:19 - Medications Medications: Current Medications Acetaminophen (Tylenol 325mg Tab) 650 mg PO Q4 PRN PRN Reason: Fever >100.4 F Acetaminophen (Tylenol 325mg Tab) 650 mg PO Q4 PRN PRN Reason: Pain, Mild (1-3) Albuterol/Ipratropium (Duoneb 3 Mg/0.5 Mg (3 Ml) Ud) 3 ml INH RQ6 [facility] Last Admin: 11/08/18 13:09 Dose: Not Given Alprazolam (Xanax) 1 mg PO BID PRN PRN Reason: Anxiety Aripiprazole (Abilify) 15 mg PO DAILY [facility] Last Admin: 11/08/18 08:14 Dose: 15 mg Atorvastatin Calcium (Lipitor) 40 mg PO HS [facility] Last Admin: 11/07/18 21:22 Dose: 40 mg Bisacodyl (Dulcolax) 10 mg PO DAILY PRN PRN Reason: Constipation Cholecalciferol (Vitamin D) 2,000 intlu PO DAILY [facility] Last Admin: 11/08/18 08:14 Dose: 2,000 intlu Docusate Sodium (Colace) 100 mg PO BID [facility] Last Admin: 11/08/18 08:16 Dose: 100 mg Enoxaparin Sodium (Lovenox) 40 mg SC DAILY [facility]; Protocol Last Admin: 11/08/18 08:13 Dose: 40 mg Escitalopram Oxalate (Lexapro) 20 mg PO DAILY [facility] Last Admin: 11/08/18 08:15 Dose: 20 mg Folic Acid (Folic Acid) 1 mg PO DAILY [facility] Last Admin: 11/08/18 08:14 Dose: 1 mg Gabapentin (Neurontin) 400 mg PO TID [facility] Last Admin: 11/08/18 12:45 Dose: 400 mg Vancomycin HCl 1 gm/ Sodium (Chloride) 250 mls @ 166.667 mls/hr IVPB Q12 [facility]; Protocol Last Admin: 11/08/18 08:18 Dose: 166.667 mls/hr Insulin Human Lispro (Humalog) 0 units SC ACHS [facility]; Protocol Last Admin: 11/08/18 12:46 Dose: Not Given Mometasone Furoate (Asmanex Twisthaler 110 Mcg) 1 puff INH DAILY [facility] Last Admin: 11/08/18 08:12 Dose: 1 puff Morphine Sulfate (Morphine) 2 mg IVP Q4 PRN PRN Reason: Pain, moderate (4-7) Last Admin: 11/08/18 02:02 Dose: 2 mg Nicotine (Nicoderm Cq) 1 patch TD DAILY [facility] Last Admin: 11/08/18 08:14 Dose: 1 patch Nifedipine (Procardia Xl) 90 mg PO DAILY [facility] Last Admin: 11/08/18 08:14 Dose: 90 mg Oxycodone HCl (Oxycodone Immediate Release Tab) 30 mg PO QAM [facility] Last Admin: 11/08/18 08:10 Dose: 30 mg Oxycodone/Acetaminophen (Percocet 5/325 Mg Tab) 2 tab PO QPM [facility] Stop: 11/09/18 18:01 Last Admin: 11/07/18 19:12 Dose: 2 tab Pantoprazole Sodium (Protonix Ec Tab) 40 mg PO DAILY [facility] Last Admin: 11/08/18 08:14 Dose: 40 mg Tiotropium [place] (Spiriva) 18 mcg INH DAILY [facility] Last Admin: 11/08/18 08:12 Dose: 18 mcg Topiramate (Topamax) 100 mg PO BID [facility] Last Admin: 11/08/18 08:14 Dose: 100 mg Trazodone HCl (Desyrel) 200 mg PO HS PRN PRN Reason: Insomnia Last Admin: 11/07/18 21:23 Dose: 200 mg Zolpidem Tartrate (Ambien) 5 mg PO HS PRN PRN Reason: Insomnia Last Admin: 11/07/18 21:22 Dose: 5 mg - Labs Labs: - Additional Findings Additional findings: - Constitutional Appears: No Acute Distress - Head Exam Head Exam: ATRAUMATIC - Eye Exam Eye Exam: EOMI, PERRL - ENT Exam ENT Exam: Normal Oropharynx - Neck Exam Neck exam: Positive for: Full Rom - Respiratory Exam Respiratory Exam: Clear to Auscultation Bilateral, NORMAL BREATHING PATTERN - Cardiovascular Exam Cardiovascular Exam: RRR, +S1, +S2 - GI/Abdominal Exam GI & Abdominal Exam: Normal Bowel Sounds, Soft Additional comments: NT, ND - Extremities Exam Additional comments: Right anterior knee region s/p surgical I and D and now has sutures in place no discharge seen now but still has erythema in the region but less than yesterday - Neurological Exam Neurological exam: Alert, Oriented x 3 Laboratory Results - last 72 hr 11/05/18 11/05/18 11/05/18 19:21 19:21 19:21 WBC 5.8 RBC 4.79 Hgb 14.5 D Hct 44.8 MCV 93.5 MCH 30.3 MCHC 32.4 L RDW 16.0 H Plt Count 182 MPV 8.7 Neut % (Auto) 56.7 Lymph % (Auto) 32.6 Gregory % (Auto) 7.6 Eos % (Auto) 3.0 Baso % (Auto) 0.1 Neut # (Auto) 3.3 Lymph # (Auto) 1.9 Gregory # (Auto) 0.4 Eos # (Auto) 0.2 Baso # (Auto) 0.0 ESR PT 25.7 H INR 2.3 APTT 46.5 H Sodium 134 Potassium 5.5 H Chloride 95 L Carbon Dioxide 25 Anion Gap 20 BUN 9 Creatinine 0.8 Est GFR ( Amer) > 60 Est GFR (Non-Af Amer) > 60 POC Glucose (mg/dL) Random Glucose 106 H Calcium 9.6 Total Bilirubin 0.8 AST 38 H D ALT 13 Alkaline Phosphatase 105 Total Protein 8.7 H Albumin 4.4 Globulin 4.3 H Albumin/Globulin Ratio 1.0 Urine Color Urine Clarity Urine pH Ur Specific [place] Urine Protein Urine Glucose (UA) Urine Ketones Urine Blood Urine Nitrate Urine Bilirubin Urine Urobilinogen Ur Leukocyte Esterase Urine RBC (Auto) Urine Microscopic WBC Ur Squamous Epith Cells Urine Bacteria Fluid Type Synovial WBC Synovial RBC Synovial Neutrophils Synovial Lymphocytes Synov Monos/Macrophage Synovial Fluid Comment Vancomycin Trough Blood Type Antibody Screen BBK History Checked 11/05/18 11/05/18 11/06/18 19:21 22:22 04:45 WBC RBC Hgb Hct MCV MCH MCHC RDW Plt Count MPV Neut % (Auto) Lymph % (Auto) Gregory % (Auto) Eos % (Auto) Baso % (Auto) Neut # (Auto) Lymph # (Auto) Gregory # (Auto) Eos # (Auto) Baso # (Auto) ESR PT INR APTT Sodium Potassium Chloride Carbon Dioxide Anion Gap BUN Creatinine Est GFR ( Amer) Est GFR (Non-Af Amer) POC Glucose (mg/dL) 98 Random Glucose Calcium Total Bilirubin AST ALT Alkaline Phosphatase Total Protein Albumin Globulin Albumin/Globulin Ratio Urine Color Yellow Urine Clarity Clear Urine pH 6.0 Ur Specific [place] 1.006 Urine Protein Negative Urine Glucose (UA) Neg Urine Ketones Negative Urine Blood Negative Urine Nitrate Negative Urine Bilirubin Negative Urine Urobilinogen 0.2-1.0 Ur Leukocyte Esterase Neg Urine RBC (Auto) < 1 Urine Microscopic WBC < 1 Ur Squamous Epith Cells 1 Urine Bacteria Rare Fluid Type Synovial WBC Synovial RBC Synovial Neutrophils Synovial Lymphocytes Synov Monos/Macrophage Synovial Fluid Comment Vancomycin Trough Blood Type A POSITIVE Antibody Screen Negative BBK History Checked Patient has bt 11/06/18 11/06/18 11/06/18 05:40 05:40 05:40 WBC 4.9 RBC 4.31 Hgb 13.0 Hct 39.8 MCV 92.4 MCH 30.1 MCHC 32.6 L RDW 16.2 H Plt Count 178 MPV 9.1 Neut % (Auto) 54.8 Lymph % (Auto) 31.0 Gregory % (Auto) 9.4 Eos % (Auto) 3.7 Baso % (Auto) 1.1 Neut # (Auto) 2.7 Lymph # (Auto) 1.5 Gregory # (Auto) 0.5 Eos # (Auto) 0.2 Baso # (Auto) 0.1 ESR PT INR APTT Sodium 137 Potassium 3.9 Chloride 101 Carbon Dioxide 25 Anion Gap 15 BUN 7 Creatinine 0.7 Est GFR ( Amer) > 60 Est GFR (Non-Af Amer) > 60 POC Glucose (mg/dL) 121 H Random Glucose 100 Calcium 9.6 Total Bilirubin AST ALT Alkaline Phosphatase Total Protein Albumin Globulin Albumin/Globulin Ratio Urine Color Urine Clarity Urine pH Ur Specific [place] Urine Protein Urine Glucose (UA) Urine Ketones Urine Blood Urine Nitrate Urine Bilirubin Urine Urobilinogen Ur Leukocyte Esterase Urine RBC (Auto) Urine Microscopic WBC Ur Squamous Epith Cells Urine Bacteria Fluid Type Synovial WBC Synovial RBC Synovial Neutrophils Synovial Lymphocytes Synov Monos/Macrophage Synovial Fluid Comment Vancomycin Trough Blood Type Antibody Screen BBK History Checked 11/06/18 11/06/18 11/06/18 09:05 10:04 11:14 WBC RBC Hgb Hct MCV MCH MCHC RDW Plt Count MPV Neut % (Auto) Lymph % (Auto) Gregory % (Auto) Eos % (Auto) Baso % (Auto) Neut # (Auto) Lymph # (Auto) Gregory # (Auto) Eos # (Auto) Baso # (Auto) ESR PT 14.7 H D INR 1.3 APTT 33.0 Sodium Potassium Chloride Carbon Dioxide Anion Gap BUN Creatinine Est GFR ( Amer) Est GFR (Non-Af Amer) POC Glucose (mg/dL) 94 Random Glucose Calcium Total Bilirubin AST ALT Alkaline Phosphatase Total Protein Albumin Globulin Albumin/Globulin Ratio Urine Color Urine Clarity Urine pH Ur Specific [place] Urine Protein Urine Glucose (UA) Urine Ketones Urine Blood Urine Nitrate Urine Bilirubin Urine Urobilinogen Ur Leukocyte Esterase Urine RBC (Auto) Urine Microscopic WBC Ur Squamous Epith Cells Urine Bacteria Fluid Type Synovial fluid Synovial WBC 164.0 H Synovial RBC 83938.0 H Synovial Neutrophils 34.0 H Synovial Lymphocytes 39.0 H Synov Monos/Macrophage 27 H Synovial Fluid Comment Moderately bloody Vancomycin Trough Blood Type Antibody Screen BBK History Checked 11/06/18 11/06/18 11/06/18 14:38 16:05 18:08 WBC RBC Hgb Hct MCV MCH MCHC RDW Plt Count MPV Neut % (Auto) Lymph % (Auto) Gregory % (Auto) Eos % (Auto) Baso % (Auto) Neut # (Auto) Lymph # (Auto) Gregory # (Auto) Eos # (Auto) Baso # (Auto) ESR 38 H PT INR APTT Sodium Potassium Chloride Carbon Dioxide Anion Gap BUN Creatinine Est GFR ( Amer) Est GFR (Non-Af Amer) POC Glucose (mg/dL) 99 151 H Random Glucose Calcium Total Bilirubin AST ALT Alkaline Phosphatase Total Protein Albumin Globulin Albumin/Globulin Ratio Urine Color Urine Clarity Urine pH Ur Specific [place] Urine Protein Urine Glucose (UA) Urine Ketones Urine Blood Urine Nitrate Urine Bilirubin Urine Urobilinogen Ur Leukocyte Esterase Urine RBC (Auto) Urine Microscopic WBC Ur Squamous Epith Cells Urine Bacteria Fluid Type Synovial WBC Synovial RBC Synovial Neutrophils Synovial Lymphocytes Synov Monos/Macrophage Synovial Fluid Comment Vancomycin Trough Blood Type Antibody Screen BBK History Checked 02/09/1211/07/18 11/07/18 21:19 04:35 04:35 WBC 6.5 RBC 4.06 Hgb 12.3 Hct 38.0 MCV 93.5 MCH 30.2 MCHC 32.3 L RDW 16.3 H Plt Count 157 MPV 9.2 Neut % (Auto) 65.7 Lymph % (Auto) 22.6 Gregory % (Auto) 8.7 Eos % (Auto) 1.6 Baso % (Auto) 1.4 Neut # (Auto) 4.2 Lymph # (Auto) 1.5 Gregory # (Auto) 0.6 Eos # (Auto) 0.1 Baso # (Auto) 0.1 ESR PT INR APTT Sodium 137 Potassium 3.8 Chloride 105 Carbon Dioxide 23 Anion Gap 13 BUN 6 L Creatinine 0.6 L Est GFR ( Amer) > 60 Est GFR (Non-Af Amer) > 60 POC Glucose (mg/dL) 107 Random Glucose 103 Calcium 9.0 Total Bilirubin AST ALT Alkaline Phosphatase Total Protein Albumin Globulin Albumin/Globulin Ratio Urine Color Urine Clarity Urine pH Ur Specific [place] Urine Protein Urine Glucose (UA) Urine Ketones Urine Blood Urine Nitrate Urine Bilirubin Urine Urobilinogen Ur Leukocyte Esterase Urine RBC (Auto) Urine Microscopic WBC Ur Squamous Epith Cells Urine Bacteria Fluid Type Synovial WBC Synovial RBC Synovial Neutrophils Synovial Lymphocytes Synov Monos/Macrophage Synovial Fluid Comment Vancomycin Trough Blood Type Antibody Screen BBK History Checked 11/07/18 11/07/18 11/07/18 05:21 11:33 16:06 WBC RBC Hgb Hct MCV MCH MCHC RDW Plt Count MPV Neut % (Auto) Lymph % (Auto) Gregory % (Auto) Eos % (Auto) Baso % (Auto) Neut # (Auto) Lymph # (Auto) Gregory # (Auto) Eos # (Auto) Baso # (Auto) ESR PT INR APTT Sodium Potassium Chloride Carbon Dioxide Anion Gap BUN Creatinine Est GFR ( Amer) Est GFR (Non-Af Amer) POC Glucose (mg/dL) 107 132 H 110 Random Glucose Calcium Total Bilirubin AST ALT Alkaline Phosphatase Total Protein Albumin Globulin Albumin/Globulin Ratio Urine Color Urine Clarity Urine pH Ur Specific [place] Urine Protein Urine Glucose (UA) Urine Ketones Urine Blood Urine Nitrate Urine Bilirubin Urine Urobilinogen Ur Leukocyte Esterase Urine RBC (Auto) Urine Microscopic WBC Ur Squamous Epith Cells Urine Bacteria Fluid Type Synovial WBC Synovial RBC Synovial Neutrophils Synovial Lymphocytes Synov Monos/Macrophage Synovial Fluid Comment Vancomycin Trough Blood Type Antibody Screen BBK History Checked 11/07/18 11/08/18 11/08/18 21:32 04:35 04:35 WBC 4.5 L RBC 3.78 L Hgb 11.2 L Hct 35.3 MCV 93.3 MCH 29.6 MCHC 31.7 L RDW 16.1 H Plt Count 153 MPV 9.1 Neut % (Auto) 45.8 L Lymph % (Auto) 40.4 H Gregory % (Auto) 8.8 Eos % (Auto) 3.8 Baso % (Auto) 1.2 Neut # (Auto) 2.0 Lymph # (Auto) 1.8 Gregory # (Auto) 0.4 Eos # (Auto) 0.2 Baso # (Auto) 0.1 ESR PT INR APTT Sodium 140 Potassium 3.3 L Chloride 105 Carbon Dioxide 27 Anion Gap 11 BUN 5 L Creatinine 0.6 L Est GFR ( Amer) > 60 Est GFR (Non-Af Amer) > 60 POC Glucose (mg/dL) 111 H Random Glucose 88 Calcium 9.0 Total Bilirubin AST ALT Alkaline Phosphatase Total Protein Albumin Globulin Albumin/Globulin Ratio Urine Color Urine Clarity Urine pH Ur Specific [place] Urine Protein Urine Glucose (UA) Urine Ketones Urine Blood Urine Nitrate Urine Bilirubin Urine Urobilinogen Ur Leukocyte Esterase Urine RBC (Auto) Urine Microscopic WBC Ur Squamous Epith Cells Urine Bacteria Fluid Type Synovial WBC Synovial RBC Synovial Neutrophils Synovial Lymphocytes Synov Monos/Macrophage Synovial Fluid Comment Vancomycin Trough Blood Type Antibody Screen BBK History Checked 11/08/18 11/08/18 11/08/18 04:35 05:23 11:09 WBC RBC Hgb Hct MCV MCH MCHC RDW Plt Count MPV Neut % (Auto) Lymph % (Auto) Gregory % (Auto) Eos % (Auto) Baso % (Auto) Neut # (Auto) Lymph # (Auto) Gregory # (Auto) Eos # (Auto) Baso # (Auto) ESR PT INR APTT Sodium Potassium Chloride Carbon Dioxide Anion Gap BUN Creatinine Est GFR ( Amer) Est GFR (Non-Af Amer) POC Glucose (mg/dL) 227 H 113 H Random Glucose Calcium Total Bilirubin AST ALT Alkaline Phosphatase Total Protein Albumin Globulin Albumin/Globulin Ratio Urine Color Urine Clarity Urine pH Ur Specific [place] Urine Protein Urine Glucose (UA) Urine Ketones Urine Blood Urine Nitrate Urine Bilirubin Urine Urobilinogen Ur Leukocyte Esterase Urine RBC (Auto) Urine Microscopic WBC Ur Squamous Epith Cells Urine Bacteria Fluid Type Synovial WBC Synovial RBC Synovial Neutrophils Synovial Lymphocytes Synov Monos/Macrophage Synovial Fluid Comment Vancomycin Trough 14.0 H Blood Type Antibody Screen BBK History Checked Assessment and Plan (1) Postoperative wound infection Status: Acute (2) COPD (chronic obstructive pulmonary disease) Status: Acute (3) Diabetes mellitus type 2 in obese Status: Acute - Assessment and Plan (Free Text) Assessment: A/P- 58 year old female with multiple medical conditions including DM II, HTN, COPD admitted with right knee wound site infection post TKR a month ago. afebrile normal wbc count synovial fluid cell count not c/w septic joint synovial fluic cx- m- MSSA x 2 however right knee OR wound cx- MSSA x 3 Blood cx- neg x 1 Plan- advise to continue with IV vancomycin day #3 for MSSA prosthetic knee infection . keep vanco trough <15. advise 6 weeks of IV vancomycin 15 mg/kg BID for treatment of prosthetic knee MSSA infection. monitor renal function and hearing while on vancomycin. monitor ESR level once a week as well. advise patient to have close f/u with her ortho doctor and if patient develops any fever or no improvement while on IV abx then would need to have prosthesis removal at that time and few weeks of IV abx till joint space is sterilized . all above d/w patient at length and she verbalizes full understanding of all above and agrees with above plan of care.
--- NOTE | 2018-11-08 17:06 | CP.PCM.PN ---
Subjective - Date & Time of Evaluation Date of Evaluation: 11/08/18 Time of Evaluation: 17:04 - Subjective Subjective: patient states her wound rosales and itches Objective - Vital Signs/Intake and Output Vital Signs (last 24 hours): Temp Pulse Resp BP Pulse Ox 98.3 F 59 L 19 104/62 98 11/08/18 15:45 11/08/18 15:45 11/08/18 15:45 11/08/18 15:45 11/08/18 15:45 - Medications Medications: Current Medications Acetaminophen (Tylenol 325mg Tab) 650 mg PO Q4 PRN PRN Reason: Fever >100.4 F Acetaminophen (Tylenol 325mg Tab) 650 mg PO Q4 PRN PRN Reason: Pain, Mild (1-3) Albuterol/Ipratropium (Duoneb 3 Mg/0.5 Mg (3 Ml) Ud) 3 ml INH RQ6 [facility] Last Admin: 11/08/18 13:09 Dose: Not Given Alprazolam (Xanax) 1 mg PO BID PRN PRN Reason: Anxiety Aripiprazole (Abilify) 15 mg PO DAILY [facility] Last Admin: 11/08/18 08:14 Dose: 15 mg Atorvastatin Calcium (Lipitor) 40 mg PO HS [facility] Last Admin: 11/07/18 21:22 Dose: 40 mg Bisacodyl (Dulcolax) 10 mg PO DAILY PRN PRN Reason: Constipation Cholecalciferol (Vitamin D) 2,000 intlu PO DAILY [facility] Last Admin: 11/08/18 08:14 Dose: 2,000 intlu Docusate Sodium (Colace) 100 mg PO BID [facility] Last Admin: 11/08/18 08:16 Dose: 100 mg Enoxaparin Sodium (Lovenox) 40 mg SC DAILY [facility]; Protocol Last Admin: 11/08/18 08:13 Dose: 40 mg Escitalopram Oxalate (Lexapro) 20 mg PO DAILY [facility] Last Admin: 11/08/18 08:15 Dose: 20 mg Folic Acid (Folic Acid) 1 mg PO DAILY [facility] Last Admin: 11/08/18 08:14 Dose: 1 mg Gabapentin (Neurontin) 400 mg PO TID [facility] Last Admin: 11/08/18 16:53 Dose: 400 mg Vancomycin HCl 1,200 mg/ (Sodium Chloride) 250 mls @ 166.667 mls/hr IVPB Q12H [facility]; Protocol Insulin Human Lispro (Humalog) 0 units SC ACHS [facility]; Protocol Last Admin: 11/08/18 16:47 Dose: Not Given Mometasone Furoate (Asmanex Twisthaler 110 Mcg) 1 puff INH DAILY [facility] Last Admin: 11/08/18 08:12 Dose: 1 puff Morphine Sulfate (Morphine) 2 mg IVP Q4 PRN PRN Reason: Pain, moderate (4-7) Last Admin: 11/08/18 02:02 Dose: 2 mg Nicotine (Nicoderm Cq) 1 patch TD DAILY [facility] Last Admin: 11/08/18 08:14 Dose: 1 patch Nifedipine (Procardia Xl) 90 mg PO DAILY [facility] Last Admin: 11/08/18 08:14 Dose: 90 mg Oxycodone HCl (Oxycodone Immediate Release Tab) 30 mg PO QAM [facility] Last Admin: 11/08/18 08:10 Dose: 30 mg Oxycodone/Acetaminophen (Percocet 5/325 Mg Tab) 2 tab PO QPM [facility] Stop: 11/09/18 18:01 Last Admin: 11/07/18 19:12 Dose: 2 tab Pantoprazole Sodium (Protonix Ec Tab) 40 mg PO DAILY [facility] Last Admin: 11/08/18 08:14 Dose: 40 mg Tiotropium [place] (Spiriva) 18 mcg INH DAILY [facility] Last Admin: 11/08/18 08:12 Dose: 18 mcg Topiramate (Topamax) 100 mg PO BID [facility] Last Admin: 11/08/18 16:53 Dose: 100 mg Trazodone HCl (Desyrel) 200 mg PO HS PRN PRN Reason: Insomnia Last Admin: 11/07/18 21:23 Dose: 200 mg Zolpidem Tartrate (Ambien) 5 mg PO HS PRN PRN Reason: Insomnia Last Admin: 11/07/18 21:22 Dose: 5 mg - Labs Labs: 11/08/18 04:35 11/08/18 04:35 PT 14.7 Seconds (9.8-13.1) H D 11/06/18 10:04 INR 1.3 11/06/18 10:04 APTT 33.0 Seconds (25.6-37.1) 11/06/18 10:04 - Constitutional Appears: Well, Non-toxic - Extremities Exam Additional comments: right leg dressing removed. Some erythema at center of incision. No breakdown. Assessment and Plan (1) Postoperative wound infection Status: Acute - Assessment and Plan (Free Text) Assessment: right TKA with superficial infection, + MSSA superficial and deep Plan: cont IV ABX OK to remove knee immobilizer WBAT Follow up weekly with me in office once discharged (tuesdays) Agree w ID recs for ABX
[2018-11-08] MEDS: Oxycodone/Acetaminophen 5/325 mg Tab PO SCH (17:21)
--- NOTE | 2018-11-08 17:44 | CON ---
DATE: 11/08/2018 REASON FOR CONSULTATION: Right knee wound infection. HISTORY OF PRESENT ILLNESS: This is a 58-year-old female with multiple medical comorbidities that underwent a right total knee replacement approximately 1 month ago after seeing Dr. Umaña in her followup appointment. It was noted that the knee wound was red, inflamed, and seemed to be infected. She was at that time transferred to [facility] for evaluation and for IV antibiotics. A joint aspiration was done, which initially did not show anything on culture and did not have the normal signs of a joint space infection. Therefore, a superficial infection was suspected. Given the proximity of the infection to the underlying total knee hardware, plastic surgery consultation was called for evaluation of the soft tissue. PAST MEDICAL HISTORY: Significant for hypertension, diabetes, high cholesterol, and COPD. She is an active smoker. States she had smoked one cigarette per day for the last couple of years and then a pack per day for approximately 30 years prior. She is morbidly obese. PAST SURGICAL HISTORY: Significant for a right knee replacement, total knee, by Dr. Umaña approximately one month ago. MEDICATIONS: She is currently on broad-spectrum antibiotics along with multiple other medications. ALLERGIES: SHE HAS NO KNOWN ALLERGIES. REVIEW OF SYSTEMS: Complete, but did not show any abnormalities other than those depicted in the history of present illness. PHYSICAL EXAMINATION: GENERAL: She is morbidly obese. She is alert and oriented to person, place, and time. VITAL SIGNS: Her respiratory rate is normal. HEART: Rate is regular and her rhythm is normal as well. ABDOMEN: Soft, obese, nontender. EXTREMITIES: She has a 20-cm incision along the anterior aspect of the knee, the superior aspect of which has some scab centrally surrounded by erythema and edema of the area. She has palpable pulses distally. She has tenderness to palpation on the superior aspect of the knee incision but not the inferior aspect of the knee incision. Lower extremity, she has no pitting edema and no swelling of any sort distal to the area of the operation. ASSESSMENT: This is a 58-year-old female, status post right knee replacement one month ago now with infection in the right knee. PLAN: Given the nature of the injury, the underlying prosthesis and her medical comorbidities, an aggressive washout and evaluation of the wound is necessary and will be performed today. Tariq Banegas MD
--- NOTE | 2018-11-08 17:45 | OP ---
PROCEDURE DATE: 11/06/2018 OPERATION PERFORMED: Right knee exploration, debridement, washout and complex closure. SURGEON: Tariq aDve MD CO-SURGEON: Dr. Bronson Umaña. INDICATION: This is a 58-year-old female who presented with an infection overlying a total joint replacement one month prior. She had multiple medial comorbidities. Because of the proximity to the prosthetic and her comorbidities, it was decided to take her to the operating room for a formal washout and evaluation of her right knee wound. DETAILS OF THE PROCEDURE: Dr. Umaña initially prepped and draped the leg as is normally done for a knee replacement. The wound was completely cleaned from the exterior and washed multiple times. Once this had been done, the incision was opened up and explored. It was noted that there were no deep areas of infection at the opening of the wound and the infection appeared to be all suprafascial in nature. The joint capsule appeared intact and in good condition. Once this was noted, I evaluated the soft tissue envelopes surrounding the joint capsule. It was noted that there was some necrotic tissue along the edges of the wound. This was sharply debrided in all directions and sent for culturing. Additional swab cultures were taken of the deep space in this area as well. Once this was done, the wound was reevaluated. It was noted that additional skin and soft tissue advancement will be necessary to allow for the wound to close. Therefore, the prefascial space was developed and undermined using electrocautery and blunt dissection to allow for advancement of the soft tissue and skin to the midline. Once this had been complete, tourniquet was taken down and some gentle pressure was applied for approximately 5 mins. After this was done, hemostasis was obtained using electrocautery. Once complete, deep tissues were brought together using 2-0 Monocryl suture in interrupted fashion. Once done, 3-0 Monocryl was placed into the dermis and then finally a combination of 2-0 and 3-0 nylon were then used to close the skin on the knee in interrupted horizontal mattress fashion. Once this was done, a bulky dressing was applied along with an Alber and a knee immobilizer. The sterile dressing that was placed included Xeroform gauze over the top of the incision and bacitracin ointment. The wound itself will be reevaluated in 2 days. She will continue IV antibiotics until that time and cultures will be followed. The patient was then extubated and went to recovery room in good condition. The patient tolerated the procedure well. There were no complications during the procedure. There was one specimen, right knee wound culture, and there were three additional swab cultures sent. She will be readmitted to the hospital. Tariq Banegas MD
[2018-11-08 19:28] VITALS: BP 109/69; PULSE 58; RESP 20; TEMP 98.9; O2SAT 95
--- NOTE | 2018-11-15 12:19 | CP.PCM.PCO ---
PHYSICIAN QUERY: Debridement is documented in the Medical Record. Please specify the type of debridement to include the method and instruments used. Such as: -- Excisional -- Nonexcisional PHYSICIAN RESPONSE: Debridement: Excisional debridement Instrument: Scalpel Tissue Removed: Skin, soft tissue MTDD
== END 2018-11-08 21:30 | DRG 857 ==
LOC: H.ER 17:12 → H.ERHOLD 19:03 → H.MEDSURG1 11-06 01:03 → H.TEL 11-06 19:52
PROVIDERS: ADMIT Internal Medicine; ATTEND Internal Medicine
PROC: 0JQN0ZZ Repair Right Lower Leg Subcutaneous Tissue and Fascia, Open Approach (ICD-10-PCS; 2018-11-06)
PROC: 0S9C3ZX Drainage of Right Knee Joint, Percutaneous Approach, Diagnostic (ICD-10-PCS; 2018-11-06)
PROC: 0JBN0ZZ Excision of Right Lower Leg Subcutaneous Tissue and Fascia, Open Approach (ICD-10-PCS; principal; 2018-11-06 16:15)
PROC: 02HV33Z Insertion of Infusion Device into Superior Vena Cava, Percutaneous Approach (ICD-10-PCS; 2018-11-07)
DX: T81.41XA Infection following a procedure, superficial incisional surgical site, initial encounter (principal); T81.31XA Disruption of external operation (surgical) wound, not elsewhere classified, initial encounter; M00.9 Pyogenic arthritis, unspecified; M00.061 Staphylococcal arthritis, right knee; J44.0 Chronic obstructive pulmonary disease with (acute) lower respiratory infection; J45.20 Mild intermittent asthma, uncomplicated; F17.210 Nicotine dependence, cigarettes, uncomplicated; Z86.718 Personal history of other venous thrombosis and embolism; Z96.651 Presence of right artificial knee joint; E78.00 Pure hypercholesterolemia, unspecified; G89.29 Other chronic pain; E11.51 Type 2 diabetes mellitus with diabetic peripheral angiopathy without gangrene; I25.10 Atherosclerotic heart disease of native coronary artery without angina pectoris; Z68.34 Body mass index [BMI] 34.0-34.9, adult; E78.5 Hyperlipidemia, unspecified; Z86.711 Personal history of pulmonary embolism; M06.9 Rheumatoid arthritis, unspecified; F41.9 Anxiety disorder, unspecified; F32.9 Major depressive disorder, single episode, unspecified; I10 Essential (primary) hypertension; G47.00 Insomnia, unspecified; K59.00 Constipation, unspecified; B95.61 Methicillin susceptible Staphylococcus aureus infection as the cause of diseases classified elsewhere; J20.9 Acute bronchitis, unspecified; E66.01 Morbid (severe) obesity due to excess calories

== ENCOUNTER 2018-12-09 18:58 | Inpatient (IN) | payer MEDICARE, MEDICAID ==
[2018-12-09 18:58] VITALS: BMI 34.4
[2018-12-09] MEDS ORDERED: Magnesium Sulfate 2 gm/50 ml 2 GM/50 ML BAG IV STA (19:49)
[2018-12-09] MEDS ORDERED: Albuterol-Ipratrop 3 mg / 0.5 (3 ml) UD INH STA ×2 (19:49→21:51)
[2018-12-09] MEDS ORDERED: Magnesium Sulfate 2 gm/50 ml 2 GM/50 ML BAG ONE (20:05)
[2018-12-09] MEDS ORDERED: Albuterol-Ipratrop 3 mg / 0.5 (3 ml) UD ONE ×2 (20:05→21:55)
[2018-12-09] MEDS ORDERED: oxyCODONE 10 mg ER Tab (oxyCONTIN) PO STA (20:17)
--- NOTE | 2018-12-09 20:21 | ED PDOC ---
HPI: SOB/CHF/COPD Time Seen by Provider: 12/09/18 19:26 Chief Complaint (Nursing): Shortness Of Breath Chief Complaint (Provider): Shortness Of Breath History/Exam Limitations: no limitations Onset/Duration Of Symptoms: Days Current Symptoms Are (Timing): Still Present Additional Complaint(s): 58 y/o female with a PMHx of COPD, HTN, DM, DVT to the right upper extremity and having recently underwent a right knee replacement performed by Dr. Umaña presents to the ED for evaluation of shortness of breath. Patient reports of being in rehab for one month and just returning home this past Monday. Patient states that on Monday night, while she was sleeping, she fell out of bed injuring herself. Patient notes she chose not to come to the hospital that night but decided to come to the ED today after developing shortness of breath. Patient reports of having a dry cough. Patient notes of having her metered dose MDI with no relief. Patient brought in by paramedics who administered SOLU-Medrol and duonebs in the field with mild improvement. Patient reports of experiencing pain relating to the right knee replacement due to the fall. Patient additionally notes of some bruising. Patient states she is currently on blood thinners. PMD: Gina Up Past Medical History Reviewed: Historical Data, Nursing Documentation, Vital Signs Vital Signs: Last Vital Signs Temp 98.5 F 12/09/18 19:51 Pulse 77 12/09/18 19:51 Resp 18 12/09/18 19:51 BP 163/91 H 12/09/18 19:51 Pulse Ox 93 L 12/09/18 19:51 - Medical History PMH: Anxiety, Arthritis, Asthma, Back Problems (Chronic back pain), Bronchitis, CAD, Depression, Diabetes, Deep Vein Thrombosis, Fractures (R ankle fx), HTN, Hypercholesterolemia, Rheumatoid Arthritis Denies: COPD (denies hx), HIV, Pneumonia (denies hx), Pulmonary Embolism (denies hx), Chronic Kidney Disease - Surgical History Surgical History: Endoscopy, Tonsillectomy Denies: Pacemaker - Family History Family History: States: Stroke - Social History Current smoker - smoking cessation education provided: Yes (4 cigarettes per day) - Immunization History Hx Tetanus Toxoid Vaccination: No Hx Influenza Vaccination: Yes Hx Pneumococcal Vaccination: No - Home Medications Home Medications: Ambulatory Orders Medication Instructions Recorded Folic Acid 1 mg PO DAILY #0 tab 02/16/15 Potassium Chloride [K-Dur 20 mEq 20 meq PO DAILY 12/23/15 ER Tab] traZODone [Desyrel] 200 mg PO HS 12/23/15 Topiramate [Topamax] 100 mg PO BID 09/11/16 Zolpidem Tartrate [Ambien] 10 mg PO HS 09/11/16 oxyCODONE [oxyCODONE Immediate 30 mg PO QID PRN 09/11/16 Release Tab] Rivaroxaban [Xarelto] 20 mg PO DAILY tab 09/13/16 Escitalopram [Lexapro] 20 mg PO DAILY 11/05/17 ALPRAZolam [Xanax] 1 mg PO BID 10/05/18 NIFEdipine ER [Procardia XL] 90 mg PO DAILY 10/05/18 Docusate [Colace] 100 mg PO BID cap 10/08/18 Albuterol HFA [Ventolin HFA 90 1 puff INH RQ6 PRN inhaler 10/15/18 mcg/actuation (8 g)] Bisacodyl [Dulcolax] 10 mg PO DAILY PRN ect 10/15/18 Gabapentin [Neurontin] 400 mg PO TID cap 10/15/18 Nicotine 21 mg/24 hr [Nicoderm Cq] 1 patch TD DAILY patch 10/15/18 Pantoprazole [Protonix EC Tab] 40 mg PO DAILY ect 10/15/18 SITagliptin [Januvia] 100 mg PO DAILY tab 10/15/18 ALPRAZolam [Xanax] 1 mg PO BID tab 12/12/18 Albuterol/Ipratropium [Duoneb 3 3 ml INH RQ4 neb 12/12/18 mg/0.5 mg (3 ml) UD] Cefdinir [Omnicef] 300 mg PO DAILY #7 cap 12/12/18 Levofloxacin [Levaquin] 750 mg PO DAILY #7 tablet 12/12/18 Methylprednisolone [Medrol Dose 4 mg PO DAILY #21 mg 12/12/18 Pack (21 tabs)] Saccharomyces Boulardi [Florastor] 250 mg PO DAILY #7 cap 12/12/18 guaiFENesin/Dextromethorphan 10 ml PO Q4 PRN udc 12/12/18 [Robitussin DM] - Allergies Allergies/Adverse Reactions: Allergies Allergy/AdvReac Type Severity Reaction Status Date / Time No Known Allergies Allergy Verified 10/05/18 06:29 Review of Systems ROS Statement: Except As Marked, All Systems Reviewed And Found Negative Constitutional: Negative for: Fever Respiratory: Positive for: Cough, Shortness of Breath Musculoskeletal: Positive for: Leg Pain Physical Exam - Reviewed Nursing Documentation Reviewed: Yes Vital Signs Reviewed: Yes - Physical Exam Appears: Positive for: In Acute Distress (mild respiratory distress) Head Exam: Positive for: ATRAUMATIC Skin: Positive for: Warm, Dry Eye Exam: Positive for: Normal appearance, EOMI, PERRL Respiratory: Positive for: Decreased Breath Sounds, Wheezing (diffuse expiratory wheeze), Respiratory Distress (decreased air entry) Gastrointestinal/Abdominal: Positive for: Normal Exam, Soft. Negative for: Tenderness Extremity: Positive for: Other (ecchymosis to the left shoulder. Right knee scar well healed from replacement) Neurological/Psych: Positive for: Awake, Alert, Oriented - Laboratory Results Result Diagrams: 12/12/18 05:40 12/12/18 05:40 - ECG O2 Sat by Pulse Oximetry: 93 (RA) Pulse Ox Interpretation: Normal - Critical Care Total Time (In Min): 30 Documented Critical Care: Time excludes all time spent performint seperately billable procedures Medical Decision Making Medical Decision Making: Time: 1948 Impression: 58 y/o female with acute COPD exacerbation Plan: -- EKG -- EKG -- B-Type Natriuretic -- CMP -- Troponin I -- CBC with Differentials -- PTT -- Prothrombin Time -- CXR Portable -- Duoneb 3mg/0.5mg 3 ml (UD) 3 ml INH -- Magnesium Sulfate 2 gm in 50 ml IV -- oxyCODONE 30 mg PO -- Blood Culture -- Heplock Insertion -- Peak Flow Pre/Post Tx Time: 2152 EXAM: CR Chest, 1 View. CLINICAL HISTORY: S O B COMPARISON: None provided. FINDINGS: LUNGS: Subtle apparent airspace opacity in the lateral right lower lobe could be com patible with a small patchy pneumonic consolidation. PLEURAL SPACES: No evidence of pleural effusion or pneumothorax. MEDIASTINUM: There is mild cardiomegaly. There is some central vascular congestion present. These findings suggest some component of CHF. BONES: No acute osseous abnormality. IMPRESSION: 1. Findings suggestive of some component of CHF. 2. Questionable subtle patchy pneumonic consolidation in the lateral right lung base. Electronically signed on Dec 09, 2018 9:53:54 PM EDT by: Edy Garg M.D., MBA Certified By [facility] Fellowship Trained MRI and CT Specialist Time: 2211 -- CXR demonstrates questionable lower lobe infiltrated. Labs demonstrate elevated Pro-BNP. Additional medications including Levaquin and Lasix ordered. Patient to be admitted for COPD, CHF and Pneumonia. -- Spoke to Dr. Hawkins who will be accepting the patient for admission. -- Duoneb 3mg/0.5mg 3 ml (UD) 3 ml INH -- Levaquin 500 mg in 100 ml IVPB -- Lasix 40 mg IV Scribe Attestation: Documented by Ricardo Remy, acting as a scribe Jose L Crowder MD. Provider Scribe Attestation: All medical record entries made by the Scribe were at my direction and personally dictated by me. I have reviewed the chart and agree that the record accurately reflects my personal performance of the history, physical exam, medical decision making, and the department course for this patient. I have also personally directed, reviewed, and agree with the discharge instructions and disposition. Disposition - Clinical Impression Clinical Impression: Chr obstructive pulmonary disease w/ acute lower respiratory infxn, PNA (pneumonia) - Patient ED Disposition Is Patient to be Admitted: Yes - Disposition Disposition Time: 22:12 Condition: FAIR
[2018-12-09] MEDS ORDERED: oxyCODONE 10 mg ER Tab (oxyCONTIN) PO ONE (20:53)
[2018-12-09 21:06] LABS: BLOOD UREA NITROGEN 7 mg/dl (7-17); CALCIUM 9.9 mg/dL (8.4-10.2); GFR NON-AFRICAN AMERICAN > 60
[2018-12-09 21:07] LABS: BASO % 0.6 % (0.0-2.0); HEMOGLOBIN 12.2 g/dL (12.0-16.0); LYMPH # 0.8 K/uL (1.0-4.3); LYMPH % 11.8 % (20.0-40.0); MEAN CELL VOLUME 91.3 fl (81.0-99.0); MEAN CORPUSCULAR HEMOGLOBIN 29.8 pg (27.0-31.0); MEAN CORPUSCULAR HGB CONC 32.7 g/dL (33.0-37.0); MEAN PLATELET VOLUME 9.9 fl (7.2-11.7); MONO # 0.1 K/uL (0.0-0.8); MONO % 2.2 % (0.0-10.0); NEUT # 5.5 K/uL (1.8-7.0); NEUT % 85.4 % (50.0-75.0); NRBC % 0.1 % (0.0-0.0); RBC 4.08 Mil/uL (3.80-5.20); RED CELL DISTRIBUTION WIDTH 16.3 % (11.5-14.5); WHITE BLOOD COUNT 6.4 K/uL (4.8-10.8)
[2018-12-09 21:18] LABS: B-TYPE NATRIURETIC PEPTIDE 3510 pg/ml (0-900)
[2018-12-09 21:22] LABS: ALBUMIN 4.1 g/dL (3.5-5.0); ALT/SGPT 12 U/L (9-52); AST/SGOT 26 U/L (14-36)
[2018-12-09] MEDS ORDERED: levoFLOXacin 500 mg in D5W 500 MG/100 ML BAG IVPB STA (21:58)
[2018-12-09] MEDS ORDERED: levoFLOXacin 500 mg in D5W 500 MG/100 ML BAG IVPB ONE (22:00)
[2018-12-10] MEDS ORDERED: OXYCODONE 30 MG PO PRN
[2018-12-10] MEDS ORDERED: Sodium Chloride 3% for Inhalation 4 ML VIAL.NEB IH PRN (00:08)
[2018-12-10] MEDS ORDERED: MethylPREDNISolone 40 mg Vial IVP SCH (00:15)
[2018-12-10] MEDS ORDERED: Glucagon Recombinant 1 mg Inj IM PRN (00:56)
[2018-12-10] MEDS ORDERED: Dextrose 50% SYRINGE Inj (50 ml) IV PRN (00:56)
--- NOTE | 2018-12-10 01:30 | CP.PCM.HP ---
<Shawn Monzon - Last Filed: 12/10/18 02:04> History of Present Illness - History of Present Illness History of Present Illness: 58 y/o F with a PMHx of HTN, DM2, HLD, COPD, RUE DVT and asthma was brought to ED due to dyspnea that began 3 days ago and progressively aggravated. Pt complains of productive cough with white thick sputum, nasal congestion, runny nose and sneezing. Pt also complains of daily watery mucous diarrhea since 14 days ago that is associated with intermittent abdominal cramping. Pt reports having fever for 2 days, a temp of 102 one night ago, with chills and inte rmittent sweating. Pt denies nausea, vomiting, chest pain, palpitations, constipation. Pt reports not eating anything for the last 5 days due to poor appetite and loss of taste perception of food. Pt states that on Monday night, she fell out from bed while she was sleeping, injuring herself, denies seizures, visual disturbances or urinary incontinence. --Pt had a R TKR on 10/08/18, was discharged from our hospital 1 month ago due to R knee wound infection and S/P R knee Irrigation and Debridement, and discharged from rehab facility 2 days ago. PMD: Dr. Gibbons Specialists: Pulm Dr. Mohan, Cardio Dr. Robbi DEVINE Meds: As per EMR -PMHx: DVT of R arm, IVC filter, HTN, COPD, HLD, PVD, chronic back pain s/p multiple compression fractures of thoracic spine, prediabetes -PSHx: b/l foot surgery, left ankle fracture repaired, right foot fracture repair (screws in place), BTL -FHx: stroke (mother), multiple myeloma (father), breast cancer (sister) -SHx: current smoker, cut down to 4 cig/day for the past 2 months, prior had 42 pack years, no alcohol or drugs. No alcohol and no rec drugs. 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 --CBC with NO leukocytosis, --Pro-BNP 3,510-high --troponin neg x1. --CXR: suggestive of some component of CHF, ?subtle patchy pneumonic consolidation in the lateral RLL. --EKG: unremarkable. --Duoneb 3 ml INH x1, Levaquin 500 mg x1, Lasix 40 mg IV x1. Present on Admission - Present on Admission Any Indicators Present on Admission: No History of DVT/PE: Yes Urinary Catheter: No Decubitus Ulcer Present: No Review of Systems - Constitutional Constitutional: Anorexia, Chills, Fever - EENT Eyes: absent: Blurred Vision, Change in Vision Nose/Mouth/Throat: Nasal Congestion. absent: Sore Throat, Neck Pain, Neck Mass - Cardiovascular Cardiovascular: Dyspnea. absent: Chest Pain, Edema - Respiratory Respiratory: Cough, Dyspnea. absent: Hemoptysis, Dyspnea on Exertion - Gastrointestinal Gastrointestinal: Abdominal Pain, Diarrhea. absent: Belching, Constipation, Hematochezia, Nausea, Vomiting - Genitourinary Genitourinary: absent: Dysuria, Flank Pain, Hematuria Past Patient History - Infectious Disease Hx of Infectious Diseases: None - Tetanus Immunizations Tetanus Immunization: Unknown - Past Medical History & Family History Past Medical History?: Yes - Past Social History Smoking Status: Light Smoker < 10 Cigarettes Daily - CARDIAC Hx Cardiac Disorders: Yes Hx Hypertension: Yes - PULMONARY Hx Respiratory Disorders: Yes Hx Asthma: Yes Hx Bronchitis: Yes Hx Chronic Obstructive Pulmonary Disease (COPD): Yes - NEUROLOGICAL Hx Neurological Disorder: No - HEENT Hx HEENT Problems: No - RENAL Hx Chronic Kidney Disease: No - ENDOCRINE/METABOLIC Hx Endocrine Disorders: Yes Hx Diabetes Mellitus Type 2: Yes - HEMATOLOGICAL/ONCOLOGICAL Hx Blood Disorders: No Hx Human Immunodeficiency Virus (HIV): No Other/Comment: DVT-righr upper ext - INTEGUMENTARY Hx Dermatological Problems: No - MUSCULOSKELETAL/RHEUMATOLOGICAL Hx Musculoskeletal Disorders: Yes Hx Arthritis: Yes Hx Back Pain: Yes Hx Falls: Yes - GASTROINTESTINAL Hx Gastrointestinal Disorders: No Hx Ulcer: No - GENITOURINARY/GYNECOLOGICAL Hx Genitourinary Disorders: No - PSYCHIATRIC Hx Psychophysiologic Disorder: Yes Hx Anxiety: Yes Hx Depression: Yes - SURGICAL HISTORY Hx Surgeries: Yes Hx Orthopedic Surgery: Yes (right knee replecement,left ankle surgery) Hx Tonsillectomy: Yes - ANESTHESIA Hx Anesthesia: Yes Hx Anesthesia Reactions: No Hx Malignant Hyperthermia: No Has any member of the family had a problem w/ anesthesia?: No Meds Allergies/Adverse Reactions: Allergies Allergy/AdvReac Type Severity Reaction Status Date / Time No Known Allergies Allergy Verified 10/05/18 06:29 Physical Exam - Constitutional Appears: Well - Head Exam Head Exam: ATRAUMATIC, NORMAL INSPECTION, NORMOCEPHALIC - Eye Exam Eye Exam: EOMI Pupil Exam: PERRL - Neck Exam Neck exam: Positive for: Full Rom, Normal Inspection. Negative for: Meningismus - Respiratory Exam Respiratory Exam: Clear to Auscultation Bilateral, NORMAL BREATHING PATTERN - Cardiovascular Exam Cardiovascular Exam: REGULAR RHYTHM, +S1, +S2 - GI/Abdominal Exam GI & Abdominal Exam: Distended (mildly), Hyperactive Bowel Sounds, Soft, Tenderness (epigastric and b/l loqer quadrants.). absent: Guarding, Pulsatile Mass, Rebound - Extremities Exam Extremities exam: Negative for: full ROM - Psychiatric Exam Psychiatric exam: Normal Affect Results - Vital Signs Recent Vital Signs: Last Vital Signs Temp 98.7 F 12/10/18 00:57 Pulse 66 12/10/18 00:57 Resp 18 12/10/18 00:57 BP 166/79 H 12/10/18 00:57 Pulse Ox 94 L 12/10/18 00:57 - Labs Result Diagrams: 12/09/18 20:50 12/09/18 20:50 Labs: Laboratory Results - last 24 hr 12/09/18 12/09/18 20:50 20:50 WBC 6.4 RBC 4.08 Hgb 12.2 Hct 37.3 MCV 91.3 D MCH 29.8 MCHC 32.7 L RDW 16.3 H Plt Count 166 MPV 9.9 Neut % (Auto) 85.4 H Lymph % (Auto) 11.8 L [place] % (Auto) 2.2 Eos % (Auto) 0.0 Baso % (Auto) 0.6 Neut # (Auto) 5.5 Lymph # (Auto) 0.8 L [place] # (Auto) 0.1 Eos # (Auto) 0.0 Baso # (Auto) 0.0 Sodium 138 Potassium 4.4 Chloride 101 Carbon Dioxide 20 L Anion Gap 21 H BUN 7 Creatinine 0.6 L Est GFR ( Amer) > 60 Est GFR (Non-Af Amer) > 60 Random Glucose 176 H Calcium 9.9 Total Bilirubin 0.8 AST 26 ALT 12 Alkaline Phosphatase 83 Troponin I 0.0440 NT-Pro-B Natriuret Pep 3510 H Total Protein 8.2 Albumin 4.1 Globulin 4.1 H Albumin/Globulin Ratio 1.0 Assessment & Plan - Assessment and Plan (Free Text) Assessment: 58 y/o F with a PMHx of HTN, DM2, HLD, COPD, RUE DVT, depression and asthma was admitted for evaluation and management of dyspnea. --CXR: suggestive of some component of CHF, ?subtle patchy pneumonic consolidation in the lateral RLL. PLAN: >Dyspnea --RLL pneumonia vs acute CHF exacerbation vs COPD exacerbation --Afebrile, VSS, no leukocytosis --PE less likely since no acute changes in EKG. --Continuous cardiac monitoring --Pro-BNP 3,510-high; troponin neg x1. --C/w O2 by NC at 2 L/min --Levofloxacin 750mg IV daily --Duonebs YANA Q4H, Methylprednisolone 40mg IV Q8H --Lasix 40mg IV daily --Echocardiogram to be perform tomorrow's morning. --F/U AM labs: pro-calcitonin, sputum Cx, CBC, CMP, urine Strep pneumo and U negative, etc. >Diarrhea --C diff screen ordered. --Under observation. >HTN --Elevated, likely due to anxiety, pain and stress of breathing dificulty, possibly Hx of uncontrolled HTN --Home meds resume. >DM 2 --Seems controlled, last HbA1c 6.3 1 year ago. --Insulin Sliding scale --Hypoglycemia protocol --Home meds resumed. >?Depression --Home meds resumed >DVT Prophylaxis --Hx of previous DVT --On Xarelto >Diabetic Diet >Full code Case discussed with Dr Hawkins, hospitalist Nicolás PGY-2 - Date & Time Date: 12/10/18 Time: 23:30 <Clay Hawkins - Last Filed: 12/10/18 11:36> Results - Vital Signs Recent Vital Signs: Last Vital Signs Temp 98.2 F 12/10/18 09:11 Pulse 67 12/10/18 09:11 Resp 20 12/10/18 09:11 BP 156/90 H 12/10/18 09:54 Pulse Ox 94 L 12/10/18 09:11 - Labs Result Diagrams: 12/09/18 20:50 12/09/18 20:50 Labs: Laboratory Results - last 24 hr 12/09/18 12/09/18 12/10/18 20:50 20:50 05:56 WBC 6.4 RBC 4.08 Hgb 12.2 Hct 37.3 MCV 91.3 D MCH 29.8 MCHC 32.7 L RDW 16.3 H Plt Count 166 MPV 9.9 Neut % (Auto) 85.4 H Lymph % (Auto) 11.8 L [place] % (Auto) 2.2 Eos % (Auto) 0.0 Baso % (Auto) 0.6 Neut # (Auto) 5.5 Lymph # (Auto) 0.8 L [place] # (Auto) 0.1 Eos # (Auto) 0.0 Baso # (Auto) 0.0 Sodium 138 Potassium 4.4 Chloride 101 Carbon Dioxide 20 L Anion Gap 21 H BUN 7 Creatinine 0.6 L Est GFR ( Amer) > 60 Est GFR (Non-Af Amer) > 60 POC Glucose (mg/dL) 167 H Random Glucose 176 H Calcium 9.9 Total Bilirubin 0.8 AST 26 ALT 12 Alkaline Phosphatase 83 Troponin I 0.0440 NT-Pro-B Natriuret Pep 3510 H Total Protein 8.2 Albumin 4.1 Globulin 4.1 H Albumin/Globulin Ratio 1.0 Attending/Attestation - Attestation I have personally seen and examined this patient.: Yes I have fully participated in the care of the patient.: Yes I have reviewed all pertinent clinical information: Yes Notes (Text): 12/10/18 11:19 I saw, examined and discussed this patient with Dr Monzon. i agree with the assessment and plan outlined. This is a 58 years old female with hx of COPD and DM II who comes with SOB and coughing not being relieved with her home bronchodilators.Chest X Ray showed right basal infiltrate with Elevated Pro BNP of 3510. We will treat for CHF with Lasix and JOJO inhibitor and consult cardiology with ECHO to evaluate left ventricular Ejection. Treat for COPD exacerbation with Pneumonia. Antibiotic, Albuterol/ Ipatropium and Steroids. Consult with Pulmonary Treat Diabetes mellitus Clay Hawkins MD
[2018-12-10] MEDS: MethylPREDNISolone 40 mg Vial IVP SCH ×3 (02:54→18:15)
[2018-12-10] MEDS: Albuterol-Ipratrop 3 mg / 0.5 (3 ml) UD INH SCH ×6 (03:02→23:56)
[2018-12-10] MEDS: Insulin Lispro (humaLOG) 100 Units/ml Inj SC SCH ×4 (06:36→23:05)
--- NOTE | 2018-12-10 07:59 | CARD ---
APPROVED REPORT Date of service: 12/09/2018 EKG Measurement Heart [id number] <Conclusion> Sinus rhythm with premature supraventricular complexes Otherwise normal ECG
--- NOTE | 2018-12-10 08:01 | CARD ---
APPROVED REPORT Date of service: 12/09/2018 EKG Measurement Heart [id number] <Conclusion> Normal sinus rhythm Normal ECG
[2018-12-10] MEDS: oxyCODONE 10 mg Immediate Release Tab PO PRN ×2 (08:20→21:37)
[2018-12-10] MEDS ORDERED: levoFLOXacin 750 mg in D5W 150 ML BAG IVPB SCH (09:00)
[2018-12-10] MEDS ORDERED: levoFLOXacin 750 mg in D5W 750 MG/150 ML BAG IVPB SCH ×2 (09:00→21:00)
[2018-12-10] MEDS: NIFEdipine 90 mg ER Tab PO SCH (09:56)
[2018-12-10] MEDS: Pantoprazole 40 mg EC Tab PO SCH (09:56)
[2018-12-10] MEDS: Potassium Chloride 20 mEq ER Tab PO SCH (09:57)
--- NOTE | 2018-12-10 11:13 | RAD ---
Date of service: 12/09/2018 HISTORY: SOB COMPARISON: 11/07/2018. FINDINGS: LUNGS: The lungs are hyperinflated and there is peribronchial thickening with chronic changes in both lungs. There is subsegmental atelectasis in the lower lobes. There is patchy airspace disease in the right lower lobe. There is mild pulmonary venous congestion. PLEURA: No pleural effusions or pneumothorax. CARDIOVASCULAR: Mild cardiomegaly and prominent central vasculature. No aortic atherosclerotic calcifications present. OSSEOUS STRUCTURES: Within normal limits for the patient's age. VISUALIZED UPPER ABDOMEN: Normal. OTHER FINDINGS: None. IMPRESSION: No active pulmonary disease. Patchy airspace disease in the right lower lobe may represent subsegmental atelectasis however superimposed pneumonia cannot be excluded. Follow-up after medical management is recommended to ensure complete resolution.
--- NOTE | 2018-12-10 12:08 | CARD ---
APPROVED REPORT Date of service: 12/10/2018 EXAM: Two-dimensional and M-mode echocardiogram with Doppler and color Doppler. Other Information Quality : FairRhythm : NSR Technically limited study due to Poor window INDICATION Dyspnea Congestive Heart Failure 2D DIMENSIONS IVSd0.83 (0.7-1.1cm)LVDd5.13 (3.9-5.9cm) LVOT Diameter2.27 (1.8-2.4cm)PWd0.76 (0.7-1.1cm) IVSs1.34 (0.8-1.2cm)LVDs3.56 (2.5-4.0cm) FS (%) 30.5 %PWs0.97 (0.8-1.2cm) M-Mode DIMENSIONS Left Atrium (MM)4.93 (2.5-4.0cm)IVSd0.93 (0.7-1.1cm) Aortic Root2.85 (2.2-3.7cm)LVDd6.32 (4.0-5.6cm) Aortic Cusp Exc.2.02 (1.5-2.0cm)PWd1.19 (0.7-1.1cm) IVSs1.65 cmFS (%) 52 % LVDs3.01 (2.0-3.8cm)PWs1.92 cm Aortic Valve AoV Peak Qwsgraks322.5cm/sAoV VTI24.8cmAO Peak GR.5mmHg LVOT Peak Cqrpgfbw05.9cm/sLVOT VTI21.19cmAO Mean GR.3mmHg PIPPA (VMAX)1.87cm1YFY (VTI)1.87cm2 Mitral Valve MV E Ecidzmng84.3cm/sMV DECEL [id number] A Cbqemnps05.4cm/s MV SFU44oaD/A ratio0.8MVA (PHT)2.58cm2 TDI Lateral E' Peak V3.91cm/sMedial E' Peak V4.81cm/sE/Lateral E'12.6 E/Medial E'10.2 LEFT VENTRICLE The left ventricle is normal size. There is normal left ventricular wall thickness. The left ventricular systolic function is normal. The estimated ejection fraction is 55-60% No regional wall motion abnormalities noted.. Transmitral Doppler flow pattern is Grade I-abnormal relaxation pattern. No left ventricle thrombus noted on this study. There is no ventricular septal defect visualized. There is no left ventricular aneurysm. There is no mass noted in the left ventricle. RIGHT VENTRICLE The right ventricle is normal size. There is normal right ventricular wall thickness. The right ventricular systolic function is normal. ATRIA The left atrium is moderately dilated. The right atrium size is normal. The interatrial septum is intact with no evidence for an atrial septal defect. AORTIC VALVE The aortic valve is normal in structure. No aortic regurgitation is present. There is no aortic valvular stenosis. There is no aortic valvular vegetation. MITRAL VALVE The mitral valve is normal in structure. There is no evidence of mitral valve prolapse. There is no mitral valve stenosis. There is mild mitral valve regurgitation noted. TRICUSPID VALVE The tricuspid valve is normal in structure. There is no tricuspid valve regurgitation noted. There is no tricuspid valve prolapse or vegetation. There is no tricuspid valve stenosis. PULMONIC VALVE The pulmonary valve is normal in structure. There is no pulmonic valvular regurgitation. There is no pulmonic valvular stenosis. GREAT VESSELS The aortic root is normal in size. The ascending aorta is normal in size. The pulmonary artery is normal. The IVC is normal in size and collapses >50% with inspiration. PERICARDIAL EFFUSION There is no pericardial effusion. There is small pericardial fat. There is no pleural effusion. <Conclusion> The estimated ejection fraction is 55-60% Transmitral Doppler flow pattern is Grade I-abnormal relaxation pattern. The left atrium is moderately dilated. There is mild mitral valve regurgitation noted. There is no tricuspid valve regurgitation noted. The IVC is normal in size and collapses >50% with inspiration.
--- NOTE | 2018-12-10 12:21 | CP.PCM.PN ---
Subjective - Date & Time of Evaluation Date of Evaluation: 12/10/18 Time of Evaluation: 08:00 - Subjective Subjective: Patient is seen and examined at bedside. Patient have no acute event overnight. Patient complain of abdominal pain on the umbilical area, she denies radiation, she report pain most likely due to fall ( patient fall on her abdomen Monday), Patient also report some diarrhea but have improved. Otherwise she denies nausea, vomiting, chest pain, sob, abd pain, constipation or dysuria. She report good appetite and able to feed well. Objective - Vital Signs/Intake and Output Vital Signs (last 24 hours): Temp Pulse Resp BP Pulse Ox 98.2 F 60 18 145/75 93 L 12/10/18 12:09 12/10/18 12:09 12/10/18 12:09 12/10/18 12:09 12/10/18 12:09 - Medications Medications: Current Medications Albuterol/Ipratropium (Duoneb 3 Mg/0.5 Mg (3 Ml) Ud) 3 ml INH RQ4 [facility] Last Admin: 12/10/18 11:09 Dose: 3 ml Alprazolam (Xanax) 1 mg PO BID [facility] Last Admin: 12/10/18 09:53 Dose: 1 mg Dextrose (Glutose 15) 0 gm PO ONCE PRN; Protocol PRN Reason: Hypoglycemia Protocol Dextrose (Dextrose 50% Inj) 0 ml IV STAT PRN; Protocol PRN Reason: Hypoglycemia Protocol Enalapril Maleate (Vasotec) 10 mg PO DAILY [facility] Last Admin: 12/10/18 10:28 Dose: 10 mg Escitalopram Oxalate (Lexapro) 20 mg PO DAILY [facility] Last Admin: 12/10/18 09:51 Dose: 20 mg Folic Acid (Folic Acid) 1 mg PO DAILY [facility] Last Admin: 12/10/18 09:54 Dose: 1 mg Furosemide (Lasix) 40 mg IVP DAILY [facility] Last Admin: 12/10/18 09:54 Dose: 40 mg Gabapentin (Neurontin) 400 mg PO TID [facility] Last Admin: 12/10/18 09:51 Dose: 400 mg Glucagon (Glucagen Diagnostic Kit) 0 mg IM STAT PRN; Protocol PRN Reason: Hypoglycemia Protocol Levofloxacin/Dextrose (Levaquin 750mg) 750 mg in 150 mls @ 150 mls/hr IVPB DAILY@2100 [facility] Insulin Human Lispro (Humalog) 0 units SC ACCU-CHECK [facility]; Protocol Last Admin: 12/10/18 06:36 Dose: 2 units Methylprednisolone (Solu-Medrol) 40 mg IVP Q8@0300,1100,1900 [facility] Last Admin: 12/10/18 10:00 Dose: 40 mg Nicotine (Nicoderm Cq) 1 patch TD DAILY [facility] Last Admin: 12/10/18 09:56 Dose: 1 patch Nifedipine (Procardia Xl) 90 mg PO DAILY [facility] Last Admin: 12/10/18 09:56 Dose: 90 mg Oxycodone HCl (Oxycodone Immediate Release Tab) 30 mg PO Q6H PRN PRN Reason: Pain, severe (8-10) Last Admin: 12/10/18 08:20 Dose: 30 mg Pantoprazole Sodium (Protonix Ec Tab) 40 mg PO DAILY [facility] Last Admin: 12/10/18 09:56 Dose: 40 mg Potassium Chloride (K-Dur 20 Meq Er Tab) 20 meq PO DAILY [facility] Last Admin: 12/10/18 09:57 Dose: 20 meq Rivaroxaban (Xarelto) 20 mg PO DAILY [facility]; Protocol Last Admin: 12/10/18 09:51 Dose: 20 mg Sitagliptin Phosphate (Januvia) 100 mg PO DAILY [facility] Last Admin: 12/10/18 09:54 Dose: 100 mg Topiramate (Topamax) 100 mg PO BID [facility] Last Admin: 12/10/18 09:51 Dose: 100 mg Trazodone HCl (Desyrel) 200 mg PO [facility] Zolpidem Tartrate (Ambien) 5 mg PO [facility] Last Admin: 12/10/18 00:22 Dose: 5 mg - Labs Labs: 12/09/18 20:50 12/09/18 20:50 - Constitutional Appears: Well, Non-toxic, No Acute Distress - Head Exam Head Exam: ATRAUMATIC, NORMAL INSPECTION, NORMOCEPHALIC - Eye Exam Eye Exam: EOMI, Normal appearance Pupil Exam: NORMAL ACCOMODATION, PERRL - ENT Exam ENT Exam: Mucous Membranes Moist, Normal Exam - Neck Exam Neck Exam: Full ROM, Normal Inspection - Respiratory Exam Respiratory Exam: NORMAL BREATHING PATTERN Additional comments: Ronchi B/L more on LEFT - Cardiovascular Exam Cardiovascular Exam: REGULAR RHYTHM, +S1, +S2 - GI/Abdominal Exam GI & Abdominal Exam: Soft, Normal Bowel Sounds Additional comments: Tender upon palpation of the abdomen - Extremities Exam Extremities Exam: Full ROM, Normal Capillary Refill, Normal Inspection - Back Exam Back Exam: NORMAL INSPECTION - Neurological Exam Neurological Exam: Alert, Awake, CN II-XII Intact, Normal Gait, Oriented x3 - Psychiatric Exam Psychiatric exam: Normal Affect, Normal Mood - Skin Skin Exam: Dry, Intact, Normal Color, Warm Assessment and Plan - Assessment and Plan (Free Text) Assessment: 58 yo f with a PMHx of HTn, DM2, HLD, COPD, RUE DVT, depression and asthma was admitted for evaluation and management of dyspnea. CXR: superimposed pneumonia cannot be excluded, +/- atelactasis Echo: Ej 55-60%, LEFT atrium mod dilated, with mitral regurgitation. PLAN: Dyspnea RLL pneumonia vs preserve CHF vs COPD exacerbation Afebrile, VSS, no leukocytosis PE less likely since no acute changes in EKG. Continuous cardiac monitoring Pro-BNP 3,510-high; troponin neg x1. C/w O2 by NC at 2 L/min Levofloxacin 750mg IV daily Duonebs YANA Q4H, Methylprednisolone 40mg IV Q8H Lasix 40mg IV daily F/U labs: pro-calcitonin, sputum Cx, CBC, CMP, urine Strep pneumo. abdominal pain and Diarrhea C diff screen ordered. Under observation. legionella pending Morpine prn pain HTN Elevated, uncontrolled, possible due to anxiety Home meds resume. DM 2 uncontrolled, Glucose 211 Insulin Sliding scale Hypoglycemia protocol Home meds resumed. Depression Home meds resumed DVT Prophylaxis Hx of previous DVT On Xarelto Follow up with PT Diabetic Diet Full code
[2018-12-10 14:02] LABS: BASO % 0.2 % (0.0-2.0); HEMOGLOBIN 13.1 g/dL (12.0-16.0); LYMPH # 0.8 K/uL (1.0-4.3); LYMPH % 16.8 % (20.0-40.0); MEAN CELL VOLUME 90.6 fl (81.0-99.0); MEAN PLATELET VOLUME 9.2 fl (7.2-11.7); MONO # 0.3 K/uL (0.0-0.8); MONO % 6.5 % (0.0-10.0); NEUT # 3.8 K/uL (1.8-7.0); NEUT % 76.5 % (50.0-75.0); NRBC % 0.1 % (0.0-0.0); RBC 4.51 Mil/uL (3.80-5.20); RED CELL DISTRIBUTION WIDTH 16.2 % (11.5-14.5); WHITE BLOOD COUNT 4.9 K/uL (4.8-10.8)
[2018-12-10 14:06] LABS: INR 2.1; PROTHROMBIN TIME 23.8 Seconds (9.8-13.1)
[2018-12-10 14:08] LABS: PARTIAL THROMBOPLASTIN TIME 36.1 Seconds (25.6-37.1)
[2018-12-10 14:40] LABS: ALB/GLOB RATIO 1.1 (1.0-2.1); ALBUMIN 4.3 g/dL (3.5-5.0); ALT/SGPT 14 U/L (9-52); AST/SGOT 16 U/L (14-36); BLOOD UREA NITROGEN 11 mg/dl (7-17); CALCIUM 10.2 mg/dL (8.4-10.2); GFR NON-AFRICAN AMERICAN > 60
--- NOTE | 2018-12-10 15:15 | CP.PCM.CON ---
History of Present Illness - History of Present Illness History of Present Illness: Pulmonary consult for a 58 y/o F, PMHx: COPD, Asthma, Bronchitis, PE b/l on 07/15/2013. Chronic smoker, admitted on 12/09/18 to [facility], [place] due to severe SOB, increased from 2-3 days [employer], associated to dry cough, at times productive with difficulty to expectorate thick sputum, nasal congestion, runny nose. Pt had Nebulizer and Solu-medrol by EMS while in the field with some improvement. Worsening symptoms: As per Pt, Fever/chills ( TMAx 102,0 F ), intermittent sweating, while at home, weakness, also states, while sleeping on Monday night, she fell to the floor on her abdomen site not knowing how she got there, friends and family decided to bring her to hospital. Also, was c/o of R knee pain from recent R TKR in September 2018 in rehab x a month, there after on 11/05/18, returned to hospital for R knee wound infection having I&D discharged on 12/06/18 with abx po, but unable to buy medications, since DD Pt was not fe eling well. Aggravated factor: Walking/exercise, non compliance with medications. Pt denied: Seizure, CP, palpitations, nausea, vomiting, abdominal pain, urinary symptoms, sick contact, recent travel out of [place]. Other PMHx: DVT R arm with AVC filter, DVT s/p Foot sx b/l, HTN, DMII, HDL, Glaucoma, Chronic back pain s/p multiple compression Fx of thoracic spine, Hx GI bleeding. CXR: No active disease. Patchy airspace disease RLL, may represent atelectasis, however, superimposed PNA cannot be excluded. Review of Systems - Constitutional Constitutional: Chills, Fever, Night Sweats, Weakness - EENT Eyes: Requires Corrective Lenses Ears: Other Nose/Mouth/Throat: Nasal Congestion, Nasal Discharge - Cardiovascular Cardiovascular: Other (Dyspnea at rest) - Respiratory Respiratory: Cough, Dyspnea, Dyspnea on Exertion - Gastrointestinal Gastrointestinal: Diarrhea - Genitourinary Genitourinary: Other (negative) - Musculoskeletal Musculoskeletal: Arthralgias, Back Pain, Other (R knee pain) - Neurological Neurological: Abnormal Gait, Frequent Falls, Weakness - Psychiatric Psychiatric: Anxiety, Depression - Endocrine Endocrine: Other (negative) - Hematologic/Lymphatic Hematologic: Other (negative) Past Patient History - Infectious Disease Hx of Infectious Diseases: None - Tetanus Immunizations Tetanus Immunization: Unknown - Past Medical History & Family History Past Medical History?: Yes Pertinent Family History: Mother: Stroke, Father: Multiple Myeloma, Sister: Breast Ca. - Past Social History Smoking Status: Light Smoker < 10 Cigarettes Daily Alcohol: None Drugs: Denies Home Situation {Lives}: Alone - CARDIAC Hx Cardiac Disorders: Yes Hx Hypercholesterolemia: Yes Hx Hypertension: Yes - PULMONARY Hx Respiratory Disorders: Yes Hx Asthma: Yes Hx Bronchitis: Yes Hx Chronic Obstructive Pulmonary Disease (COPD): Yes - NEUROLOGICAL Hx Neurological Disorder: No - HEENT Hx HEENT Problems: Yes (Use eyeglases) - RENAL Hx Chronic Kidney Disease: No - ENDOCRINE/METABOLIC Hx Endocrine Disorders: Yes Hx Diabetes Mellitus Type 2: Yes - HEMATOLOGICAL/ONCOLOGICAL Hx Blood Disorders: No Hx Human Immunodeficiency Virus (HIV): No Other/Comment: DVT-righr upper ext - INTEGUMENTARY Hx Dermatological Problems: No - MUSCULOSKELETAL/RHEUMATOLOGICAL Hx Musculoskeletal Disorders: Yes Hx Arthritis: Yes Hx Back Pain: Yes Hx Falls: Yes - GASTROINTESTINAL Hx Gastrointestinal Disorders: No Hx Ulcer: No - GENITOURINARY/GYNECOLOGICAL Hx Genitourinary Disorders: No - PSYCHIATRIC Hx Psychophysiologic Disorder: Yes Hx Anxiety: Yes Hx Depression: Yes - SURGICAL HISTORY Hx Surgeries: Yes Hx Orthopedic Surgery: Yes (right knee replecement,left ankle surgery) Hx Tonsillectomy: Yes - ANESTHESIA Hx Anesthesia: Yes Hx Anesthesia Reactions: No Hx Malignant Hyperthermia: No Has any member of the family had a problem w/ anesthesia?: No Meds Allergies/Adverse Reactions: Allergies Allergy/AdvReac Type Severity Reaction Status Date / Time No Known Allergies Allergy Verified 10/05/18 06:29 - Medications Medications: Current Medications Albuterol/Ipratropium (Duoneb 3 Mg/0.5 Mg (3 Ml) Ud) 3 ml INH RQ4 [facility] Last Admin: 12/10/18 15:10 Dose: 3 ml Alprazolam (Xanax) 1 mg PO BID [facility] Last Admin: 12/10/18 09:53 Dose: 1 mg Dextrose (Glutose 15) 0 gm PO ONCE PRN; Protocol PRN Reason: Hypoglycemia Protocol Dextrose (Dextrose 50% Inj) 0 ml IV STAT PRN; Protocol PRN Reason: Hypoglycemia Protocol Enalapril Maleate (Vasotec) 10 mg PO DAILY [facility] Last Admin: 12/10/18 10:28 Dose: 10 mg Escitalopram Oxalate (Lexapro) 20 mg PO DAILY [facility] Last Admin: 12/10/18 09:51 Dose: 20 mg Folic Acid (Folic Acid) 1 mg PO DAILY [facility] Last Admin: 12/10/18 09:54 Dose: 1 mg Furosemide (Lasix) 40 mg IVP DAILY [facility] Last Admin: 12/10/18 09:54 Dose: 40 mg Gabapentin (Neurontin) 400 mg PO TID [facility] Last Admin: 12/10/18 13:26 Dose: 400 mg Glucagon (Glucagen Diagnostic Kit) 0 mg IM STAT PRN; Protocol PRN Reason: Hypoglycemia Protocol Levofloxacin/Dextrose (Levaquin 750mg) 750 mg in 150 mls @ 150 mls/hr IVPB DAILY@2100 [facility] Insulin Human Lispro (Humalog) 0 units SC ACCU-CHECK [facility]; Protocol Last Admin: 12/10/18 13:26 Dose: 3 units Methylprednisolone (Solu-Medrol) 40 mg IVP Q8@0300,1100,1900 [facility] Last Admin: 12/10/18 10:00 Dose: 40 mg Nicotine (Nicoderm Cq) 1 patch TD DAILY [facility] Last Admin: 12/10/18 09:56 Dose: 1 patch Nifedipine (Procardia Xl) 90 mg PO DAILY [facility] Last Admin: 12/10/18 09:56 Dose: 90 mg Oxycodone HCl (Oxycodone Immediate Release Tab) 30 mg PO Q6H PRN PRN Reason: Pain, severe (8-10) Last Admin: 12/10/18 08:20 Dose: 30 mg Pantoprazole Sodium (Protonix Ec Tab) 40 mg PO DAILY [facility] Last Admin: 12/10/18 09:56 Dose: 40 mg Potassium Chloride (K-Dur 20 Meq Er Tab) 20 meq PO DAILY [facility] Last Admin: 12/10/18 09:57 Dose: 20 meq Rivaroxaban (Xarelto) 20 mg PO DAILY [facility]; Protocol Last Admin: 12/10/18 09:51 Dose: 20 mg Sitagliptin Phosphate (Januvia) 100 mg PO DAILY [facility] Last Admin: 12/10/18 09:54 Dose: 100 mg Topiramate (Topamax) 100 mg PO BID [facility] Last Admin: 12/10/18 09:51 Dose: 100 mg Trazodone HCl (Desyrel) 200 mg PO HS [facility] Zolpidem Tartrate (Ambien) 5 mg PO HS [facility] Last Admin: 12/10/18 00:22 Dose: 5 mg Physical Exam - Constitutional Appears: No Acute Distress - Head Exam Head Exam: NORMAL INSPECTION - Eye Exam Eye Exam: PERRL - ENT Exam ENT Exam: Normal Exam - Neck Exam Neck exam: Positive for: Normal Inspection - Respiratory Exam Respiratory Exam: Decreased Breath Sounds, Rhonchi, Wheezes (expiratory) - Cardiovascular Exam Cardiovascular Exam: REGULAR RHYTHM - GI/Abdominal Exam GI & Abdominal Exam: Soft - Extremities Exam Extremities exam: Positive for: tenderness (mild R knee) Additional comments: R knee TKR, healing scar from sx. - Back Exam Back exam: tenderness - Neurological Exam Neurological exam: Alert, Oriented x3 Additional comments: Obeys commands, weak gait, no focal motor/sensory deficit - Psychiatric Exam Psychiatric exam: Anxious, Depressed - Skin Skin Exam: Warm Results - Vital Signs Recent Vital Signs: Last Vital Signs Temp 98.2 F 12/10/18 12:09 Pulse 60 12/10/18 12:09 Resp 18 12/10/18 12:09 BP 145/75 12/10/18 12:09 Pulse Ox 93 L 12/10/18 12:09 reviewed Zhanna - Labs Result Diagrams: 12/11/18 04:35 12/11/18 04:35 Labs: Laboratory Results - last 24 hr 12/09/18 12/09/18 12/10/18 20:50 20:50 05:56 WBC 6.4 RBC 4.08 Hgb 12.2 Hct 37.3 MCV 91.3 D MCH 29.8 MCHC 32.7 L RDW 16.3 H Plt Count 166 MPV 9.9 Neut % (Auto) 85.4 H Lymph % (Auto) 11.8 L [place] % (Auto) 2.2 Eos % (Auto) 0.0 Baso % (Auto) 0.6 Neut # (Auto) 5.5 Lymph # (Auto) 0.8 L [place] # (Auto) 0.1 Eos # (Auto) 0.0 Baso # (Auto) 0.0 PT INR APTT Sodium 138 Potassium 4.4 Chloride 101 Carbon Dioxide 20 L Anion Gap 21 H BUN 7 Creatinine 0.6 L Est GFR ( Amer) > 60 Est GFR (Non-Af Amer) > 60 POC Glucose (mg/dL) 167 H Random Glucose 176 H Calcium 9.9 Phosphorus Magnesium Total Bilirubin 0.8 AST 26 ALT 12 Alkaline Phosphatase 83 Troponin I 0.0440 NT-Pro-B Natriuret Pep 3510 H Total Protein 8.2 Albumin 4.1 Globulin 4.1 H Albumin/Globulin Ratio 1.0 12/10/18 12/10/18 12/10/18 11:15 13:50 13:50 WBC 4.9 RBC 4.51 Hgb 13.1 Hct 40.9 MCV 90.6 MCH 29.0 MCHC 32.0 L RDW 16.2 H Plt Count 192 MPV 9.2 Neut % (Auto) 76.5 H Lymph % (Auto) 16.8 L [place] % (Auto) 6.5 Eos % (Auto) 0.0 Baso % (Auto) 0.2 Neut # (Auto) 3.8 Lymph # (Auto) 0.8 L [place] # (Auto) 0.3 Eos # (Auto) 0.0 Baso # (Auto) 0.0 PT INR APTT Sodium 140 Potassium 3.6 Chloride 95 L Carbon Dioxide 27 Anion Gap 22 H BUN 11 Creatinine 0.7 Est GFR ( Amer) > 60 Est GFR (Non-Af Amer) > 60 POC Glucose (mg/dL) 211 H Random Glucose 201 H Calcium 10.2 Phosphorus 4.2 Magnesium 2.1 Total Bilirubin 0.4 AST 16 ALT 14 Alkaline Phosphatase 93 Troponin I NT-Pro-B Natriuret Pep Total Protein 8.3 H Albumin 4.3 Globulin 4.0 H Albumin/Globulin Ratio 1.1 12/10/18 13:50 WBC RBC Hgb Hct MCV MCH MCHC RDW Plt Count MPV Neut % (Auto) Lymph % (Auto) [place] % (Auto) Eos % (Auto) Baso % (Auto) Neut # (Auto) Lymph # (Auto) [place] # (Auto) Eos # (Auto) Baso # (Auto) PT 23.8 H INR 2.1 APTT 36.1 Sodium Potassium Chloride Carbon Dioxide Anion Gap BUN Creatinine Est GFR ( Amer) Est GFR (Non-Af Amer) POC Glucose (mg/dL) Random Glucose Calcium Phosphorus Magnesium Total Bilirubin AST ALT Alkaline Phosphatase Troponin I NT-Pro-B Natriuret Pep Total Protein Albumin Globulin Albumin/Globulin Ratio reviewed J.PVeronika - EKG Data EKG comments: reviewedJ.P. - Imaging and Cardiology Chest x-ray Status: Report reviewed by me (Zhanna) Echocardiogram Status: Report reviewed by me Assessment & Plan (1) PNA (pneumonia) Status: Acute Priority: High Comment: HCAP (2) COPD exacerbation Status: Chronic Priority: High - Assessment and Plan (Free Text) Plan: F/U CT Chest, continue O2 NC 2 L/M, current abx coverage, Solu-Medrol, Duoneb and rest of Tx. - Date & Time Date: 12/10/18 Time: 11:50
[2018-12-10] MEDS ORDERED: Sodium Chloride 0.9% 50 ML IV ONE (20:47)
[2018-12-10] MEDS ORDERED: Iodixanol 320 MG/ML 100 ML BOTTLE IV ONE (20:47)
[2018-12-10] MEDS: Ciprofloxacin 400mg/200ml D5W 400 MG/200 ML BAG IVPB SCH (21:44)
[2018-12-10] MEDS: Piperacillin/Tazobact 3.375 GM in Sodium Chloride 0.9% 100 ML IVPB SCH (23:03)
[2018-12-11] MEDS: Albuterol-Ipratrop 3 mg / 0.5 (3 ml) UD INH SCH ×5 (03:41→19:06)
[2018-12-11] MEDS: MethylPREDNISolone 40 mg Vial IVP SCH ×3 (03:43→19:38)
[2018-12-11] MEDS: Piperacillin/Tazobact 3.375 GM in Sodium Chloride 0.9% 100 ML IVPB SCH ×4 (03:53→22:39)
[2018-12-11 06:00] LABS: HEMOGLOBIN 11.8 g/dL (12.0-16.0); MEAN CELL VOLUME 89.8 fl (81.0-99.0); MEAN CORPUSCULAR HEMOGLOBIN 29.4 pg (27.0-31.0); MEAN CORPUSCULAR HGB CONC 32.8 g/dL (33.0-37.0); RBC 3.99 Mil/uL (3.80-5.20); RED CELL DISTRIBUTION WIDTH 15.9 % (11.5-14.5)
[2018-12-11 06:22] LABS: WHITE BLOOD COUNT 7.4 K/uL (4.8-10.8)
--- NOTE | 2018-12-11 06:35 | CP.PCM.PN ---
Subjective - Date & Time of Evaluation Date of Evaluation: 12/11/18 Time of Evaluation: 07:00 - Subjective Subjective: Patient seen and examined at bedside today. No acute event overnight. Patient report abdominal pain have improved, she denies any diarrhea, she state that her last BM on Monday. Patient report mild cough and congestion, Otherwise she have no other complains. Patient denies chest pain, sob, abd pain,dysuria, polyuria. Objective - Vital Signs/Intake and Output Vital Signs (last 24 hours): Temp Pulse Resp BP Pulse Ox 97.2 F L 50 L 17 94/59 L 100 12/11/18 05:21 12/11/18 05:21 12/11/18 05:21 12/11/18 05:21 12/11/18 05:21 - Medications Medications: Current Medications Albuterol/Ipratropium (Duoneb 3 Mg/0.5 Mg (3 Ml) Ud) 3 ml INH RQ4 [facility] Last Admin: 12/11/18 03:41 Dose: 3 ml Alprazolam (Xanax) 1 mg PO BID [facility] Last Admin: 12/10/18 17:43 Dose: 1 mg Dextrose (Glutose 15) 0 gm PO ONCE PRN; Protocol PRN Reason: Hypoglycemia Protocol Dextrose (Dextrose 50% Inj) 0 ml IV STAT PRN; Protocol PRN Reason: Hypoglycemia Protocol Enalapril Maleate (Vasotec) 10 mg PO DAILY [facility] Last Admin: 12/10/18 10:28 Dose: 10 mg Escitalopram Oxalate (Lexapro) 20 mg PO DAILY [facility] Last Admin: 12/10/18 09:51 Dose: 20 mg Folic Acid (Folic Acid) 1 mg PO DAILY [facility] Last Admin: 12/10/18 09:54 Dose: 1 mg Furosemide (Lasix) 40 mg IVP DAILY [facility] Last Admin: 12/10/18 09:54 Dose: 40 mg Gabapentin (Neurontin) 400 mg PO TID [facility] Last Admin: 12/10/18 13:26 Dose: 400 mg Glucagon (Glucagen Diagnostic Kit) 0 mg IM STAT PRN; Protocol PRN Reason: Hypoglycemia Protocol Vancomycin HCl 1 gm/ Sodium (Chloride) 250 mls @ 166.667 mls/hr IVPB Q12 [facility]; Protocol Last Admin: 12/10/18 21:27 Dose: 166.667 mls/hr Piperacillin Sod/Tazobactam (Sod 3.375 gm/ Sodium Chloride) 100 mls @ 100 mls/hr IVPB Q6 [facility]; Protocol Last Admin: 12/11/18 03:53 Dose: 100 mls/hr Ciprofloxacin (Cipro 400mg/200ml Dsw) 400 mg in 200 mls @ 200 mls/hr IVPB Q12 [facility]; Protocol Last Admin: 12/10/18 21:44 Dose: 200 mls/hr Insulin Human Lispro (Humalog) 0 units SC ACCU-CHECK [facility]; Protocol Last Admin: 12/10/18 23:05 Dose: Not Given Methylprednisolone (Solu-Medrol) 40 mg IVP Q8@0300,1100,1900 [facility] Last Admin: 12/11/18 03:43 Dose: 40 mg Nicotine (Nicoderm Cq) 1 patch TD DAILY [facility] Last Admin: 12/10/18 09:56 Dose: 1 patch Nifedipine (Procardia Xl) 90 mg PO DAILY [facility] Last Admin: 12/10/18 09:56 Dose: 90 mg Oxycodone HCl (Oxycodone Immediate Release Tab) 30 mg PO Q6H PRN PRN Reason: Pain, severe (8-10) Last Admin: 12/10/18 21:37 Dose: 30 mg Pantoprazole Sodium (Protonix Ec Tab) 40 mg PO DAILY [facility] Last Admin: 12/10/18 09:56 Dose: 40 mg Potassium Chloride (K-Dur 20 Meq Er Tab) 20 meq PO DAILY [facility] Last Admin: 12/10/18 09:57 Dose: 20 meq Rivaroxaban (Xarelto) 20 mg PO DAILY [facility]; Protocol Last Admin: 12/10/18 09:51 Dose: 20 mg Sitagliptin Phosphate (Januvia) 100 mg PO DAILY [facility] Last Admin: 12/10/18 09:54 Dose: 100 mg Topiramate (Topamax) 100 mg PO BID [facility] Last Admin: 12/10/18 17:42 Dose: 100 mg Trazodone HCl (Desyrel) 200 mg PO HS [facility] Last Admin: 12/10/18 21:39 Dose: 200 mg Zolpidem Tartrate (Ambien) 5 mg PO HS [facility] Last Admin: 12/10/18 23:11 Dose: 5 mg - Labs Labs: 12/11/18 04:35 12/10/18 13:50 PT 23.8 Seconds (9.8-13.1) H 12/10/18 13:50 INR 2.1 12/10/18 13:50 APTT 36.1 Seconds (25.6-37.1) 12/10/18 13:50 - Constitutional Appears: Well, Non-toxic - Head Exam Head Exam: ATRAUMATIC, NORMAL INSPECTION, NORMOCEPHALIC - Eye Exam Eye Exam: EOMI, Normal appearance, PERRL Pupil Exam: NORMAL ACCOMODATION, PERRL - ENT Exam ENT Exam: Mucous Membranes Moist, Normal Exam - Neck Exam Neck Exam: Full ROM - Respiratory Exam Respiratory Exam: Rales, Rhonchi, NORMAL BREATHING PATTERN Additional comments: Rhonchi diffuse - Cardiovascular Exam Cardiovascular Exam: REGULAR RHYTHM, +S1, +S2 - GI/Abdominal Exam GI & Abdominal Exam: Soft, Normal Bowel Sounds. absent: Tenderness - Extremities Exam Extremities Exam: Full ROM - Back Exam Back Exam: NORMAL INSPECTION - Neurological Exam Neurological Exam: Alert, Awake, Oriented x3 - Psychiatric Exam Psychiatric exam: Normal Affect, Normal Mood - Skin Skin Exam: Dry, Intact, Normal Color, Warm Assessment and Plan - Assessment and Plan (Free Text) Assessment: Assessment: 58 yo f with a PMHx of HTn, DM2, HLD, COPD, RUE DVT, depression and asthma was admitted for evaluation and management of dyspnea. CXR: superimposed pneumonia cannot be excluded, +/- atelactasis Echo: Ej 55-60%, LEFT atrium mod dilated, with mitral regurgitation. Head CT scan No cranial hemorrhage noted, But positive for sinusitis Ct chest scan Pending read PLAN: Dyspnea RLL pneumonia vs preserve acute CHF vs COPD exacerbation PE excluded Due to low blood pressure, will hold off Lasix 40mg Continuous cardiac monitoring Cardiology consulted: Cardiac real patient is stable Pro-BNP 3,510-high; troponin neg x1. Continue with O2 by NC at 2 L/min Levofloxacin 750mg IV daily Duonebs [facility] Q4H, Methylprednisolone 40mg IV Q8H F/U labs: pro-calcitonin, urine Strep pneumo. Start on Robetussin for cough and congestion F/U CT chest abdominal pain and Diarrhea Improved, no pain no diarrhea, last BM Monday C diff f/u Under observation. legionella pending Morpine prn pain HTN Blood pressure running on the low side. D/C lasix and enalapril for now Home meds resume. DM 2 controlled Insulin Sliding scale Hypoglycemia protocol Home meds resumed. Depression Home meds resumed DVT Prophylaxis Hx of previous DVT On Xarelto Follow up PT recc Diabetic Diet Full code
[2018-12-11 06:41] LABS: ABG ALLEN TEST YES; ARTERIAL BLOOD GAS HCO3 24.9 mmol/L (21-28); ARTERIAL BLOOD GAS HEMOGLOBIN 12.1 g/dL (11.7-17.4); ARTERIAL BLOOD GAS O2 CAPACITY 16.6 mL/dL (16-24); ARTERIAL BLOOD GAS O2 SAT 96.6 % (95-98); ARTERIAL BLOOD GAS PCO2 40 mm/Hg (35-45); ARTERIAL BLOOD GAS PO2 76 mm/Hg (80-100)
[2018-12-11 06:50] LABS: BLOOD UREA NITROGEN 22 mg/dl (7-17); CALCIUM 9.2 mg/dL (8.4-10.2); GFR NON-AFRICAN AMERICAN 51
[2018-12-11] MEDS: Insulin Lispro (humaLOG) 100 Units/ml Inj SC SCH ×4 (06:51→23:59)
[2018-12-11] MEDS: Potassium Chloride 20 mEq ER Tab PO SCH (09:31)
[2018-12-11] MEDS: NIFEdipine 90 mg ER Tab PO SCH (09:31)
[2018-12-11] MEDS: Ciprofloxacin 400mg/200ml D5W 400 MG/200 ML BAG IVPB SCH ×2 (09:33→20:16)
[2018-12-11] MEDS: Pantoprazole 40 mg EC Tab PO SCH (09:41)
[2018-12-11] MEDS ORDERED: guaiFENesin DM 200 mg-20 mg/10 ml UD PO PRN (10:27)
--- NOTE | 2018-12-11 10:55 | CP.PCM.CON ---
History of Present Illness - History of Present Illness History of Present Illness: 58 y/o F, PMHx: COPD, Asthma, Bronchitis, PE b/l on 07/15/2013. Chronic smoker, admitted on 12/09/18 to [facility], [place] due to severe SOB, i ncreased from 2-3 days [employer], associated to dry cough, at times productive with difficulty to expectorate thick sputum, nasal congestion, runny nose. Found to have Pneumonia Pt recently had Right TKR in September has been in [facility] [place] until 2 days [employer] PMH: COPD Asthma Smoker * Benign hypertension * Mixed hyperlipidemia * Diabetes mellitus Type II * Chronic obstructive lung disease * Chronic anxiety * Depressive disorder * vena cava filter * Chronic gastritis * Chronic colitis * T9 fracture, sequela * T11 fracture, sequela * T12 fracture, sequela * Closed fracture of L4 * Smokes BNP: 3510 EKG: NSR Echo: Good LV function EF: 55 - 60% Past Patient History - Infectious Disease Hx of Infectious Diseases: None - Tetanus Immunizations Tetanus Immunization: Unknown - Past Medical History & Family History Past Medical History?: Yes - Past Social History Smoking Status: Light Smoker < 10 Cigarettes Daily Alcohol: None Drugs: Denies Home Situation {Lives}: Alone - CARDIAC Hx Cardiac Disorders: Yes Hx Hypercholesterolemia: Yes Hx Hypertension: Yes - PULMONARY Hx Respiratory Disorders: Yes Hx Asthma: Yes Hx Bronchitis: Yes Hx Chronic Obstructive Pulmonary Disease (COPD): Yes - NEUROLOGICAL Hx Neurological Disorder: No - HEENT Hx HEENT Problems: Yes (Use eyeglases) - RENAL Hx Chronic Kidney Disease: No - ENDOCRINE/METABOLIC Hx Endocrine Disorders: Yes Hx Diabetes Mellitus Type 2: Yes - HEMATOLOGICAL/ONCOLOGICAL Hx Blood Disorders: No Hx Human Immunodeficiency Virus (HIV): No Other/Comment: DVT-righr upper ext - INTEGUMENTARY Hx Dermatological Problems: No - MUSCULOSKELETAL/RHEUMATOLOGICAL Hx Musculoskeletal Disorders: Yes Hx Arthritis: Yes Hx Back Pain: Yes Hx Falls: Yes - GASTROINTESTINAL Hx Gastrointestinal Disorders: No Hx Ulcer: No - GENITOURINARY/GYNECOLOGICAL Hx Genitourinary Disorders: No - PSYCHIATRIC Hx Psychophysiologic Disorder: Yes Hx Anxiety: Yes Hx Depression: Yes - SURGICAL HISTORY Hx Surgeries: Yes Hx Orthopedic Surgery: Yes (right knee replecement,left ankle surgery) Hx Tonsillectomy: Yes - ANESTHESIA Hx Anesthesia: Yes Hx Anesthesia Reactions: No Hx Malignant Hyperthermia: No Has any member of the family had a problem w/ anesthesia?: No Meds Allergies/Adverse Reactions: Allergies Allergy/AdvReac Type Severity Reaction Status Date / Time No Known Allergies Allergy Verified 10/05/18 06:29 - Medications Medications: Current Medications Albuterol/Ipratropium (Duoneb 3 Mg/0.5 Mg (3 Ml) Ud) 3 ml INH RQ4 [facility] Last Admin: 12/11/18 07:49 Dose: 3 ml Alprazolam (Xanax) 1 mg PO BID [facility] Last Admin: 12/11/18 09:30 Dose: 1 mg Dextrose (Glutose 15) 0 gm PO ONCE PRN; Protocol PRN Reason: Hypoglycemia Protocol Dextrose (Dextrose 50% Inj) 0 ml IV STAT PRN; Protocol PRN Reason: Hypoglycemia Protocol Escitalopram Oxalate (Lexapro) 20 mg PO DAILY [facility] Last Admin: 12/11/18 09:31 Dose: 20 mg Folic Acid (Folic Acid) 1 mg PO DAILY [facility] Last Admin: 12/11/18 09:31 Dose: 1 mg Gabapentin (Neurontin) 400 mg PO TID [facility] Last Admin: 12/11/18 09:31 Dose: 400 mg Glucagon (Glucagen Diagnostic Kit) 0 mg IM STAT PRN; Protocol PRN Reason: Hypoglycemia Protocol Guaifenesin/Dextromethorphan (Robitussin Dm) 10 ml PO Q4 PRN PRN Reason: Cough Vancomycin HCl 1 gm/ Sodium (Chloride) 250 mls @ 166.667 mls/hr IVPB Q12 [facility]; Protocol Last Admin: 12/11/18 09:33 Dose: 166.667 mls/hr Piperacillin Sod/Tazobactam (Sod 3.375 gm/ Sodium Chloride) 100 mls @ 100 mls/hr IVPB Q6 [facility]; Protocol Last Admin: 12/11/18 08:00 Dose: 100 mls/hr Ciprofloxacin (Cipro 400mg/200ml Dsw) 400 mg in 200 mls @ 200 mls/hr IVPB Q12 [facility]; Protocol Last Admin: 12/11/18 09:33 Dose: 200 mls/hr Insulin Human Lispro (Humalog) 0 units SC ACCU-CHECK [facility]; Protocol Last Admin: 12/11/18 06:51 Dose: Not Given Methylprednisolone (Solu-Medrol) 40 mg IVP Q8@0300,1100,1900 [facility] Last Admin: 12/11/18 03:43 Dose: 40 mg Nicotine (Nicoderm Cq) 1 patch TD DAILY [facility] Last Admin: 12/11/18 09:30 Dose: 1 patch Nifedipine (Procardia Xl) 90 mg PO DAILY [facility] Last Admin: 12/11/18 09:31 Dose: 90 mg Oxycodone HCl (Oxycodone Immediate Release Tab) 30 mg PO Q6H PRN PRN Reason: Pain, severe (8-10) Last Admin: 12/10/18 21:37 Dose: 30 mg Pantoprazole Sodium (Protonix Ec Tab) 40 mg PO DAILY [facility] Last Admin: 12/11/18 09:41 Dose: 40 mg Potassium Chloride (K-Dur 20 Meq Er Tab) 20 meq PO DAILY [facility] Last Admin: 12/11/18 09:31 Dose: 20 meq Rivaroxaban (Xarelto) 20 mg PO DAILY [facility]; Protocol Last Admin: 12/11/18 09:32 Dose: 20 mg Sitagliptin Phosphate (Januvia) 100 mg PO DAILY [facility] Last Admin: 12/11/18 09:30 Dose: 100 mg Topiramate (Topamax) 100 mg PO BID [facility] Last Admin: 12/11/18 09:32 Dose: 100 mg Trazodone HCl (Desyrel) 200 mg PO [facility] Last Admin: 12/10/18 21:39 Dose: 200 mg Zolpidem Tartrate (Ambien) 5 mg PO HS [facility] Last Admin: 12/10/18 23:11 Dose: 5 mg Physical Exam - Constitutional Appears: Well - Head Exam Head Exam: NORMAL INSPECTION - Eye Exam Eye Exam: Normal appearance - ENT Exam ENT Exam: Normal Exam - Respiratory Exam Respiratory Exam: Decreased Breath Sounds, Rales, Rhonchi - Cardiovascular Exam Cardiovascular Exam: REGULAR RHYTHM Results - Vital Signs Recent Vital Signs: Last Vital Signs Temp 97.2 F L 12/11/18 08:00 Pulse 63 12/11/18 08:00 Resp 18 12/11/18 08:00 BP 104/65 12/11/18 08:00 Pulse Ox 98 12/11/18 08:00 - Labs Result Diagrams: 12/11/18 04:35 12/11/18 04:35 Labs: Laboratory Results - last 24 hr 12/10/18 12/10/18 12/10/18 11:15 13:50 13:50 WBC 4.9 RBC 4.51 Hgb 13.1 Hct 40.9 MCV 90.6 MCH 29.0 MCHC 32.0 L RDW 16.2 H Plt Count 192 MPV 9.2 Neut % (Auto) 76.5 H Lymph % (Auto) 16.8 L [place] % (Auto) 6.5 Eos % (Auto) 0.0 Baso % (Auto) 0.2 Neut # (Auto) 3.8 Lymph # (Auto) 0.8 L [place] # (Auto) 0.3 Eos # (Auto) 0.0 Baso # (Auto) 0.0 PT INR APTT pCO2 pO2 HCO3 ABG pH ABG Total CO2 ABG O2 Saturation ABG O2 Content ABG Base Excess ABG Hemoglobin ABG Carboxyhemoglobin POC ABG HHb (Measured) ABG Methemoglobin ABG O2 Capacity [place] Test A-a O2 Difference Hgb O2 Saturation Vent Mode FiO2 Sodium 140 Potassium 3.6 Chloride 95 L Carbon Dioxide 27 Anion Gap 22 H BUN 11 Creatinine 0.7 Est GFR ( Amer) > 60 Est GFR (Non-Af Amer) > 60 POC Glucose (mg/dL) 211 H Random Glucose 201 H Calcium 10.2 Phosphorus 4.2 Magnesium 2.1 Total Bilirubin 0.4 AST 16 ALT 14 Alkaline Phosphatase 93 Total Protein 8.3 H Albumin 4.3 Globulin 4.0 H Albumin/Globulin Ratio 1.1 12/10/18 12/10/18 12/10/18 13:50 16:28 21:26 WBC RBC Hgb Hct MCV MCH MCHC RDW Plt Count MPV Neut % (Auto) Lymph % (Auto) [place] % (Auto) Eos % (Auto) Baso % (Auto) Neut # (Auto) Lymph # (Auto) [place] # (Auto) Eos # (Auto) Baso # (Auto) PT 23.8 H INR 2.1 APTT 36.1 pCO2 pO2 HCO3 ABG pH ABG Total CO2 ABG O2 Saturation ABG O2 Content ABG Base Excess ABG Hemoglobin ABG Carboxyhemoglobin POC ABG HHb (Measured) ABG Methemoglobin ABG O2 Capacity [place] Test A-a O2 Difference Hgb O2 Saturation Vent Mode FiO2 Sodium Potassium Chloride Carbon Dioxide Anion Gap BUN Creatinine Est GFR ( Amer) Est GFR (Non-Af Amer) POC Glucose (mg/dL) 160 H 148 H Random Glucose Calcium Phosphorus Magnesium Total Bilirubin AST ALT Alkaline Phosphatase Total Protein Albumin Globulin Albumin/Globulin Ratio 12/11/18 12/11/18 12/11/18 04:35 04:35 05:28 WBC 7.4 D RBC 3.99 Hgb 11.8 L Hct 35.9 MCV 89.8 MCH 29.4 MCHC 32.8 L RDW 15.9 H Plt Count 214 MPV Neut % (Auto) Lymph % (Auto) [place] % (Auto) Eos % (Auto) Baso % (Auto) Neut # (Auto) Lymph # (Auto) [place] # (Auto) Eos # (Auto) Baso # (Auto) PT INR APTT pCO2 pO2 HCO3 ABG pH ABG Total CO2 ABG O2 Saturation ABG O2 Content ABG Base Excess ABG Hemoglobin ABG Carboxyhemoglobin POC ABG HHb (Measured) ABG Methemoglobin ABG O2 Capacity [place] Test A-a O2 Difference Hgb O2 Saturation Vent Mode FiO2 Sodium 137 Potassium 3.6 Chloride 102 Carbon Dioxide 24 Anion Gap 15 BUN 22 H Creatinine 1.1 Est GFR ( Amer) > 60 Est GFR (Non-Af Amer) 51 POC Glucose (mg/dL) 143 H Random Glucose 149 H Calcium 9.2 Phosphorus Magnesium Total Bilirubin AST ALT Alkaline Phosphatase Total Protein Albumin Globulin Albumin/Globulin Ratio 12/11/18 06:24 WBC RBC Hgb Hct MCV MCH MCHC RDW Plt Count MPV Neut % (Auto) Lymph % (Auto) [place] % (Auto) Eos % (Auto) Baso % (Auto) Neut # (Auto) Lymph # (Auto) [place] # (Auto) Eos # (Auto) Baso # (Auto) PT INR APTT pCO2 40 pO2 76 L HCO3 24.9 ABG pH 7.40 ABG Total CO2 26.0 ABG O2 Saturation 96.6 ABG O2 Content 16.0 ABG Base Excess 0 ABG Hemoglobin 12.1 ABG Carboxyhemoglobin 1.8 H POC ABG HHb (Measured) 3.3 ABG Methemoglobin 1.1 ABG O2 Capacity 16.6 [place]ivas Test Yes A-a O2 Difference 102.0 Hgb O2 Saturation 93.9 L Vent Mode 3lnc FiO2 32.0 Sodium Potassium Chloride Carbon Dioxide Anion Gap BUN Creatinine Est GFR ( Amer) Est GFR (Non-Af Amer) POC Glucose (mg/dL) Random Glucose Calcium Phosphorus Magnesium Total Bilirubin AST ALT Alkaline Phosphatase Total Protein Albumin Globulin Albumin/Globulin Ratio Assessment & Plan (1) PNA (pneumonia) Assessment and Plan: Cardiac real the patient is stable Status: Acute Priority: High (2) COPD exacerbation Status: Chronic Priority: High (3) Hyperlipidemia Status: Acute
--- NOTE | 2018-12-11 11:17 | CT ---
Date of service: 12/10/2018 PROCEDURE: CT HEAD WITHOUT CONTRAST. HISTORY: fall at home COMPARISON: Brain MRI without contrast performed 07/09/18 TECHNIQUE: Axial computed tomography images were obtained through the head/brain without intravenous contrast. Radiation dose: Total exam DLP = 715.77 mGy-cm. This CT exam was performed using one or more of the following dose reduction techniques: Automated exposure control, adjustment of the mA and/or kV according to patient size, and/or use of iterative reconstruction technique. FINDINGS: HEMORRHAGE: No intracranial hemorrhage. BRAIN: Diffuse atrophy with prominence of the ventricles and sulci noted. No mass effect or edema. The huang-white matter differentiation appears intact. Please note that MRI with diffusion imaging is more sensitive in the detection of acute ischemic event. VENTRICLES: No hydrocephalus. CALVARIUM: Unremarkable. PARANASAL SINUSES: Mucosal thickening of the maxillary sinuses, ethmoid air cells, right frontal sinus, and sphenoid sinuses. MASTOID AIR CELLS: Unremarkable as visualized. No inflammatory changes. OTHER FINDINGS: None. IMPRESSION: No acute intracranial pathology identified. Mucosal thickening of the maxillary sinuses, ethmoid air cells, right frontal sinus, and sphenoid sinuses. Correlate clinically for sinusitis. Preliminary impression was provided by [employer].
--- NOTE | 2018-12-11 12:03 | CT ---
Date of service: 12/10/2018 CTA chest PE protocol Indication: Pneumonia r/o PE Technique: Contiguous axial images were obtained through the chest with intravenous contrast enhancement. Sagittal and coronal reconstructions were generated and reviewed. This CT exam was performed using 1 or more of the following dose reduction techniques: Automated exposure control, adjustment of the MAA and/or kV according to patient size, and/or use of iterative reconstruction technique. IV contrast: 76 mL Visipaque 320 IV Radiation dose (DLP): 368.58 MGy-cm. Comparison: Chest x-ray performed 11/07/18 Findings: Visualized portions of the inferior thyroid gland appear unremarkable. The mediastinal and hilar vascular structures appear within normal limits. The heart appears within normal limits of size. Right hilar lymph nodes measuring approximately 13 mm in short axis. Pretracheal middle lymph nodes measure up to approximately 6 mm in short axis. No large central or segmental pulmonary embolus evident. Subtle tree-in-bud like opacities within the right upper and posterior lateral right lower lobes. Patchy infiltrate in the posterior left lower lobe consistent with pneumonia. Left basilar atelectasis. No pleural effusion. No pneumothorax. Limited visualized portions of the upper abdomen appear grossly unremarkable. Compression fracture deformities of T9 and T12. Age indeterminate T11 compression fracture. Osseous demineralization. Degenerative changes. Impression: No large central or segmental pulmonary embolus identified. Tree-in-bud like opacities as above may reflect infectious or inflammatory etiologies. Right hilar adenopathy. Pretracheal sub cm nodes, nonspecific. Compression fracture deformities of T9 and T12 appear chronic. Age indeterminate T11 compression fracture deformity. Preliminary impression was provided by [email or web address].
--- NOTE | 2018-12-11 14:22 | CP.PCM.PN ---
Subjective - Date & Time of Evaluation Date of Evaluation: 12/11/18 Time of Evaluation: 11:20 - Subjective Subjective: F/U PNA/COPD Exacerbation No SOB with O2, c/o of dry cough, no bringing up any phlegm but breathing better than yesterday. Objective - Vital Signs/Intake and Output Vital Signs (last 24 hours): Temp Pulse Resp BP Pulse Ox 97.3 F L 58 L 18 110/68 93 L 12/11/18 12:00 12/11/18 12:00 12/11/18 12:00 12/11/18 12:00 12/11/18 12:00 - Medications Medications: Current Medications Albuterol/Ipratropium (Duoneb 3 Mg/0.5 Mg (3 Ml) Ud) 3 ml INH RQ4 [facility] Last Admin: 12/11/18 11:17 Dose: 3 ml Alprazolam (Xanax) 1 mg PO BID [facility] Last Admin: 12/11/18 09:30 Dose: 1 mg Dextrose (Glutose 15) 0 gm PO ONCE PRN; Protocol PRN Reason: Hypoglycemia Protocol Dextrose (Dextrose 50% Inj) 0 ml IV STAT PRN; Protocol PRN Reason: Hypoglycemia Protocol Escitalopram Oxalate (Lexapro) 20 mg PO DAILY [facility] Last Admin: 12/11/18 09:31 Dose: 20 mg Folic Acid (Folic Acid) 1 mg PO DAILY [facility] Last Admin: 12/11/18 09:31 Dose: 1 mg Gabapentin (Neurontin) 400 mg PO TID [facility] Last Admin: 12/11/18 12:00 Dose: 400 mg Glucagon (Glucagen Diagnostic Kit) 0 mg IM STAT PRN; Protocol PRN Reason: Hypoglycemia Protocol Guaifenesin/Dextromethorphan (Robitussin Dm) 10 ml PO Q4 PRN PRN Reason: Cough Vancomycin HCl 1 gm/ Sodium (Chloride) 250 mls @ 166.667 mls/hr IVPB Q12 [facility]; Protocol Last Admin: 12/11/18 09:33 Dose: 166.667 mls/hr Piperacillin Sod/Tazobactam (Sod 3.375 gm/ Sodium Chloride) 100 mls @ 100 mls/hr IVPB Q6 [facility]; Protocol Last Admin: 12/11/18 08:00 Dose: 100 mls/hr Ciprofloxacin (Cipro 400mg/200ml Dsw) 400 mg in 200 mls @ 200 mls/hr IVPB Q12 [facility]; Protocol Last Admin: 12/11/18 09:33 Dose: 200 mls/hr Insulin Human Lispro (Humalog) 0 units SC ACCU-CHECK [facility]; Protocol Last Admin: 12/11/18 11:51 Dose: 6 units Methylprednisolone (Solu-Medrol) 40 mg IVP Q8@0300,1100,1900 [facility] Last Admin: 12/11/18 11:56 Dose: 40 mg Nicotine (Nicoderm Cq) 1 patch TD DAILY [facility] Last Admin: 12/11/18 09:30 Dose: 1 patch Nifedipine (Procardia Xl) 90 mg PO DAILY [facility] Last Admin: 12/11/18 09:31 Dose: 90 mg Oxycodone HCl (Oxycodone Immediate Release Tab) 30 mg PO Q6H PRN PRN Reason: Pain, severe (8-10) Last Admin: 12/10/18 21:37 Dose: 30 mg Pantoprazole Sodium (Protonix Ec Tab) 40 mg PO DAILY [facility] Last Admin: 12/11/18 09:41 Dose: 40 mg Potassium Chloride (K-Dur 20 Meq Er Tab) 20 meq PO DAILY [facility] Last Admin: 12/11/18 09:31 Dose: 20 meq Rivaroxaban (Xarelto) 20 mg PO DAILY [facility]; Protocol Last Admin: 12/11/18 09:32 Dose: 20 mg Sitagliptin Phosphate (Januvia) 100 mg PO DAILY [facility] Last Admin: 12/11/18 09:30 Dose: 100 mg Topiramate (Topamax) 100 mg PO BID [facility] Last Admin: 12/11/18 09:32 Dose: 100 mg Trazodone HCl (Desyrel) 200 mg PO HS [facility] Last Admin: 12/10/18 21:39 Dose: 200 mg Zolpidem Tartrate (Ambien) 5 mg PO HS [facility] Last Admin: 12/10/18 23:11 Dose: 5 mg - Labs Labs: 12/11/18 04:35 12/11/18 04:35 PT 23.8 Seconds (9.8-13.1) H 12/10/18 13:50 INR 2.1 12/10/18 13:50 APTT 36.1 Seconds (25.6-37.1) 12/10/18 13:50 - Constitutional Appears: No Acute Distress - Head Exam Head Exam: NORMAL INSPECTION - Eye Exam Eye Exam: PERRL - ENT Exam ENT Exam: Normal Exam - Neck Exam Neck Exam: Normal Inspection - Respiratory Exam Respiratory Exam: Decreased Breath Sounds (at bases, few rhonchi at bases) - Cardiovascular Exam Cardiovascular Exam: REGULAR RHYTHM - GI/Abdominal Exam GI & Abdominal Exam: Soft, Normal Bowel Sounds - Extremities Exam Extremities Exam: Tenderness (R knee) - Neurological Exam Additional comments: no focal motor/sensory deficit - Psychiatric Exam Psychiatric exam: Anxious Assessment and Plan (1) PNA (pneumonia) Status: Acute (2) COPD exacerbation Status: Chronic - Assessment and Plan (Free Text) Plan: Continue O2 NC 2 L/M, current abxs, Solu-Medrol, Duoneb and rest of tx.
[2018-12-11] MEDS: oxyCODONE 10 mg Immediate Release Tab PO PRN (16:59)
[2018-12-12] MEDS: MethylPREDNISolone 40 mg Vial IVP SCH (04:00)
[2018-12-12] MEDS: Piperacillin/Tazobact 3.375 GM in Sodium Chloride 0.9% 100 ML IVPB SCH ×2 (04:15→09:55)
[2018-12-12] MEDS: oxyCODONE 10 mg Immediate Release Tab PO PRN (04:28)
[2018-12-12 06:13] LABS: HEMOGLOBIN 12.3 g/dL (12.0-16.0); MEAN CELL VOLUME 90.6 fl (81.0-99.0); MEAN CORPUSCULAR HEMOGLOBIN 29.5 pg (27.0-31.0); MEAN CORPUSCULAR HGB CONC 32.6 g/dL (33.0-37.0); RBC 4.15 Mil/uL (3.80-5.20); RED CELL DISTRIBUTION WIDTH 16.1 % (11.5-14.5); WHITE BLOOD COUNT 10.3 K/uL (4.8-10.8)
[2018-12-12 06:36] LABS: CALCIUM 9.2 mg/dL (8.4-10.2)
[2018-12-12] MEDS: Insulin Lispro (humaLOG) 100 Units/ml Inj SC SCH (06:51)
[2018-12-12] MEDS: Albuterol-Ipratrop 3 mg / 0.5 (3 ml) UD INH SCH ×2 (08:06→11:21)
[2018-12-12 08:17] VITALS: BP 113/70; PULSE 56; RESP 18; TEMP 98.5
[2018-12-12] MEDS: Potassium Chloride 20 mEq ER Tab PO SCH (08:46)
[2018-12-12] MEDS: Ciprofloxacin 400mg/200ml D5W 400 MG/200 ML BAG IVPB SCH (08:46)
[2018-12-12] MEDS: Pantoprazole 40 mg EC Tab PO SCH (08:46)
[2018-12-12] MEDS: NIFEdipine 90 mg ER Tab PO SCH (08:46)
--- NOTE | 2018-12-12 10:54 | CP.PCM.DIS ---
<Laureano Stephens - Last Filed: 12/12/18 15:54> Provider - Provider Date of Admission: 12/09/18 21:59 Attending physician: Clay Hawkins Consults: 12/10/18 11:15 Cardiology Consult Routine Comment: Consulting Provider: Scott Cannon V Consulting Physician: Scott Cannon V Reason for Consult: SOB/Elevated BNP/ r/o CHF 12/10/18 11:17 Pulmonology Consult Routine Comment: Consulting Provider: Thiago Carr Consulting Physician: Thiago Carr Reason for Consult: COPD exacerbation Time Spent in preparation of Discharge (in minutes): 25 Diagnosis - Discharge Diagnosis (1) Dyspnea Status: Chronic Hospital Course - Lab Results Lab Results: Micro Results 12/09/18 21:00 Blood Blood Culture - Preliminary NO GROWTH AFTER 48 HOURS 12/09/18 20:41 Blood Blood Culture - Preliminary NO GROWTH AFTER 48 HOURS Most Recent Lab Values WBC 10.3 K/uL (4.8-10.8) 12/12/18 05:40 RBC 4.15 Mil/uL (3.80-5.20) 12/12/18 05:40 Hgb 12.3 g/dL (12.0-16.0) 12/12/18 05:40 Hct 37.6 % (34.0-47.0) 12/12/18 05:40 MCV 90.6 fl (81.0-99.0) 12/12/18 05:40 MCH 29.5 pg (27.0-31.0) 12/12/18 05:40 MCHC 32.6 g/dL (33.0-37.0) L 12/12/18 05:40 RDW 16.1 % (11.5-14.5) H 12/12/18 05:40 Plt Count 224 K/uL (130-400) 12/12/18 05:40 MPV 9.2 fl (7.2-11.7) 12/10/18 13:50 Neut % (Auto) 76.5 % (50.0-75.0) H 12/10/18 13:50 Lymph % (Auto) 16.8 % (20.0-40.0) L 12/10/18 13:50 [place] % (Auto) 6.5 % (0.0-10.0) 12/10/18 13:50 Eos % (Auto) 0.0 % (0.0-4.0) 12/10/18 13:50 Baso % (Auto) 0.2 % (0.0-2.0) 12/10/18 13:50 Neut # (Auto) 3.8 K/uL (1.8-7.0) 12/10/18 13:50 Lymph # (Auto) 0.8 K/uL (1.0-4.3) L 12/10/18 13:50 [place] # (Auto) 0.3 K/uL (0.0-0.8) 12/10/18 13:50 Eos # (Auto) 0.0 K/uL (0.0-0.7) 12/10/18 13:50 Baso # (Auto) 0.0 K/uL (0.0-0.2) 12/10/18 13:50 PT 23.8 Seconds (9.8-13.1) H 12/10/18 13:50 INR 2.1 12/10/18 13:50 APTT 36.1 Seconds (25.6-37.1) 12/10/18 13:50 pCO2 40 mm/Hg (35-45) 12/11/18 06:24 pO2 76 mm/Hg (80-100) L 12/11/18 06:24 HCO3 24.9 mmol/L (21-28) 12/11/18 06:24 ABG pH 7.40 (7.35-7.45) 12/11/18 06:24 ABG Total CO2 26.0 mmol/L (22-28) 12/11/18 06:24 ABG O2 Saturation 96.6 % (95-98) 12/11/18 06:24 ABG O2 Content 16.0 ML/dL (15-23) 12/11/18 06:24 ABG Base Excess 0 mmol/L (-2.0-3.0) 12/11/18 06:24 ABG Hemoglobin 12.1 g/dL (11.7-17.4) 12/11/18 06:24 ABG Carboxyhemoglobin 1.8 % (0.5-1.5) H 12/11/18 06:24 POC ABG HHb (Measured) 3.3 % (0.0-5.0) 12/11/18 06:24 ABG Methemoglobin 1.1 % (0.0-3.0) 12/11/18 06:24 ABG O2 Capacity 16.6 mL/dL (16-24) 12/11/18 06:24 Rivas Test Yes 12/11/18 06:24 A-a O2 Difference 102.0 mm/Hg 12/11/18 06:24 Hgb O2 Saturation 93.9 % (95.0-98.0) L 12/11/18 06:24 Vent Mode 3lnc 12/11/18 06:24 FiO2 32.0 % 12/11/18 06:24 Sodium 141 mmol/l (132-148) 12/12/18 05:40 Potassium 3.9 MMOL/L (3.6-5.0) 12/12/18 05:40 Chloride 100 mmol/L (98-107) 12/12/18 05:40 Carbon Dioxide 25 mmol/L (22-30) 12/12/18 05:40 Anion Gap 20 (10-20) 12/12/18 05:40 BUN 24 mg/dl (7-17) H 12/12/18 05:40 Creatinine 1.2 mg/dl (0.7-1.2) 12/12/18 05:40 Est GFR ( Amer) 56 12/12/18 05:40 Est GFR (Non-Af Amer) 46 12/12/18 05:40 POC Glucose (mg/dL) 120 mg/dL (65-110) H 12/12/18 05:56 Random Glucose 110 mg/dL (65-105) H 12/12/18 05:40 Calcium 9.2 mg/dL (8.4-10.2) 12/12/18 05:40 Phosphorus 4.2 mg/dl (2.5-4.5) 12/10/18 13:50 Magnesium 2.1 MG/DL (1.6-2.3) 12/10/18 13:50 Total Bilirubin 0.4 mg/dl (0.2-1.3) 12/10/18 13:50 AST 16 U/L (14-36) 12/10/18 13:50 ALT 14 U/L (9-52) 12/10/18 13:50 Alkaline Phosphatase 93 U/L (38-126) 12/10/18 13:50 Troponin I 0.0440 ng/mL (0.00-0.120) 12/09/18 20:50 NT-Pro-B Natriuret Pep 3510 pg/ml (0-900) H 12/09/18 20:50 Total Protein 8.3 G/DL (6.3-8.2) H 12/10/18 13:50 Albumin 4.3 g/dL (3.5-5.0) 12/10/18 13:50 Globulin 4.0 gm/dL (2.2-3.9) H 12/10/18 13:50 Albumin/Globulin Ratio 1.1 (1.0-2.1) 12/10/18 13:50 Procalcitonin 0.18 NG/ML (0.19-0.49) L 12/10/18 13:50 Ur L.pneumophila Ag Negative (NEGATIVE) 12/11/18 08:50 - Hospital Course Hospital Course: Patient is a 58 yo female with PMHx of HTN, DM2, HLD, COPD, RUE DVT and asthma was brought to ED due to dyspnea that began 3 days ago and progressively aggravated. Patient was admitted for evaluation and management of Dyspnea In the ED Vital signs: unremarkable except for BP 163/91-high and O2 sat 93%. CBC NO leukocytosis, Pro-BNP 3,510-high troponin neg x1. CXR: suggestive of some component of CHF, ?subtle patchy pneumonic consolidation in the lateral RLL. EKG: unremarkable. Patient received Duoneb 3 ml INH x1, Levaquin 500 mg x1, Lasix 40 mg IV x1. and was admitted for further evaluation and treatment In the floor patient was worked up for Pneumona, CHF and COPD. PE was excluded. Cardiology and Pulmonology were consulted. Patient was placed on levofloxacin 750 iv, duonebs, methylprednisolone. and started on Robetussin for her cough and congestion. During her stay, patient DM, HTn Depression were monitored and treated with medication. Patient had a complains for Diarrhea have resolved, last episode 12/10/18. Patient was seen and examined today at bedside. Patient had no complains for today. she is ready to go home. Patient chart were reviewed, Patient is stable to be discharged home . Patient will be discharged on Levaquin 750mg x7days Omnicef 300mg x 7days Medrol dose pack Patient should continue all medication. Diagnostic examination CXR: superimposed pneumonia cannot be excluded, +/- atelactasis Echo: Ej 55-60%, LEFT atrium mod dilated, with mitral regurgitation. Head CT scan No cranial hemorrhage noted, But positive for sinusitis Chest CT: No large PE noted, Right [place] adenopathy, pretracheal sub cm node, nonspecific. Compression fracture deformities of T9 and T12 appear chronic. age indeterminate T11 compression fracture deformity. Discharge Exam - Head Exam Head Exam: ATRAUMATIC, NORMAL INSPECTION, NORMOCEPHALIC - Eye Exam Eye Exam: Normal appearance, PERRL Pupil Exam: PERRL - Respiratory Exam Respiratory Exam: Rhonchi, NORMAL BREATHING PATTERN. absent: Wheezes, Respiratory Distress - Cardiovascular Exam Cardiovascular Exam: REGULAR RHYTHM, +S1, +S2 - GI/Abdominal Exam GI & Abdominal Exam: Normal Bowel Sounds, Unremarkable - Back Exam Back exam: NORMAL INSPECTION - Neurological Exam Neurological exam: Alert, CN II-XII Intact, Normal Gait, Oriented x3, Reflexes Normal - Psychiatric Exam Psychiatric exam: Normal Affect, Normal Mood - Skin Skin Exam: Dry, Intact, Normal Color Discharge Plan - Discharge Medications Prescriptions: Cefdinir [Omnicef] 300 mg PO DAILY #7 cap Levofloxacin [Levaquin] 750 mg PO DAILY #7 tablet Methylprednisolone [Medrol Dose Pack (21 tabs)] 4 mg PO DAILY #21 mg Saccharomyces Boulardi [Florastor] 250 mg PO DAILY #7 cap - Follow Up Plan Condition: FAIR Disposition: DISCHARGED TO HOME CARE Patient education suggested?: Yes Instructions: Pneumonia, Adult (DC), Exacerbation of COPD (DC) Additional Instructions: follow up appt with monday12/18/18 11:00am [facility] VISITING [phone] Referrals: Maurice Up MD [Family Provider] - Varun Mohan MD [Staff Provider] - <Elizabeth Walsh - Last Filed: 12/12/18 18:03> Provider - Provider Date of Admission: 12/09/18 21:59 Attending physician: Clay Hawkins Consults: 12/10/18 11:15 Cardiology Consult Routine Comment: Consulting Provider: Scott Cannon V Consulting Physician: Scott Cannon V Reason for Consult: SOB/Elevated BNP/ r/o CHF 12/10/18 11:17 Pulmonology Consult Routine Comment: Consulting Provider: Thiago Carr Consulting Physician: Thiago Carr Reason for Consult: COPD exacerbation Hospital Course - Lab Results Lab Results: Micro Results 12/09/18 21:00 Blood Blood Culture - Preliminary NO GROWTH AFTER 48 HOURS 12/09/18 20:41 Blood Blood Culture - Preliminary NO GROWTH AFTER 48 HOURS Most Recent Lab Values WBC 10.3 K/uL (4.8-10.8) 12/12/18 05:40 RBC 4.15 Mil/uL (3.80-5.20) 12/12/18 05:40 Hgb 12.3 g/dL (12.0-16.0) 12/12/18 05:40 Hct 37.6 % (34.0-47.0) 12/12/18 05:40 MCV 90.6 fl (81.0-99.0) 12/12/18 05:40 MCH 29.5 pg (27.0-31.0) 12/12/18 05:40 MCHC 32.6 g/dL (33.0-37.0) L 12/12/18 05:40 RDW 16.1 % (11.5-14.5) H 12/12/18 05:40 Plt Count 224 K/uL (130-400) 12/12/18 05:40 MPV 9.2 fl (7.2-11.7) 12/10/18 13:50 Neut % (Auto) 76.5 % (50.0-75.0) H 12/10/18 13:50 Lymph % (Auto) 16.8 % (20.0-40.0) L 12/10/18 13:50 [place] % (Auto) 6.5 % (0.0-10.0) 12/10/18 13:50 Eos % (Auto) 0.0 % (0.0-4.0) 12/10/18 13:50 Baso % (Auto) 0.2 % (0.0-2.0) 12/10/18 13:50 Neut # (Auto) 3.8 K/uL (1.8-7.0) 12/10/18 13:50 Lymph # (Auto) 0.8 K/uL (1.0-4.3) L 12/10/18 13:50 [place] # (Auto) 0.3 K/uL (0.0-0.8) 12/10/18 13:50 Eos # (Auto) 0.0 K/uL (0.0-0.7) 12/10/18 13:50 Baso # (Auto) 0.0 K/uL (0.0-0.2) 12/10/18 13:50 PT 23.8 Seconds (9.8-13.1) H 12/10/18 13:50 INR 2.1 12/10/18 13:50 APTT 36.1 Seconds (25.6-37.1) 12/10/18 13:50 pCO2 40 mm/Hg (35-45) 12/11/18 06:24 pO2 76 mm/Hg (80-100) L 12/11/18 06:24 HCO3 24.9 mmol/L (21-28) 12/11/18 06:24 ABG pH 7.40 (7.35-7.45) 12/11/18 06:24 ABG Total CO2 26.0 mmol/L (22-28) 12/11/18 06:24 ABG O2 Saturation 96.6 % (95-98) 12/11/18 06:24 ABG O2 Content 16.0 ML/dL (15-23) 12/11/18 06:24 ABG Base Excess 0 mmol/L (-2.0-3.0) 12/11/18 06:24 ABG Hemoglobin 12.1 g/dL (11.7-17.4) 12/11/18 06:24 ABG Carboxyhemoglobin 1.8 % (0.5-1.5) H 12/11/18 06:24 POC ABG HHb (Measured) 3.3 % (0.0-5.0) 12/11/18 06:24 ABG Methemoglobin 1.1 % (0.0-3.0) 12/11/18 06:24 ABG O2 Capacity 16.6 mL/dL (16-24) 12/11/18 06:24 Rivas Test Yes 12/11/18 06:24 A-a O2 Difference 102.0 mm/Hg 12/11/18 06:24 Hgb O2 Saturation 93.9 % (95.0-98.0) L 12/11/18 06:24 Vent Mode 3lnc 12/11/18 06:24 FiO2 32.0 % 12/11/18 06:24 Sodium 141 mmol/l (132-148) 12/12/18 05:40 Potassium 3.9 MMOL/L (3.6-5.0) 12/12/18 05:40 Chloride 100 mmol/L (98-107) 12/12/18 05:40 Carbon Dioxide 25 mmol/L (22-30) 12/12/18 05:40 Anion Gap 20 (10-20) 12/12/18 05:40 BUN 24 mg/dl (7-17) H 12/12/18 05:40 Creatinine 1.2 mg/dl (0.7-1.2) 12/12/18 05:40 Est GFR ( Amer) 56 12/12/18 05:40 Est GFR (Non-Af Amer) 46 12/12/18 05:40 POC Glucose (mg/dL) 120 mg/dL (65-110) H 12/12/18 05:56 Random Glucose 110 mg/dL (65-105) H 12/12/18 05:40 Calcium 9.2 mg/dL (8.4-10.2) 12/12/18 05:40 Phosphorus 4.2 mg/dl (2.5-4.5) 12/10/18 13:50 Magnesium 2.1 MG/DL (1.6-2.3) 12/10/18 13:50 Total Bilirubin 0.4 mg/dl (0.2-1.3) 12/10/18 13:50 AST 16 U/L (14-36) 12/10/18 13:50 ALT 14 U/L (9-52) 12/10/18 13:50 Alkaline Phosphatase 93 U/L (38-126) 12/10/18 13:50 Troponin I 0.0440 ng/mL (0.00-0.120) 12/09/18 20:50 NT-Pro-B Natriuret Pep 3510 pg/ml (0-900) H 12/09/18 20:50 Total Protein 8.3 G/DL (6.3-8.2) H 12/10/18 13:50 Albumin 4.3 g/dL (3.5-5.0) 12/10/18 13:50 Globulin 4.0 gm/dL (2.2-3.9) H 12/10/18 13:50 Albumin/Globulin Ratio 1.1 (1.0-2.1) 12/10/18 13:50 Procalcitonin 0.18 NG/ML (0.19-0.49) L 12/10/18 13:50 Ur L.pneumophila Ag Negative (NEGATIVE) 12/11/18 08:50 Attending/Attestation - Attestation I have personally seen and examined this patient.: Yes I have fully participated in the care of the patient.: Yes I have reviewed all pertinent clinical information, including history, physical exam and plan: Yes Notes (Text): Discharge Diagnoses: Healthcare associated Pneumonia Acute Diastolic Dysfunction COPD exacerbation DM type II Hx of DVT on Xarelto received IV Cipro, Zosyn and Vanco in the hospital Pty refused to go to [facility] for IV abx , insistent on going home will d/c home on PO Omnicef and Levaquin Medrol dose keith, cont nebulizer treatments ff up with Dr Mohan ayah cont Xarelto Return to ED if sxs recurs
--- NOTE | 2018-12-12 14:49 | CP.PCM.PN ---
Subjective - Date & Time of Evaluation Date of Evaluation: 12/12/18 - Subjective Subjective: F/U PNA, COPDEx. No SOB, no chest congestion, minimal cough. Objective - Vital Signs/Intake and Output Vital Signs (last 24 hours): Temp Pulse Resp BP Pulse Ox 98.5 F 56 L 18 113/70 96 12/12/18 08:16 12/12/18 08:16 12/12/18 08:16 12/12/18 08:16 12/12/18 08:16 - Labs Labs: 12/12/18 05:40 12/12/18 05:40 PT 23.8 Seconds (9.8-13.1) H 12/10/18 13:50 INR 2.1 12/10/18 13:50 APTT 36.1 Seconds (25.6-37.1) 12/10/18 13:50 - Constitutional Appears: No Acute Distress - Head Exam Head Exam: NORMAL INSPECTION - Eye Exam Eye Exam: PERRL - ENT Exam ENT Exam: Normal Exam - Neck Exam Neck Exam: Normal Inspection - Respiratory Exam Respiratory Exam: Decreased Breath Sounds (at bases) - Cardiovascular Exam Cardiovascular Exam: REGULAR RHYTHM - GI/Abdominal Exam GI & Abdominal Exam: Soft, Normal Bowel Sounds - Extremities Exam Extremities Exam: Tenderness Additional comments: R knee - Back Exam Back Exam: tenderness - Neurological Exam Additional comments: no focal motor/sensory deficit - Psychiatric Exam Psychiatric exam: Normal Mood - Skin Skin Exam: Warm Assessment and Plan (1) PNA (pneumonia) Status: Acute (2) COPD exacerbation Status: Chronic - Assessment and Plan (Free Text) Plan: Agree with discharge, see instruction medication list, Patient will follow out patient with Pulmonary Dr Mohan
--- NOTE | 2018-12-13 12:48 | PQF ---
PROVIDER RESPONSE TEXT: Type of Pneumonia: Unknown REVIEWER QUERY TEXT: Pneumonia Specificity HCAP Pneumonia is documented in the Medical Record. Please specify the type of pneumonia and the caus ative organism (includes probable or suspected) Such as: Type: -- Aspiration pneumonia (please also specify the aspirate) -- Bacterial (please document suspected or probable organism) -- Bronchopneumonia (please document suspected or probable organism) -- Interstitial pneumonia -- Organizing pneumonia / BOOP -- Viral -- Other, please specify The patient's Clinical Indicators include: Presents with SOB, cough, runny nose and congestion. Recent hospitalizations. CXR: No active pulmonary disease. Patchy airspace disease in the right lower lobe may represent subs egmental atelectasis however superimposed pneumonia cannot be excluded. CT Chest: Tree-in-bud like opacities as above may reflect infectious or inflammatory etiologies. Patc hy infiltrate in the posterior left lower lobe consistent with pneumonia. See full report WBC 6.4 L shift, Ur L. pneumophila Ag negative, Strep pneumoniae Ag pending, Sputum CS ordered Rx: Triple IVAB, Solumedrol, Duonebs Query created by: Edwina Valverde on 12/12/2018 11:14 AM Electronically signed by: Thiago Carr MD 12/13/2018 12:45 PM
[2018-12-15 02:29] VITALS: O2SAT 93
== END 2018-12-12 12:26 | disposition home health service (06) | DRG 190 ==
LOC: H.ER 18:58 → H.ERHOLD 21:59 → H.TEL 23:50
PROVIDERS: ADMIT Internal Medicine; ATTEND Internal Medicine
PROC: 3E0F73Z Introduction of Anti-inflammatory into Respiratory Tract, Via Natural or Artificial Opening (ICD-10-PCS; principal; 2018-12-09)
DX: J44.1 Chronic obstructive pulmonary disease with (acute) exacerbation (principal); J18.9 Pneumonia, unspecified organism; I50.31 Acute diastolic (congestive) heart failure; J44.0 Chronic obstructive pulmonary disease with (acute) lower respiratory infection; I11.0 Hypertensive heart disease with heart failure; E11.65 Type 2 diabetes mellitus with hyperglycemia; E78.2 Mixed hyperlipidemia; M06.9 Rheumatoid arthritis, unspecified; G89.29 Other chronic pain; I25.10 Atherosclerotic heart disease of native coronary artery without angina pectoris; E11.51 Type 2 diabetes mellitus with diabetic peripheral angiopathy without gangrene; I34.0 Nonrheumatic mitral (valve) insufficiency; R19.7 Diarrhea, unspecified; K29.50 Unspecified chronic gastritis without bleeding; F41.8 Other specified anxiety disorders; Z86.718 Personal history of other venous thrombosis and embolism; Y95 Nosocomial condition; F32.9 Major depressive disorder, single episode, unspecified; F17.210 Nicotine dependence, cigarettes, uncomplicated; F41.9 Anxiety disorder, unspecified; Z96.651 Presence of right artificial knee joint; Z91.14 Patient's other noncompliance with medication regimen; Z79.01 Long term (current) use of anticoagulants; Z79.84 Long term (current) use of oral hypoglycemic drugs; Z87.81 Personal history of (healed) traumatic fracture